=== PATIENT | female | born 1945 | race African-American/Black ===

== ENCOUNTER 2021-03-22 11:20 | Day surgery (SDC) | payer OTHER, MEDICARE ==
[2021-03-19 16:26] LABS: Absolute Lymphocytes (CBC) 2.3 K/uL (0.7-4.9); Basophils % 0.5 % (0-1.3); Hematocrit 36.9 % (36.0-45.0); Lymphocytes % 29.6 % (15.3-44.8); MPV 8.3 fL (7.6-11.3); RBC Red Blood Cell Count 4.56 M/uL (3.86-4.86)
[2021-03-19 16:35] LABS: Potassium 4.7 mmol/L (3.5-5.1)
[2021-03-19 16:38] LABS: Protime INR 1.01
--- NOTE | 2021-03-19 17:01 | RAD REPORT ---
EXAM DESCRIPTION: Colette De Leon And Tammy (2 Views)03/19/2021 4:27 pm CLINICAL HISTORY: Preop for heart catheterization. Hypertension COMPARISON: None FINDINGS: The lungs appear clear of acute infiltrate. The heart is mildly enlarged. Calcified granu elver right lung IMPRESSION: No acute abnormalities displayed
[2021-03-22] MEDS ORDERED: NA CHLORIDE 0.9% 500 ML ONE (11:26)
[2021-03-22] MEDS ORDERED: HEPA 1000U/500MLS 2,000 UNIT/1,000 ML BAG IV ONE (14:48)
[2021-03-22] MEDS ORDERED: LIDOCAINE 1% 20 ML MDV ONE (14:48)
[2021-03-22] MEDS ORDERED: HEPARIN 5000 UNIT/ML 1 ML VIAL ONE (15:00)
[2021-03-22] MEDS ORDERED: MIDAZOLAM HCL 2 MG/2 ML INJ ONE (15:00)
[2021-03-22] MEDS ORDERED: HEPARIN 10,000 UNIT/10 ML VIAL IV ONE (15:01)
[2021-03-22] MEDS ORDERED: VERAPAMIL HCL 10 MG/4 ML VIAL IV ONE (15:01)
[2021-03-22] MEDS ORDERED: FENTANYL CITR 100 MCG/2 ML ONE (15:01)
[2021-03-22] MEDS ORDERED: ATROPINE SULF 1 MG/10 ML SYR IV ONE (15:01)
[2021-03-22] MEDS ORDERED: HYDRALAZINE HCL 20 MG/ML VIAL ONE (15:55)
[2021-03-22 16:34] LABS: Arterial Blood Carboxyhemoglob 1.3 % (0-1.5); Blood Gas Oxyhemoglobin 77.5 % (94-97); Blood O2 Saturation 79.2 % (92-98.5)
--- NOTE | 2021-03-22 16:40 | OP ---
Date of Procedure: 03/22/2021 Surgeon: JIMENEZ MCCLENDON Procedures Performed: 1.Selective coronary angiogram. 2.Right heart catheterization. Indications: 1.Pulmonary hypertension. 2.Dyspnea on exertion and angina. Access: 1.Right radial artery 6-Jordanian closed with TR band. 2.Right IJ 7-Jordanian closed with manual pressure. Complications: None. Bleeding: Less than 10 mL. Description Of Procedure: After risks, benefits, and alternatives were explained, the patient to the procedure and signed informed consent. The patient was brought into the cardiac catheterization lab oratory, prepped and draped in usual sterile fashion. Then, we accessed the right radial artery usin g pediatric micropuncture kit and placed a 6-Jordanian Slender sheath and then accessed the right IJ usi ng ultrasound guidance and micropuncture kit and placed a 7-Jordanian sheath. Then, we took a balloon t ipped 7-Jordanian [place] catheter through the right IJ into the RA and waveform pressure was recorded and then to the RV, waveform pressure was recorded and then to the PA, waveform pressure and sat were rec orded and obtained, and then to the wedge waveform pressure recorded and then we removed the Carl[place] and then took a 5-Jordanian [place] 4.0 catheter through the radial artery sheath and accessed into the aorti c root over a J-wire, engaged left main and right coronary artery, took standard views and then remov ed the catheter and removed the sheath, placed TR band with good hemostasis and then removed the IJ, and manual pressure was applied for hemostasis. Findings: 1.Left main; large with luminal irregularities. 2.LAD; large vessel with proximal 30% to 40% stenosis, nonobstructive and the rest of the vessel has luminal irregularities. 3.Left circumflex is nondominant, tortuous with luminal irregularities. 4.RCA is large dominant with mid diffuse 30% stenosis with calcifications. Right Heart Catheterization Findings: RA pressure was 8/6 with mean of 6. RV pressure was 41/10 wit h mean of 10. PA pressure was 32/17 with mean of 25, and pulmonary wedge pressure was 12. PA sat is pending. Conclusions: 1.Woqe-ih-fezuwtuy nonobstructive coronary artery disease. 2.Mild pulmonary hypertension. Recommendations: Aggressive medical management. SR/MODL Voice ID: [id number] Report ID: [id number]
[2021-03-22 17:50] VITALS: TEMP 97.4
[2021-03-22 17:52] VITALS: BP 145/64; O2SAT 99
== END 2021-03-22 17:50 | disposition home or self-care (01) ==
LOC: CCL 11:20
PROVIDERS: ATTEND Internal Medicine
DX: I27.20 Pulmonary hypertension, unspecified (principal); I25.10 Atherosclerotic heart disease of native coronary artery without angina pectoris; I10 Essential (primary) hypertension; E78.5 Hyperlipidemia, unspecified; E11.9 Type 2 diabetes mellitus without complications; Z87.891 Personal history of nicotine dependence; Z79.82 Long term (current) use of aspirin; Z79.02 Long term (current) use of antithrombotics/antiplatelets; Z88.0 Allergy status to penicillin; Z88.3 Allergy status to other anti-infective agents; Z91.013 Allergy to seafood; Z20.822 Contact with and (suspected) exposure to COVID-19
CPT/HCPCS: 93005; 85025; 80048; 36415; 85610; 82947 ×2; 85730; 71046; 93456; 82805; U0002; C1893; J0360; J1644 ×2; J7040; J2250; J3010

== ENCOUNTER 2022-11-15 16:10 | Inpatient (IN) | payer OTHER, MEDICARE ==
--- OUTSIDE RECORDS SUMMARY | 2022-11-15 16:17 | XMS REPORT | Continuity of Care Document ---
:1945 Author Organization [facility] t Address [address] [place] [address] Dr. Chiang. [address] [place] [address] Care Team Providers Name Role Phone PCP, UNKNOWN Primary Care Physician Unavailable AARON MIRANDA Attending Clinician Unavailable AARON MIRANDA Attending Clinician Unavailable AARON MIRANDA Attending Clinician Unavailable Aaron Miranda MD Attending Clinician Susy Hernandez Attending Clinician Emeterio Bazan CRNA Attending Clinician [phone] ANUJ PENALOZA Attending Clinician Unavailable MARTHA JONES Attending Clinician Unavailable SANKET KELLY Attending Clinician Unavailable RENEA SINCLAIR Attending Clinician Unavailable TERRI MARSHALL Attending Clinician Unavailable Wing Matos Attending Clinician Unavailable LYN WONG Attending Clinician Unavailable NICOLE HERNÁNDEZ Attending Clinician Unavailable Darryl Jones MD Attending Clinician Unavailable DARRYL JONES Attending Clinician Unavailable Myla Ray MD Attending Clinician [phone] Mayra Colón Attending Clinician Unavailable GINGER SKELTON Attending Clinician Unavailable Mayra Colón Attending Clinician Unavailable Mayra Colón Attending Clinician Unavailable Nitin CLARKE, Aaron Attending Clinician Lima CLAKRE, Ingrid Michelle Attending Clinician [phone], Ods Attending Clinician Unavailable Abelardo Boone MD Attending Clinician AARON MIRANDA Admitting Clinician Unavailable AARON MIRANDA Admitting Clinician Unavailable Tera Wright Admitting Clinician Unavailable DARRYL JONES Admitting Clinician Unavailable Mayra Colón Admitting Clinician Unavailable MAYRA COLÓN Admitting Clinician Unavailable Payers Payer Name Policy Type Policy Number Effective Date Expiration Date [place] MEDICARE A B [id number] 2011 00:00:00 [employer] INDEMNITY NON [id number] 2017 CONTR 00:00:00 [facility] [id number] 2020 HEALTHCARE 00:00:00 MEDICARE PART A \T\ [id number] B - MEDICARE [facility] MEDICARE [id number] SUPPLEMENT PLAN - [facility] INDEMNITY/TRADITION [id number] AL CHOICE - [employer] Problems Condition Condition Condition Status Onset Resolution Last Treating Co mments Source Name Details Category Date Date Treatment Clinician Date 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 00:00: 00 Medicin e Allergies, Adverse Reactions, Alerts Allergy Allergy Status Severity Reaction(s) Onset Inactive Treating Comm ents Source Name Type Date Date Clinician Penicill DA Active AR [facility] Clear 00:00: Carbajal 00 [facility] erythrom DA Active [facility] ycin 4-18 Clear base 00:00: Carbajal 00 [facility] SHRIMP DA Active SV TONGUE [facility] SWELLING 4-18 Clear 00:00: Carbajal 00 [facility] Shrimp Drug Active Anaphylaxis, [facility] Medical [address] [place] [address] SHRIMP Allergy Active High Anaphylaxis [facility] Penicill Drug Active Hives [facility] Allergy 1[facility] Erythrom Drug Active Hives [facility] ycin Allergy 1-18 [facility] 00 Center Penicill Drug Active Hives [facility] ins Allergy 1-18 [facility] 00 Center ERYTHROM Allergy Active High Hives [facility] YCIN 1-18 [facility] 00[facility]: Medical 00 Center PENICILL Allergy Active High Hives [facility] INS 1-18 [facility] 00:[facility]: Medical 00 [place] Erythrom Propensi Active [facility] y[facility] ty to 118 College adverse 00:00: of reaction 00 Medicin s to e drug Penicill Propensi Active [facility] ins ty to 118 College adverse 00:00: of reaction 00 Medicin s to e drug Penicill DA Active [place] HIVES [facility] ins 8- Clear 00:00: Carbajal 00 [facility] erythrom DA Active [place] HIVES [facility] ycin 8-01 Clear base 00:00: Carbajal 00 [facility] SHRIMP DA Active U HIVES 2006- [facility] 0-19 Clear 00:00: Carbajal 00 [facility] Social History Social Habit Start Date Stop Date Quantity Comments Source Exposure to Yes [place] oswald SARS-CoV-2 of Medicine (event) Alcohol intake 2022-11-14 2022-11-14 Ex-drinker [facility] 00:[facility]:00 00:00:00 (finding) [facility] Tobacco use and 2021-01-24 2021-01-[address] [facility] [place] [facility] exposure 00:00:00 00:00:00 [facility] Tobacco Comment 2012-12-18 2012-12-18 QUIT 1974 [facility] 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 Clinician (SIG) Name Name acyclovir 2021-12 Yes 800mg Take [address] [facility] (ZOVIRAX) 2-15 mg by [facility] 400 MG 14:52: mouth 3 Medical tablet 35 (three) Center times daily as needed for Outbreaks. aspirin 81 2021-12 Yes 81mg QD Take [address] MG EC 2-15 by mouth [facility] tablet 14:52: daily. Medical 35 [place] atorvastati 2021-12 Yes 10mg QD Take [address] [facility] n (LIPITOR) 2-15 by mouth Luke s 10 MG 14:52: daily. Medical tablet 35 [place] levothyroxi 2021-12 Yes 50ug Take [address] [facility] ne 2-15 mcg by [facility] (SYNTHROID, 14:52: mouth Medic al LEVOTHROID) 35 Every Center 50 MCG morning on tablet an empty stomach. metoprolol 2021-12 Yes 50mg Q.5D Take [address] tartrate 2-15 by mouth 2 [facility] (LOPRESSOR) 14:52: (two) Medic al 50 MG 35 times Center tablet daily. clopidogreL 2021-12 Yes 75mg QD Take [address] [facility] (PLAVIX) 75 2-15 by mouth Luke s mg tablet 14:52: daily. Medica l 35 [place] insulin 2021-12 Yes type 2 40U QD Inject [address] [facility] degludec 2-15 diabetes Units [facility] (Tresiba 14:52: mellitus subcutaneo Medical FlexTouch 35 usly daily Cent er U-100) 100 . unit/mL (3 mL) InPn cetirizine 2021-12 Yes 10mg QD Take [address] (ZyrTEC) 10 2-15 by mouth Luke s MG tablet 14:52: daily. Medica l 35 [place] amLODIPine 2021-12 Yes 10mg QD Take [address] (NORVASC) 2-15 by mouth [facility] 10 MG 14:52: daily. Medical tablet 35 [place] brimonidine 2021-12 Yes 1[drp] Q.5D [address] [facility] -timoloL 2-15 (two) [facility] (COMBIGAN) 14:52: times Medica l 0.2-0.5 % 35 daily. [place] ophthalmic solution prednisoLON 2021-12 Yes 1[drp] Q.25D [address] [facility] E acetate 2-15 (four) [facility] (PRED 14:52: times Medical FORTE) 1 % 35 daily . [place] ophthalmic suspension spironolact 2021-12 Yes 25mg QD Take [address] [facility] one 2-15 by mouth [facility] (ALDACTONE) 14:52: daily. Medi jose 25 MG 35 Center tablet hydrALAZINE 2021-12 Yes 100mg Q.5D Take [address] (APRESOLINE 2-15 mg by [facility] ) 100 MG 14:52: mouth 2 Medica l tablet 35 (two) Center times daily . gabapentin 2021-12 Yes 300mg Q.[id number] Take [address] [facility] (NEURONTIN) 2-15 [id number] mg by L ukes 300 MG 14:52: 3D mouth 3 Medical capsule 35 (three) Center times daily. acyclovir 2021-12 Yes 800mg Take [address] [facility] (ZOVIRAX) 2-15 mg by [facility] 400 MG 14:52: mouth 3 Medical tablet 35 (three) Center times daily as needed for Outbreaks. aspirin 81 2021-12 Yes 81mg QD Take [address] MG EC 2-15 by mouth [facility] tablet 14:52: daily. Medical 35 [place] atorvastati 2021-12 Yes 10mg QD Take [address] [facility] n (LIPITOR) 2-15 by mouth Luke s 10 MG 14:52: daily. Medical tablet 35 Center levothyroxi 2021-12 Yes 50ug Take [address] [facility] ne 2-15 mcg by [facility] (SYNTHROID, 14:52: mouth Medic al LEVOTHROID) 35 Every Center 50 MCG morning on tablet an empty stomach. metoprolol 2021-12 Yes 50mg Q.5D Take [address] tartrate 2-15 by mouth 2 [facility] (LOPRESSOR) 14:52: (two) Medic al 50 MG 35 times Center tablet daily. clopidogreL 2021-12 Yes 75mg QD Take [address] [facility] (PLAVIX) 75 2-15 by mouth Luke s mg tablet 14:52: daily. Medica l 35 [place] insulin 2021-12 Yes type 2 40U QD Inject [address] [facility] degludec 2-15 diabetes Units [facility] (Tresiba 14:52: mellitus subcutaneo Medical FlexTouch 35 usly daily Cent er U-100) 100 . unit/mL (3 mL) InPn cetirizine 2021-12 Yes 10mg QD Take [address] (ZyrTEC) 10 2-15 by mouth Luke s MG tablet 14:52: daily. Medica l 35 Center amLODIPine 2021-12 Yes 10mg QD Take [address] (NORVASC) 2-15 by mouth [facility] 10 MG 14:52: daily. Medical tablet 35 Center brimonidine 2021-12 Yes 1[drp] Q.5D [address] [facility] -timoloL 2-15 (two) [facility] (COMBIGAN) 14:52: times Medica l 0.2-0.5 % 35 daily. [place] ophthalmic solution prednisoLON 2021-12 Yes 1[drp] Q.25D [address] [facility] E acetate 2-15 (four) [facility] (PRED 14:52: times Medical FORTE) 1 % 35 daily . [place] ophthalmic suspension spironolact 2021-12 Yes 25mg QD Take [address] [facility] one 2-15 by mouth [facility] (ALDACTONE) 14:52: daily. Medi jose 25 MG 35 Center tablet hydrALAZINE 2021-12 Yes 100mg Q.5D Take [address] (APRESOLINE 2-15 mg by [facility] ) 100 MG 14:52: mouth 2 Medica l tablet 35 (two) Center times daily . gabapentin 2021-12 Yes 300mg Q.[id number] Take [address] [facility] (NEURONTIN) 2-15 [id number] mg by L ukes 300 MG 14:52: 3D mouth 3 Medical capsule 35 (three) Center times daily. alendronate 2021-12- No 70mg Take [address] [facility] (FOSAMAX) 2-15 12-15 by mouth [facility] 70 MG 10:32: 00:00 every 7 Medical tablet 15 :00 days Take Center in the morning with a full glass of water, on an empty stomach, and do not take anything else by mouth or lie down for the next 30 min. . alendronate 2021-12 No 70mg Take [address] [facility] (FOSAMAX) 2-15 12-15 by mouth [facility] 70 MG 10:32: 00:00 every 7 Medical tablet 15 :00 days Take Center in the morning with a full glass of water, on an empty stomach, and do not take anything else by mouth or lie down for the next 30 min. . dorzolamide 2021-12 No 1[drp] Q.5D Place [address] [facility] -timoloL 12-09 drop into [facility] (COSOPT) 09:28: 00:00 both eyes Med ical 22.3-6.8 42 :00 2 (two) Center mg/mL times ophthalmic daily. solution brimonidine 2021-12 No 1[drp] Q.[id number] Place [address] [facility] (ALPHAGAN 12-09 [id number] drop into [facility] P) 0.1 % 09:28: 00:00 3D the left Medi jose Drop 42 :00 eye 3 Center (three) times daily. atropine 2021-12 No 1[drp] Q.[id number] Place [address] [facility] (ISOPTO) 1 12-09 [id number] drop into [facility] % 09:28: 00:00 3D the left Medical ophthalmic 42 :00 eye 3 Center solution (three) times daily. diflupredna 2021-12 No 1[drp] Q.[id number] Place [address] [facility] te 12-09 [id number] drop into [facility] (DurezoL) 09:28: 00:00 3D the left Med ical 0.05 % Drop 42 :00 eye 3 Center (three) times daily. moxifloxaci 2021-12 No 1[drp] Q.[id number] Place [address] [facility] n (VIGAMOX) 12-09 [id number] drop into [facility] 0.5 % 09:28: 00:00 3D the left Medical ophthalmic 42 :00 eye 3 Center solution (three) times daily. dorzolamide 2021-12 No 1[drp] Q.5D Place [address] [facility] -timoloL 12-09 drop into [facility] (COSOPT) 09:28: 00:00 both eyes Med ical 22.3-6.8 42 :00 2 (two) Center mg/mL times ophthalmic daily. solution brimonidine 2021-12 No 1[drp] Q.[id number] Place [address] [facility] (ALPHAGAN 12-09 [id number] drop into [facility] P) 0.1 % 09:28: 00:00 3D the left Medi jose Drop 42 :00 eye 3 Center (three) times daily. atropine 2021-12 No 1[drp] Q.[id number] Place [address] [facility] (ISOPTO) 1 12-09 [id number] drop into [facility] % 09:28: 00:00 3D the left Medical ophthalmic 42 :00 eye 3 Center solution (three) times daily. diflupredna 2021-12 No 1[drp] Q.[id number] Place [address] [facility] te 12-09 [id number] drop into [facility] (DurezoL) 09:28: 00:00 3D the left Med ical 0.05 % Drop 42 :00 eye 3 Center (three) times daily. moxifloxaci 2021-12 No 1[drp] Q.[id number] Place [address] [facility] n (VIGAMOX) 12-09 [id number] drop into [facility] 0.5 % 09:28: 00:00 3D the left Medical ophthalmic 42 :00 eye 3 Center solution (three) times daily. dorzolamide 2021-12 No 1[drp] Q.5D Place [address] [facility] -timoloL 12-09 drop into [facility] (COSOPT) 09:28: 00:00 both eyes Med ical 22.3-6.8 42 :00 2 (two) Center mg/mL times ophthalmic daily. solution brimonidine 2021-12 No 1[drp] Q.[id number] Place [address] [facility] (ALPHAGAN 12-09 [id number] drop into [facility] P) 0.1 % 09:28: 00:00 3D the left Medi jose Drop 42 :00 eye 3 Center (three) times daily. atropine 2021-12 No 1[drp] Q.[id number] Place [address] [facility] (ISOPTO) 1 12-09 [id number] drop into [facility] % 09:28: 00:00 3D the left Medical ophthalmic 42 :00 eye 3 Center solution (three) times daily. diflupredna 2021-12 No 1[drp] Q.[id number] Place [address] [facility] te 12-09 [id number] drop into [facility] (DurezoL) 09:28: 00:00 3D the left Med ical 0.05 % Drop 42 :00 eye 3 Center (three) times daily. moxifloxaci 2021-12 No 1[drp] Q.[id number] Place [address] [facility] n (VIGAMOX) 12-09 [id number] drop into [facility] 0.5 % 09:28: 00:00 3D the left Medical ophthalmic 42 :00 eye 3 Center solution (three) times daily. dorzolamide 2021-12 No 1[drp] Q.5D Place [address] [facility] -timoloL 12-09 drop into [facility] (COSOPT) 09:28: 00:00 both eyes Med ical 22.3-6.8 42 :00 2 (two) Center mg/mL times ophthalmic daily. solution brimonidine 2021-12 No 1[drp] Q.[id number] Place [address] [facility] (ALPHAGAN 12-09 [id number] drop into [facility] P) 0.1 % 09:28: 00:00 3D the left Medi jose Drop 42 :00 eye 3 Center (three) times daily. atropine 2021-12 No 1[drp] Q.[id number] Place [address] [facility] (ISOPTO) 1 12-09 [id number] drop into [facility] % 09:28: 00:00 3D the left Medical ophthalmic 42 :00 eye 3 Center solution (three) times daily. diflupredna 2021-12 No 1[drp] Q.[id number] Place [address] [facility] te 12-09 [id number] drop into [facility] (DurezoL) 09:28: 00:00 3D the left Med ical 0.05 % Drop 42 :00 eye 3 Center (three) times daily. moxifloxaci 2021-12 No 1[drp] Q.[id number] Place [address] [facility] n (VIGAMOX) 12-09 [id number] drop into [facility] 0.5 % 09:28: 00:00 3D the left Medical ophthalmic 42 :00 eye 3 Center solution (three) times daily. dorzolamide 2021-12 No 1[drp] Q.5D Place [address] [facility] -timoloL 12-09 drop into [facility] (COSOPT) 09:28: 00:00 both eyes Med ical 22.3-6.8 42 :00 2 (two) Center mg/mL times ophthalmic daily. solution brimonidine 2021-12 No 1[drp] Q.[id number] Place [address] [facility] (ALPHAGAN 12-09 [id number] drop into [facility] P) 0.1 % 09:28: 00:00 3D the left Medi jose Drop 42 :00 eye 3 Center (three) times daily. atropine 2021-12 No 1[drp] Q.[id number] Place [address] [facility] (ISOPTO) 12-09 [id number] drop into [facility] % 09:28: 00:00 3D the left Medical ophthalmic 42 :00 eye 3 Center solution (three) times daily. diflupredna 2021-12 No 1[drp] Q.[id number] Place [address] [facility] te 12-09 [id number] drop into [facility] (DurezoL) 09:28: 00:00 3D the left Med ical 0.05 % Drop 42 :00 eye 3 Center (three) times daily. moxifloxaci 2021-12 No 1[drp] Q.[id number] Place [address] [facility] n (VIGAMOX) 12-09 [id number] drop into [facility] 0.5 % 09:28: 00:00 3D the left Medical ophthalmic 42 :00 eye 3 Center solution (three) times daily. alendronate 2021-12 Yes 70mg Take [address] [facility] (FOSAMAX) 12-09 by mouth [facility] 70 MG 09:23: every 7 Medical tablet 37 days Take Center in the morning with a full glass of water, on an empty stomach, and do not take anything else by mouth or lie down for the next 30 min. . gabapentin 2021-12 Yes 300mg Q.[id number] Take [address] [facility] (NEURONTIN) 1-09 [id number] mg by L ukes 300 MG 09:23: 3D mouth 3 Medical capsule 37 (three) Center times daily. alendronate 2021-12 Yes 70mg Take [address] [facility] (FOSAMAX) 1-09 by mouth [facility] 70 MG 09:23: every 7 Medical tablet 37 days Take Center in the morning with a full glass of water, on an empty stomach, and do not take anything else by mouth or lie down for the next 30 min. . gabapentin 2021-12 Yes 300mg Q.[id number] Take [address] [facility] (NEURONTIN) 1-09 [id number] mg by L ukes 300 MG 09:23: 3D mouth 3 Medical capsule 37 (three) Center times daily. alendronate 2021-12 Yes 70mg Take [address] [facility] (FOSAMAX) 1-09 by mouth [facility] 70 MG 09:23: every 7 Medical tablet 37 days Take Center in the morning with a full glass of water, on an empty stomach, and do not take anything else by mouth or lie down for the next 30 min. . gabapentin 2021-12 Yes 300mg Q.[id number] Take [address] [facility] (NEURONTIN) 1-09 [id number] mg by L ukes 300 MG 09:23: 3D mouth 3 Medical capsule 37 (three) Center times daily. acyclovir 2021-12 Yes 800mg Take [address] (ZOVIRAX) 1-09 mg by [facility] 400 MG 09:22: mouth 3 Medical tablet 35 (three) Center times daily as needed for Outbreaks. aspirin 81 2021-12 Yes 81mg QD Take [address] MG EC - by mouth [facility] tablet 09:22: daily. Medical 35 Center atorvastati 2021-12 Yes 10mg QD Take [address] [facility] (LIPITOR) - by mouth Luke s 10 MG 09:22: daily. Medical tablet 35 Center levothyroxi 2021-12 Yes 50ug Take [address] [facility] ne 1-09 mcg by [facility] (SYNTHROID, 09:22: mouth Medic al LEVOTHROID) 35 Every Center 50 MCG morning on tablet an empty stomach. metoprolol 2021-12 Yes 50mg Q.5D Take [address] tartrate 12-09 by mouth 2 [facility] (LOPRESSOR) 09:22: (two) Medic al 50 MG 35 times Center tablet daily. clopidogreL 2021-12 Yes 75mg QD Take [address] [facility] (PLAVIX) 75 12-09 by mouth Luke s mg tablet 09:22: daily. Medica l 35 Center insulin 2021-12 Yes type 2 40U QD Inject [address] [facility] [address] degludec 12-09 diabetes Units [facility] (Tresiba 09:22: mellitus subcutaneo Medical FlexTouch 35 usly daily Cent er U-100) 100 . unit/mL (3 mL) InPn cetirizine 2021-12 Yes 10mg QD Take [address] (ZyrTEC) 10 12-09 by mouth Luke s MG tablet 09:22: daily. Medica l 35 Center amLODIPine 2021-12 Yes 10mg QD Take [address] (NORVASC) 12-09 by mouth [facility] 10 MG 09:22: daily. Medical tablet 35 Center brimonidine 2021-12 Yes 1[drp] Q.5D [address] [facility] [address] -timoloL 12-09 (two) [facility] (COMBIGAN) 09:22: times Medica l 0.2-0.5 % 35 daily. [place] ophthalmic solution prednisoLON 2021-12 Yes 1[drp] Q.25D [address] [facility] E acetate 12-09 (four) [facility] (PRED 09:22: times Medical FORTE) 1 % 35 daily . [place] ophthalmic suspension spironolact 2021-12 Yes 25mg QD Take [address] [facility] one 12-09 by mouth [facility] (ALDACTONE) 09:22: daily. Medi jose 25 MG 35 Center tablet hydrALAZINE 2021-12 Yes 100mg Q.5D Take [address] (APRESOLINE 1-09 mg by [facility] ) 100 MG 09:22: mouth 2 Medica l tablet 35 (two) Center times daily . acyclovir 2021-12 Yes 800mg Take [address] [address] (ZOVIRAX) 1-09 mg by [facility] 400 MG 09:22: mouth 3 Medical tablet 35 (three) Center times daily as needed for Outbreaks. aspirin 81 2021-12 Yes 81mg QD Take [address] MG EC 12-09 by mouth [facility] tablet 09:22: daily. Medical 35 [place] atorvastati 2021-12 Yes 10mg QD Take [address] [facility] n (LIPITOR) 12-09 by mouth Luke s 10 MG 09:22: daily. Medical tablet 35 [place] levothyroxi 2021-12 Yes 50ug Take [address] ne - mcg by [facility] (SYNTHROID, 09:22: mouth Medic al LEVOTHROID) 35 Every Center 50 MCG morning on tablet an empty stomach. metoprolol 2021-12 Yes 50mg Q.5D Take [address] tartrate - by mouth 2 [facility] (LOPRESSOR) 09:22: (two) Medic al 50 MG 35 times Center tablet daily. clopidogreL 2021-12 Yes 75mg QD Take [address] [facility] (PLAVIX) 75 12-09 by mouth Luke s mg tablet 09:22: daily. Medica l 35 [place] insulin 2021-12 Yes type 2 40U QD Inject [address] degludec 12-09 diabetes Units [facility] (Tresiba 09:22: mellitus subcutaneo Medical FlexTouch 35 usly daily Cent er U-100) 100 . unit/mL (3 mL) In cetirizine 2021-12 Yes 10mg QD Take [address] (ZyrTEC) 10 12-09 by mouth Luke s MG tablet 09:22: daily. Medica l 35 [place] amLODIPine 2021-12 Yes 10mg QD Take [address] (NORVASC) 12-09 by mouth [facility] 10 MG 09:22: daily. Medical tablet 35 [place] brimonidine 2021-12 Yes 1[drp] Q.5D [address] [facility] [address] -timoloL - (two) [facility] (COMBIGAN) 09:22: times Medica l 0.2-0.5 % 35 daily. [place] ophthalmic solution prednisoLON 2021-12 Yes 1[drp] Q.25D [address] [facility] E acetate - (four) [facility] (PRED 09:22: times Medical FORTE) 1 % 35 daily . [place] ophthalmic suspension spironolact 2021-12 Yes 25mg QD Take [address] [facility] one - by mouth [facility] (ALDACTONE) 09:22: daily. Medi jose 25 MG 35 Center tablet hydrALAZINE 2021-12 Yes 100mg Q.5D Take [address] (APRESOLINE 1-09 mg by [facility] ) 100 MG 09:22: mouth 2 Medica l tablet 35 (two) Center times daily . acyclovir 2021-12 Yes 800mg Take [address] (ZOVIRAX) 1-09 mg by [facility] 400 MG 09:22: mouth 3 Medical tablet 35 (three) Center times daily as needed for Outbreaks. aspirin 81 2021-12 Yes 81mg QD Take [address] MG EC 12-09 by mouth [facility] tablet 09:22: daily. Medical 35 Center atorvastati 2021-12 Yes 10mg QD Take [address] [facility] (LIPITOR) 12-09 by mouth Luke s 10 MG 09:22: daily. Medical tablet 35 [place] levothyroxi 2021-12 Yes 50ug Take [address] ne - mcg by [facility] (SYNTHROID, 09:22: mouth Medic al LEVOTHROID) 35 Every Center 50 MCG morning on tablet an empty stomach. metoprolol 2021-12 Yes 50mg Q.5D Take [address] tartrate -09 by mouth 2 [facility] (LOPRESSOR) 09:22: (two) Medic al 50 MG 35 times Center tablet daily. clopidogreL 2021-12 Yes 75mg QD Take [address] [facility] (PLAVIX) 75 12-09 by mouth Luke s mg tablet 09:22: daily. Medica l 35 Center insulin 2021-12 Yes type 2 40U QD Inject [address] degludec 12-09 diabetes Units [facility] (Tresiba 09:22: mellitus subcutaneo Medical FlexTouch 35 usly daily Cent er U-100) 100 . unit/mL (3 mL) InPn cetirizine 2021-12 Yes 10mg QD Take [address] (ZyrTEC) 10 - by mouth Luke s MG tablet 09:22: daily. Medica l 35 Center amLODIPine 2021-12 Yes 10mg QD Take [address] (NORVASC) -09 by mouth [facility] 10 MG 09:22: daily. Medical tablet 35 Center brimonidine 2021-12 Yes 1[drp] Q.5D [address] [facility] [address] -timoloL 12-09 (two) [facility] (COMBIGAN) 09:22: times Medica l 0.2-0.5 % 35 daily. [place] ophthalmic solution prednisoLON 2021-12 Yes 1[drp] Q.25D [address] [facility] E acetate 12-09 (four) [facility] (PRED 09:22: times Medical FORTE) 1 % 35 daily . [place] ophthalmic suspension spironolact 2021-12 Yes 25mg QD Take [address] [facility] one 12-09 by mouth [facility] (ALDACTONE) 09:22: daily. Medi jose 25 MG 35 Center tablet hydrALAZINE 2021-12 Yes 100mg Q.5D Take [address] (APRESOLINE - mg by [facility] ) 100 MG 09:22: mouth 2 Medica l tablet 35 (two) Center times daily . losartan 2021-12- No 100mg QD Take [address] [facility] (COZAAR) 12-09-09 mg by [facility] 100 MG 09:20: 00:00 mouth Medical tablet 00 :00 daily. [place] losartan 2021-12- No 100mg QD Take [address] [facility] (COZAAR) 12-09- mg by [facility] 100 MG 09:20: 00:00 mouth Medical tablet 00 :00 daily. [place] losartan 2021-12- No 100mg QD Take [address] [facility] (COZAAR) - 11-09 mg by [facility] 100 MG 09:20: 00:00 mouth Medical tablet 00 :00 daily. [place] losartan 2021-12- No 100mg QD Take [address] (COZAAR) 12-09-09 mg by [facility] 100 MG 09:20: 00:00 mouth Medical tablet 00 :00 daily. [place] losartan 2021-12- No 100mg QD Take [address] [facility] [address] (COZAAR) 12-09 11-09 mg by [facility] 100 MG 09:20: 00:00 mouth Medical tablet 00 :00 daily. [place] folic 2021-12- No 1{tbl} QD Take [address] [facility] acid/multiv 12-09 tablet by [place] [facility] it-min/lute 09:19: 00:00 mouth Medi jose in (CENTRUM 48 :00 daily. [place] SILVER ORAL) folic 2021-12- No 1{tbl} QD Take [address] [facility] [address] acid/multiv 12-09 tablet by [place] [facility] it-min/lute 09:19: 00:00 mouth Medi jose in (CENTRUM 48 :00 daily. [place] SILVER ORAL) folic 2021-12 No 1{tbl} QD Take [address] [facility] [address] acid/multiv 12-09 tablet by [place] [facility] it-min/lute 09:19: 00:00 mouth Medi jose in (CENTRUM 48 :00 daily. [facility] ORAL) folic 2021-12 No 1{tbl} QD Take [address] acid/multiv 12-09 tablet by [place] [facility] it-min/lute 09:19: 00:00 mouth Medi jose in (CENTRUM 48 :00 daily. [place] SILVER ORAL) folic 2021-12 No 1{tbl} QD Take [address] [address] acid/multiv 12-09 tablet by [place] [facility] it-min/lute 09:19: 00:00 mouth Medi jose in (CENTRUM 48 :00 daily. [facility] ORAL) calcium 2021-12 No 1{tbl} QD Take 1 [facility] carbonate-v 12-09 tablet by [place] [facility] itamin D3 09:19: 00:00 mouth Medica l (CALTRATE-D 13 :00 daily. Center ) 600 mg(1,500mg) -400 unit Tab calcium 2021-12- No 1{tbl} QD Take 1 [facility] carbonate-v 12-09 tablet by [place] [facility] itamin D3 09:19: 00:00 mouth Medica l (CALTRATE-D 13 :00 daily. Center ) 600 mg(1,500mg) -400 unit Tab calcium 2021-12- No 1{tbl} QD Take 1 [facility] carbonate-v 12-09 tablet by [place] [facility] itamin D3 09:19: 00:00 mouth Medica l (CALTRATE-D 13 :00 daily. Center ) 600 mg(1,500mg) -400 unit Tab calcium 2021-12- No 1{tbl} QD Take [facility] 12-09 tablet by [place] kes itamin D3 09:19: 00:00 mouth Medica l (CALTRATE-D 13 :00 daily. Center ) 600 mg(1,500mg) -400 unit Tab calcium 2021-12- No 1{tbl} QD Take 1 [facility] 12-09 tablet by [place] hebert itamin D3 09:19: 00:00 mouth Medica l (CALTRATE-D 13 :00 daily. Center ) 600 mg(1,500mg) -400 unit Tab acyclovir Yes 800mg Take [address] [facility] (ZOVIRAX) 2-22 mg by [facility] 400 MG 08:58: mouth 3 Medical tablet 18 (three) Center times daily as needed for Outbreaks. aspirin 81 Yes 81mg QD Take [address] MG EC 2-22 by mouth [facility] tablet 08:58: daily. Medical 18 [place] atorvastati Yes 10mg QD Take [address] [facility] n (LIPITOR) 2-22 by mouth [facility] 10 MG 08:58: daily. Medical tablet 18 [place] folic Yes 1{tbl} QD Take [address] [facility] acid/multiv 2-22 tablet by Derek es it-min/lute 08:58: mouth Medic al in (CENTRUM 18 daily. [place] SILVER ORAL) levothyroxi Yes 50ug Take [address] [facility] ne 2-22 mcg by [facility] (SYNTHROID, 08:58: mouth Medic al LEVOTHROID) 18 Every Center 50 MCG morning on tablet an empty stomach. losartan Yes 100mg QD Take [address] [facility] (COZAAR) 2-22 mg by [facility] 100 MG 08:58: mouth Medical tablet 18 daily. [place] metoprolol Yes 50mg Q.5D Take [address] tartrate 2-22 by mouth 2 [facility] (LOPRESSOR) 08:58: (two) Medic al 50 MG 18 times Center tablet daily. clopidogreL Yes 75mg QD Take [address] [facility] (PLAVIX) 75 2-22 by mouth [facility] mg tablet 08:58: daily. Medica l 18 [place] insulin Yes type 2 40U QD Inject [address] [facility] degludec 2-22 diabetes Units [facility] (Tresiba 08:58: mellitus subcutaneo Medical FlexTouch 18 usly daily Cent er U-100) 100 . unit/mL (3 mL) InPn calcium Yes 1{tbl} QD Take [address] [facility] carbonate-v 2-22 tablet by Derek es itamin D3 08:58: mouth Medical (CALTRATE-D 18 daily. Center ) 600 mg(1,500mg) -400 unit Tab cetirizine Yes 10mg QD Take [address] (ZyrTEC) 10 2-22 by mouth [facility] MG tablet 08:58: daily. Medica l 18 Center amLODIPine Yes 10mg QD Take [address] (NORVASC) 2-22 by mouth [facility] 10 MG 08:58: daily. Medical tablet 18 Center dorzolamide Yes 1[drp] Q.5D Place [address] [facility] -timoloL 2-22 drop into [facility] (COSOPT) 08:58: both eyes Medi jose 22.3-6.8 18 2 (two) Center mg/mL times ophthalmic daily. solution brimonidine Yes 1[drp] Q.[id number] Place [address] [facility] (ALPHAGAN 2-22 [id number] drop into [facility] P) 0.1 % 08:58: 3D the left Medic al Drop 18 eye 3 Center (three) times daily. atropine Yes 1[drp] Q.[id number] Place [address] [facility] (ISOPTO) 1 2- [id number] drop into [facility] % 08:58: 3D the left Medical ophthalmic 18 eye 3 Center solution (three) times daily. diflupredna Yes 1[drp] Q.[id number] Place [address] [facility] te 2-22 [id number] drop into [facility] (DurezoL) 08:58: 3D the left Medi jose 0.05 % Drop 18 eye 3 Center (three) times daily. moxifloxaci Yes 1[drp] Q.[id number] Place [address] [facility] (VIGAMOX) 2-22 [id number] drop into [facility] 0.5 % 08:58: 3D the left Medical ophthalmic 18 eye 3 Center solution (three) times daily. acyclovir Yes 800mg Take [address] [facility] (ZOVIRAX) 2-22 mg by [facility] 400 MG 08:58: mouth 3 Medical tablet 18 (three) Center times daily as needed for Outbreaks. aspirin 81 Yes 81mg QD Take [address] MG EC 2-22 by mouth [facility] tablet 08:58: daily. Medical 18 Center atorvastati Yes 10mg QD Take [address] [facility] (LIPITOR) 2-22 by mouth [facility] 10 MG 08:58: daily. Medical tablet 18 [place] folic Yes 1{tbl} QD Take [address] [facility] acid/multiv 2-22 tablet by Derek es it-min/lute 08:58: mouth Medic al in (CENTRUM 18 daily. [place] SILVER ORAL) levothyroxi Yes 50ug Take [address] [facility] ne 2-22 mcg by [facility] (SYNTHROID, 08:58: mouth Medic al LEVOTHROID) 18 Every Center 50 MCG morning on tablet an empty stomach. losartan Yes 100mg QD Take [address] [facility] (COZAAR) 2-22 mg by [facility] 100 MG 08:58: mouth Medical tablet 18 daily. [place] metoprolol Yes 50mg Q.5D Take [address] tartrate 2-22 by mouth 2 [facility] (LOPRESSOR) 08:58: (two) Medic al 50 MG 18 times Center tablet daily. clopidogreL Yes 75mg QD Take [address] [facility] (PLAVIX) 75 2-22 by mouth [facility] mg tablet 08:58: daily. Medica l 18 [place] insulin Yes type 2 40U QD Inject [address] [facility] degludec 2-22 diabetes Units [facility] (Tresiba 08:58: mellitus subcutaneo Medical FlexTouch 18 usly daily Cent er U-100) 100 . unit/mL (3 mL) InPn calcium Yes 1{tbl} QD Take [address] [facility] carbonate-v 2-22 tablet by Derek es itamin D3 08:58: mouth Medical (CALTRATE-D 18 daily. [place] ) 600 mg(1,500mg) -400 unit Tab cetirizine Yes 10mg QD Take [address] (ZyrTEC) 10 2-22 by mouth [facility] MG tablet 08:58: daily. Medica l 18 [place] amLODIPine Yes 10mg QD Take [address] (NORVASC) 2-22 by mouth [facility] 10 MG 08:58: daily. Medical tablet 18 Center dorzolamide Yes 1[drp] Q.5D Place [address] -timoloL 2-22 drop into [facility] (COSOPT) 08:58: both eyes Medi jose 22.3-6.8 18 2 (two) Center mg/mL times ophthalmic daily. solution brimonidine Yes 1[drp] Q.[id number] Place [address] [facility] (ALPHAGAN 2- [id number] drop into [facility] P) 0.1 % 08:58: 3D the left Medic al Drop 18 eye 3 Center (three) times daily. atropine Yes 1[drp] Q.[id number] Place [address] [facility] (ISOPTO) 1 2- [id number] drop into [facility] % 08:58: 3D the left Medical ophthalmic 18 eye 3 Center solution (three) times daily. diflupredna Yes 1[drp] Q.[id number] Place [address] [facility] te 2- [id number] drop into [facility] (DurezoL) 08:58: 3D the left Medi jose 0.05 % Drop 18 eye 3 Center (three) times daily. moxifloxaci Yes 1[drp] Q.[id number] Place [address] [facility] n (VIGAMOX) - [id number] drop into [facility] 0.5 % 08:58: 3D the left Medical ophthalmic 18 eye 3 Center solution (three) times daily. spironolact 2021- No 25mg QD Take [address] [facility] one 2-22 01-22 by mouth [facility] (ALDACTONE) 06:44: 00:00 daily. Med ical 25 MG 34 :00 Center tablet spironolact 0 2021- No 25mg QD Take [address] [facility] one 2-22 -22 by mouth [facility] (ALDACTONE) 06:44: 00:00 daily. Med ical 25 MG 34 :00 Center tablet spironolact 2021- No 25mg QD Take [address] [facility] one 2-22 01-22 by mouth [facility] (ALDACTONE) 06:44: 00:00 daily. Med ical 25 MG 34 :00 Center tablet spironolact 2021- No 25mg QD Take [address] [facility] one -22 01- by mouth [facility] (ALDACTONE) 06:44: 00:00 daily. Med ical 25 MG 34 :00 Center tablet spironolact 2021- No 25mg QD Take [address] [facility] one -22 01-22 by mouth [facility] (ALDACTONE) 06:44: 00:00 daily. Med ical 25 MG 34 :00 Center tablet spironolact 2021- No 25mg QD Take [address] [facility] one -22 01- by mouth [facility] (ALDACTONE) 06:44: 00:00 daily. Med ical 25 MG 34 :00 Center tablet spironolact 2021- No 25mg QD Take [address] [facility] one -22 01- by mouth [facility] (ALDACTONE) 06:44: 00:00 daily. Med ical 25 MG 34 :00 Center tablet acyclovir 2020-0 Yes TAKE 1 TAB [facility] (ZOVIRAX) 08-08 BY MOUTH 5 [facility] 400 MG 00:00: TIMES of tablet 00 DAILY FOR Medicin 20 DAYS. e Nebivolol 2020-0 Yes Take by [facility] HCl 08-02 mouth. [place] (BYSTOLIC) 16:01: of 10 MG TABS 03 Medicin e Azilsartan 2020-0 Yes Take by [facility] Medoxomil - mouth. [place] (EDARBI) 80 16:01: of MG TABS 03 Medicin e metformin 2020-0 Yes 1000mg Take 1,000 [facility] (GLUCOPHAGE 9-02 mg by [place] ) 1000 MG 16:01: mouth 2 of tablet 03 times Medicin daily e (with meals). Gabapentin, 2020-0 Yes Take by [place] [facility], 300 MG - mouth. [facility] TABS 16:01: of 03 Medicin e Pitavastati 2020-0 Yes Take by [place] [facility] Calcium - mouth. [place] (LIVALO) 4 16:01: of MG TABS 03 Medicin e cetirizine 2020-0 Yes 10mg Take 10 mg [facility] (ZYRTEC) 10 -02 by mouth [facility] MG chewable 16:01: daily. of tablet 03 Medicin e Calcium 2020-0 Yes Take by [facility] Carbonate-V 08-02 mouth. [place] [facility] it D-Min 16:01: of [id number] 03 Medicin MG-UNIT e CHEW Multiple 2020-0 Yes Take by [facility] Vitamins-Mi 08-02 mouth. [facility] o[facility] nerals 16:01: of (CENTRUM 03 Medicin ULTRA e WOMENS OR) hydrochloro 2020-0 Yes 12.5mg Take 12.5 [facility] thiazide 9-02 mg by [place] (MICROZIDE) 16:01: mouth of 12.5 MG 03 daily. Medicin capsule e celecoxib 2020-0 Yes 200mg Take 200 [place] (CELEBREX) 9-02 mg by [place] 200 MG 16:01: mouth two of capsule 03 times Medicin daily. e levothyroxi 2020-0 Yes 25ug Take 25 [place] ne - mcg by [place] (SYNTHROID) 16:01: mouth of 25 MCG 03 daily. Medicin tablet e SPIRONOLACT 2020-0 Yes Take by [place] ONE OR 08-02 mouth. [place] 16:01: of 03 Medicin e METOPROLOL 2020-0 Yes Take by [facility] TARTRATE OR 08-02 mouth. Colle e 16:01: of 03 Medicin e Clopidogrel 2020-0 Yes Take by [place] Bisulfate 08-02 mouth. [place] (PLAVIX OR) 16:01: of 03 Medicin e LOVASTATIN 2020-0 Yes Take by [facility] OR 08-02 mouth. [place] 16:01: of 03 Medicin e Insulin 2020-0 Yes Inject [facility] Degludec 08-02 into [facility] (TRESIBA 16:01: skin. of [place]) 03 Medicin e Aflibercept 2020-0 Yes [id number] 2mg 2 mg, [facility] (EYLEA) 2 8-31 Intravitre [facility] MG/0.05ML 17:18: al, of injection 2 29 Starting Medi ida mg Mon e 07/31/20 at 1218, Until Discontinu ed Aflibercept 2020-0 Yes [id number] 2mg 2 mg, [facility] (EYLEA) 2 8-31 Intravitre [facility] MG/0.05ML 17:18: al, of injection 2 22 Starting Medi ida mg Mon e 07/31/20 at 1218, Until Discontinu ed Aflibercept 2020-0 Yes [id number] 2mg 2 mg, [facility] (EYLEA) 2 7-06 Intravitre [facility] MG/0.05ML 16:00: al, of injection 2 24 Starting Medi ida mg Fri06/05/20 e at 1100, Until Discontinu ed Aflibercept 2020-0 Yes [id number] 2mg 2 mg, [facility] (EYLEA) 2 7-06 Intravitre [facility] MG/0.05ML 16:00: al, of injection 2 15 Starting Medi ida mg Fri06/05/20 e at 1100, Until Discontinu ed acyclovir 2020-0 Yes TAKE 1 TAB [facility] (ZOVIRAX) 6-22 BY MOUTH 5 [facility] 400 MG 00:00: TIMES of tablet 00 DAILY FOR Medicin 20 DAYS. e acyclovir 2020-0 Yes TAKE 1 TAB [facility] (ZOVIRAX) 6-22 BY MOUTH 5 [facility] 400 MG 00:00: TIMES of tablet 00 DAILY FOR Medicin 20 DAYS. e acyclovir 2020-0 Yes TAKE 1 TAB [facility] (ZOVIRAX) 6-22 BY MOUTH 5 [facility] 400 MG 00:00: TIMES of tablet 00 DAILY FOR Medicin 20 DAYS. e Aflibercept 2020-0 Yes [id number] 2mg 2 mg, [facility] (EYLEA) 2 5-15 Intravitre [facility] MG/0.05ML 17:43: al, of injection 2 45 Starting Medi ida mg Fri e 04/14/20 at 1243, Until Discontinu ed Aflibercept 2020-0 Yes [id number] 2mg 2 mg, [facility] (EYLEA) 2 5-15 Intravitre [facility] e[facility] MG/0.05ML 17:43: al, of injection 2 25 Starting Medi ida mg Fri e 04/14/20 at 1243, Until Discontinu ed ofloxacin 2020-0 Yes 1[drp] Apply 1 [facility] (OCUFLOX) 5-06 Drop to [facility] 0.3 % 00:00: eye 3 of Solution 00 times Medicin daily. e Start the day before surgery ofloxacin 2020-0 Yes 1[drp] Apply 1 [facility] (OCUFLOX) 5-06 Drop to [facility] 0.3 % 00:00: eye 3 of Solution 00 times Medicin daily. e Start the day before surgery ofloxacin 2020-0 Yes 1[drp] Apply 1 [facility] (OCUFLOX) 5-06 Drop to [facility] 0.3 % 00:00: eye 3 of Solution 00 times Medicin daily. e Start the day before surgery ofloxacin 2020-0 Yes 1[drp] Apply 1 [facility] (OCUFLOX) 5-06 Drop to [place] 0.3 % 00:00: eye 3 of Solution 00 times Medicin daily. e Start the day before surgery ofloxacin 2020-0 Yes 1[drp] Apply 1 [facility] (OCUFLOX) 5-06 Drop to [facility] 0.3 % 00:00: eye 3 of Solution 00 times Medicin daily. e Start the day before surgery ofloxacin 2020-0 Yes 1[drp] Apply 1 [facility] (OCUFLOX) 5-06 Drop to [facility] 0.3 % 00:00: eye 3 of Solution 00 times Medicin daily. e Start the day before surgery ofloxacin 2020-0 Yes 1[drp] Apply 1 [facility] (OCUFLOX) 5-06 Drop to [place] 0.3 % 00:00: eye 3 of Solution 00 times Medicin daily. e Start the day before surgery acyclovir 2020-0 2020- No 400mg Take 1 Tab [facility] (ZOVIRAX) 5- 05-27 by mouth 5 [facility] 400 MG 00:00: 04:59 times of tablet 00 :00 daily for Medicin 20 days. e acyclovir 2020-0 2020- No 400mg Take 1 Tab [facility] (ZOVIRAX) 5-06 05-27 by mouth 5 [facility] 400 MG 00:00: 04:59 times of tablet 00 :00 daily for Medicin 20 days. e Insulin 2020-0 Yes Inject [facility] Degludec 4-30 [facility] (TRESIBA 18:31: skin. of [place]) 35 Medicin e Insulin 2020-0 Yes Inject [facility] Degludec 4-30 into [facility] (TRESIBA 18:31: skin. of [place]) 35 Medicin e Insulin 2020-0 Yes Inject [facility] Degludec 4-30 into [facility] (TRESIBA 18:31: skin. of [place]) 35 Medicin e Insulin 2020-0 Yes Inject [facility] Degludec 4-30 into the [facility] (TRESIBA 18:31: skin. of [place]) 35 Medicin e Insulin 2020-0 Yes Inject [facility] Degludec 4-30 into the [facility] (TRESIBA 18:31: skin. of [place]) 35 Medicin e Insulin 2020-0 Yes Inject [facility] Degludec 4-30 into [facility] (TRESIBA 18:31: skin. of [place]) 35 Medicin e Insulin 2020-0 Yes Inject [facility] Degludec 4-30 into [facility] (TRESIBA 18:31: skin. of [place]) 35 Medicin e Insulin 2020-0 Yes Inject [facility] Degludec 4-30 into [facility] (TRESIBA 18:31: skin. of [place]) 35 Medicin e glyBURIDE 2020-0 2020- No 6mg Take 6 mg [facility] micronized 4-30 04-30 by mouth [facility] (GLYNASE) 6 18:31: 00:00 two times of MG tablet 35 :00 daily. Medicin e glyBURIDE 2020-0 2020- No 6mg Take 6 mg [facility] micronized 4-30 04-30 by mouth [facility] (GLYNASE) 6 18:31: 00:00 two times of MG tablet 35 :00 daily. Medicin e PRED FORTE 2019-0 Yes Use 1 drop [facility] % 4-30 4 times a [facility] ophthalmic 00:00: day in the o f suspension 00 left eye Medic in e PRED FORTE 2019-0 Yes Use 1 drop [facility] 1 % 4-30 4 times a [facility] ophthalmic 00:00: day in the o f suspension 00 left eye Medic in e PRED FORTE 2019-0 Yes Use 1 drop [facility] 1 % 4-30 4 times a [facility] ophthalmic 00:00: day in the o f suspension 00 left eye Medic in e PRED FORTE 2019-0 Yes Use 1 drop [facility] 1 % 4-30 4 times a [facility] ophthalmic 00:00: day in the o f suspension 00 left eye Medic in e PRED FORTE 2019-0 Yes Use 1 drop [facility] 1 % 4-30 4 times a [facility] ophthalmic 00:00: day in the o f suspension 00 left eye Medic in e PRED FORTE 2019-0 Yes Use 1 drop [facility] 1 % 4-30 4 times a [facility] ophthalmic 00:00: day in the o f suspension 00 left eye Medic in e PRED FORTE 2020-0 Yes Use 1 drop [facility] 1 % 4-30 4 times a [facility] ophthalmic 00:00: day in the o f suspension 00 left eye Medic in e PRED FORTE 2020-0 Yes Use 1 drop [facility] 1 % 4-30 4 times a [place] ophthalmic 00:00: day in the o f suspension 00 left eye Medic in e PRED FORTE 2020-0 Yes Use 1 drop [facility] 1 % 4-30 4 times a [place] ophthalmic 00:00: day in the o f suspension 00 left eye Medic in e acyclovir 2020-0 2020- No 400mg Take 1 Tab [facility] (ZOVIRAX) 03-30-11 by mouth 5 [facility] 400 MG 00:00: 04:59 times of tablet 00 :00 daily for Medicin 10 days. e acyclovir 2020-0 2020- No 400mg Take 1 Tab [facility] (ZOVIRAX) -30 05-11 by mouth 5 [facility] 400 MG 00:00: 04:59 times of tablet 00 :00 daily for Medicin 10 days. e acyclovir 2019-0 2020- No 400mg Take 1 Tab [facility] (ZOVIRAX) 03-30 05-06 by mouth 5 [facility] 400 MG 00:00: 00:00 times of tablet 00 :00 daily for Medicin 10 days. e Nebivolol 2020-0 Yes Take by [facility] HCl 4-21 mouth. [place] (BYSTOLIC) 21:13: of 10 MG TABS 05 Medicin e Azilsartan 2020-0 Yes Take by [facility] Medoxomil 4-21 mouth. [place] (EDARBI) 80 21:13: of MG TABS 05 Medicin e metformin 2020-0 Yes 1000mg Take 1,000 [facility] (GLUCOPHAGE 4-21 mg by [place] ) 1000 MG 21:13: mouth 2 of tablet 05 times Medicin daily e (with meals). Gabapentin, 2020-0 Yes Take by [facility] [facility], 300 MG 4-21 mouth. [facility] e TABS 21:13: of 05 Medicin e Pitavastati 2020-0 Yes Take by [place] n Calcium 4-21 mouth. [place] (LIVALO) 4 21:13: of MG TABS 05 Medicin e glyBURIDE 2020-0 Yes 6mg Take 6 mg [facility] [facility] micronized 4-21 by mouth [facility] (GLYNASE) 6 21:13: two times o f MG tablet 05 daily. Medicin e cetirizine 2020-0 Yes 10mg Take 10 mg [facility] (ZYRTEC) 10 4-21 by mouth [facility] MG chewable 21:13: daily. of tablet 05 Medicin e Calcium 2020-0 Yes Take by [facility] Carbonate-V 4-21 mouth. [facility] it D-Min 21:13: of [id number] 05 Medicin MG-UNIT e CHEW Multiple 2020-0 Yes Take by [facility] Vitamins-Mi 4-21 mouth. [facility] osw[facility] nerals 21:13: of (CENTRUM 05 Medicin ULTRA e WOMENS OR) hydrochloro 2020-0 Yes 12.5mg Take 12.5 [facility] thiazide 4-21 mg by [place] (MICROZIDE) 21:13: mouth of 12.5 MG 05 daily. Medicin capsule e celecoxib 2020-0 Yes 200mg Take 200 [place] (CELEBREX) 4-21 mg by [place] 200 MG 21:13: mouth two of capsule 05 times Medicin daily. e levothyroxi 2020-0 Yes 25ug Take 25 [place] ne 4-21 mcg by [place] (SYNTHROID) 21:13: mouth of 25 MCG 05 daily. Medicin tablet e SPIRONOLACT 2020-0 Yes Take by [place] ONE OR 4-21 mouth. [place] 21:13: of 05 Medicin e METOPROLOL 2020-0 Yes Take by [facility] TARTRATE OR 4-21 mouth. [facility] 21:13: of 05 Medicin e Clopidogrel 2020-0 Yes Take by [place] Bisulfate 4-21 mouth. [place] (PLAVIX OR) 21:13: of 05 Medicin e LOVASTATIN 2020-0 Yes Take by [facility] OR 4-21 mouth. [facility] 21:13: of 05 Medicin e Nebivolol 2020-0 Yes Take by [facility] HCl 4-21 mouth. [place] (BYSTOLIC) 21:13: of 10 MG TABS 05 Medicin e Azilsartan 2020-0 Yes Take by [facility] Medoxomil 4-21 mouth. [place] (EDARBI) 80 21:13: of MG TABS 05 Medicin e metformin 2020-0 Yes 1000mg Take 1,000 [facility] (GLUCOPHAGE 4-21 mg by [facility] ) 1000 MG 21:13: mouth 2 of tablet 05 times Medicin daily e (with meals). Gabapentin, 2020-0 Yes Take by [facility] [facility], 300 MG 4-21 mouth. [facility] e TABS 21:13: of 05 Medicin e Pitavastati 2020-0 Yes Take by [place] [facility] n Calcium 4-21 mouth. [place] (LIVALO) 4 21:13: of MG TABS 05 Medicin e cetirizine 2020-0 Yes 10mg Take 10 mg [facility] (ZYRTEC) 10 4-21 by mouth [facility] MG chewable 21:13: daily. of tablet 05 Medicin e Calcium 2020-0 Yes Take by [facility] Carbonate-V 4-21 mouth. Colleg e it D-Min 21:13: of [id number] 05 Medicin MG-UNIT e CHEW Multiple 2020-0 Yes Take by [facility] Vitamins-Mi 4-21 mouth. [facility] e nerals 21:13: of (CENTRUM 05 Medicin ULTRA e WOMENS OR) hydrochloro 2020-0 Yes 12.5mg Take 12.5 [facility] thiazide 4-21 mg by [place] (MICROZIDE) 21:13: mouth of 12.5 MG 05 daily. Medicin capsule e celecoxib 2020-0 Yes 200mg Take 200 [facility] [facility] (CELEBREX) 4-21 mg by [place] 200 MG 21:13: mouth two of capsule 05 times Medicin daily. e levothyroxi 2020-0 Yes 25ug Take 25 [place] ne 4-21 mcg by [place] (SYNTHROID) 21:13: mouth of 25 MCG 05 daily. Medicin tablet e SPIRONOLACT 2020-0 Yes Take by [place] [facility] ONE OR 4-21 mouth. [place] 21:13: of 05 Medicin e METOPROLOL 2020-0 Yes Take by [facility] TARTRATE OR 4-21 mouth. Colleg e 21:13: of 05 Medicin e Clopidogrel 2020-0 Yes Take by [place] Bisulfate 4-21 mouth. [place] (PLAVIX OR) 21:13: of 05 Medicin e LOVASTATIN 2020-0 Yes Take by [facility] OR 4-21 mouth. [facility] 21:13: of 05 Medicin e Nebivolol 2020-0 Yes Take by [facility] HCl 4-21 mouth. [place] (BYSTOLIC) 21:13: of 10 MG TABS 05 Medicin e Azilsartan 2020-0 Yes Take by [facility] Medoxomil 4-21 mouth. [place] (EDARBI) 80 21:13: of MG TABS 05 Medicin e metformin 2020-0 Yes 1000mg Take 1,000 [facility] (GLUCOPHAGE 4-21 mg by [facility] ) 1000 MG 21:13: mouth 2 of tablet 05 times Medicin daily e (with meals). Gabapentin, 2020-0 Yes Take by [facility] [facility], 300 MG 4-21 mouth. [facility] e TABS 21:13: of 05 Medicin e Pitavastati 2020-0 Yes Take by [place] n Calcium 4-21 mouth. [place] (LIVALO) 4 21:13: of MG TABS 05 Medicin e cetirizine 2020-0 Yes 10mg Take 10 mg [facility] (ZYRTEC) 10 4-21 by mouth [facility] MG chewable 21:13: daily. of tablet 05 Medicin e Calcium 2020-0 Yes Take by [facility] Carbonate-V 4-21 mouth. Colleg e it D-Min 21:13: of [id number] 05 Medicin MG-UNIT e CHEW Multiple 2020-0 Yes Take by [facility] Vitamins-Mi 4-21 mouth. [facility] e nerals 21:13: of (CENTRUM 05 Medicin ULTRA e WOMENS OR) hydrochloro 2020-0 Yes 12.5mg Take 12.5 [facility] thiazide 4-21 mg by [place] (MICROZIDE) 21:13: mouth of 12.5 MG 05 daily. Medicin capsule e celecoxib 2020-0 Yes 200mg Take 200 [place] (CELEBREX) 4-21 mg by [place] 200 MG 21:13: mouth two of capsule 05 times Medicin daily. e levothyroxi 2020-0 Yes 25ug Take 25 [place] ne 4-21 mcg by [place] (SYNTHROID) 21:13: mouth of 25 MCG 05 daily. Medicin tablet e SPIRONOLACT 2020-0 Yes Take by [facility] [facility] ONE OR 4-21 mouth. College 21:13: of 05 Medicin e METOPROLOL 2020-0 Yes Take by [facility] TARTRATE OR 4-21 mouth. Colleg e 21:13: of 05 Medicin e Clopidogrel 2020-0 Yes Take by [place] Bisulfate 4-21 mouth. [place] (PLAVIX OR) 21:13: of 05 Medicin e LOVASTATIN 2020-0 Yes Take by [facility] OR 4-21 mouth. [facility] 21:13: of 05 Medicin e Nebivolol 2020-0 Yes Take by [facility] HCl 4-21 mouth. [place] (BYSTOLIC) 21:13: of 10 MG TABS 05 Medicin e Azilsartan 2020-0 Yes Take by [facility] Medoxomil 4-21 mouth. [place] (EDARBI) 80 21:13: of MG TABS 05 Medicin e metformin 2020-0 Yes 1000mg Take 1,000 [facility] (GLUCOPHAGE 4-21 mg by [facility] ) 1000 MG 21:13: mouth 2 of tablet 05 times Medicin daily e (with meals). Gabapentin, 2020-0 Yes Take by [facility] PHN, 300 MG 4-21 mouth. Colleg e TABS 21:13: of 05 Medicin e Pitavastati 2020-0 Yes Take by [place] n Calcium 4-21 mouth. [place] (LIVALO) 4 21:13: of MG TABS 05 Medicin e cetirizine 2020-0 Yes 10mg Take 10 mg [facility] (ZYRTEC) 10 4-21 by mouth [facility] MG chewable 21:13: daily. of tablet 05 Medicin e Calcium 2020-0 Yes Take by [facility] Carbonate-V 4-21 mouth. [facility] it D-Min 21:13: of [id number] 05 Medicin MG-UNIT e CHEW Multiple 2020-0 Yes Take by [facility] Vitamins-Mi 4-21 mouth. [facility] e nerals 21:13: of (CENTRUM 05 Medicin ULTRA e WOMENS OR) hydrochloro 2020-0 Yes 12.5mg Take 12.5 [facility] thiazide 4-21 mg by [place] (MICROZIDE) 21:13: mouth of 12.5 MG 05 daily. Medicin capsule e celecoxib 2020-0 Yes 200mg Take 200 [facility] [facility] (CELEBREX) 4-21 mg by [place] 200 MG 21:13: mouth two of capsule 05 times Medicin daily. e levothyroxi 2020-0 Yes 25ug Take 25 [facility] [facility] ne 4-21 mcg by [facility] (SYNTHROID) 21:13: mouth of 25 MCG 05 daily. Medicin tablet e SPIRONOLACT 2020-0 Yes Take by [facility] [facility] ONE OR 4-21 mouth. College 21:13: of 05 Medicin e METOPROLOL 2020-0 Yes Take by [facility] TARTRATE OR 4-21 mouth. [facility] e 21:13: of 05 Medicin e Clopidogrel 2020-0 Yes Take by [place] Bisulfate 4-21 mouth. [place] (PLAVIX OR) 21:13: of 05 Medicin e LOVASTATIN 2020-0 Yes Take by [facility] OR 4-21 mouth. [place] 21:13: of 05 Medicin e Nebivolol 2020-0 Yes Take by [facility] HCl 4-21 mouth. [place] (BYSTOLIC) 21:13: of 10 MG TABS 05 Medicin e Azilsartan 2020-0 Yes Take by [facility] Medoxomil 4-21 mouth. [place] (EDARBI) 80 21:13: of MG TABS 05 Medicin e metformin 2020-0 Yes 1000mg Take 1,000 [facility] (GLUCOPHAGE 4-21 mg by [place] ) 1000 MG 21:13: mouth 2 of tablet 05 times Medicin daily e (with meals). Gabapentin, 2020-0 Yes Take by [facility] [facility], 300 MG 4-21 mouth. [facility] e TABS 21:13: of 05 Medicin e Pitavastati 2020-0 Yes Take by [facility] n Calcium 4-21 mouth. [place] (LIVALO) 4 21:13: of MG TABS 05 Medicin e cetirizine 2020-0 Yes 10mg Take 10 mg [facility] (ZYRTEC) 10 4-21 by mouth [facility] MG chewable 21:13: daily. of tablet 05 Medicin e Calcium 2020-0 Yes Take by [facility] Carbonate-V 4-21 mouth. [place] e it D-Min 21:13: of [id number] 05 Medicin MG-UNIT e CHEW Multiple 2020-0 Yes Take by [facility] Vitamins-Mi 4-21 mouth. [facility] e nerals 21:13: of (CENTRUM 05 Medicin ULTRA e WOMENS OR) hydrochloro 2020-0 Yes 12.5mg Take 12.5 [facility] thiazide 4-21 mg by [place] (MICROZIDE) 21:13: mouth of 12.5 MG 05 daily. Medicin capsule e celecoxib 2020-0 Yes 200mg Take 200 [place] (CELEBREX) 4-21 mg by [place] 200 MG 21:13: mouth two of capsule 05 times Medicin daily. e levothyroxi 2020-0 Yes 25ug Take 25 [place] ne 4-21 mcg by [place] (SYNTHROID) 21:13: mouth of 25 MCG 05 daily. Medicin tablet e SPIRONOLACT 2020-0 Yes Take by [place] ONE OR 4-21 mouth. College 21:13: of 05 Medicin e METOPROLOL 2020-0 Yes Take by [place] or TARTRATE OR 4-21 mouth. Colleg e 21:13: of 05 Medicin e Clopidogrel 2020-0 Yes Take by [place] Bisulfate 4-21 mouth. [place] (PLAVIX OR) 21:13: of 05 Medicin e LOVASTATIN 2020-0 Yes Take by [facility] OR 4-21 mouth. [facility] 21:13: of 05 Medicin e Nebivolol 2020-0 Yes Take by [facility] HCl 4-21 mouth. [place] (BYSTOLIC) 21:13: of 10 MG TABS 05 Medicin e Azilsartan 2020-0 Yes Take by [facility] Medoxomil 4-21 mouth. [place] (EDARBI) 80 21:13: of MG TABS 05 Medicin e metformin 2020-0 Yes 1000mg Take 1,000 [facility] (GLUCOPHAGE 4-21 mg by [place] ) 1000 MG 21:13: mouth 2 of tablet 05 times Medicin daily e (with meals). Gabapentin, 2020-0 Yes Take by [place], 300 MG 4-21 mouth. [facility] TABS 21:13: of 05 Medicin e Pitavastati 2020-0 Yes Take by [place] n Calcium 4-21 mouth. [place] (LIVALO) 4 21:13: of MG TABS 05 Medicin e cetirizine 2020-0 Yes 10mg Take 10 mg [facility] (ZYRTEC) 10 4-21 by mouth [facility] MG chewable 21:13: daily. of tablet 05 Medicin e Calcium 2020-0 Yes Take by [facility] Carbonate-V 4-21 mouth. [facility] it D-Min 21:13: of [id number] 05 Medicin MG-UNIT e CHEW Multiple 2020-0 Yes Take by [facility] Vitamins-Mi 4-21 mouth. [facility] e nerals 21:13: of (CENTRUM 05 Medicin ULTRA e WOMENS OR) hydrochloro 2020-0 Yes 12.5mg Take 12.5 [facility] thiazide 4-21 mg by [place] (MICROZIDE) 21:13: mouth of 12.5 MG 05 daily. Medicin capsule e celecoxib 2020-0 Yes 200mg Take 200 [place] (CELEBREX) 4-21 mg by [place] 200 MG 21:13: mouth two of capsule 05 times Medicin daily. e levothyroxi 2020-0 Yes 25ug Take 25 [place] ne 4-21 mcg by [place] (SYNTHROID) 21:13: mouth of 25 MCG 05 daily. Medicin tablet e SPIRONOLACT 2020-0 Yes Take by [place] ONE OR 4-21 mouth. [place] 21:13: of 05 Medicin e METOPROLOL 2020-0 Yes Take by [facility] TARTRATE OR 4-21 mouth. [facility] e 21:13: of 05 Medicin e Clopidogrel 2020-0 Yes Take by [place] Bisulfate 4-21 mouth. [place] (PLAVIX OR) 21:13: of 05 Medicin e LOVASTATIN 2020-0 Yes Take by [facility] OR 4-21 mouth. [place] 21:13: of 05 Medicin e Nebivolol 2020-0 Yes Take by [facility] HCl 4-21 mouth. [place] (BYSTOLIC) 21:13: of 10 MG TABS 05 Medicin e Azilsartan 2020-0 Yes Take by [facility] Medoxomil 4-21 mouth. [place] (EDARBI) 80 21:13: of MG TABS 05 Medicin e metformin 2020-0 Yes 1000mg Take 1,000 [facility] (GLUCOPHAGE 4-21 mg by [place] ) 1000 MG 21:13: mouth 2 of tablet 05 times Medicin daily e (with meals). Gabapentin, 2020-0 Yes Take by [place] [facility], 300 MG 4-21 mouth. [facility] TABS 21:13: of 05 Medicin e Pitavastati 2020-0 Yes Take by [facility] n Calcium 4-21 mouth. [place] (LIVALO) 4 21:13: of MG TABS 05 Medicin e cetirizine 2020-0 Yes 10mg Take 10 mg [facility] (ZYRTEC) 10 4-21 by mouth [facility] MG chewable 21:13: daily. of tablet 05 Medicin e Calcium 2020-0 Yes Take by [facility] Carbonate-V 4-21 mouth. [facility] it D-Min 21:13: of [id number] 05 Medicin MG-UNIT e CHEW Multiple 2020-0 Yes Take by [facility] Vitamins-Mi 4-21 mouth. [facility] e nerals 21:13: of (CENTRUM 05 Medicin ULTRA e WOMENS OR) hydrochloro 2020-0 Yes 12.5mg Take 12.5 [facility] thiazide 4-21 mg by [facility] (MICROZIDE) 21:13: mouth of 12.5 MG 05 daily. Medicin capsule e celecoxib 2020-0 Yes 200mg Take 200 [place] (CELEBREX) 4-21 mg by [facility] 200 MG 21:13: mouth two of capsule 05 times Medicin daily. e levothyroxi 2020-0 Yes 25ug Take 25 [place] ne 4-21 mcg by [facility] (SYNTHROID) 21:13: mouth of 25 MCG 05 daily. Medicin tablet e SPIRONOLACT 2020-0 Yes Take by [place] ONE OR 4-21 mouth. [facility] 21:13: of 05 Medicin e METOPROLOL 2020-0 Yes Take by [facility] TARTRATE OR 4-21 mouth. [facility] e 21:13: of 05 Medicin e Clopidogrel 2020-0 Yes Take by [place] Bisulfate 4-21 mouth. [place] (PLAVIX OR) 21:13: of 05 Medicin e LOVASTATIN 2020-0 Yes Take by [facility] OR 4-21 mouth. [place] 21:13: of 05 Medicin e Nebivolol 2020-0 Yes Take by [facility] HCl 4-21 mouth. [place] (BYSTOLIC) 21:13: of 10 MG TABS 05 Medicin e Azilsartan 2020-0 Yes Take by [facility] Medoxomil 4-21 mouth. [place] (EDARBI) 80 21:13: of MG TABS 05 Medicin e metformin 2020-0 Yes 1000mg Take 1,000 [facility] (GLUCOPHAGE 4-21 mg by [facility] ) 1000 MG 21:13: mouth 2 of tablet 05 times Medicin daily e (with meals). Gabapentin, 2020-0 Yes Take by [place] [facility], 300 MG 4-21 mouth. [facility] e TABS 21:13: of 05 Medicin e Pitavastati 2020-0 Yes Take by [place] n Calcium 4-21 mouth. [place] (LIVALO) 4 21:13: of MG TABS 05 Medicin e cetirizine 2020-0 Yes 10mg Take 10 mg [facility] (ZYRTEC) 10 4-21 by mouth [facility] MG chewable 21:13: daily. of tablet 05 Medicin e Calcium 2020-0 Yes Take by [facility] Carbonate-V 4-21 mouth. [facility] it D-Min 21:13: of [id number] 05 Medicin MG-UNIT e CHEW Multiple 2020-0 Yes Take by [facility] Vitamins-Mi 4-21 mouth. [facility] nerals 21:13: of (CENTRUM 05 Medicin ULTRA e WOMENS OR) hydrochloro 2020-0 Yes 12.5mg Take 12.5 [facility] thiazide 4-21 mg by [place] (MICROZIDE) 21:13: mouth of 12.5 MG 05 daily. Medicin capsule e celecoxib 2020-0 Yes 200mg Take 200 [place] (CELEBREX) 4-21 mg by [place] 200 MG 21:13: mouth two of capsule 05 times Medicin daily. e levothyroxi 2020-0 Yes 25ug Take 25 [place] ne 4-21 mcg by [place] (SYNTHROID) 21:13: mouth of 25 MCG 05 daily. Medicin tablet e SPIRONOLACT 2020-0 Yes Take by [place] ONE OR 4-21 mouth. [place] 21:13: of 05 Medicin e METOPROLOL 2020-0 Yes Take by [facility] TARTRATE OR 4-21 mouth. [facility] e 21:13: of 05 Medicin e Clopidogrel 2020-0 Yes Take by [place] Bisulfate 4-21 mouth. [place] (PLAVIX OR) 21:13: of 05 Medicin e LOVASTATIN 2020-0 Yes Take by [facility] OR 4-21 mouth. [place] 21:13: of 05 Medicin e Nebivolol 2020-0 Yes Take by [facility] HCl 4-21 mouth. [place] (BYSTOLIC) 21:13: of 10 MG TABS 05 Medicin e Azilsartan 2020-0 Yes Take by [facility] Medoxomil 4-21 mouth. [place] (EDARBI) 80 21:13: of MG TABS 05 Medicin e metformin 2020-0 Yes 1000mg Take 1,000 [facility] (GLUCOPHAGE 4-21 mg by [facility] ) 1000 MG 21:13: mouth 2 of tablet 05 times Medicin daily e (with meals). Gabapentin, 2020-0 Yes Take by [place] [facility], 300 MG 4-21 mouth. [facility] e TABS 21:13: of 05 Medicin e Pitavastati 2020-0 Yes Take by [place] n Calcium 4-21 mouth. [place] (LIVALO) 4 21:13: of MG TABS 05 Medicin e cetirizine 2020-0 Yes 10mg Take 10 mg [facility] (ZYRTEC) 10 4-21 by mouth [facility] MG chewable 21:13: daily. of tablet 05 Medicin e Calcium 2020-0 Yes Take by [facility] Carbonate-V 4-21 mouth. [place] [facility] it D-Min 21:13: of [id number] 05 Medicin MG-UNIT e CHEW Multiple 2020-0 Yes Take by [facility] Vitamins-Mi 4-21 mouth. [facility] oswald nerals 21:13: of (CENTRUM 05 Medicin ULTRA e WOMENS OR) hydrochloro 2020-0 Yes 12.5mg Take 12.5 [facility] thiazide 4-21 mg by [place] (MICROZIDE) 21:13: mouth of 12.5 MG 05 daily. Medicin capsule e celecoxib 2020-0 Yes 200mg Take 200 [place] (CELEBREX) 4-21 mg by [place] 200 MG 21:13: mouth two of capsule 05 times Medicin daily. e levothyroxi 2020-0 Yes 25ug Take 25 [place] ne 4-21 mcg by [place] (SYNTHROID) 21:13: mouth of 25 MCG 05 daily. Medicin tablet e SPIRONOLACT 2020-0 Yes Take by [place] ONE OR 4-21 mouth. [place] 21:13: of 05 Medicin e METOPROLOL 2020-0 Yes Take by [facility] TARTRATE OR 4-21 mouth. [facility] 21:13: of 05 Medicin e Clopidogrel 2020-0 Yes Take by [place] Bisulfate 4-21 mouth. [place] (PLAVIX OR) 21:13: of 05 Medicin e LOVASTATIN 2020-0 Yes Take by [facility] OR 4-21 mouth. [place] 21:13: of 05 Medicin e Aflibercept 2020-0 Yes [id number] 2mg 2 mg, [facility] (EYLEA) 2 4-16 Intravitre [facility] MG/0.05ML 14:04: al, of injection 2 39 Starting Medi ida mg No e 03/16/20 at 0904, Until Discontinu ed Aflibercept 2020-0 Yes [id number] 2mg 2 mg, [facility] (EYLEA) 2 4-16 Intravitre [facility] MG/0.05ML 14:04: al, of injection 2 31 Starting Medi ida mg No e 03/16/20 at 0904, Until Discontinu ed bevacizumab 2020-0 Yes [id number] 1.25mg 1.25 mg, [facility] (AVASTIN) 3-19 Intravitre [facility]ari[place] ege 1.25mg/0.05 13:36: al, of mL 34 Starting Medicin intravitrea No e l injection 02/17/20 at 1.25 mg 0836, Until Discontinu ed bevacizumab 2020-0 Yes [id number] 1.25mg 1.25 mg, [facility] (AVASTIN) 3- Intravitre [facility] 1.25mg/0.05 13:36: al, of mL 27 Starting Medicin intravitrea No e l injection 02/17/20 at 1.25 mg 0836, Until Discontinu ed Calcium 2020-0 Yes Take by [facility] Carbonate-V 3-18 mouth. [place] [facility] it D-Min 14:41: of [id number] 44 Medicin MG-UNIT e CHEW Multiple 2020-0 Yes Take by [facility] Vitamins-Mi 3-18 mouth. [facility] oswald nerals 14:41: of (CENTRUM 44 Medicin ULTRA e WOMENS OR) hydrochloro 2020-0 Yes 12.5mg Take 12.5 [facility] thiazide 3-18 mg by [place] (MICROZIDE) 14:41: mouth of 12.5 MG 44 daily. Medicin capsule e celecoxib 2020-0 Yes 200mg Take 200 [place] (CELEBREX) 3-18 mg by [place] 200 MG 14:41: mouth two of capsule 44 times Medicin daily. e levothyroxi 2020-0 Yes 25ug Take 25 [place] ne 3-18 mcg by [place] (SYNTHROID) 14:41: mouth of 25 MCG 44 daily. Medicin tablet e SPIRONOLACT 2020-0 Yes Take by [place] ONE OR 3-18 mouth. [place] 14:41: of 44 Medicin e METOPROLOL 2020-0 Yes Take by [facility] TARTRATE OR 3-18 [facility]. [facility]: of 44 Medicin e Clopidogrel 2020-0 Yes Take by [place] Bisulfate 3-18 mouth. [facility] (PLAVIX OR) 14:41: of 44 Medicin e LOVASTATIN 2020-0 Yes Take by [facility] OR 3-18 mouth. [facility] 14:41: of 44 Medicin e Nebivolol 2020-0 Yes Take by [facility] HCl 3-18 mouth. [place] (BYSTOLIC) 14:41: of 10 MG TABS 44 Medicin e Azilsartan 2020-0 Yes Take by [facility] Medoxomil 3-18 mouth. [place] (EDARBI) 80 14:41: of MG TABS 44 Medicin e metformin 2020-0 Yes 1000mg Take 1,000 [facility] (GLUCOPHAGE 3-18 mg by [place] ) 1000 MG 14:41: mouth 2 of tablet 44 times Medicin daily e (with meals). Gabapentin, 2020-0 Yes Take by [place] [facility], 300 MG 3-18 mouth. [facility] e TABS 14:41: of 44 Medicin e Pitavastati 2020-0 Yes Take by [facility] n Calcium 3-18 mouth. [place] (LIVALO) 4 14:41: of MG TABS 44 Medicin e glyBURIDE 2020-0 Yes 6mg Take 6 mg [place] micronized 3-18 by mouth [facility] (GLYNASE) 6 14:41: two times o f MG tablet 44 daily. Medicin e cetirizine 2020-0 Yes 10mg Take 10 mg [facility] (ZYRTEC) 10 3-18 by mouth [facility] MG chewable 14:41: daily. of tablet 44 Medicin e Calcium 2020-0 Yes Take by [facility] Carbonate-V 3-18 mouth. [facility] it D-Min 14:41: of [id number] 44 Medicin MG-UNIT e CHEW Multiple 2020-0 Yes Take by [facility] Vitamins-Mi 3-18 mouth. [facility] e nerals 14:41: of (CENTRUM 44 Medicin ULTRA e WOMENS OR) hydrochloro 2020-0 Yes 12.5mg Take 12.5 [facility] thiazide 3-18 mg by [place] (MICROZIDE) 14:41: mouth of 12.5 MG 44 daily. Medicin capsule e celecoxib 2020-0 Yes 200mg Take 200 [place] (CELEBREX) 3-18 mg by [place] 200 MG 14:41: mouth two of capsule 44 times Medicin daily. e levothyroxi 2020-0 Yes 25ug Take 25 [place] ne 3-18 mcg by [place] (SYNTHROID) 14:41: mouth of 25 MCG 44 daily. Medicin tablet e SPIRONOLACT 2020-0 Yes Take by [place] ONE OR 3-18 mouth. [place] 14:41: of 44 Medicin e METOPROLOL 2020-0 Yes Take by [facility] TARTRATE OR 3-18 mouth. [facility] e 14:41: of 44 Medicin e Clopidogrel 2020-0 Yes Take by [place] Bisulfate 3-18 mouth. [place] (PLAVIX OR) 14:41: of 44 Medicin e LOVASTATIN 2020-0 Yes Take by [facility] OR 3-18 mouth. [place] 14:41: of 44 Medicin e Nebivolol 2020-0 Yes Take by [facility] HCl 3-18 mouth. [place] (BYSTOLIC) 14:41: of 10 MG TABS 44 Medicin e Azilsartan 2020-0 Yes Take by [facility] Medoxomil 3-18 mouth. [place] (EDARBI) 80 14:41: of MG TABS 44 Medicin e metformin 2020-0 Yes 1000mg Take 1,000 [facility] (GLUCOPHAGE 3-18 mg by [place] ) 1000 MG 14:41: mouth 2 of tablet 44 times Medicin daily e (with meals). Gabapentin, 2020-0 Yes Take by [place] [facility], 300 MG 3-18 mouth. [facility] e TABS 14:41: of 44 Medicin e Pitavastati 2020-0 Yes Take by [place] n Calcium 3-18 mouth. [place] (LIVALO) 4 14:41: of MG TABS 44 Medicin e glyBURIDE 2020-0 Yes 6mg Take 6 mg [place] micronized 3-18 by mouth [facility] (GLYNASE) 6 14:41: two times o f MG tablet 44 daily. Medicin e cetirizine 2020-0 Yes 10mg Take 10 mg [facility] (ZYRTEC) 10 3-18 by mouth [facility] MG chewable 14:41: daily. of tablet 44 Medicin e bevacizumab 2020-0 Yes [id number] 1.25mg 1.25 mg, [facility] (AVASTIN) 2-17 Intravitre [facility] 1.25mg/0.05 12:45: al, of mL 05 Starting Medicin intravitrea Mon e l injection 01/17/20 at 1.25 mg 0645, Until Discontinu ed bevacizumab 2020-0 Yes [id number] 1.25mg 1.25 mg, [facility] (AVASTIN) 2-17 Intravitre [facility] 1.25mg/0.05 12:44: al, of mL 32 Starting Medicin intravitrea Mon e l injection 01/17/20 at 1.25 mg 0644, Until Discontinu ed acyclovir 2019-0 Yes 400mg Take 1 Tab [facility] (ZOVIRAX) 8-26 by mouth [facility] 400 MG 00:00: daily. of tablet 00 Medicin e acyclovir 2019-0 Yes 400mg Take 1 Tab [facility] (ZOVIRAX) 8-26 by mouth [facility] 400 MG 00:00: daily. of tablet 00 Medicin e acyclovir 2019-0 Yes 400mg Take 1 Tab [facility] (ZOVIRAX) 8-26 by mouth [facility] 400 MG 00:00: daily. of tablet 00 Medicin e acyclovir 2019-0 Yes 400mg Take 1 Tab [facility] (ZOVIRAX) 8-26 by mouth [facility] 400 MG 00:00: daily. of tablet 00 Medicin e acyclovir 2019-0 Yes 400mg Take 1 Tab [facility] (ZOVIRAX) 8-26 by mouth [facility] 400 MG 00:00: daily. of tablet 00 Medicin e acyclovir 2019-0 Yes 400mg Take 1 Tab [facility] (ZOVIRAX) 8-26 by mouth [facility] 400 MG 00:00: daily. of tablet 00 Medicin e acyclovir 2019-0 Yes 400mg Take 1 Tab [facility] (ZOVIRAX) 8-26 by mouth [facility] 400 MG 00:00: daily. of tablet 00 Medicin e acyclovir 2019-0 Yes 400mg Take 1 Tab [facility] (ZOVIRAX) 8-26 by mouth [facility] 400 MG 00:00: daily. of tablet 00 Medicin e acyclovir 2019-0 Yes 400mg Take 1 Tab [facility] (ZOVIRAX) 8-26 by mouth [facility] 400 MG 00:00: daily. of tablet 00 Medicin e acyclovir 2019-0 Yes 400mg Take 1 Tab [facility] (ZOVIRAX) 8-26 by mouth [facility] 400 MG 00:00: daily. of tablet 00 Medicin e Clopidogrel 2019-0 Yes Take by [place] Bisulfate 7-10 mouth. [facility] (PLAVIX OR) 15:56: of 22 Medicin e LOVASTATIN 2019-0 Yes Take by [facility] OR 7-10 mouth. [place] 15:56: of 22 Medicin e Clopidogrel 2019-0 Yes Take by [place] Bisulfate 7-10 mouth. [facility] (PLAVIX OR) 15:56: of 22 Medicin e LOVASTATIN 0 Yes Take by [facility] OR 7-10 mouth. [place] 15:56: of 22 Medicin e Azilsartan 0 Yes Take by [facility] Medoxomil 3-30 mouth. [place] ([facility]) 80 13:57: of MG TABS 32 Medicin e metformin 2017-0 Yes 1000mg Take 1,000 [facility] (GLUCOPHAGE 3-30 mg by [place] ) 1000 MG 13:57: mouth 2 of tablet 32 times Medicin daily e (with meals). Gabapentin, 2018-0 Yes Take by [place] [facility], 300 MG 3-30 mouth. [facility] e TABS 13:57: of 32 Medicin e glyBURIDE 0 Yes 6mg Take 6 mg [place] micronized 3-30 by mouth [facility] (GLYNASE) 6 13:57: two times o f MG tablet 32 daily. Medicin e cetirizine 0 Yes 10mg Take 10 mg [facility] (ZYRTEC) 10 3-30 by mouth [facility] e[facility] MG chewable 13:57: daily. of tablet 32 Medicin e Calcium 0 Yes Take by [facility] Carbonate-V 3-30 mouth. [place] [facility] it D-Min 13:57: of [id number] 32 Medicin MG-UNIT e CHEW Multiple 0 Yes Take by [facility] Vitamins-Mi 3-30 mouth. [facility] nerals 13:57: of (CENTRUM 32 Medicin ULTRA e WOMENS OR) levothyroxi 2017-0 Yes 25ug Take 25 [place] ne 3-30 mcg by [place] (SYNTHROID) 13:57: mouth of 25 MCG 32 daily. Medicin tablet e SPIRONOLACT 2018-0 Yes Take by [place] ONE OR 3-30 mouth. [place] 13:57: of 32 Medicin e METOPROLOL 2018-0 Yes Take by [facility] TARTRATE OR 3-30 mouth. [facility] e 13:57: of 32 Medicin e Azilsartan 2017-0 Yes Take by [facility] Medoxomil 3-30 mouth. [place] ([facility] 80 13:57: of MG TABS 32 Medicin e metformin 0 Yes 1000mg Take 1,000 [facility] (GLUCOPHAGE 3-30 mg by [place] ) 1000 MG 13:57: mouth 2 of tablet 32 times Medicin daily e (with meals). Gabapentin, 0 Yes Take by [place] [facility], 300 MG 3-30 mouth. [facility] e TABS 13:57: of 32 Medicin e glyBURIDE 0 Yes 6mg Take 6 mg [place] micronized 3-30 by mouth [facility] (GLYNASE) 6 13:57: two times o f MG tablet 32 daily. Medicin e cetirizine 0 Yes 10mg Take 10 mg [facility] (ZYRTEC) 10 3-30 by mouth [facility] e[facility] MG chewable 13:57: daily. of tablet 32 Medicin e Calcium 0 Yes Take by [facility] Carbonate-V 3-30 mouth. [place] [facility] it D-Min 13:57: of [id number] 32 Medicin MG-UNIT e CHEW Multiple 0 Yes Take by [facility] Vitamins-Mi 3-30 mouth. [facility] nerals 13:57: of (CENTRUM 32 Medicin ULTRA e WOMENS OR) levothyroxi Yes 25ug Take 25 [place] ne 3-30 mcg by [place] (SYNTHROID) 13:57: mouth of 25 MCG 32 daily. Medicin tablet e SPIRONOLACT Yes Take by [place] ONE OR 3-30 mouth. [place] 13:57: of 32 Medicin e METOPROLOL 0 Yes Take by [facility] TARTRATE OR 3-30 mouth. [facility] e 13:57: of 32 Medicin e Nebivolol 2014-12 Yes Take by [facility] HCl 2-07 mouth. [place] [facility] 21:50: of 10 MG TABS 19 Medicin e Pitavastati 2014-12 Yes Take by [place] n Calcium 2-07 mouth. [place] (LIVALO) 4 21:50: of MG TABS 19 Medicin e hydrochloro 2014-12 Yes 12.5mg Take 12.5 [facility] thiazide 2-07 mg by [place] (MICROZIDE) 21:50: mouth of 12.5 MG 19 daily. Medicin capsule e celecoxib 2014-12 Yes 200mg Take 200 [place] (CELEBREX) 2-07 mg by [place] 200 MG 21:50: mouth two of capsule 19 times Medicin daily. e Nebivolol 2014-12 Yes Take by [facility] HCl 2-07 mouth. [place] (BYSTOLIC) 21:50: of 10 MG TABS 19 Medicin e Pitavastati 2014-12 Yes Take by [place] n Calcium 2-07 mouth. [place] (LIVALO) 4 21:50: of MG TABS 19 Medicin e hydrochloro 2014-12 Yes 12.5mg Take 12.5 [facility] thiazide 2-07 mg by [place] (MICROZIDE) 21:50: mouth of 12.5 MG 19 daily. Medicin capsule e celecoxib 2014-12 Yes 200mg Take 200 [place] (CELEBREX) 2-07 mg by [facility] 200 MG 21:50: mouth two of capsule 19 times Medicin daily. e fluorometho 2013-12 Yes 1[drp] Place 1 [facility] (FML) 0-13 Drop into [facility] 0.1 % 00:00: the left of ophthalmic 00 eye two Medici n suspension times e daily. fluorometho 2013-12 Yes 1[drp] Place 1 [facility] (FML) 0-13 Drop into [facility] 0.1 % 00:00: the left of ophthalmic 00 eye two Medici n suspension times e daily. fluorometho 2013-12 Yes 1[drp] Place 1 [facility] (FML) 0-13 Drop into [facility] 0.1 % 00:00: the left of ophthalmic 00 eye two Medici n suspension times e daily. fluorometho 2013-12 Yes 1[drp] Place 1 [facility] (FML) 0-13 Drop into [facility] 0.1 % 00:00: the left of ophthalmic 00 eye two Medici n suspension times e daily. fluorometho 2013-12 Yes 1[drp] Place 1 [facility] (FML) 0-13 Drop into [facility] 0.1 % 00:00: the left of ophthalmic 00 eye two Medici n suspension times e daily. fluorometho 2013-12 Yes 1[drp] Place 1 [facility] (FML) 0-13 Drop into [facility] 0.1 % 00:00: the left of ophthalmic 00 eye two Medici n suspension times e daily. fluorometho 2013-12 Yes 1[drp] Place 1 [facility] (FML) 0-13 Drop into [facility] 0.1 % 00:00: the left of ophthalmic 00 eye two Medici n suspension times e daily. fluorometho 2013-12 Yes 1[drp] Place 1 [facility] (FML) 0-13 Drop into [facility] 0.1 % 00:00: the left of ophthalmic 00 eye two Medici n suspension times e daily. fluorometho 2013-12 Yes 1[drp] Place 1 [facility] (FML) 0-13 Drop into [facility] 0.1 % 00:00: the left of ophthalmic 00 eye two Medici n suspension times e daily. fluorometho 2013-12 Yes 1[drp] Place 1 [facility] (FML) 0-13 Drop into [facility] 0.1 % 00:00: the left of ophthalmic 00 eye two Medici n suspension times e daily. fluorometho 2013-12 Yes 1[drp] Place 1 [facility] (FML) 0-13 Drop into [facility] 0.1 % 00:00: the left of ophthalmic 00 eye two Medici n suspension times e daily. fluorometho 2013-12 Yes 1[drp] Place 1 [facility] (FML) 0-13 Drop into [facility] e[facility] 0.1 % 00:00: the left of ophthalmic 00 eye two Medici n suspension times e daily. fluorometho 2013-12 Yes 1[drp] Place 1 [facility] (FML) 0-13 Drop into [facility] 0.1 % 00:00: the left of ophthalmic 00 eye two Medici n suspension times e daily. fluorometho 2013-12 Yes 1[drp] Place 1 [facility] (FML) 0-13 Drop into [facility] 0.1 % 00:00: the left of ophthalmic 00 eye two Medici n suspension times e daily. Ganciclovir 2013-12 Yes 1{strip Apply 1 [facility] (ZIRGAN) 0-01 } Strip to [facility] 0.15 % GEL 00:00: eye 5 of 00 times Medicin daily. e Ganciclovir 2013-12 Yes 1{strip Apply 1 [facility] (ZIRGAN) 0-01 } Strip to [facility] 0.15 % GEL 00:00: eye 5 of 00 times Medicin daily. e Ganciclovir 2013-12 Yes 1{strip Apply 1 [facility] (ZIRGAN) 0-01 } Strip to [facility] 0.15 % GEL 00:00: eye 5 of 00 times Medicin daily. e Ganciclovir 2013-12 Yes 1{strip Apply 1 [facility] (ZIRGAN) 0-01 } Strip to [facility] 0.15 % GEL 00:00: eye 5 of 00 times Medicin daily. e Ganciclovir 2013-12 Yes 1{strip Apply 1 [facility] (ZIRGAN) 0-01 } Strip to [facility] 0.15 % GEL 00:00: eye 5 of 00 times Medicin daily. e Ganciclovir 2013-12 Yes 1{strip Apply 1 [facility] (ZIRGAN) 0-01 } Strip to [facility] 0.15 % GEL 00:00: eye 5 of 00 times Medicin daily. e Ganciclovir 2013-12 Yes 1{strip Apply 1 [facility] (ZIRGAN) 0-01 } Strip to [place] 0.15 % GEL 00:00: eye 5 of 00 times Medicin daily. e Ganciclovir 2013-12 Yes 1{strip Apply 1 [facility] (ZIRGAN) 0-01 } Strip to [place] 0.15 % GEL 00:00: eye 5 of 00 times Medicin daily. e Ganciclovir 2013-12 Yes 1{strip Apply 1 [facility] (ZIRGAN) 0-01 } Strip to [place] 0.15 % GEL 00:00: eye 5 of 00 times Medicin daily. e Ganciclovir 2013-12 Yes 1{strip Apply 1 [facility] (ZIRGAN) 0-01 } Strip to [place] 0.15 % GEL 00:00: eye 5 of 00 times Medicin daily. e Ganciclovir 2013-12 Yes 1{strip Apply 1 [facility] (ZIRGAN) 0-01 } Strip to [place] 0.15 % GEL 00:00: eye 5 of 00 times Medicin daily. e Ganciclovir 2013-12 Yes 1{strip Apply 1 [facility] (ZIRGAN) 0-01 } Strip to [facility] 0.15 % GEL 00:00: eye 5 of 00 times Medicin daily. e Ganciclovir 2013-12 Yes 1{strip Apply 1 [facility] (ZIRGAN) 0-01 } Strip to [place] 0.15 % GEL 00:00: eye 5 of 00 times Medicin daily. e Ganciclovir 2013-12 Yes 1{strip Apply 1 [facility] (ZIRGAN) 0-01 } Strip to [facility] 0.15 % GEL 00:00: eye 5 of 00 times Medicin daily. e Vital Signs Vital Name Observation Time Observation Value Comments Source HEIGHT 2021-04-23 11:57:00 177.8 cm WEIGHT 2021-04-23 11:57:00 103.874 kg HEIGHT 2022-11-13 09:58:00 177.8 cm WEIGHT 2022-11-13 09:58:00 108.863 kg HEIGHT 2022-11-13 09:58:00 177.8 cm WEIGHT 2022-11-13 09:58:00 108.863 kg HEIGHT 2022-11-13 09:58:00 177.8 cm WEIGHT 2022-11-13 09:58:00 108.863 kg HEIGHT 2021-04-23 11:57:00 177.8 cm WEIGHT 2021-04-23 11:57:00 103.874 kg Systolic blood 2022-11-14 14:30:00 149 mm[Hg] [facility] Diastolic blood 2022-11-14 14:30:00 68 mm[Hg] [facility] Heart rate 2022-11-14 14:30:00 68 /min [facility] Respiratory rate 2022-11-14 14:30:00 20 /min [facility] Oxygen saturation in 2022-11-14 14:30:00 95 /min [facility] Arterial blood by [facility] Pulse oximetry Body temperature 2022-11-14 12:50:00 36.22 Camryn [facility] Body height 2022-11-13 09:58:00 177.8 cm [facility] Body weight 2022-11-13 09:58:00 108.863 kg [facility] BMI 2022-11-13 09:58:00 34.44 kg/m2 [facility] Body height 2022-10-09 09:28:00 177.8 cm [facility] Body weight 2022-10-09 09:28:00 108.863 kg [facility] BMI 2022-10-09 09:28:00 34.44 kg/m2 [facility] Systolic blood 2022-01-22 08:50:00 166 mm[Hg] [facility] Diastolic blood 2022-01-22 08:50:00 78 mm[Hg] [facility] Heart rate 2022-01-22 08:50:00 67 /min [facility] [facility] Respiratory rate 2022-01-22 08:50:00 19 /min [facility] Oxygen saturation in 2022-01-22 08:50:00 95 /min [facility] Arterial blood by Medical Ce nter Pulse oximetry Body temperature 2022-01-22 08:25:00 36.44 Camryn [facility] Procedures Procedure Date / Time Performing Clinician Source Performed KERATOPLASTY,DSAEK 2022-11-14 11:22:00 Ahmed, [facility] KERATOPLASTY,DSAEK 2022-11-14 11:20:00 Ahmed, [facility] POCT-GLUCOSE METER 2022-11-14 10:56:00 Ahmed, [facility] KERATOPLASTY,DSAEK 2022-10-17 11:46:00 Ahmed, [facility] INTRAVITREAL INJECTION, 2022-09-03 12:11:50 [employer] - OD Medicin e - RIGHT EYE OCT, RETINA - OU - BOTH 2022-08-26 10:35:47 [employer] [facility] INTRAVITREAL INJECTION, 2022-06-24 14:16:03 [employer] - OD Medicin e - RIGHT EYE INTRAVITREAL INJECTION, 2022-06-24 14:15:36 [employer] - OS Medicin e - LEFT EYE OCT, RETINA - OU - BOTH 2022-06-24 14:07:48 [employer] INTRAVITREAL INJECTION, 2022-05-14 12:41:12 [employer] - OU Medicin e - BOTH EYES OCT, RETINA - OU - BOTH 2022-05-14 10:19:33 [employer] INSERTION, TUBE SHUNT, 2022-01-22 07:20:00 Darryl Jones [facility] EYE, WITH CORNEAL PATCH [facility] GRAFT APPLICATION POCT-GLUCOSE METER 2022-01-22 07:03:00 [place] [facility] ENDOTHELIAL PHOTO AND 2020-09-08 16:13:16 Aaron Miranda [facility] [employer] of CELL COUNT - OU - BOTH Medicine EYES INTRAVITREAL INJECTION, 2020-07-31 17:18:33 Ingrid Amato or [employer] - OS Mathen Medicin e - LEFT EYE INTRAVITREAL INJECTION, 2020-07-31 17:18:26 Ingrid Amato or [employer] - OD Mathen Medicin e - RIGHT EYE OCT, RETINA - OU - BOTH 2020-07-31 15:55:00 Ingrid Amato or [employer] [facility] INTRAVITREAL INJECTION, 2020-06-05 16:00:31 Ingrid Amato or [employer] - OD Mathen Medicin e - RIGHT EYE INTRAVITREAL INJECTION, 2020-06-05 16:00:21 Ingrid Amato or [employer] - OS Mathen Medicin e - LEFT EYE OCT, RETINA - OU - BOTH 2020-06-05 14:59:00 Ingrid Amato or [employer] [facility] INTRAVITREAL INJECTION, 2020-04-14 17:43:52 Ingrid Amato or [employer] - OD Mathen Medicin e - RIGHT EYE INTRAVITREAL INJECTION, 2020-04-14 17:43:42 Ingrid Amato or [employer] - OS Mathen Medicin e - LEFT EYE OCT, RETINA - OU - BOTH 2020-04-14 15:23:33 Ingrid Amato or [employer] [facility] CORNEAL TOPOGRAPHY - OU - 2020-03-30 19:06:51 Aaron Miranda [facility] [employer] BOTH EYES Medicine OCT, RETINA - OU - BOTH 2020-03-21 21:10:45 Abelardo [employer] or [employer] [facility] INTRAVITREAL INJECTION, 2020-03-16 14:04:40 Ingrid Amato or [employer] - OD Mathen Medicin e - RIGHT EYE INTRAVITREAL INJECTION, 2020-03-16 14:04:36 Ingrid Amato or [employer] - OS Mathen Medicin e - LEFT EYE OCT, RETINA - OU - BOTH 2020-03-15 16:01:25 Ingrid Amato or [facility] EYES [facility] Medicine INTRAVITREAL INJECTION, 2020-02-17 13:36:36 Ingrid Amato or [place] [facility] [employer]IC AGENT - OD Mathen Medicin e - RIGHT EYE INTRAVITREAL INJECTION, 2020-02-17 13:36:31 Ingrid Amato or [place] [facility] [employer]ENT - OS Mathen Medicin e - LEFT EYE OCT, RETINA - OU - BOTH 2020-02-16 15:03:08 Ingrid Amato or [facility] EYES [facility] INTRAVITREAL INJECTION, 2020-01-17 12:45:08 Ingrid Amato or [place] [facility] PH[employer]ACOLOGIC AGENT - OD Mathen Medicin e - RIGHT EYE INTRAVITREAL INJECTION, 2020-01-17 12:44:35 Ingrid Amato or [facility] PHARMACOLOGIC AGENT - OS Mathen Medicin e - LEFT EYE OCT, RETINA - OU - BOTH 2019-12-30 15:33:46 Ingrid Amato or [facility] EYES [facility] Plan of Care Planned Activity Planned Date Details Comments Source Future Scheduled 2023-11-[address] [facility] 00:00[facility]00 [facility] (12+) [code = Tobacco Cessation Counseling and Screening (12+)] Future Scheduled 2023-11-[address] [facility] Test 00:00:00 [facility] (12+) [code = Tobacco Cessation Counseling and Screening (12+)] Future Scheduled 2023-11-[address] [facility] Test 00:00:00 [facility] (12+) [code = Tobacco Cessation Counseling and Screening (12+)] Future Scheduled 2022-08-[address] [facility] Test 00:00:00 (#1) [code = [facility] INFLUENZA VACCINE (#1)] Future Scheduled 2022-08-[address] [facility] Test 00:00:00 (#1) [code = [facility] INFLUENZA VACCINE (#1)] Future Scheduled 2022-08-[address] [facility] Test 00:00:00 (#1) [code = Medical Center INFLUENZA VACCINE (#1)] Future Scheduled 2022-08-[address] [facility] 00:00:00 (#1) [code = Medical Center INFLUENZA VACCINE (#1)] Future Scheduled 2022-08-[address] [facility] 00:00:00 (#1) [code = Medical Center INFLUENZA VACCINE (#1)] Future Scheduled 2022-08-[address] [facility] 00:00:00 (#1) [code = Medical Center INFLUENZA VACCINE (#1)] Future Scheduled 2022-08-[address] [facility] 00:00:00 (#1) [code = Medical Center INFLUENZA VACCINE (#1)] Future Scheduled 2021-12-[address] [facility] 00:00:00 (12+) [code = Medical Center DEPRESSION SCREENING (12+)] Future Scheduled 2021-12-01 FALLS RISK SCREENING [facility] 00:00:00 [code = FALLS RISK Medical C enter SCREENING] Future Scheduled 2021-12-[address] [facility] 00:00:00 (12+) [code = Medical Center DEPRESSION SCREENING (12+)] Future Scheduled 2021-12-01 FALLS RISK SCREENING [facility] 00:00:00 [code = FALLS RISK Medical C enter SCREENING] Future Scheduled 2021-12-[address] [facility] Test 00:00:00 (12+) [code = Medical Center DEPRESSION SCREENING (12+)] Future Scheduled 2021-12-01 FALLS RISK SCREENING [facility] 00:00:00 [code = FALLS RISK Medical C enter SCREENING] Future Scheduled 2021-12-[address] [facility] 00:00:00 (12+) [code = Medical Center DEPRESSION SCREENING (12+)] Future Scheduled 2021-12-01 FALLS RISK SCREENING [facility] 00:00:00 [code = FALLS RISK Medical C enter SCREENING] Future Scheduled 2021-12-[address] [facility] 00:00:00 (12+) [code = Medical Center DEPRESSION SCREENING (12+)] Future Scheduled 2021-12-01 FALLS RISK SCREENING [facility] 00:00:00 [code = FALLS RISK Medical C enter SCREENING] Future Scheduled 2021-12-[address] [facility] 00:00:00 (12+) [code = Medical Center DEPRESSION SCREENING (12+)] Future Scheduled 2021-12-01 FALLS RISK SCREENING [facility] 00:00:00 [code = FALLS RISK Medical C enter SCREENING] Future Scheduled 2021-12-[address] [facility] 00:00:00 (12+) [code = Medical Center DEPRESSION SCREENING (12+)] Future Scheduled 2021-12-01 FALLS RISK SCREENING [facility] 00:00:00 [code = FALLS RISK Medical C enter SCREENING] Future Scheduled 2021-06-22 COVID-19 VACCINE ([address] [facility] 00:00:00 - Booster for Pfizer Medical Center series) [code = COVID-19 VACCINE (3 - Booster for Pfizer series)] Future Scheduled 2021-06-22 COVID-19 VACCINE ([address] [facility] 00:00:00 - Booster for Pfizer Medical Center series) [code = COVID-19 VACCINE (3 - Booster for Pfizer series)] Future Scheduled 2021-06-22 COVID-19 VACCINE ([address] [facility] 00:00:00 - Booster for Pfizer Medical Center series) [code = COVID-19 VACCINE (3 - Booster for Pfizer series)] Future Scheduled 2021-06-22 COVID-19 VACCINE ([address] [facility] 00:00:00 - Booster for Pfizer Medical Center series) [code = COVID-19 VACCINE (3 - Booster for Pfizer series)] Future Scheduled 2021-06-22 COVID-19 VACCINE ([address] [facility] 00:00:00 - Booster for Pfizer Medical Center series) [code = COVID-19 VACCINE (3 - Booster for Pfizer series)] Future Scheduled 2021-06-22 COVID-19 VACCINE ([address] [facility] 00:00:00 - Booster for Pfizer Medical Center series) [code = COVID-19 VACCINE (3 - Booster for Pfizer series)] Future Scheduled 2021-06-22 COVID-19 VACCINE ([address] [facility] 00:00:00 - Booster for Pfizer Medical Center series) [code = COVID-19 VACCINE (3 - Booster for Pfizer series)] Future Scheduled 2012-08-[address] [facility] 00:00:00 WELLNESS (YEAR 2 or Medical Center FIRST YEAR if no IPPE) [code = MEDICARE ANNUAL WELLNESS (YEAR 2 or FIRST YEAR if no IPPE)] Future Scheduled 2012-08-[address] [facility] 00:00:00 WELLNESS (YEAR 2 or Medical Center FIRST YEAR if no IPPE) [code = MEDICARE ANNUAL WELLNESS (YEAR 2 or FIRST YEAR if no IPPE)] Future Scheduled 2012-08-[address] [facility] 00:00:00 WELLNESS (YEAR 2 or Medical Center FIRST YEAR if no IPPE) [code = MEDICARE ANNUAL WELLNESS (YEAR 2 or FIRST YEAR if no IPPE)] Future Scheduled 2012-08-[address] [facility] 00:00:00 WELLNESS (YEAR 2 or Medical Center FIRST YEAR if no IPPE) [code = MEDICARE ANNUAL WELLNESS (YEAR 2 or FIRST YEAR if no IPPE)] Future Scheduled 2012-08-[address] [facility] 00:00:00 WELLNESS (YEAR 2 or Medical Center FIRST YEAR if no IPPE) [code = MEDICARE ANNUAL WELLNESS (YEAR 2 or FIRST YEAR if no IPPE)] Future Scheduled 2012-08-[address] [facility] 00:00:00 WELLNESS (YEAR 2 or Medical Center FIRST YEAR if no IPPE) [code = MEDICARE ANNUAL WELLNESS (YEAR 2 or FIRST YEAR if no IPPE)] Future Scheduled 2012-08-[address] [facility] 00:00:00 WELLNESS (YEAR 2 or Medical Center FIRST YEAR if no IPPE) [code = MEDICARE ANNUAL WELLNESS (YEAR 2 or FIRST YEAR if no IPPE)] Future Scheduled 2011 PNEUMOCOCCAL 65+ YRS [facility] 00:00:00 (1 - PCV) [code = Medical Ce nter PNEUMOCOCCAL 65+ YRS (1 - PCV)] Future Scheduled 2011 PNEUMOCOCCAL 65+ YRS [facility] 00:00:00 (1 - PCV) [code = Medical Ce nter PNEUMOCOCCAL 65+ YRS (1 - PCV)] Future Scheduled 2011 PNEUMOCOCCAL 65+ YRS [facility] 00:00:00 (1 - PCV) [code = Medical Ce nter PNEUMOCOCCAL 65+ YRS (1 - PCV)] Future Scheduled 2011 PNEUMOCOCCAL 65+ YRS [facility] 00:00:00 (1 - PCV) [code = Medical Ce nter PNEUMOCOCCAL 65+ YRS (1 - PCV)] Future Scheduled 2011 PNEUMOCOCCAL 65+ YRS [facility] 00:00:00 (1 - PCV) [code = Medical Ce nter PNEUMOCOCCAL 65+ YRS (1 - PCV)] Future Scheduled 2011 PNEUMOCOCCAL 65+ YRS [facility] 00:00:00 (1 - PCV) [code = Medical Ce nter PNEUMOCOCCAL 65+ YRS (1 - PCV)] Future Scheduled 2011 PNEUMOCOCCAL 65+ YRS [facility] 00:00:00 (1 - PCV) [code = Medical Ce nter PNEUMOCOCCAL 65+ YRS (1 - PCV)] Future Scheduled 1996 SHINGLES VACCINES ([address] [facility] 00:00:00 of 2) [code = Medical Center SHINGLES VACCINES (1 of 2)] Future Scheduled 1996 SHINGLES VACCINES ([address] [facility] 00:00:00 of 2) [code = Medical Center SHINGLES VACCINES (1 of 2)] Future Scheduled 1996 SHINGLES VACCINES ([address] [facility] 00:00:00 of 2) [code = Medical Center SHINGLES VACCINES (1 of 2)] Future Scheduled 1996 SHINGLES VACCINES ([address] [facility] 00:00:00 of 2) [code = Medical Center SHINGLES VACCINES (1 of 2)] Future Scheduled 1996 SHINGLES VACCINES ([address] [facility] 00:00:00 of 2) [code = Medical Center SHINGLES VACCINES (1 of 2)] Future Scheduled 1996 SHINGLES VACCINES ([address] [facility] 00:00:00 of 2) [code = Medical Center SHINGLES VACCINES (1 of 2)] Future Scheduled 1996 SHINGLES VACCINES ([address] [facility] 00:00:00 of 2) [code = Medical Center SHINGLES VACCINES (1 of 2)] Future Scheduled 1965 DTAP/TDAP/TD [facility]:00 VACCINES (1 - Tdap) Medical Center [code = DTAP/TDAP/TD VACCINES (1 - Tdap)] Future Scheduled 1965 DTAP/TDAP/TD [facility] 00:[facility]:00 VACCINES (1 - Tdap) Medical Center [code = DTAP/TDAP/TD VACCINES (1 - Tdap)] Future Scheduled 1965 DTAP/TDAP/TD [facility] 00:00:00 VACCINES (1 - Tdap) Medical Center [code = DTAP/TDAP/TD VACCINES (1 - Tdap)] Future Scheduled 1965 DTAP/TDAP/TD [facility] 00:00:00 VACCINES (1 - Tdap) Medical Center [code = DTAP/TDAP/TD VACCINES (1 - Tdap)] Future Scheduled 1965 DTAP/TDAP/TD [facility] 00:00:00 VACCINES (1 - Tdap) Medical Center [code = DTAP/TDAP/TD VACCINES (1 - Tdap)] Future Scheduled 1965 DTAP/TDAP/TD [facility] 00:00:00 VACCINES (1 - Tdap) Medical Center [code = DTAP/TDAP/TD VACCINES (1 - Tdap)] Future Scheduled 1965 DTAP/TDAP/TD [facility] 00:00:00 VACCINES (1 - Tdap) Medical Center [code = DTAP/TDAP/TD VACCINES (1 - Tdap)] Future Scheduled [address] [facility] 00:00:00 SCREENING [code = Medical Ce nter HEPATITIS C SCREENING] Future Scheduled [address] [facility] 00:00:00 SCREENING [code = Medical Ce nter HEPATITIS C SCREENING] Future Scheduled [address] [facility] 00:00:00 SCREENING [code = Medical Ce nter HEPATITIS C SCREENING] Future Scheduled [address] [facility] 00:00:00 SCREENING [code = Medical Ce nter HEPATITIS C SCREENING] Future Scheduled [address] [facility] 00:00:00 SCREENING [code = Medical Ce nter HEPATITIS C SCREENING] Future Scheduled [address] [facility] 00:00:00 SCREENING [code = Medical Ce nter HEPATITIS C SCREENING] Future Scheduled [address] [facility] 00:00:00 SCREENING [code = Medical Ce nter HEPATITIS C SCREENING] Future Scheduled [address] [facility] 00:00:00 [facility] Cent[facility] r Screening (12+) [code = Tobacco Cessation Counseling and Screening (12+)] Future Scheduled 1946 DXA SCAN [code = DXA [facility] 00:00:00 SCAN] Medical Center Future Scheduled 1946 DXA SCAN [code = DXA [facility] 00:00:00 SCAN] Medical Center Future Scheduled 1946 DXA SCAN [code = DXA [facility] 00:00:00 SCAN] Medical Center Future Scheduled 1946 DXA SCAN [code = DXA [facility] 00:00:00 SCAN] [facility] Future Scheduled 1946 DXA SCAN [code = DXA [facility] 00:00:00 SCAN] [facility] Center Future Scheduled 1946 DXA SCAN [code = DXA [facility] 00:00:00 SCAN] Medical Center Future Scheduled 1946 DXA SCAN [code = DXA [facility] 00:00:00 SCAN] Medical Center Future Scheduled COLON CANCER [facility] [employer] Test SCREENING: of Medicine COLONOSCOPY [code = COLON CANCER SCREENING: COLONOSCOPY] Future Scheduled MAMMOGRAM ANNUAL [facility] Test [code = MAMMOGRAM of Medicin e ANNUAL] Future Scheduled TETANUS SHOT (ADULT) [facility] Test [code = TETANUS SHOT of Medi cine (ADULT)] Future Scheduled Diabetic foot [facility] Test examination of Medicine (regime/therapy) [code = [id number]] Future Scheduled HEPATITIS C [facility] [employer] Test SCREENING [code = of Medicin e HEPATITIS C SCREENING] Future Scheduled OSTEOPOROSIS [facility] Test SCREENING [code = of Medicin e OSTEOPOROSIS SCREENING] Future Scheduled PNEUMOVAX >=65 [facility] [employer] Test (PPSV23) [code = of Medicine PNEUMOVAX >=65 (PPSV23)] Future Scheduled PREVNAR >= 65 [facility] Test (PCV13) [code = of Medicine PREVNAR >= 65 (PCV13)] Future Scheduled FLU VACCINE > 6 [facility] C [facility]lege Test MONTHS [code = FLU of Medici ne VACCINE > 6 MONTHS] Future Scheduled ANNUAL DIABETIC [facility] C [facility] Test RETINOPATHY of Medicine SCREENING [code = ANNUAL DIABETIC RETINOPATHY SCREENING] Future Scheduled FALL SCREEN [code = [employer] [facility] FALL SCREEN] of Medicine Future Scheduled COLON CANCER [facility] Test SCREENING: of Medicine COLONOSCOPY [code = COLON CANCER SCREENING: COLONOSCOPY] Future Scheduled MAMMOGRAM ANNUAL [facility] Test [code = MAMMOGRAM of Medicin e ANNUAL] Future Scheduled TETANUS SHOT (ADULT) [employer] Test [code = TETANUS SHOT of Medi cine (ADULT)] Future Scheduled Diabetic foot [facility] Test examination of Medicine (regime/therapy) [code = [id number]] Future Scheduled HEPATITIS C [facility] Test SCREENING [code = of Medicin e HEPATITIS C SCREENING] Future Scheduled OSTEOPOROSIS [facility] Test SCREENING [code = of Medicin e OSTEOPOROSIS SCREENING] Future Scheduled PNEUMOVAX >=65 [employer] Test (PPSV23) [code = of Medicine PNEUMOVAX >=65 (PPSV23)] Future Scheduled PREVNAR >= 65 [employer] Test (PCV13) [code = of Medicine PREVNAR >= 65 (PCV13)] Future Scheduled FLU VACCINE > 6 [employer] Test MONTHS [code = FLU of Medici ne VACCINE > 6 MONTHS] Future Scheduled FALL SCREEN [code = [employer] [facility] FALL SCREEN] of Medicine Future Scheduled ANNUAL DIABETIC [facility] RETINOPATHY of Medicine SCREENING [code = ANNUAL DIABETIC RETINOPATHY SCREENING] Future Scheduled COLON CANCER [facility] [employer] Test SCREENING: of Medicine COLONOSCOPY [code = COLON CANCER SCREENING: COLONOSCOPY] Future Scheduled MAMMOGRAM ANNUAL [facility] Test [code = MAMMOGRAM of Medicin e ANNUAL] Future Scheduled TETANUS SHOT (ADULT) [employer] Test [code = TETANUS SHOT of Medi cine (ADULT)] Future Scheduled Diabetic foot [facility] Test examination of Medicine (regime/therapy) [code = [id number]] Future Scheduled HEPATITIS C [facility] Test SCREENING [code = of Medicin e HEPATITIS C SCREENING] Future Scheduled OSTEOPOROSIS [facility] Test SCREENING [code = of Medicin e OSTEOPOROSIS SCREENING] Future Scheduled PNEUMOVAX >=65 [facility] Test (PPSV23) [code = of Medicine PNEUMOVAX >=65 (PPSV23)] Future Scheduled PREVNAR >= 65 [facility] Test (PCV13) [code = of Medicine PREVNAR >= 65 (PCV13)] Future Scheduled FLU VACCINE > 6 [facility] C [facility]lege Test MONTHS [code = FLU of Medici ne VACCINE > 6 MONTHS] Future Scheduled FALL SCREEN [code = [employer] [facility] FALL SCREEN] of Medicine Future Scheduled ANNUAL DIABETIC [facility] C [facility] Test RETINOPATHY of Medicine SCREENING [code = ANNUAL DIABETIC RETINOPATHY SCREENING] Future Scheduled COLON CANCER [facility] [employer] Test SCREENING: of Medicine COLONOSCOPY [code = COLON CANCER SCREENING: COLONOSCOPY] Future Scheduled MAMMOGRAM ANNUAL [facility] Test [code = MAMMOGRAM of Medicin e ANNUAL] Future Scheduled TETANUS SHOT (ADULT) [employer] Test [code = TETANUS SHOT of Medi cine (ADULT)] Future Scheduled Diabetic foot [facility] Test examination of Medicine (regime/therapy) [code = [id number]] Future Scheduled HEPATITIS C [facility] [employer] Test SCREENING [code = of Medicin e HEPATITIS C SCREENING] Future Scheduled OSTEOPOROSIS [facility] [employer] Test SCREENING [code = of Medicin e OSTEOPOROSIS SCREENING] Future Scheduled PNEUMOVAX >=65 [facility] Test (PPSV23) [code = of Medicine PNEUMOVAX >=65 (PPSV23)] Future Scheduled PREVNAR >= 65 [facility] Test (PCV13) [code = of Medicine PREVNAR >= 65 (PCV13)] Future Scheduled FLU VACCINE > 6 [facility] C [facility]lege Test MONTHS [code = FLU of Medici ne VACCINE > 6 MONTHS] Future Scheduled FALL SCREEN [code = [employer] [facility] FALL SCREEN] of Medicine Future Scheduled ANNUAL DIABETIC [facility] RETINOPATHY of Medicine SCREENING [code = ANNUAL DIABETIC RETINOPATHY SCREENING] Future Scheduled COLON CANCER [facility] Test SCREENING: of Medicine COLONOSCOPY [code = COLON CANCER SCREENING: COLONOSCOPY] Future Scheduled MAMMOGRAM ANNUAL [facility] Test [code = MAMMOGRAM of Medicin e ANNUAL] Future Scheduled TETANUS SHOT (ADULT) [employer] Test [code = TETANUS SHOT of Medi cine (ADULT)] Future Scheduled Diabetic foot [facility] Test examination of Medicine (regime/therapy) [code = [id number]] Future Scheduled HEPATITIS C [facility] Test SCREENING [code = of Medicin e HEPATITIS C SCREENING] Future Scheduled OSTEOPOROSIS [facility] Test SCREENING [code = of Medicin e OSTEOPOROSIS SCREENING] Future Scheduled PNEUMOVAX >=65 [employer] [facility] [employer] Test (PPSV23) [code = of Medicine PNEUMOVAX >=65 (PPSV23)] Future Scheduled PREVNAR >= 65 [facility] Test (PCV13) [code = of Medicine PREVNAR >= 65 (PCV13)] Future Scheduled FLU VACCINE > 6 [facility] C [facility]lege Test MONTHS [code = FLU of Medici ne VACCINE > 6 MONTHS] Future Scheduled FALL SCREEN [code = [employer] [facility] FALL SCREEN] of Medicine Future Scheduled ANNUAL DIABETIC [facility] RETINOPATHY of Medicine SCREENING [code = ANNUAL DIABETIC RETINOPATHY SCREENING] Future Scheduled COLON CANCER [facility] Test SCREENING: of Medicine COLONOSCOPY [code = COLON CANCER SCREENING: COLONOSCOPY] Future Scheduled MAMMOGRAM ANNUAL [facility] Test [code = MAMMOGRAM of Medicin e ANNUAL] Future Scheduled TETANUS SHOT (ADULT) [employer] Test [code = TETANUS SHOT of Medi cine (ADULT)] Future Scheduled Diabetic foot [facility] Test examination of Medicine (regime/therapy) [code = [id number]] Future Scheduled HEPATITIS C [facility] Test SCREENING [code = of Medicin e HEPATITIS C SCREENING] Future Scheduled OSTEOPOROSIS [facility] Test SCREENING [code = of Medicin e OSTEOPOROSIS SCREENING] Future Scheduled PNEUMOVAX >=65 [facility] Test (PPSV23) [code = of Medicine PNEUMOVAX >=65 (PPSV23)] Future Scheduled PREVNAR >= 65 [facility] Test (PCV13) [code = of Medicine PREVNAR >= 65 (PCV13)] Future Scheduled FLU VACCINE > 6 [facility] Test MONTHS [code = FLU of Medici ne VACCINE > 6 MONTHS] Future Scheduled FALL SCREEN [code = [employer] [facility] FALL SCREEN] of Medicine Future Scheduled ANNUAL DIABETIC [facility] C [facility] Test RETINOPATHY of Medicine SCREENING [code = ANNUAL DIABETIC RETINOPATHY SCREENING] Future Scheduled COLON CANCER [facility] Test SCREENING: of Medicine COLONOSCOPY [code = COLON CANCER SCREENING: COLONOSCOPY] Future Scheduled MAMMOGRAM ANNUAL [facility] Test [code = MAMMOGRAM of Medicin e ANNUAL] Future Scheduled TETANUS SHOT (ADULT) [employer] Test [code = TETANUS SHOT of Medi cine (ADULT)] Future Scheduled Diabetic foot [facility] Test examination of Medicine (regime/therapy) [code = [id number]] Future Scheduled HEPATITIS C [facility] [employer] Test SCREENING [code = of Medicin e HEPATITIS C SCREENING] Future Scheduled OSTEOPOROSIS [facility] Test SCREENING [code = of Medicin e OSTEOPOROSIS SCREENING] Future Scheduled PNEUMOVAX >=65 [facility] Test (PPSV23) [code = of Medicine PNEUMOVAX >=65 (PPSV23)] Future Scheduled PREVNAR >= 65 [facility] Test (PCV13) [code = of Medicine PREVNAR >= 65 (PCV13)] Future Scheduled FLU VACCINE > 6 [facility] C [facility]lege Test MONTHS [code = FLU of Medici ne VACCINE > 6 MONTHS] Future Scheduled FALL SCREEN [code = [employer] [facility] FALL SCREEN] of Medicine Future Scheduled ANNUAL DIABETIC [facility] C [facility] Test RETINOPATHY of Medicine SCREENING [code = ANNUAL DIABETIC RETINOPATHY SCREENING] Future Scheduled COLON CANCER [facility] Dariusz ege Test SCREENING: of Medicine COLONOSCOPY [code = COLON CANCER SCREENING: COLONOSCOPY] Future Scheduled MAMMOGRAM ANNUAL [facility] Test [code = MAMMOGRAM of Medicin e ANNUAL] Future Scheduled TETANUS SHOT (ADULT) [place] [facility] College Test [code = TETANUS SHOT of Medi cine (ADULT)] Future Scheduled Diabetic foot [facility] Col lege Test examination of Medicine (regime/therapy) [code = [id number]] Future Scheduled HEPATITIS C [facility] Test SCREENING [code = of Medicin e HEPATITIS C SCREENING] Future Scheduled MEDICARE AWV [facility] D[facility]z e[facility] Test (Initial) [code = of Medicin e MEDICARE AWV (Initial)] Future Scheduled OSTEOPOROSIS [facility] D[facility]z ege Test SCREENING [code = of Medicin e OSTEOPOROSIS SCREENING] Future Scheduled PNEUMOVAX >=65 [facility] Co llege Test (PPSV23) [code = of Medicine PNEUMOVAX >=65 (PPSV23)] Future Scheduled PREVNAR >= 65 [facility] Col [facility]ge Test (PCV13) [code = of Medicine PREVNAR >= 65 (PCV13)] Future Scheduled FLU VACCINE > 6 [facility] C ollege Test MONTHS [code = FLU of Medici ne VACCINE > 6 MONTHS] Future Scheduled FALL SCREEN [code = [employer] Test FALL SCREEN] of Medicine Future Scheduled ANNUAL DIABETIC [facility] C [facility]lege Test RETINOPATHY of Medicine SCREENING [code = ANNUAL DIABETIC RETINOPATHY SCREENING] Future Scheduled COLON CANCER [facility] D[facility]z ege Test SCREENING: of Medicine COLONOSCOPY [code = COLON CANCER SCREENING: COLONOSCOPY] Future Scheduled MAMMOGRAM ANNUAL [facility] Test [code = MAMMOGRAM of Medicin e ANNUAL] Future Scheduled COLON CANCER [facility] Test SCREENING: of Medicine COLONOSCOPY [code = COLON CANCER SCREENING: COLONOSCOPY] Future Scheduled MAMMOGRAM ANNUAL [facility] Test [code = MAMMOGRAM of Medicin e ANNUAL] Future Scheduled TETANUS SHOT (ADULT) [place] [employer] Test [code = TETANUS SHOT of Medi cine (ADULT)] Future Scheduled TETANUS SHOT (ADULT) [place] [employer] Test [code = TETANUS SHOT of Medi cine (ADULT)] Future Scheduled Diabetic foot [facility] Test examination of Medicine (regime/therapy) [code = [id number]] Future Scheduled HEPATITIS C [facility] Test SCREENING [code = of Medicin e HEPATITIS C SCREENING] Future Scheduled MEDICARE AWV [facility] Test (Initial) [code = of Medicin e MEDICARE AWV (Initial)] Future Scheduled OSTEOPOROSIS [facility] Test SCREENING [code = of Medicin e OSTEOPOROSIS SCREENING] Future Scheduled PNEUMOVAX >=65 [facility] Test (PPSV23) [code = of Medicine PNEUMOVAX >=65 (PPSV23)] Future Scheduled FLU VACCINE > 6 [facility] C ollege Test MONTHS [code = FLU of Medici ne VACCINE > 6 MONTHS] Future Scheduled FALL SCREEN [code = [employer] [facility] FALL SCREEN] of Medicine Future Scheduled ANNUAL DIABETIC [facility] C [facility] Test RETINOPATHY of Medicine SCREENING [code = ANNUAL DIABETIC RETINOPATHY SCREENING] Future Scheduled Diabetic foot [facility] Test examination of Medicine (regime/therapy) [code = [id number]] Future Scheduled HEPATITIS C [facility] Test SCREENING [code = of Medicin e HEPATITIS C SCREENING] Future Scheduled FALL SCREEN [code = [employer] [facility] FALL SCREEN] of Medicine Future Scheduled COLON CANCER [facility] Test SCREENING: of Medicine COLONOSCOPY [code = COLON CANCER SCREENING: COLONOSCOPY] Future Scheduled MAMMOGRAM ANNUAL [facility] Test [code = MAMMOGRAM of Medicin e ANNUAL] Future Scheduled OSTEOPOROSIS [facility] Test SCREENING [code = of Medicin e OSTEOPOROSIS SCREENING] Future Scheduled TETANUS SHOT (ADULT) [place] [employer] Test [code = TETANUS SHOT of Medi cine (ADULT)] Future Scheduled Diabetic foot [facility] Col [facility] Test examination of Medicine (regime/therapy) [code = [id number]] Future Scheduled HEPATITIS C [facility] Test SCREENING [code = of Medicin e HEPATITIS C SCREENING] Future Scheduled MEDICARE AWV [facility] Test (Initial) [code = of Medicin e MEDICARE AWV (Initial)] Future Scheduled OSTEOPOROSIS [facility] Test SCREENING [code = of Medicin e OSTEOPOROSIS SCREENING] Future Scheduled PNEUMOVAX >=65 [facility] [employer] Test (PPSV23) [code = of Medicine PNEUMOVAX >=65 (PPSV23)] Future Scheduled FLU VACCINE > 6 [facility] C ollege Test MONTHS [code = FLU of Medici ne VACCINE > 6 MONTHS] Future Scheduled FALL SCREEN [code = [facility] Test FALL SCREEN] of Medicine Future Scheduled ANNUAL DIABETIC [facility] C ollege Test RETINOPATHY of Medicine SCREENING [code = ANNUAL DIABETIC RETINOPATHY SCREENING] Future Scheduled PNEUMOVAX >=65 [facility] Co [facility] Test (PPSV23) [code = of Medicine PNEUMOVAX >=65 (PPSV23)] Future Scheduled PREVNAR >= 65 [facility] Col [facility]ge Test (PCV13) [code = of Medicine PREVNAR >= 65 (PCV13)] Future Scheduled FLU VACCINE > 6 [facility] C ollege Test MONTHS [code = FLU of Medici ne VACCINE > 6 MONTHS] Future Scheduled ANNUAL DIABETIC [facility] C ollege Test RETINOPATHY of Medicine SCREENING [code = ANNUAL DIABETIC RETINOPATHY SCREENING] Future Scheduled COLON CANCER [facility] ege Test SCREENING: of Medicine COLONOSCOPY [code = COLON CANCER SCREENING: COLONOSCOPY] Future Scheduled MAMMOGRAM ANNUAL [facility] Test [code = MAMMOGRAM of Medicin e ANNUAL] Future Scheduled TETANUS SHOT (ADULT) [facility] College Test [code = TETANUS SHOT of Medi cine (ADULT)] Future Scheduled Diabetic foot [facility] Col lege Test examination of Medicine (regime/therapy) [code = [id number]] Future Scheduled HEPATITIS C [facility] Test SCREENING [code = of Medicin e HEPATITIS C SCREENING] Future Scheduled ZOSTER VACCINE (1 of [facility] Test 2) [code = ZOSTER of Medicin e VACCINE (1 of 2)] Future Scheduled MEDICARE AWV [facility] D[facility] Test (Initial) [code = of Medicin e MEDICARE AWV (Initial)] Future Scheduled OSTEOPOROSIS [facility] Test SCREENING [code = of Medicin e OSTEOPOROSIS SCREENING] Future Scheduled PNEUMOVAX >=65 [facility] Test (PPSV23) [code = of Medicine PNEUMOVAX >=65 (PPSV23)] Future Scheduled FLU VACCINE > 6 [facility] C ollege Test MONTHS [code = FLU of Medici ne VACCINE > 6 MONTHS] Future Scheduled FALL SCREEN [code = [employer] Test FALL SCREEN] of Medicine Future Scheduled ANNUAL DIABETIC [facility] C [facility]lege Test RETINOPATHY of Medicine SCREENING [code = ANNUAL DIABETIC RETINOPATHY SCREENING] Future Scheduled COLON CANCER [facility] Test SCREENING: of Medicine COLONOSCOPY [code = COLON CANCER SCREENING: COLONOSCOPY] Future Scheduled MAMMOGRAM ANNUAL [facility] Test [code = MAMMOGRAM of Medicin e ANNUAL] Future Scheduled TETANUS SHOT (ADULT) [place] [employer] Test [code = TETANUS SHOT of Medi cine (ADULT)] Future Scheduled Diabetic foot [facility] Col [facility]ge Test examination of Medicine (regime/therapy) [code = [id number]] Future Scheduled HEPATITIS C [facility] Test SCREENING [code = of Medicin e HEPATITIS C SCREENING] Future Scheduled ZOSTER VACCINE (1 of [place] [employer] Test 2) [code = ZOSTER of Medicin e VACCINE (1 of 2)] Future Scheduled MEDICARE AWV [facility] Test (Initial) [code = of Medicin e MEDICARE AWV (Initial)] Future Scheduled OSTEOPOROSIS [facility] Test SCREENING [code = of Medicin e OSTEOPOROSIS SCREENING] Future Scheduled PNEUMOVAX >=65 [facility] [employer] Test (PPSV23) [code = of Medicine PNEUMOVAX >=65 (PPSV23)] Future Scheduled FLU VACCINE > 6 [facility] C ollege Test MONTHS [code = FLU of Medici ne VACCINE > 6 MONTHS] Future Scheduled FALL SCREEN [code = [employer] Test FALL SCREEN] of Medicine Future Scheduled ANNUAL DIABETIC [facility] C ollege Test RETINOPATHY of Medicine SCREENING [code = ANNUAL DIABETIC RETINOPATHY SCREENING] Future Scheduled COLON CANCER [facility] Test SCREENING: of Medicine COLONOSCOPY [code = COLON CANCER SCREENING: COLONOSCOPY] Future Scheduled MAMMOGRAM ANNUAL [facility] Test [code = MAMMOGRAM of Medicin e ANNUAL] Future Scheduled TETANUS SHOT (ADULT) [place] [employer] Test [code = TETANUS SHOT of Medi cine (ADULT)] Future Scheduled Diabetic foot [facility] Col [facility]ge Test examination of Medicine (regime/therapy) [code = [id number]] Future Scheduled HEPATITIS C [facility] Test SCREENING [code = of Medicin e HEPATITIS C SCREENING] Future Scheduled FALL SCREEN [code = [employer] [facility] FALL SCREEN] of Medicine Future Scheduled OSTEOPOROSIS [facility] Test SCREENING [code = of Medicin e OSTEOPOROSIS SCREENING] Future Scheduled PNEUMOVAX >=65 [facility] Co [facility]lege Test (PPSV23) [code = of Medicine PNEUMOVAX >=65 (PPSV23)] Future Scheduled PREVNAR >= 65 [facility] Col [facility]ge Test (PCV13) [code = of Medicine PREVNAR >= 65 (PCV13)] Future Scheduled FLU VACCINE > 6 [facility] C ollege Test MONTHS [code = FLU of Medici ne VACCINE > 6 MONTHS] Future Scheduled ANNUAL DIABETIC [facility] C ollege Test RETINOPATHY of Medicine SCREENING [code = ANNUAL DIABETIC RETINOPATHY SCREENING] Future Scheduled PROC INJ AVASTIN 1 Occurrences [facility] Test INTRAVITREAL starting of Medicine BILATERAL [code = 07/31/2020 until 58690] 07/31/2021 Future Scheduled PROC INJ EYLEA 1 Occurrences [facility] ollege Test INTRAVITREAL starting of Medicine BILATERAL [code = 07/31/2020 until 76141] 07/31/2021 Future Scheduled PROC INJ EYLEA 1 Occurrences [facility] ollege Test INTRAVITREAL starting of Medicine BILATERAL [code = 06/05/2020 until 90383] 06/05/2021 Future Scheduled PROC INJ EYLEA 1 Occurrences [facility] ollege Test INTRAVITREAL starting of Medicine BILATERAL [code = 04/14/2020 until 13724] 04/14/2021 Future Scheduled PROC INJ EYLEA 1 Occurrences [facility] ollege Test INTRAVITREAL starting of Medicine BILATERAL [code = 03/15/2020 until 77140] 03/15/2021 Future Scheduled PROC INJ EYLEA 1 Occurrences [facility] ollege Test INTRAVITREAL starting of Medicine BILATERAL [code = 02/16/2020 until 70189] 02/15/2021 Future Scheduled PROC INJ AVASTIN 1 Occurrences [facility] Test INTRAVITREAL starting of Medicine BILATERAL [code = 01/13/2020 until 79603] 01/13/2021 Future Scheduled PROC INJ AVASTIN 1 Occurrences [facility] Test INTRAVITREAL starting of Medicine BILATERAL [code = 12/30/2019 until 24293] 12/30/2020 Encounters Start End Encounter Admission Attending Care Care Encounter Source Date/Time Date/Time Type Type Clinicians Facility Department ID 2022-07-18 Outpatient EL NITIN [facility] Surgery [id number] [facility] 15:12:25 [facility] 2021-09-09 Outpatient NITIN [facility] Surgery [id number] [facility] 06:34:14 [facility] 2021-09-08 Outpatient AHMED, [facility] Surgery [id number] [facility] 08:34:40 [facility] 2021-09-07 Outpatient MED, [facility] Surgery [id number] [facility] 22:12:53 [facility] 2022-11-15 2022-11-15 Outpatient MONICAHARIKA LANDEROS [facility] [id number] [facility] 08:10:48 08:42:22 [facility] Saul e of Medicin e 2022-11-14 2022-11-14 [facility], [facility] [id number] 09:54:00 14:48:00 Encounter [facility] 2022-11-14 2022-11-14 Outpatient EL TIGRE, [facility] Surgery [id number] [facility] 09:54:00 14:48:00 [facility] 2022-11-14 2022-11-14 [facility], [facility] [id number] 09:54:00 14:48:00 Encounter [facility] 2022-11-14 2022-11-14 [facility] [id number] [facility] 11:21:00 12:47:00 [facility]22-[facility]-14 2022-11-14 [facility] [id number] [facility] 11:21:00 12:47:00 [facility] 2022-11-14 2022-11-14 Surgery [facility], [facility] [id number] 11:20:00 12:40:00 [facility] 2022-11-14 2022-11-14 Surgery [facility], [facility] [id number] 11:20:00 12:40:00 [facility] 2022-11-01 2022-11-01 Outpatient HARIKA PENALOZA [facility] [id number] [facility] 08:20:36 10:04:00 ANUJ Hughes e of Medicin e 2022-10-15 2022-10-15 Outpatient NITIN, [facility] [id number] [facility] 12:57:25 14:40:59 [facility] 2022-10-02 2022-10-02 Outpatient TREMAINE, [facility] [id number] [facility] 09:13:23 10:35:46 [facility] 2022-10-01 2022-10-01 Outpatient NITIN, [facility] [id number] [facility] 09:05:15 11:56:18 [facility]ON [facility] 2022-08-28 2022-08-28 Outpatient ROBERT, [facility] [id number] [facility] 10:47:51 13:34:59 MARTHA [facility] 2022-08-26 2022-08-26 Outpatient TREMAINE, [facility] [id number] [facility] 10:15:40 11:49:04 ANUJ [facility] 2022-07-24 2022-07-24 Outpatient TREMAINE, [facility] [id number] [facility] 09:17:57 12:36:22 ANUJ [facility] [employer] [facility] [employer] 2022-07-17 2022-07-17 Outpatient ROBIN, [facility] [id number] [facility] 13:09:11 14:10:23 SANKET Dariusz ege of Medicin e 2022-07-17 2022-07-17 Outpatient ROBERT, [facility] [id number] [facility] 09:23:09 10:09:28 MARTHA [facility] [employer] [facility] [employer] 2022-07-09 2022-07-09 Outpatient NITIN, [facility] [id number] [facility] 09:15:06 10:34:07 [facility]ON [facility] [employer] [facility] [employer] 2022-06-24 2022-06-24 Outpatient , [facility] [id number] [facility] 13:36:40 14:29:56 RENEA [facility] 2022-05-14 2022-05-14 Outpatient JOANNA [facility] [id number] [facility] 09:19:29 11:21:05 TERRI [facility] [employer] [employer] 2022-05-01 2022-05-01 Outpatient FRANKGWYN, [facility] [id number] [facility] 08:42:06 10:55:04 MARTHA [facility] [employer] [facility] [employer] [employer] 2022-04-05 2022-04-05 Outpatient TREMAINE, [facility] [id number] [facility] 09:21:18 10:39:27 ANUJ [facility] [employer] [facility] [employer] 2022-04-02 2022-04-02 Outpatient NITIN, [facility] [id number] [facility] 09:05:49 10:22:47 [facility]ON [facility] [employer] [facility] [employer] 2022-03-20 2022-03-20 Inpatient ROSE MARY PhelanCL OUTD [id number] [facility] 04:54:00 04:54:00 Wing 99 [facility] 2022-03-13 2022-03-13 Outpatient FRANKGWYN, [facility] [id number] [facility] 08:14:23 09:27:58 MARTHA [facility] [employer] [facility] [employer] [employer] 2022-02-22 2022-02-22 Outpatient TREMAINE, [facility] [id number] [facility] 09:17:47 10:34:42 ANUJ [facility] [employer] [facility] [employer] 2022-02-20 2022-02-20 Outpatient BERNARDGWYN, [facility] [id number] [facility] 09:28:59 11:16:16 MARTHA [facility] [employer] [facility] [employer] [employer] 2022-02-06 2022-02-06 Outpatient ROBERT, [facility] [id number] [facility] 10:03:04 11:51:11 MARTHA [facility] [employer] [facility] [employer] [employer] 2022-01-30 2022-01-30 Outpatient ROBERT, [facility] [id number] [facility] 09:32:52 11:26:52 MARTHA [facility] [employer] [facility] [employer] 2022-01-29 2022-01-29 Outpatient NITIN, [facility] [id number] [facility] 09:22:57 10:50:05 AARON [facility] [employer] [facility] [employer] 2022-01-28 2022-01-28 Outpatient JUDITH [facility] [id number] [facility] 10:51:04 12:50:45 LYN [facility] 2022-01-25 2022-01-25 Outpatient EDGAR [facility] [id number] [facility] 08:23:53 09:02:29 NICOLE [facility] 2022-01-24 2022-01-24 Outpatient JUDITH, M [facility] [id number] [facility] 14:07:19 15:06:08 LYN [facility] 2022-01-23 2022-01-23 Outpatient MUNDAY, [facility] [id number] [facility] 09:36:14 11:16:18 MARTHA [facility] [employer] 2022-01-22 2022-01-[address] [facility] [id number] [facility] 06:25:00 23:59:00 [facility]in [facility] 2022-01-22 2022-01-22 [facility] [id number] 06:25:00 08:55:00 Encounter [facility] 2022-01-22 2022-01-22 Outpatient [facility] Surgery [id number] [facility] 06:25:00 08:55:00 DIGHTON 2022-01-22 2022-01-22 [facility] [id number] 06:25:00 08:55:00 Encounter [facility] 2022-01-22 2022-01-22 Anesthesia [facility] [id number] [facility] 07:30:00 08:23:00 Event , [facility] 2022-01-22 2022-01-22 Anesthesia [facility] [id number] [facility] 07:30:00 08:23:00 Event , [facility] 2022-01-22 2022-01-22 [facility] [id number] [facility] 07:30:00 08:15:00 [facility] 2022-01-22 2022-01-22 [facility] [id number] [facility] 07:30:00 08:15:00 [facility] 2022-01-21 2022-01-21 [facility], [facility] [id number] 00:00:00 00:00:[address] [facility] 2022-01-21 2022-01-21 Orders Robert [facility] [id number] 00:00:00 00:00:[address] [facility] 2022-01-16 2022-01-16 Outpatient TREMAINE, [facility] [id number] [facility] 10:35:42 12:30:50 [facility]UJ [facility] 2021-12-12 2021-12-12 Outpatient ROBERT, [facility] [id number] [facility] 15:43:28 16:53:28 MARTHA [facility] 2021-12-11 2021-12-11 Outpatient ROBIN [facility] [id number] [facility] 09:27:27 10:08:40 SANKET Coll ege of Medicin e 2021-12-11 2021-12-11 Outpatient NITIN [facility] [id number] [facility] 08:33:01 09:27:10 AARON [facility] 2021-12-10 2021-12-10 Outpatient TREMAINE [facility] [id number] [facility] 12:36:04 14:42:35 ANUJ [facility] 2021-11-14 2021-11-14 Outpatient ROBERT [facility] [id number] [facility] 15:03:56 15:55:33 MARTHA [facility] 2021-11-05 2021-11-05 Outpatient TREMAINE [facility] [id number] [facility] 12:53:58 13:46:10 ANUJ [facility] 2021-10-30 2021-10-30 Outpatient NITIN [facility] [id number] [facility] 10:59:06 12:09:11 AARON [facility] 2021-10-29 2021-10-29 Outpatient TREMAINE [facility] [id number] [facility] 13:53:45 15:32:08 ANUJ [facility] 2021-10-17 2021-10-17 [facility] [id number] [facility] 09:59:00 10:00:00 Mayra 66 2021-10-10 2021-10-10 Outpatient FRANKFORT, [facility] [id number] [facility] 12:27:54 15:25:07 MARTHA [facility] 2021-10-02 2021-10-02 Outpatient AHMED, [facility] [id number] [facility] 09:01:21 10:37:18 AARON [facility] 2021-09-24 2021-09-24 Outpatient TREMAINE, [facility] [id number] [facility] 14:22:24 16:38:14 ANUJ [facility] 2021-09-24 2021-09-24 Outpatient COSTA, [facility] [id number] [facility] 08:54:37 09:52:39 GINGER [facility] 2021-09-11 2021-09-11 Outpatient AHMED, [facility] [id number] [facility] 10:55:22 12:05:04 A[facility]ON [facility] 2021-09-10 2021-09-10 Outpatient TREMAINE, [facility] [id number] [facility] 15:33:58 17:01:07 ANUJ [facility] 2021-08-21 2021-08-21 Outpatient AHMED, [facility] [id number] [facility] 09:25:20 10:36:23 A[facility]ON [facility] 2021-08-10 2021-08-10 Outpatient AHMED, [facility] [id number] [facility] 09:52:56 11:32:39 [facility]ON [facility] [employer] [facility] [employer] [employer] 2021-08-03 2021-08-03 Outpatient AHMED, [facility] [id number] [facility] 08:22:31 09:08:34 AARON [facility] [employer] [facility] [employer] [employer] 2021-08-02 2021-08-02 Outpatient [facility] [id number] [facility] 11:25:00 23:59:00 [facility] 2021-07-272021-07-27 Outpatient TREMAINE HARIKA [facility] [id number] [facility] 10:35:38 12:19:51 ANUJ [facility] [employer] [facility] [employer] [employer] 2021-07-24 2021-07-24 Outpatient HARIKA MIRANDA [id number] [facility] 14:07:36 15:51:32 [facility]ON [employer] [employer] 2021-06-20 2021-06-20 Outpatient HARIKA MIRANDA [id number] [facility] 13:20:08 14:43:13 [facility]ON [facility] [employer] 2021-06-15 2021-06-15 Outpatient TREMAINE [facility] [id number] [facility] 13:17:58 14:45:34 ANUJ [facility] 2021-04-13 2021-04-13 Outpatient HARIKA PENALOZA [facility] [id number] [facility] 09:09:56 10:22:08 ANUJ [facility] 2021-04-10 2021-04-10 Outpatient Yon[facility] [id number] [facility] 10:00:00 [facility]:00[facility] 2021-01-24 Outpatient [facility] SLE [id number] SLE 00:00:00 00:00:00 2021-01-08 2021-01-08 Outpatient TREMAINE Krys [facility] [id number] [facility] 14:42:25 16:17:28 ANUJ [facility] 2020-10-04 2020-10-04 Outpatient 3 Dick Colóned [facility] MAMMO [id number] St. 09:24:00 23:59:00 Rafael Colóncammie [facility] 2020-09-08 2020-09-08 Office HARIKA Miranda [id number] 09:59:54 10:14:54 Visit [facility] AMBULATOR [id number] Y [id number] 2020-09-08 2020-09-08 Office HARIKA Miranda [id number] [facility] 09:59:54 10:14:54 Visit Aaron AMBULATOR [id number] College Y 0.2.7.2.686 of [id number] Medi ida 300 e 2020-07-31 2020-07-31 Office Lima Ingrid Viviana [facility] [id number] 10:34:02 11:47:57 Visit 3, Ods AMBULATOR 350.1.13.21 Y 0.2.7.2.686 [id number] 2020-07-31 2020-07-31 Office Ingrid Amato [facility] [id number] [facility] 10:34:02 11:47:57 Visit 3, Ods AMBULATOR 350.1.13.21 College Y 0.2.7.2.686 of [id number] Medi ida 300 e 2020-07-07 2020-07-07 Office HARIKA Miranda 1.2.840.114 [id number] 10:56:44 11:11:44 Visit Aaron AMBULATOR 350.1.13.21 Y 0.2.7.2.686 [id number] 300 2020-07-07 2020-07-07 Office HARIKA Miranda 1.2.840.114 [id number] [facility] 10:56:44 11:11:44 Visit Aaron AMBULATOR 350.1.13.21 College Y 0.2.7.2.686 of [id number] Medi ida 300 e 2020-06-05 2020-06-05 Office Ingrid Amato [facility] 1.2 .840.114 [id number] 09:39:59 11:18:28 Visit 3, Ods AMBULATOR 350.1.13.21 Y 0.2.7.2.686 [id number] 300 2020-06-05 2020-06-05 Office Ingrid Amato 1.2 .840.114 [id number] [facility] 09:39:59 11:18:28 Visit 3, Ods AMBULATOR 350.1.13.21 College Y 0.2.7.2.686 of [id number] Medi ida 300 e 2020-05-02 2020-05-02 Office HARIKA Miranda 1.2.840.114 [id number] 75 15:43:06 16:23:20 Visit Aaron AMBULATOR 350.1.13.21 Y 0.2.7.2.686 [id number] 300 2020-05-02 2020-05-02 Office HARIKA Miranda 1.2.840.114 [id number] [facility] 15:43:06 16:23:20 Visit Aaron AMBULATOR 350.1.13.21 College Y 0.2.7.2.686 of [id number] Medi ida 300 e 2020-04-14 2020-04-14 [address]o [facility] 1.2 .840.114 [id number] [facility] 10:14:08 12:04:39 Visit 3, Ods AMBULATOR 350.1.13.21 College Y 0.2.7.2.686 of [id number] Medi ida 300 e 2020-04-05 2020-04-05 Office HARIKA Miranda 1.2.840.114 [id number] [facility] 10:17:41 10:32:41 Visit Aaron AMBULATOR 350.1.13.21 College Y 0.2.7.2.686 of [id number] Medi ida 300 e 2020-03-30 2020-03-30 Office HARIKA Miranda 1.2.840.114 [id number] [facility] 13:15:51 14:06:55 Visit Aaron AMBULATOR 350.1.13.21 College Y 0.2.7.2.686 of [id number] Medi ida 300 e 2020-03-21 2020-03-21 Office HARIKA Boone 1.2.840.114 [id number] [facility] 15:55:46 16:05:46 Visit Abelardo AMBULATOR 350.1.13.21 College Y 0.2.7.2.686 of [id number] Medi ida 300 e 2020-03-15 2020-03-[address] [facility] 1.2 .840.114 [id number] [facility] 10:51:54 11:57:38 Visit 3, Ods AMBULATOR 350.1.13.21 College Y 0.2.7.2.686 of [id number] Medi ida 300 e 2020-02-16 2020-02-[address] [facility] 1.2 .840.114 [id number] [facility] 09:33:51 10:57:42 Visit 3, Ods AMBULATOR 350.1.13.21 College Y 0.2.7.2.686 of [id number] Medi ida 300 e 2020-01-13 2020-01-[address]o [facility] 1.2 .840.114 [id number] [facility] 10:04:33 11:31:34 Visit 3, Ods AMBULATOR 350.1.13.21 College Y 0.2.7.2.686 of [id number] Medi ida 300 e 2019-12-30 2019-12-30 [address] Amato [facility] 1.2 .840.114 [id number] [facility] 09:12:15 09:32:15 Visit 3, Ods AMBULATOR 350.1.13.21 College Y 0.2.7.2.686 of [id number] Medi ida 300 e 2018-02-23 2018-02-23 Outpatient C [facility] MED [id number] [address] 09:18:00 09:18:00 [facility] Results Test Description Test Time Test Comments Results Result Comments Source POC-Glucose meter 2022-11-14 11:08:34 Test Item Value Reference Range Interpretation Comme nts POC-Glucose Meter (test code = 70 mg/dL 70-110 : TESTED AT [facility] 720 1538) [facility] [address]: Oven Unloader/Techni cristin ID = [id number] for MORENA ECKERT Lab Interpretation (test code = Normal 92681-5) [facility] [id number] 11:08:34 Test Item Value Reference Range Interpretation Comments POC-Glucose Meter (test 70 mg/dL 70-110 : TE STED AT code = 1538) [facility] [address] [facility] 7703 0: Oven Unloader/Techni cristin ID = [id number] for MORENA ECKERT Lab Interpretation (test Normal code = 87419-2) [facility] [id number] 11:08:34 Test Item Value Reference Range Interpretation Comments POC-GLUCOSE METER 70 mg/dL 70-110 : TESTED [facility] (BEAKER) (test code = 7200 Nadege SALAS, BLDG B 1538) [facility] 7703 0: Oven Unloader/Techni cristin ID = [id number] for MORENA MESSINA [id number] 09:30:00 Test Item Value Reference Range Interpretation Comments ACT-ISTAT (test code 303 SEC 74-137 H Perform ed by certified = ACTI) 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 Prophylax is of venous thrombos is 2.0 - 3.0 (orthoped ic surgery), Proph ylaxis of venous throm bosis (other than hig h-risk surgery), Treat ment of Deep Vein Thrombosis/Pulm onary Embolism, Preve ntion of systemic emb olism - Tissue heart va lves, Acute Myocardia l Infarction (to prevent systemic emboli sm), Valvular heart disease, Atrial Fibrillation, Bileaflet mecha nical valve in aortic position.2. Mec hanical prosthetic valv es (high risk), 2. 5 - 3.5 Presence of Lup us Anticoagulant o r Antiphospholipi d Antibodies, Pre vention of systemic emb olism - Acute Myocardia l Infarction (to prevent recurrent infar ct). BASIC METABOLIC [id number] 11:36:00 Test Item Value Reference Range Interpretation Comments SODIUM (test code = NA) 141 mEq/L 134-147 N POTASSIUM (test code = 4.2 mEq/L 3.4-5.0 N K) CHLORIDE (test code = 109 mEq/L 100-108 H CL) CARBON DIOXIDE (test 29 mEq/l 21-33 N code = CO2) ANION GAP (test code = 7 0-20 N GAP) GLUCOSE (test code = 189 mg/dL 70-110 H GLU) BLOOD UREA NITROGEN 24 mg/dL 7-18 H (test code = BUN) GLOMERULAR FILTRATION 38.0 70-80 L Units of measure = RATE (test code = GFR) ml/mi n/1.73 m2 CREATININE (test code = 1.6 mg/dL 0.6-1.3 H CREAT) CALCIUM (test code = 9.5 mg/dL 8.0-10.5 N CA) CBC W/AUTO [id number] 11:26:00 Test Item Value Reference Range Interpretation Comments WHITE BLOOD CELL (test code = 6.7 x10 3/uL 4.5-11.0 N WBC) RED BLOOD CELL (test code = 4.44 x10 6/uL 3.54-5.02 N RBC) HEMOGLOBIN (test code = HGB) 11.8 g/dL 11.0-15.0 N HEMATOCRIT (test code = HCT) 37.2 % 33.0-45.0 N MEAN CELL VOLUME (test code = 83.8 fL 81.0-99.0 N MCV) MEAN CELL HGB (test code = MCH) 26.6 pg 27.0-33.0 L MEAN CELL HGB CONCETRATION 31.7 g/dL 33.0-37.0 L (test code = MCHC) RED CELL DISTRIBUTION WIDTH CV 14.6 % 11.5-14.5 H (test code = RDW) RED CELL DISTRIBUTION WIDTH SD 44.5 fL 37.0-54.0 N (test code = RDW-SD) PLATELET COUNT (test code = 227 x10 3/uL 150-400 N PLT) MEAN PLATELET VOLUME (test code 10.1 fL 7.0-9.0 H = MPV) NEUTROPHIL % (test code = NT%) 65.6 % 56.0-77.0 N IMMATURE GRANULOCYTE % (test 0.4 % 0.0-2.0 N code = IG%) LYMPHOCYTE % (test code = LY%) 22.9 % 14.0-32.0 N MONOCYTE % (test code = MO%) 11.0 % 4.8-9.0 H EOSINOPHIL % (test code = EO%) 0.0 % 0.3-3.7 L BASOPHIL % (test code = BA%) 0.1 % 0.0-2.0 N NUCLEATED RBC % (test code = 0.0 % 0-0 N NRBC%) NEUTROPHIL # (test code = NT#) 4.40 x10 3/uL 2.0-7.6 N IMMATURE GRANULOCYTE # (test 0.03 x10 3/uL 0.00-0.03 N code = IG#) LYMPHOCYTE # (test code = LY#) 1.54 x10 3/uL 1.0-3.8 N MONOCYTE # (test code = MO#) 0.74 x10 3/uL 0.1-0.8 N EOSINOPHIL # (test code = EO#) 0.00 x10 3/uL 0.0-0.2 N BASOPHIL # (test code = BA#) 0.01 x10 3/uL 0.0-0.2 N NUCLEATED RBC # (test code = 0.00 x10 3/uL 0.0-0.1 N NRBC#) MANUAL DIFF REQUIRED (test code NO = MDIFF) - XR CHEST 2 [id number] 00:00:00 [facility] JOSE ELIAS MOCK : 1945 Sex: F FAX: Wing Kurtz MD [phone] [place]: St: PRE FAX: Tera Lynch MD [phone] --- Name: JOSE ELIAS MOCK [facility] Jyoti Carbajal : 1945 Age/S: 76/F [address] [place], [place] [address] Unit #: [id number] Loc: [place] [address] Phys: Wing Matos MD Acct: [id number] Dis Date: Status: PRE SDC PHONE #: Exam Date: 03/18/2022 1207 FAX #: [phone] Reason: PREOP EXAMS: CPT CODE: [id number] XRCHEST 2 V 02808 PROCEDURE INFORMATION: Exam: XR Chest Exam date and time: 03/18/2022 11:08 AM Age: 76years old Clinical indication: Pre- operative exam; Respiratory screening exam; Additional info: Preop TECHNIQUE: Imaging protocol: XR of the chest. Views: 2 views. PA and Lateral COMPARISON: No relevant prior studies available. FINDINGS: Lungs: No focal infiltrate identified within the lungs and no edema. Pleural spaces: Unremarkable. No pleural effusion. No pneumothorax. Heart/Mediastinum: Enlarged cardiac silhouette. Aortic calcification. Mediastinal structures otherwise unremarkable. Bones/joints: No acute abnormality seen. IMPRESSION: 1. Enlarged cardiac silhouette. 2. No focal infiltrate within the lungs. at 1435 Reported and signed by: Srikanth Rg M.D. CC: Wing Matos MD; eTra Wright MD Technologist: RT [place](R) Trnscrd Date/Time/By: 03/18/2022 (6340) : By: [email or web address] Orig Print D/T: S: 03/18/2022 (0019) PAGE 1 Signed ReportPOC- Glucose [id number] 07:17:28 Test Item Value Reference Range Interpretation Comments POC-Glucose Meter (test 128 mg/dL 70-110 H : TE STED AT code = 1538) [facility] [address] [facility] 0663 0: Oven Unloader/Techni cristin ID = [id number] for WILRICH, MORENA Lab Interpretation (test Abnormal code = 81484-1) [facility]-Glucose [id number] 07:17:28 Test Item Value Reference Range Interpretation Comments POC-Glucose Meter (test 128 mg/dL 70-110 H : TE STED AT code = 1538) [facility] [address] [place] [address] 0: Oven Unloader/Techni cristin ID = [id number] for WILRICH, MORENA Lab Interpretation (test Abnormal code = 25588-1) [facility]-Glucose [id number] 07:17:28 Test Item Value Reference Range Interpretation Comments POC-Glucose Meter (test 128 mg/dL 70-110 H : TE STED AT code = 1538) [facility] [address] [place] [address] 0: Oven Unloader/Techni cristin ID = [id number] for WILRICH, MORENA Lab Interpretation (test Abnormal code = 33202-3) [facility]-Glucose [id number] 07:17:28 Test Item Value Reference Range Interpretation Comments POC-Glucose Meter (test 128 mg/dL 70-110 H : TE STED AT code = 1538) [facility] [address] [place] [address] 0: Oven Unloader/Techni cristin ID = [id number] for WILRICH, MORENA Lab Interpretation (test Abnormal code = 54769-8) [facility]-Glucose [id number] 07:17:28 Test Item Value Reference Range Interpretation Comments POC-Glucose Meter (test 128 mg/dL 70-110 H : TE STED AT code = 1538) [facility] [address] [place] [address] 0: Oven Unloader/Techni cristin ID = [id number] for WILRICH, MORENA Lab Interpretation (test Abnormal code = 00612-3) [facility]-GLUCOSE [id number] 07:17:28 Test Item Value Reference Range Interpretation Comments POC-GLUCOSE METER 128 mg/dL 70-110 H : TESTED A T [facility] (BEAKER) (test code = [address] [facility] 1538) [place] [address] 0: Oven Unloader/Techni cristin ID = [id number] for MORENA NAQVI POCT-GLUCOSE [id number] 14:40:00 Test Item Value Reference Range Interpretation Comments POC-GLUCOSE METER 110 mg/dL 70-110 : TESTED A T [facility] (BEAKER) (test code = 7200 [address]BR[place]GE, BLDG B 1538) [place] [address] 0: Oven Unloader/Techni cristin ID = [id number] for CARLEY CIFUENTES POCT-GLUCOSE [id number] 12:35:00 Test Item Value Reference Range Interpretation Comments POC-GLUCOSE METER 116 mg/dL 70-110 H : TESTED A T [facility] (BEAKER) (test code = 7200 C [address], BLDG B 1538) [place] [address] 0: Oven Unloader/Techni cristin ID = [id number] for Jesse Bender POCT-GLUCOSE [id number] 12:28:00 Test Item Value Reference Range Interpretation Comments POC-GLUCOSE METER 145 mg/dL 70-110 H : TESTED A T [facility] (BEAKER) (test code = 7[address], BLDG B 1538) [place] [address] 0: Oven Unloader/Techni cristin ID = [id number] for MIK SHAHEEN CHIRINOS MG Bone Density Dexa [id number] 12:11:22 [facility] 1945 Sex: FPatient: JOSE ELIAS MOCK Date/Time10/04/2020 11:32 CSTReason for ExamD05.90 M85.88ReportDictation location R 16CLINICAL HISTORY:OsteoporosisBONE DENSITOMETRY:An evaluation of bone density was performed.*The young adult T score and the age matched Z score refers to standard deviations (SD) above or below normal.The World Health Organization recently established that osteoporosis occurs at -2.5SD below peak bone mass. (Peak bone mass occurs at 30 years of age in the spine and about 22 years of age in the femoral neck.) In addition, osteopenia occurs at -1.0 SD to -2.5 SD below peak bone mass. Low bone mass is the single most accurate predictor for fracture risk.The results of the study expressed as bone mineral density (BMD) were as follows:Scan performed: Lumbar spineBMD patient (gm/cm2):1.678T-score: -2.55According to WHO classification, findings are normal.Scan performed: Left forearmdistal radius and ulnaBMD patient (gm/cm2): 0.318T-score: -0.71According to WHO classification, findings are normal.Scan performed: Left forearm, proximal radiusBMD patient (gm/cm2): 0.646T-score: -2.69According to WHO classification, findings are osteoporoticIMPRESSION:1. Osteoporotic bone density with high increased risk for fracture.2. Compared to 02/01/2019 there is no appreciable change. Final Dictated by: MD Whitfield Phebe CDictated DT/TM: 10/04/2020 12:10 pmSigned by: MD Whitfield Phebe CSigned (Electronic Signature): 10/04/2020 12:11 pm Mammo Digital Diagnostic [id number] 12:08:07 [facility] : 1945 Sex: FPatient: JOSE ELIAS MOCK Date/Time10/04/2020 11:34 CSTReason for ExamD05.90 M85.88ReportDictation Location [id number]: Diagnostic and yearly mammogram with Tomosynthesis . History of left breast cancer status post lumpectomy and radiation. Known keloid at the lumpectomy site.COMPARISON: Mammograms dating back to 01/27/2015Routine views of both breasts were obtained and interpreted with the aidof CAD. 2-D and 3-D digital mammography was performed with the [place] digital breast tomosynthesis unit.COMMENT: Scattered fibroglandular tissue is present in each breast with more contracted and calcified appearance of the keloid in the upper outer left breast. Additional benign calcifications are present bilaterally. No new spiculated mass, grouped calcifications or distortion seen.IMPRESSION:1. No mammographic evidence for malignancy with more contracted and calcified appearance of the left breast keloid.2. BI-RADS ACR CATEGORY: 3-PROBABLY BENIGNRECOMMENDATION: FOLLOW UP LEFT BREAST MAMMOGRAM AND LEFT BREAST ULTRASOUND IN 6 MONTHS [facility] AccreditationFDA CertifiedBoard Certified Radiologists(ARRT) Registered Mammography TechnologistsNOTE:1. A negative x-ray report should not delay biopsy if a dominant or clinically suspicious mass is present. 4 to 8% of cancers are not identified by x-ray.2. A negative report may reinforce clinical impression.3. Adenosis and dense breast may obscure an underlying neoplasm.4. False positive results average 6 to 10%. Final Dictated by: MD Roseann, Mary Lou CDictated DT/TM: 10/04/202012:03 pmSigned by: MD Whitfield Phebe CSigned (Electronic Signature): 10/04/2020 12:08 pmENDOTHELIAL PHOTO AND CELL COUNT - OU - BOTH [id number] 16:36:22Decreased cell count OU with increased polymegathism and poor hexagonalityK[facility] INTRAVITREAL INJECTION, PHARMACOLOGIC AGENT - OS - LEFT [id number] 17:18:33 [id number]. Injection: 2 mg Eylea [facility]: 47020-256-60, Lot: [id number], Expiration date: 02/28/2021 Route: Intravitreal, Site: Left Eye NotesProcedure: Intravitreal injection, Avastin 1.25mg/0.05mlEye:LeftPre-op Diagnosis: Macular edemaPost-op diagnosis: Marshaon: Ingrid Amato MD Procedure description: Risks, benefits, and alternatives to procedure discussed and understood. Informed consent obtained. Patient elected to proceed. Prior to procedure a time out was done, verifying correct patient, site, and procedure. Proparacaine was instilled. Topical betadine 5% was instilled. An eyelid speculum was placed. Topical lidocaine was applied inferiorly at 6 oclock. Betadine was again instilled. 0.05 mL of Avastin was injected intravitreally with a 30G needle. A cotton swab was rolled over thesite. The eyelid speculum was removed. The eye was rinsed with BSS. CF vision was confirmed. Complications: NoneBlood Loss: NoneSpecimens: [facility]INTRAVITREAL [facility], PHARMACOLOGIC AGENT - OD - RIGHT [id number] 17:18:[id number]. Injection: 2 mg Eylea [facility]: 64651-087-63, Lot: [id number], Expiration date: 02/28/2021 Route: Intravitreal, Site: Right Eye NotesProcedure: Intravitreal injection, Avastin 1.25mg/0.05mlEye: RightPre-op Diagnosis: Macular edemaPost-op diagnosis: Alexrradhaon: Ingrid Amato MD Procedure description: Risks, benefits, and alternatives to procedure discussed and understood. Informed consent obtained. Patient elected to proceed. Prior to procedure a time out was done, verifying correct patient, site, and procedure. Proparacaine was instilled. Topical betadine 5% was instilled. An eyelid speculum was placed. Topical lidocaine was applied inferiorly at 6 oclock. Betadine was again instilled. 0.05 mL of Avastin was injected intravitreally with a 30G needle. A cotton swab was rolled over the site. The eyelid speculum was removed. The eye was rinsed with BSS. CF vision was confirmed. Complications: NoneBlood Loss: NoneSpecimens: NoneK[facility] CenterOCT, RETINA - OU - BOTH [id number] 16:30:21[facility] - [facility] - BOTH [id number] 16:00:38See [facility] HospitalINTR[facility]REAL [facility], PHARMACOLOGIC AGENT - OD - RIGHT EYE 2020-06-05 16:00:[id number]. Injection: 2 mg Eylea [facility]: 28014-751-74, Lot: [id number], Expiration date: 09/30/2020Route: Intravitreal, Site: Right Eye, Waste: 0 mg NotesProcedure: Intravitreal injection, Eylea 2.0 mg/0.05mlEye: RightPre-op Diagnosis: Macular edemaPost-op diagnosis: SameSurgeon: Ingrid Amato MD Procedure description: Risks, benefits, and alternatives to procedure discussed and understood. Informed consent obtained. Patient elected to proceed. Prior to procedure a time out was done, verifying correct patient, site, and procedure. Proparacaine was instilled. Topical betadine 5% was instilled. An eyelid speculum was placed. Topical lidocaine was applied inferiorly at 6 oclock. Betadine was again instilled. 0.05 mL of Eyelea was injected intravitreally with a 30G needle. A cotton swab was rolled over the site. The eyelid speculum was removed. The eye was rinsed with BSS. CF vision was confirmed. Complications: NoneBlood Loss: NoneSpecimens: NoneK[facility] CenterINTRAVITREAL INJECTION, PHARMACOLOGIC AGENT - OS - LEFT [id number] 16:00:[id number]. Injection: 2 mg Eylea [facility]: 84947-282-82, Lot: [id number], Expiration date: 09/30/2020 Route: Intravitreal, Site: Left Eye, Waste: 0 mg NotesProcedure: Intravitreal injection, Eylea 2.0 mg/0.05mlEye: LeftPre-op Diagnosis: Macular edemaPost-op diagnosis: SameSurradhaon: Ingrid Amato MD Proc edure description: Risks, benefits, and alternatives to procedure discussed and understood. Informedconsent obtained. Patient elected to proceed. Prior to procedure a time out was done, verifying correct patient, site, and procedure. Proparacaine was instilled. Topical betadine 5% was instilled. An eyelid speculum was placed. Topical lidocaine was applied inferiorly at 6 oclock. Betadine was again instilled. 0.05 mL of Eyelea was injected intravitreally with a 30G needle. A cotton swab was rolled over the site. The eyelid speculum was removed. The eye was rinsed with BSS. CF vision was confirmed. Complications: NoneBlood Loss: NoneSpecimens: NoneK[facility] CenterOCT, RETINA - OU - BOTH [id number] 17:43:57See [facility] HospitalINTR[facility]REAL IN[facility], PHARMACOLOGIC AGENT - OD - RIGHT [id number] 17:43:[id number]. Injection: 2 mg Eylea [facility]: 90451-508-78, Lot: [id number], Expiration date: 07/31/2020 Route: Intravitreal, Site: Right Eye, Waste: 0 mg NotesProcedure: Intravitreal injection, Eylea 2.0 mg/0.05mlEye: RightPre-op Diagnosis: Macular edemaPost-op diagnosis: GuerdaSurgeon: Ingrid Amato MD Procedure description: Risks, benefits, and alternatives to procedure discussed and understood. Informe d consent obtained. Patient elected to proceed. Prior to procedure a time out was done, verifying correct patient, site, and procedure. Proparacaine was instilled. Topical betadine 5% was instilled. Aneyelid speculum was placed. Topical lidocaine was applied inferiorly at 6 oclock. Betadine was again instilled. 0.05 mL of Eyelea was injected intravitreally with a 30G needle. A cotton swab was rolled over the site. The eyelid speculum was removed. The eye was rinsed with BSS. CF vision was confirmed. Complications: NoneBlood Loss: NoneSpecimens: [facility] ValleyINTRAVITREAL INJECTION, PHARMACOLOGIC AGENT - OS - LEFT [id number] 17:43:[id number]. Injection: 2 mg Eylea [facility]: 63878-099-57, Lot: [id number], Expiration date: 07/31/2020 Route: Intravitreal, Site: Left Eye, Waste: 0 mg NotesProcedure: Intravitreal injection, Eylea 2.0 mg/0.05mlEye: LeftPre-op Diagnosis: Macular edemaPost-op diagnosis: SameSurgeon: Ingrid Amato MD Procedure description: Risks, benefits, and alternatives to procedure discussed and understood. Informed consent obtained. Patient elected to proceed. Prior to procedure a time out was done, verifying correct patient, site, and procedure. Proparacaine was instilled. Topical betadine 5% was instilled. An eyelid speculum was placed. Topical lidocaine was applied inferiorly at 6 oclock. Betadine was again instilled. 0.05 mL of Eyelea was injected intravitreally with a 30G needle. A cotton swab was rolled over the site. The eyelid speculum was removed. The eye was rinsed with BSS. CF vision was confirmed. Complications: NoneBlood Loss: NoneSpecimens: [facility] ValleyCORNEAL TOPOGRAPHY - OU - BOTH EYES 2020-03-30 19:06:51CORNEAL TOPOGRAPHY - performed to assess corneal curvature/astigmatism & rule out corneal pathology that might cause loss of vision or affect future treatment options Right Left Curvature Normal Normal Surface Quality Normal Markedly Irregular Astig Magnitude 1-3D (moderate) 1-3D (moderate) Astig Pattern Regular Regular Posterior Surface Normal Marked [facility]vation [facility]OCT[facility] - OU - BOTH [id number] 21:59:15See [facility] HospitalINTR[facility]REAL INJECTION, PHARMACOLOGIC AGENT - OD - RIGHT [id number] 14:04:[id number]. Injection: 2 mg Eylea [facility]: 32977-189-10, Lot: [id number], Expiration date: 07/31/2020 Route: Intravitreal, Site: Right Eye, Waste: 0 mg NotesProcedure: Intravitreal injection, Eylea 2.0 mg/0.05mlEye: RightPre-op Diagnosis: Macular edemaPost-op diagnosis: Jose Guadalupe: Ingrid Amato MD Procedure description: Risks, benefits, and alternatives to procedure discussed and understood. Informed consent obtained. Patient elected to proceed. Prior to procedure a time out was done, verifying correct patient, site, and procedure. Proparacaine was instilled. Topical betadine 5% was instilled. Aneyelid speculum was placed. Topical lidocaine was applied inferiorly at 6 oclock. Betadine was again instilled. 0.05 mL of Eyelea was injected intravitreally with a 30G needle. A cotton swab was rolled over the site. The eyelid speculum was removed. The eye was rinsed with BSS. CF vision was confirmed. Complications: NoneBlood Loss: NoneSpecimens: [facility] ValleyINTRAVITREAL INJECTION, PHARMACOLOGIC AGENT - OS - LEFT [id number] 14:04:[id number]. Injection: 2 mg Eylea [facility]: [id number], Lot: [id number], Expiration date: 07/31/2020 Route: Intravitreal, Site: Left Eye, Waste: 0 mg NotesProcedure: Intravitreal injection, Eylea 2.0 mg/0.05mlEye: LeftPre-op Diagnosis: Macular edemaPost-op diagnosis: SameSurgeon: Ingrid Amato MD Procedure description: Risks, benefits, and alternatives to procedure discussed and understood. Informed consent obtained. Patient elected to proceed. Prior to procedure a time out was done, verifying correct patient, site, and procedure. Proparacaine was instilled. Topical betadine 5% was instilled. An eyelid speculum was placed. Topical lidocaine was applied inferiorly at 6 oclock. Betadine was again instilled. 0.05 mL of Eyelea was injected intravitreally with a 30G needle. A cotton swab was rolled over the site. The eyelid speculum was removed. The eye was rinsed with BSS. CF vision was confirmed. Complications: NoneBlood Loss: NoneSpecimens: [facility] 2020-03-15 16:33:32[facility] - OD - RIGHT [id number] 13:36:[id number]. Injection: 1.25 mg Avastin ND: [id number], Lot: [id number], Expiration date: 03/05/2020 Route: Intravitreal, Site: Right Eye, Waste: 0 mg NotesProcedure: Intravitreal injection, Avastin 1.25mg/0.05mlEye: RightPre-op Diagnosis: Macular edemaPost-op diagnosis: Jose Guadalupe: JAQUELINE Justinrocedure description: Risks, benefits, and alternatives to procedure discussed and understood. Infor med consent obtained. Patient elected to proceed. Prior to procedure a time out was done, verifying correct patient, site, and procedure. Proparacaine was instilled. Topical betadine 5% was instilled. An eyelid speculum was placed. Topical lidocaine was applied inferiorly at 6 oclock. Betadine was again instilled. 0.05 mL of Avastin was injected intravitreally with a 30G needle. A cotton swab was rolled over the site. The eyelid speculum was removed. The eye was rinsed with BSS. CF vision was confirmed. Complications: NoneBlood Loss: NoneSpecimens: [facility] PHARMACOLOGIC AGENT - OS - LEFT [id number] 13:36:[id number]. Injection: 1.25 mg Avastin ND: [id number], Lot: [id number], Expiration date: 03/05/2020 Route: Intravitreal, Site: Left Eye, Waste: 0 mg NotesProcedure: Intravitreal injection, Avastin 1.25mg/0.05mlEye: LeftPre-op Diagnosis: Macular edemaPost-op diagnosis: Jose Guadalupe: Ingrid Amato MD Procedure description: Risks, benefits, and alternatives to procedure discussed and understood. Informed consent obtained. Patient elected to proceed. Prior to procedure a time out was done, verifying correct patient, site, and procedure. Proparacaine was instilled. Topical betadine 5% was instilled. Aneyelid speculum was placed. Topical lidocaine was applied inferiorly at 6 oclock. Betadine was again instilled. 0.05 mL of Avastin was injected intravitreally with a 30G needle. A cotton swab was rolled over the site. The eyelid speculum was removed. The eye was rinsed with BSS. CF vision was confirmed. Complications: NoneBlood Loss: NoneSpecimens: [facility] - BOTH EYES 2020-02-16 15:30:28See [facility]INTR[facility], PHARMACOLOGIC AGENT - OD - RIGHT [id number] 12:45:[id number]. Injection: 1.25 mg Avastin [facility]: [id number], Lot: [id number], Expiration date: 03/05/2020 Route: Intravitreal, Site: Right Eye, Waste: 0 mg NotesProcedure: Intravitreal injection, Avastin 1.25mg/0.05mlEye: RightPre-op Diagnosis: Macular edemaPost-op diagnosis: SameSurgeon: Ingrid Amato MDProcedure description: Risks, benefits, and alternatives to procedure discussed and understood. Infor med consent obtained. Patient elected to proceed. Prior to procedure a time out was done, verifying correct patient, site, and procedure. Proparacaine was instilled. Topical betadine 5% was instilled. An eyelid speculum was placed. Topical lidocaine was applied inferiorly at 6 oclock. Betadine was again instilled. 0.05 mL of Avastin was injected intravitreally with a 30G needle. A cotton swab was rolled over the site. The eyelid speculum was removed. The eye was rinsed with BSS. CF vision was confirmed. Complications: NoneBlood Loss: NoneSpecimens: [facility], PHARMACOLOGIC AGENT - OS - LEFT [id number] 12:44:[id number]. Injection: 1.25 mg Avastin NDC: [id number], Lot: [id number], Expiration date: 03/05/2020 Route: Intravitreal, Site: Left Eye, Waste: 0 mg NotesProcedure: Intravitreal injection, Avastin 1.25mg/0.05mlEye: LeftPre-op Diagnosis: Macular edemaPost-op diagnosis: SameSurgeon: Ingrid Amato MD Procedure description: Risks, benefits, and alternatives to procedure discussed and understood. Informed consent obtained. Patient elected to proceed. Prior to procedure a time out was done, verifying correct patient, site, and procedure. Proparacaine was instilled. Topical betadine 5% was instilled. Aneyelid speculum was placed. Topical lidocaine was applied inferiorly at 6 oclock. Betadine was again instilled. 0.05 mL of Avastin was injected intravitreally with a 30G needle. A cotton swab was rolled over the site. The eyelid speculum was removed. The eye was rinsed with BSS. CF vision was confirmed. Complications: NoneBlood Loss: NoneSpecimens: [facility]OTH EYES 2019-12-30 15:53:34See [facility] HospitalMG Bone Density Dexa Scan 2019-02-01 11:17:04Patient: JOSE ELIAS MOCK Date/Time02/01/2019 09:26 CSTReason for ExamD05.90 M85.88ReportLocation code: R 16HISTORY: D05.90 M85.88COMPARISON: 02/23/2018FINDINGS:Distal radius and ulna b one mineral density: 0.2999 g/cm2 (previously 0.306 g/cm 2), T score is -1.05, Z-score is 0.27. According to WHO classification, findings are osteopenic.Proximal radius and ulna bone mineral density: 0.6955 g/cm2 (previously 0.711 g/cm 2) T score is -2.13, Z-score is not available. According to WHO classification, findings are osteopenic.Lumbar spine total bone mineral density: 1.696 g/cm2 (previously 1.651 g/cm 2), T score is 2.68, Z-score is not available. According to WHO classification, findingsare within normal limits.Impression:Bone mineralization by WHO Classification is osteopenia, the fracture risk is increased.Compared to the 2018 exam, there is measurable decreased bone density at the forearm.Apparent slight increased bone density at the lumbar spine is likely due to bony sclerosis.The World Health Organization established that osteoporosis occurs at -2.5 SD below peak bone mass. In a ddition, osteopenia occurs at -1.0 SD to -2.5 SD below peak bone mass. Low bone mass is the single most accurate predictor for fracture risk. Final Dictated by: MD Iqbal Eniola FDictated DT/TM: 02/01/2019 11:03 amSigned by: MD Iqbal Eniola FSigned (Electronic Signature): 02/01/2019 11:17 amMG Mammo Digital Diagnostic [id number] 09:33:53Patient: JOSE ELIAS MOCK Date/Time02/01/2019 08:53 CSTReason for ExamD05.90 M85.88ReportLocation R 16BILATERAL DIAGNOSTIC MAMMOGRAM WITH CADHistory: 73 year-old female who presents for screening mammogram.Bilateral mammogram with computer assisted diagnosis was performed and compared to multiple prior studies dating as far back as 01/20/2014 with most recent prior study dated 02/23/2018.CC , ML AND MLO views of the both breasts were obtained and interpreted. Left exaggerated CC views well.There are scattered areas of fibroglandular density.No evidence of new dominant mass, asymmetry, architectural distortion or suspicious microcalcifications is seen. Stable left breast scar with multiple calcified oil cysts within the left breast, benign.Impression:No mammographic evidence of malignancy.RECOMMENDATIONS: FOLLOW-UP MAMMOGRAM IN ONE YEAR IN THE ABSENCE OF CLINICAL FINDINGS.BI-RADS CATEGORY 2: Benign Final Dictated by: MD Iqbal Eniola FDictated DT/TM: 02/01/2019 9:25 amSigned by: MD Iqbal Eniola FSigned (Electronic Signature): 02/01/2019 9:33 amXR BONE DENSITY (DXA)-AXIAL 2018-02-23 11:24:04Location code: R 16HISTORY: M81.0: AGE-RELATED OSTEOPOROSIS W/O CURRENT PATHOLOGICALFRACTURECOMPARISON: 02/03/2018FINDINGS: Distal radius and ulna bone mineral density: 0.306 g/cm2, T score is-0.9, Z-score is 0.3. According to WHO classification, findings arenormal.Proximal radius and ulna bone mineral density: 0.711 g/cm2, T score is-1.9, Z-score is 0.2. According to WHO classification, findings areosteopenic.Proximal radius bone mineral density: 0.655 g/cm2, T score is -2.6,Z-score is -0.4. According to WHO classification, findings areosteoporosis.Lumbar spine total bone mineral density: 1.651 g/cm2, T score is 2.4,Z-score is not available. According to WHO classification, findings arenormal. Impression:Bone mineralization by WHO Classification is osteoporosis. Total bonemineral density has increased in the lumbar spine since the prior examin 2017.The World Health Organization established that osteoporosis occurs at-2.5 SD below peak bone mass. In addition, osteopenia occurs at -1.0 SDto -2.5 SD below peak bone mass. Low bone mass is the single mostaccurate predictor for fracture risk.[facility] MAMMO DIAGNOSTIC FABIAN [id number] 11:13:08MAM MAMMO DIAGNOSTIC FABIAN W/CADD05.90: UNSPECIFIED TYPE OF CARCINOMA IN SITU OF UNSPECIFIED BREAST.Dictation Location: [id number] Information: 72-year-old female with history of left breastcancer status post lumpectomy and radiation therapy in 2009, presentsfor annual evaluation.Technique: Bilateral digital mammogram with computer assisted diagnosis. Bilateral CC, MLO, XCCL, ML views were obtained. A supplemental leftXCCL view was obtained.Comparison: Prior mammograms dating back to 01/29/2016Findings: There are scattered areas of fibroglandular density. Scar markers wereplaced on the periareolar left breast, overlying stable postsurgicalchanges. Stable nodule in the upper outer left breast. Stablelow- lyingright axillary lymph node. Scattered benign type calcifications arepresent bilaterally. There are no suspicious masses ormicrocalcifications.IMPRESSION: No mammographic evidence of malignancy.ACR BI-RADS CATEGORY: 2-BENIGN RECOMMENDATION: FOLLOW UP MAMMOGRAM IN ONE YEARComprehensive Metabolic Panel 2017-03-25 21:08:00 Test Item Value Reference Range Interpretation Comments Sodium (test code = 138 mmol/L 135-145 N NA) Potassium (test 4.7 mmol/L 3.5-5.1 N code = K) Chloride (test code 100 mmol/L 98-105 N = CL) Carbon Dioxide 26 mmol/L 22-29 N (test code = CO2) Glucose (test code 188 mg/dL 70-115 H = GLU) Blood Urea Nitrogen 28 mg/dL 8-23 H (test code = BUN) Creatinine (test 1.2 mg/dL 0.5-0.9 H code = CREAT) Calcium (test code 10.1 mg/dL 8.3-10.5 N = CA) Prot Total (test 7.2 g/dL 6.4-8.3 N code = TP) Albumin (test code 4.3 g/dL 3.5-5.2 N = ALB) A/G Ratio (test 1.5 Ratio code = AGRATIO) Globulin (test code 2.9 2.9-3.1 N = GLOB) Bili Total (test 0.2 mg/dL 0.1-0.9 N code = TBIL) Alk Phos (test code 58 U/L 35-104 N = APHOS) AST (test code = 17 U/L 1-32 N AST) ALT (test code = 25 U/L 1-33 N ALT) BUN/Creatinine 23.3 Ratio (test code = BCRATIO) Anion Gap (test 12 mmol/L 7-16 N code = AGAP) Estimated GFR (test 57 eGFR (es timated code = GFR) mL/min/1.73m2 Glomerular Price tration Rate) is an est imated value,calculate d from the patient's s maricarmen creatinine usin g the MDRD equation.I t is NOT the patient 's actual GFR. The eGFR provides a more clinicallyusefu l measure of kidn ey disease than se rum creatinine alone.This calculation keerthi es sex and race into account, if the informationis provided. If th e race is not provided , and the patient isAfrican-Ameri can, multiply by 1.2 12. If sex is not prov ided, and thepatient is female, multipl y by 0.742. Results for patients <18 ye ars ofage have not been validated by th e MDRD study and chelo d be interpretedwith caution.eGFR Re sult Interpretation: eGFR > or = 60 is in t he Normal RangeeGF R < 60 may mean kidney diseaseeGFR < 1 5 may mean kidney failureRange s recommended by the National Kidney Foundation,http ://nkd ep.nih.gov US breast complete diag RT [facility] [address] [place] [address] Patient Name: Jose Elias Mock Medical Record#: [id number] Address: [address] City/State/Zip: [place] [address]: Mayra galan MD Insurance: Medicare A B /Age/Sex: 1945/76/F [employer] Ppo Admit/Reg Date: 10/17/[address]: Mayra Colón MD Location: [facility]/ PCP: PCP,UNKNOWN Date of Service: 10/17/21 Order (s): US breast complete diag RT CPT Code: 76006 Report Number: [id number] Reason for Exam: D05.90 EXAMINATION: US breast complete diag RT CLINICAL INDICATION: Female, 76 years old with D05.90 TECHNIQUE: Grayscale and color Doppler evaluation of all four quadrants of the breast, retroareolar region, and axilla is performed. COMPARISON: Multiple mammograms and breast ultrasound and most recentdated 04/10/2021. SONOGRAPHIC FINDINGS: Right breast: Subcentimeter benign intramammary lymph nodes at 9:00 axis, stable mammographically. 4 mm cyst noted in right breast at 6:00 axis (probable oil cyst). No axillary lymphadenopathy. Left breast: Subcentimeter benign intramammary lymph nodes. Benign large calcification, left breast 7:00 axis. No axillary lymphadenopathy. IMPRESSION: BI-RADS CATEGORY 2: BENIGN RECOMMENDATIONS: CONTINUE ANNUAL SCREENING Electronically signed by: Lizbeth Strong MD 10/17/2021 1:28 PM DOCUMENTATION COORDINATOR Benign Dictated By: Lizbeth Iqbal MD Signed By: Lizbeth Iqbal MD 10/17/211308 TD/TT: 10/17/211308 Tech: [id number] cc: NADINE; ARCHIE* PCP,UNKNOWN ; SIN [facility] [address] [place] [address] Patient Name: Jose Elias Mock Medical Record#: [id number] Address: [address] [place] [address] City/State/Zip: [place] [address]: Mayra galan MD Insurance: Medicare A B /Age/Sex: 1945/76/F [facility] Ppo Admit/Reg Date: 10/17/[address]: Mayra Colón MD Location: [facility]/ PCP: PCP,UNKNOWN Date of Service: 10/17/21 Order (s): BD bone densitometry [facility] CPT Code: 82738 Report Number: [id number] Reason for Exam: M85.88 EXAMINATION: BD bone densitometry [facility] CLINICAL INDICATION: Female, 76 years old with M85.88 TECHNIQUE: Bone densitometry was performed using The [employer] W DXA scanner. COMPARISON: 10/04/2020 FINDINGS: AP spine (L1-L4) BMD: 1.606 g /cc (previously 1.678 g/cc) T score: 2.53 Z score: Unavailable WHO classification: Within normal limits Left proximal radius: BMD: 0.6508 g /cc (previously 0.6469 g/cc) T score: -2.64 Z score: -0.07 WHO classification: Osteoporosis Left proximal radius plusulna: BMD: 0.7250 g /cc T score: -1.74 Z score: 0.77 WHO classification: Osteopenia Left distal radius post ulna: BMD: 0.3548 g /cc T score: -0.04 Z score: 1.45 WHO classification: Within normal limitsImpression: 1. Osteoporosis with increased fracture risk. Follow-up examination in one year after therapy is recommended. 2. Compared to the 2019 exam, there is notable interval decrease bone density at the C-spine. No significant change at the forearm. Electronically signed by: Lizbeth Strong MD 10/17/2021 1:33 PM DOCUMENTATION COORDINATOR Dictated By: Lizbeth Strong MD 10/17/211317 Signed By: Lizbeth Iqbal MD 10/17/211317 TD/TT: 10/17/211317 Tech: [id number] cc: PCPUNK; REDSA09* PCP,UNKNOWN ; SHIRLEY Toro Diag Nhi, CAD, Robbie BI (p) [facility] [address] [place] [address] Patient Name: Jose Elias Mock Medical Record#: [id number] Address: [facility] City/State/Zip: [place] [address]: Mayra galan MD Insurance: Medicare A B /Age/Sex: 1945/76/F [facility] Ppo Admit/Reg Date: 10/17/[address]: Mayra Colón MD Location: [facility]/ PCP: PCP,UNKNOWN Date of Service: 10/17/21 Order (s): MM Diag Nhi, CAD, Robbie BI (p) CPT Code: Report Number: [id number] Reason for Exam: D05.90 EXAMINATION: MM Diag Nhi, CAD, Robbie BI (p) CLINICAL INDICATION: Female, 76 years old with D05.90 TECHNIQUE: Bilateral digital 2-D and 3-D tomosynthesis CC and MLO views. ML views of each breast. Spotcompression 3-D CC views, right breast. COMPARISON: Multiple mammograms and breast ultrasound and most recent dated 04/10/2021. DENSITY: There are scattered areas of fibroglandular density FINDINGS: Apparent asymmetry in the retroareolar CC resolves with compression and does not reappear on the repeat CC view. Ultrasound from same day demonstrates no aggressive features. IMPRESSION: BI- RADS CATEGORY 2: BENIGN RECOMMENDATIONS: CONTINUE ANNUAL SCREENING. A second reading of the examination was performed using computer-aided detection. Information is entered into a reminder system for a target due datefor the next mammogram. Thank you for allowing us to participate in your patient's care. The resultsand recommendations were sent to the patient by mail. Electronically signed by: Lizbeth Strong MD 10/17/2021 1:24 PM DOCUMENTATION COORDINATOR Benign Dictated By: Lizbeth Iqbal MD 10/17/211101 Signed By: Lizbeth Iqbal MD 10/17/211101 TD/TT: 10/17/211101 Tech: [id number] cc: PCPUNK; ARCHIE* PCP,UNKNOWN ; Mayra Coóln MD
--- NOTE | 2022-11-15 17:26 | RAD REPORT ---
EXAM DESCRIPTION: RAD - Chest Single View - 11/15/2022 5:18 pm CLINICAL HISTORY: cough, sob Chest pain. COMPARISON: Chest Pa And Lat (2 Views) dated 03/19/2021 FINDINGS: Portable technique limits examination quality. Moderate bilateral pulmonary opacities are present most likely representing pulmonary edema or pneumo garima. The heart is mildly prominent size. No displaced fractures.
[2022-11-15 17:50] LABS: Absolute Lymphocytes (CBC) 1.3 K/uL (0.7-4.9); Hematocrit 36.3 % (36.0-45.0); Lymphocytes % 13.1 % (15.3-44.8); MCV 81.3 fL (80-100); MPV 7.7 fL (7.6-11.3); RBC Red Blood Cell Count 4.46 M/uL (3.86-4.86)
[2022-11-15 18:03] LABS: Albumin 3.5 g/dL (3.4-5.0)
[2022-11-15 18:14] LABS: SARS-COV-2 RT PCR NEGATIVE (NEGATIVE)
[2022-11-15 18:17] LABS: Bilirubin Total 0.3 mg/dL (0.2-1.0); Potassium 4.8 mmol/L (3.5-5.1); Protein, Total 7.3 g/dL (6.4-8.2)
--- NOTE | 2022-11-15 18:47 | RAD REPORT ---
EXAM DESCRIPTION: CT - Thorax Wo Con CLINICAL HISTORY: Chest pain sob COMPARISON: No comparisons FINDINGS: The right lobe of the thyroid is mildly enlarged. Ground-glass lung opacities are present bilaterally suspicious for infection or pulmonary edema. Trace bilateral pleural fluid. No pneumothor ax. No axillary, mediastinal or hilar adenopathy. No concerning bony finding. Small stone is present superior pole right kidney. All CT scans are performed using dose optimization technique as appropriate and may include automated exposure control or mA/KV adjustment according to patient size. IMPRESSION: Ground-glass lung opacities are present with small bilateral pleural effusions. CHF/ vol ume overload is a possibility.Another possibility would be bilateral developing pneumonia.
--- NOTE | 2022-11-15 19:35 | ER ---
Nurse's Notes [facility] Name: Pretty Mock Age: 77 yrs Sex: Female : 1945 Arrival Date: 11/15/2022 Time: 16:12 Bed 14 Private MD: Diagnosis: Pneumonia Presentation: 11/15 16:29 Chief complaint: Patient states: cough and slight wheezing since noon today. Pt was kb3 discharged from [facility] this morning s/p corneal transplant. Pt denies coughing prior to noon, denies fever. Coronavirus screen: Vaccine status: Patient reports receiving the 2nd dose of the covid vaccine. Client denies travel out of the [place] in the last 14 days. Ebola Screen: Patient negative for fever greater than or equal to 101.5 degrees Fahrenheit, and additional compatible Ebola Virus Disease symptoms Patient denies exposure to infectious person. Patient denies travel to an Ebola-affected area in the 21 days before illness onset. No symptoms or risks identified at this time. Initial Sepsis Screen: Does the patient meet any 2 criteria? No. Patient's initial sepsis screen is negative. Does the patient have a suspected source of infection? No. Patient's initial sepsis screen is negative. Risk Assessment: Do you want to hurt yourself or someone else? Patient reports no desire to harm self or others. Onset of symptoms was November 15, 2022 at 12:00. 16:29 Method Of Arrival: Ambulatory kb3 16:29 Acuity: SAMEER 3 kb3 Triage Assessment: 16:33 General: Appears in no apparent distress. Behavior is calm, cooperative. Pain: Denies kb3 pain. Historical: - Allergies: 16:33 PENICILLINS; kb3 16:33 Shrimp; kb3 16:33 Erythromycin; kb3 - PMHx: 16:33 Hypertensive disorder; Hypercholesterolemia; IDDM; Diabetic Retinopathy; Hypothyroidism;kb3 - PSHx: 16:33 Bilateral corneal transplant surgery; Hip replacement; Thyroidectomy; Total abdominal kb3 hysterectomy; Back sx x2; - Immunization history:: Adult Immunizations up to date, Client reports receiving the 2nd dose of the Covid vaccine. - Social history:: Smoking status: Patient denies any tobacco usage or history of. Screenin:48 Abuse screen: Denies threats or abuse. Denies injuries from another. Nutritional db screening: No deficits noted. Tuberculosis screening: No symptoms or risk factors identified. Fall Risk No fall in past 12 months (0 pts). No secondary diagnosis (0 pts). IV access (20 points). Ambulatory Aid- None/Bed Rest/Nurse Assist (0 pts). Gait- Normal/Bed Rest/Wheelchair (0 pts) Mental Status- Oriented to own ability (0 pts). Total Lombardi Fall Scale indicates No Risk (0-24 pts). 22:17 [facility] ED Fall Risk Assessment (Adult) History of falling in the last 3 months, ke1 including since admission No falls in past 3 months (0 pts) Confusion or Disorientation No (0 pts) Intoxicated or Sedated No (0 pts) Impaired Gait No (0 pts) Mobility Assist Device Used Yes (1 pt) Altered Elimination No (0 pt) Score/Fall Risk Level 3 or more points = High Risk Oriented to surroundings, Maintained a safe environment, Educated pt \T\ family on fall prevention, incl call for assistance when getting out of bed, Assessed \T\ reinforced patient's understanding of fall precautions. Humpty Dumpty Scale Fall Assessment Tool (age< 18yrs) Age 13 years and above (1 pt) Gender Female (1 pt) Diagnosis Other diagnosis (1 pt) Cognitive Impairments Oriented to own ability (1 pt) Environmental Factors Outpatient area (1 pt) Response to Surgery/Sedation/Anesthesia More than 48 hours/ None (1 pt) Medication Usage Other medications/ None (1 pt) Fall Risk Score/ Level High Fall Risk: >/= 12 points Oriented to surroundings, Maintained a safe environment: age specific bed with railing, Bed in low position \T\ wheels locked, Assessed need for side rail use, Locks on all chairs, commodes, stretchers \T\ wheelchairs, Rm and paths clutter \T\ obstacle free, Proper lighting, Educated pt \T\ family on fall prevention, incl. call for assistance when getting out of bed. Assessment: 17:49 Reassessment: Patient appears in no apparent distress at this time. Patient and/or db family updated on plan of care and expected duration. Pain level reassessed. Patient is alert, oriented x 3, equal unlabored respirations, skin warm/dry/pink. patient complains of cough. Neuro: No deficits noted. Level of Consciousness is awake, alert, obeys commands, Moves all extremities. Speech is normal, Facial symmetry appears normal. Vital Signs: 16:29 BP 189 / 68; Pulse 75; Resp 20; Temp 98.2; Pulse Ox 90% ; Weight 108.86 kg; Height 5 kb3 ft. 11 in. (180.34 cm); Pain 0/10; 18:48 BP 196 / 73; Pulse 86; Resp 18; Pulse Ox 93% on R/A; db 21:45 BP 173 / 79; Pulse 84; Resp 17; Temp 98.2; Pulse Ox 93% on R/A; Pain 0/10; ke1 16:29 Body Mass Index 33.47 (108.86 kg, 180.34 cm) kb3 ED Course: 16:12 Patient arrived in ED. rg4 16:14 Ralph Jenkins PA is PHCP. jmm 16:14 Bert Marshall MD is Attending Physician. jmm 16:33 Triage completed. kb3 16:33 Arm band placed on right wrist. kb3 17:19 Chest Single View XRAY In Process Unspecified. EDMS 17:24 Patient has correct armband on for positive identification. Placed in gown. Bed in low mm9 position. Call light in reach. Side rails up X 1. Adult w/ patient. Warm blanket given. Pulse ox on. NIBP on. 17:24 COVID-19/FLU A+B Sent. mm9 17:24 COVID swab sent to lab. mm9 17:40 Inserted saline lock: 20 gauge in left antecubital area, using aseptic technique. Blood db collected. 17:48 Gali Bella, RN is Primary Nurse. db 18:36 CT Chest Wo Con In Process Unspecified. EDMS 19:34 Tera Wright MD is Hospitalizing Provider. jmm 21:05 Primary Nurse role handed off by Gali Bella, NADEEM wm 21:28 Gareth Lawson, NADEEM is Primary Nurse. ke1 22:17 No provider procedures requiring assistance completed. Patient admitted, IV remains in ke1 place. Administered Medications: 20:30 Drug: Rocephin (cefTRIAXone) 1 grams Route: IV; Rate: calculated rate; Site: left ke1 antecubital; 21:00 Drug: Lasix (furosemide) 20 mg Route: IVP; Site: left antecubital; ke1 22:19 Follow up: Response: No adverse reaction ke1 21:15 Drug: Xopenex (levalbuterol) (3) 1.25 mg Route: Inhalation; ke1 Medication: 22:17 VIS not applicable for this client. ke1 Outcome: 19:35 Decision to Hospitalize by Provider. isidra 22:17 Admitted to Med/surg accompanied by tech. ke1 22:17 Condition: good 22:17 Instructed on the need for admit. 22:19 Patient left the ED. ke1 Signatures: Dispatcher [employer] EDMS Ralph Jenkins PA PA jmm Garcia, Rubi rg4 Iona Fleming Kouassi, RN RN ke1 Kayli Robin RN RN kb3 Gali Bella, RN RN Celina Ba mm9
--- NOTE | 2022-11-15 19:35 | EDPHYS ---
Physician Documentation [facility] Name: Pretty Mock Age: 77 yrs Sex: Female : 1945 Arrival Date: 11/15/2022 Time: 16:12 Bed 14 Private MD: ED Physician Bert Marshall HPI: 11/15 16:37 This 77 yrs old Black Female presents to ER via Ambulatory with complaints of Cough. m 16:37 The patient or guardian reports cough. Onset: The symptoms/episode began/occurred jmm today. Modifying factors: The symptoms are alleviated by nothing, the symptoms are aggravated by. This is a 77-year-old female with history of hypertension, hyperlipidemia, diabetes mellitus the presents emerged department with complaints of cough and shortness of breath beginning earlier today. Patient is 1 day status post a right corneal transplant. Denies fever. Denies vomiting. Denies chest pain.. Historical: - Allergies: 16:33 PENICILLINS; kb3 16:33 Shrimp; kb3 16:33 Erythromycin; kb3 - PMHx: 16:33 Hypertensive disorder; Hypercholesterolemia; IDDM; Diabetic Retinopathy; Hypothyroidism;kb3 - PSHx: 16:33 Bilateral corneal transplant surgery; Hip replacement; Thyroidectomy; Total abdominal kb3 hysterectomy; Back sx x2; - Immunization history:: Adult Immunizations up to date, Client reports receiving the 2nd dose of the Covid vaccine. - Social history:: Smoking status: Patient denies any tobacco usage or history of. ROS: 16:37 Constitutional: Negative for fever, chills, and weight loss, Cardiovascular: Negative jmm for chest pain, palpitations, and edema. 16:37 Respiratory: Positive for cough, shortness of breath. 16:37 All other systems are negative. Exam: 16:37 Constitutional: This is a well developed, well nourished patient who is awake, alert, jmm and in no acute distress. Head/Face: atraumatic. Eyes: EOMI, no conjunctival erythema appreciated ENT: Moist Mucus Membranes Neck: Trachea midline, Supple Chest/axilla: Normal chest wall appearance and motion. 16:37 Abdomen/GI: Non distended Back: Normal ROM Skin: General appearance color normal MS/ Extremity: Moves all extremities, no obvious deformities appreciated, no edema noted to the lower extremities Neuro: Awake and alert Psych: Behavior is normal, Mood is normal, Patient is cooperative and pleasant 16:37 Cardiovascular: Rate: normal, Rhythm: regular. 16:37 Respiratory: the patient does not display signs of respiratory distress, Respirations: normal, Breath sounds: wheezing: Vital Signs: 16:29 BP 189 / 68; Pulse 75; Resp 20; Temp 98.2; Pulse Ox 90% ; Weight 108.86 kg; Height 5 kb3 ft. 11 in. (180.34 cm); Pain 0/10; 18:48 BP 196 / 73; Pulse 86; Resp 18; Pulse Ox 93% on R/A; db 21:45 BP 173 / 79; Pulse 84; Resp 17; Temp 98.2; Pulse Ox 93% on R/A; Pain 0/10; ke1 16:29 Body Mass Index 33.47 (108.86 kg, 180.34 cm) kb3 MDM: 16:42 Patient medically screened. [facility] 19:33 Data reviewed: vital signs, nurses notes. Counseling: I had a detailed discussion with [facility] the patient and/or guardian regarding: the historical points, exam findings, and any diagnostic results supporting the discharge/admit diagnosis, lab results, radiology results, the need for further work-up and treatment in the hospital. ED course: I discussed the patient with Dr. Wright whom accepted the patient to his service. . 11/15 16:36 Order name: COVID-19/FLU A+B; Complete Time: 18:15 [facility] 11/15 16:42 Order name: CBC with Diff; Complete Time: 18:04 [facility] 11/15 16:42 Order name: CMP; Complete Time: 18:18 [facility] 11/15 16:42 Order name: Lactate w/ 2H reflex if indic.; Complete Time: 18:18 [facility] 11/15 19:18 Order name: Troponin HS; Complete Time: 08:02 [facility] 11/15 19:29 Order name: BNP; Complete Time: 19:58 [facility] 11/15 16:42 Order name: Chest Single View XRAY; Complete Time: 17:29 [facility] 11/15 16:42 Order name: Saline Lock; Complete Time: 17:48 [facility] 11/15 18:19 Order name: CT Chest Wo Con; Complete Time: 18:48 [facility] 11/15 19:47 Order name: EKG - Nurse/Tech; Complete Time: 21:28 jm Administered Medications: 20:30 Drug: Rocephin (cefTRIAXone) 1 grams Route: IV; Rate: calculated rate; Site: left ke1 antecubital; 21:00 Drug: Lasix (furosemide) 20 mg Route: IVP; Site: left antecubital; ke1 22:19 Follow up: Response: No adverse reaction ke1 21:15 Drug: Xopenex (levalbuterol) (3) 1.25 mg Route: Inhalation; ke1 Disposition Summary: 11/15/22 19:35 Hospitalization Ordered Hospitalization Status: Observation [facility] Provider: Tera Wright Location: Telemetry/MedSurg (observation) jmm Condition: Stable jmm Problem: new jmm Symptoms: are unchanged jmm Bed/Room Type: Standard [facility] Room Assignment: 219(11/15/22 19:58) mw Diagnosis - Pneumonia [facility] Forms: - Medication Reconciliation Form jm - SBAR form [facility] Addendum: 11/20/2022 07:10 Co-signature as Attending Physician, Bert Marshall MD I agree with the assessment and r t plan of care. Signatures: Dispatcher [employer] EDKatiuska Lao RN RN mw Ralph Jenkins PA PA jmm Ebrottie, Kouassi, RN RN ke1 Kayli Robin RN RN kb3 Bert Masrhall MD MD rt Corrections: (The following items were deleted from the chart) 11/15 19:58 19:35 jmm mw
[2022-11-15] MEDS ORDERED: FUROSEMIDE 20 MG/ 2ML VIAL ONE (19:47)
[2022-11-15] MEDS ORDERED: CEFTRIAXONE 1000 MG/VIAL ONE (19:47)
[2022-11-15] MEDS ORDERED: NA CHLORIDE 0.9% 50 ML IV ONE (19:48)
[2022-11-15] MEDS ORDERED: LEVALBUTEROL 1.25 MG/3 ML NEB ONE (21:06)
[2022-11-15] MEDS ORDERED: ACETAMINOPHEN 325 MG TABLET PO PRN (23:12)
[2022-11-15] MEDS ORDERED: IPRATROPIUM BROM 0.5MG/2.5ML NEB PRN (23:13)
[2022-11-15] MEDS ORDERED: ALBUTEROL 2.5 MG/3 ML NEB SOL NEB PRN (23:13)
[2022-11-15] MEDS ORDERED: ONDANSETRON 4 MG/2 ML VIAL IV PRN (23:14)
[2022-11-15] MEDS ORDERED: D50W 25 GM/50 ML SYRINGE IV PRN (23:27)
[2022-11-15] MEDS ORDERED: GLUCAGON 1 MG/VIAL IM PRN (23:27)
[2022-11-15] MEDS ORDERED: D10W 125 ML IV PRN (23:38)
[2022-11-15 23:39] VITALS: BMI 34.4
[2022-11-16] MEDS: Levofloxacin 750mg IV 750 MG/150 ML BAG IV SCH (00:42)
[2022-11-16 03:44] LABS: Absolute Lymphocytes (CBC) 1.5 K/uL (0.7-4.9); Hematocrit 30.7 % (36.0-45.0); Lymphocytes % 15.8 % (15.3-44.8); MCV 81.1 fL (80-100); MPV 7.8 fL (7.6-11.3); RBC Red Blood Cell Count 3.78 M/uL (3.86-4.86)
[2022-11-16 04:05] LABS: Albumin 2.9 g/dL (3.4-5.0); Bilirubin Total 0.3 mg/dL (0.2-1.0); Potassium 4.2 mmol/L (3.5-5.1); Protein, Total 6.4 g/dL (6.4-8.2)
[2022-11-16] MEDS: INSULIN -REGULAR HUMAN 50 UNIT/0.5 ML ML SQ SCH ×4 (07:30→21:07)
[2022-11-16] MEDS: FUROSEMIDE 40 MG/4 ML VIAL IV SCH ×2 (09:05→17:58)
[2022-11-16] MEDS: ENOXAPARIN 30 MG/0.3 ML SQ SCH (09:06)
[2022-11-16] MEDS: [UNRECOGNIZED DRUG - OTHER] OPTH SCH ×3 (13:00→21:00)
[2022-11-16] MEDS ORDERED: DIFLUPREDNATE OPTH SCH (13:00)
[2022-11-16] MEDS ORDERED: [UNRECOGNIZED DRUG - OTHER] OPTH SCH (13:00)
--- NOTE | 2022-11-16 13:36 | RAD REPORT ---
EXAM DESCRIPTION: Colette Pa And Lat (2 Views)11/16/2022 1:29 pm CLINICAL HISTORY: Shortness of breath COMPARISON: November 15, 2022 FINDINGS: No significant change in mild to moderate bilateral pulmonary opacities. Heart is mildly enlarged IMPRESSION: No significant change in mild to moderate bilateral pulmonary opacities which may repres ent pneumonia, probably less likely pulmonary edema
[2022-11-16] MEDS ORDERED: HOME MED 1 EA UNK (Acyclovir [Acyclovir] 800 MG Tablet) PO SCH (14:00)
--- NOTE | 2022-11-16 14:12 | PN ---
Date of Progress Note: 11/16/2022 When seen this afternoon, the patient states she feels back to baseline. She is no longer coughing, has diuresed considerable amount. We will recheck a chest x-ray, and if improved significantly, coul d be discharged to go back on Lasix orally and hold on hydralazine until seen by Nephrology. HR/MODL Voice ID: [id number] Report ID: [id number]
--- NOTE | 2022-11-16 14:28 | HP ---
Date of Admission: 11/15/2022 Chief Complaint: Cough, shortness of breath. History Of Present Illness: The patient states she had a corneal transplant surgery couple of days a go. Went for checkup followup the next day. She was just she noticed she was coughing. This became progressive. She felt some wheezing in her chest and some mild shortness of breath. She came to the ER with the possibility of a pneumonia versus CHF. Diagnosis was made. Significant. Past Medical History: Significant past history includes the eye problems, insulin-dependent diabetes . No major pulmonary problems, hypertension, CAD, renal insufficiency. On the patient wa s seen by Nephrology couple of months ago, at which time her creatinine was over 2. Therefore, her L asix was held, and she was started on hydralazine. Continue the spironolactone. I think this is per tinent as the lack of Lasix with some element of CHF. She has been seen by Cardiology a couple of mo nths ago also and complete workup at that time including echo and according to the patient was fine. Social History: Nonsmoker, nondrinker. Physical Examination: General: The patient is a slightly dyspneic elderly female. Vital Signs: Stable vital signs. Head And Neck: Normocephalic. Right eye covered post transplant. Left eye normal. ENT negative. Chest: Occasional high-pitched rhonchi bilaterally. Adequate air entry and movement bilaterally. Cardiovascular: PMI at midclavicular line. Heart sounds normal. Peripheral pulses present and equa l bilaterally. Abdomen: No organomegaly. Bowel sounds present. Extremities: Good tone and movement bilaterally. Reflexes physiologic. +1 edema. Rectal/Pelvic: Deferred. Impression: Congestive heart failure and/or viral pneumonia. Plan: The patient will be admitted, placed on IV antibiotics, pulmonary therapy, and Lasix IV. HR/MODL Voice ID: [id number]
[2022-11-16] MEDS: ACYCLOVIR 400 MG TABLET PO SCH ×2 (14:37→21:08)
[2022-11-16] MEDS: DIFLUPREDNATE OPTH SCH ×2 (17:59→21:16)
[2022-11-16] MEDS: ASPIRIN EC 81 MG TAB PO SCH (21:00)
[2022-11-16] MEDS: CLOPIDOGREL 75 MG TABLET PO SCH (21:00)
[2022-11-16] MEDS: METOPROLOL TAR 50 MG TAB PO SCH (21:08)
[2022-11-16] MEDS: ATORVASTATIN 40 MG TAB PO SCH (21:08)
[2022-11-16] MEDS: [UNRECOGNIZED DRUG - OTHER] OPTH SCH (21:17)
[2022-11-17 04:10] LABS: Hematocrit 36.1 % (36.0-45.0); Lymphocytes % 28.5 % (15.3-44.8); MCV 81.3 fL (80-100); RBC Red Blood Cell Count 4.44 M/uL (3.86-4.86)
[2022-11-17 04:22] LABS: Potassium 3.9 mmol/L (3.5-5.1)
[2022-11-17] MEDS: LEVOTHYROXINE SOD 0.025 MG TAB PO SCH (06:35)
[2022-11-17] MEDS: INSULIN -REGULAR HUMAN 50 UNIT/0.5 ML ML SQ SCH ×4 (07:30→20:40)
[2022-11-17] MEDS ORDERED: CLOPIDOGREL 75 MG TABLET PO SCH ×2 (09:00→21:00)
[2022-11-17] MEDS: [UNRECOGNIZED DRUG - OTHER] OPTH SCH ×3 (09:00→20:46)
[2022-11-17] MEDS: DIFLUPREDNATE OPTH SCH ×4 (09:00→20:45)
[2022-11-17] MEDS: PREDNISOLONE ACET 1% OPTH SCH (09:00)
[2022-11-17] MEDS ORDERED: SPIRONOLACTONE 25 MG TABLET PO SCH (09:00)
[2022-11-17] MEDS: ACYCLOVIR 400 MG TABLET PO SCH ×3 (09:00→20:46)
[2022-11-17] MEDS: AMLODIPINE 10 MG TAB PO SCH (09:00)
[2022-11-17] MEDS: EYE OPTH SCH (09:00)
[2022-11-17] MEDS ORDERED: HOME MED 1 EA UNK (Insulin Degludec [Tresiba] 100 UNIT/ML Vial) SQ SCH (09:00)
[2022-11-17] MEDS: [UNRECOGNIZED DRUG - OTHER] OPTH SCH ×4 (09:00→20:45)
[2022-11-17] MEDS ORDERED: HOME MED 1 EA UNK (Cetirizine Hcl [Zyrtec] 10 MG Capsule) PO SCH (09:00)
[2022-11-17] MEDS ORDERED: ASPIRIN 81 MG CHEWABLE TABLET PO SCH (09:00)
[2022-11-17] MEDS: METOPROLOL TAR 50 MG TAB PO SCH ×2 (09:00→20:43)
[2022-11-17] MEDS ORDERED: HOME MED 1 EA UNK (Prednisolone Acetate/Pf [Prednisolone Acet 1% Eye Drop] 5 ML Drops.Susp OPTH SCH (09:00)
[2022-11-17] MEDS: CETIRIZINE HCL 5 MG TABLET PO SCH (09:17)
[2022-11-17] MEDS: INSULIN GLARGINE 100 UNIT/ML SQ SCH (09:18)
[2022-11-17] MEDS: FUROSEMIDE 40 MG/4 ML VIAL IV SCH (09:19)
[2022-11-17] MEDS: ENOXAPARIN 30 MG/0.3 ML SQ SCH (09:20)
[2022-11-17] MEDS ORDERED: Levofloxacin 250mg IV 250 MG/50 ML BAG IV ONE (15:00)
--- NOTE | 2022-11-17 16:04 | CON ---
Date of Consultation: 11/16/2022 Reason For Consultation: Questionable congestive heart failure. History Of Present Illness: This is a 77-year-old female, past medical history of diabetes, hyperten zain, coronary artery disease, chronic kidney failure, presented for 2 days history of cough and shor tness of breath and low-grade fever and generalized weakness and generalized wheezing. Does not have any orthopnea or lower extremity edema. No nausea or vomiting or diaphoresis. Past Medical History: As outlined above in the HPI. Medications: Refer to reconciliation sheet for detailed list. Allergies: PENICILLIN, SHRIMP, ERYTHROMYCIN. Family History: No premature coronary artery disease or cancer. Social History: She does not smoke or drink. Does not use any drugs. Review of Systems: All systems reviewed and they were negative except what mentioned in HPI. Physical Examination: Vital signs: Reviewed. Head and Neck: Pupils are equal, reactive to light. Intact eye movements. No JVD. No cervical lym phadenopathy. Neck is supple. Thyroid is not enlarged. Lungs: Decreased breathing sounds bilaterally. No accessory muscle use or muscle retraction. Heart: Irregular. No extra sounds. Abdomen: Soft, nontender. Bowel sounds positive. No organomegaly. No masses or hernia. No rigidi ty or rebound. Extremities: No edema, clubbing, or cyanosis. Intact pulses. Skin: No rash. Neurologic: Alert, awake, oriented x3. No acute focal deficits appreciated. Lymph Nodes: No cervical or axillary lymphadenopathy. Investigations: BUN is 30, creatinine is 1.79. NT-proBNP is 4161. Troponins are negative. CT scan of the chest showed ground-glass opacities of the lungs with bilateral effusion, CHF versus pneumoni a. Assessment And Recommendations: 1.Shortness of breath, might be a component of mild congestive heart failure; however, pneumonia is a possibility. Recommend a challenge of Lasix. If the patient is doing better and BUN and creatinin e tolerate, then continue diuretics and recommend workup for pneumonia as well and continue antibioti cs. 2.Chronic kidney disease. The creatinine improved with diuresis, which could reflect the possibilit y that she is slightly fluid overloaded; however, monitor BUN and creatinine very closely. SR/MODL Voice ID: [id number] Report ID: [id number]
--- NOTE | 2022-11-17 18:10 | PN ---
Date of Progress Note: 11/17/2022 The patient states that she has slight headache. Other than that, she feels back to baseline; howeve r, her creatinine has increased significantly which she has had before and that is why the change from Lasix to hydralazine was made. She has diuresed considerably, breathing much better. N o cough. Seen by Dr. Matos and suspected the possibility of pneumonitis. We will repeat her chest x-ray and lab work in the a.m. Depending on the results, she will be discharged to see Nephrology. In the meantime, we will hold the Lasix, restart her hydralazine in the morning and spironolactone. Also, give her 250 of Levaquin. HR/MODL Voice ID: [id number] Report ID: [id number]
--- NOTE | 2022-11-17 18:10 | PN ---
Date of Progress Note: 11/17/2022 Subjective: Seen by bedside, doing well. No cough or shortness of breath. No nausea, vomiting, miri rrhea. All other systems reviewed are negative. Physical Examination: Vital Signs: Reviewed. Head and Neck: Pupils are equal, reactive to light. Intact eye movements. No JVD. No cervical lym phadenopathy. Neck is supple. Thyroid is not enlarged. Lungs: Clear to auscultation bilaterally. No rhonchi, wheezing, or crackles. No accessory muscle u se. Heart: Irregular. No extra sounds. Abdomen: Soft, nontender. Bowel sounds positive. No organomegaly. No masses or hernia. No rigidi ty or rebound. Extremities: No edema, clubbing, or cyanosis. Intact pulses. Skin: No rash. Neurologic: Alert, awake, oriented x3. No acute focal deficits appreciated. Investigations: BUN 29, creatinine 2.16. Assessment And Recommendations: 1. congestive heart failure. She appears to be euvolemic. I will hold the Lasix and Josi ctone for now due to the rise in BUN and creatinine, and re-evaluate labs tomorrow morning. 2.Acute on chronic renal failure. Hold diuretics and re-evaluate labs in the morning. Case discuss ed with Dr. Wright. /BLANKA Voice ID: [id number] Report ID: [id number]
[2022-11-17] MEDS: ATORVASTATIN 40 MG TAB PO SCH (20:44)
[2022-11-17] MEDS: HYDRALAZINE HCL 25 MG TABLET PO SCH (20:46)
[2022-11-17] MEDS: CLOPIDOGREL 75 MG TABLET PO SCH (20:46)
[2022-11-17] MEDS: ASPIRIN EC 81 MG TAB PO SCH (20:49)
[2022-11-17] MEDS ORDERED: ASPIRIN EC 81 MG TAB PO SCH (21:00)
[2022-11-18] MEDS: Levofloxacin 750mg IV 750 MG/150 ML BAG IV SCH (00:10)
[2022-11-18 03:46] LABS: Absolute Lymphocytes (CBC) 1.5 K/uL (0.7-4.9); Hematocrit 31.9 % (36.0-45.0); Lymphocytes % 18.2 % (15.3-44.8); MCV 80.8 fL (80-100); MPV 7.9 fL (7.6-11.3); RBC Red Blood Cell Count 3.94 M/uL (3.86-4.86)
[2022-11-18 05:29] VITALS: O2SAT 97
[2022-11-18] MEDS: LEVOTHYROXINE SOD 0.025 MG TAB PO SCH (06:29)
[2022-11-18 07:03] LABS: Potassium 3.7 mmol/L (3.5-5.1)
--- NOTE | 2022-11-18 07:28 | RAD REPORT ---
EXAM DESCRIPTION: RAD - Chest Pa And Lat (2 Views) - 11/18/2022 6:26 am CLINICAL HISTORY: pneumonia COMPARISON: Two view chest 11/16/2022, portable chest 11/15/2022, two view chest 03/19/2021 ; CT madi st 11/15/2022 TECHNIQUE: Frontal and lateral views of the chest were obtained. FINDINGS: The lungs are normal volume with no focal consolidation seen. No focal mass lesion. Heart size remains prominent. Central vascularity has decreased and interstitial markings are sligh tly less prominent. On serial imaging of the chest has shown continued improvement dating back to . Serial chest imaging favors of resolving failure/ volume overload pattern. CT chest study had a mixed pattern of both volume overload/ failure and patchy pneumonia, particularly in each apex. No pleural effusion or pneumothorax seen. No acute bony finding noted. No aortic abnormality. IMPRESSION: Decreased prominence of the central vasculature and lung markings with no new or progres sive lung parenchymal process. The CT and chest findings are mixed with both failure and pneumonia findings evident. On today's jose dy, the patient appears to be resolving a CHF/ volume overload component. A concurrent pneumonia is s till possible though apparently the patient does not have clinical or laboratory findings supporting pneumonia.
[2022-11-18] MEDS: INSULIN -REGULAR HUMAN 50 UNIT/0.5 ML ML SQ SCH ×2 (07:30→11:30)
[2022-11-18] MEDS: AMLODIPINE 10 MG TAB PO SCH (09:00)
[2022-11-18] MEDS: METOPROLOL TAR 50 MG TAB PO SCH (09:00)
[2022-11-18] MEDS: [UNRECOGNIZED DRUG - OTHER] OPTH SCH ×2 (09:00→13:00)
[2022-11-18] MEDS: ACYCLOVIR 400 MG TABLET PO SCH ×2 (09:00→14:00)
[2022-11-18] MEDS: HYDRALAZINE HCL 25 MG TABLET PO SCH (09:00)
[2022-11-18] MEDS: [UNRECOGNIZED DRUG - OTHER] OPTH SCH ×2 (09:00→14:00)
[2022-11-18] MEDS: EYE OPTH SCH (09:00)
[2022-11-18] MEDS: DIFLUPREDNATE OPTH SCH ×2 (09:00→13:00)
[2022-11-18] MEDS: CETIRIZINE HCL 5 MG TABLET PO SCH (09:00)
[2022-11-18] MEDS: PREDNISOLONE ACET 1% OPTH SCH (09:00)
[2022-11-18] MEDS: ENOXAPARIN 30 MG/0.3 ML SQ SCH (09:20)
[2022-11-18] MEDS: INSULIN GLARGINE 100 UNIT/ML SQ SCH (09:20)
[2022-11-18 12:16] VITALS: BP 151/64; TEMP 98.4
--- NOTE | 2022-11-18 18:21 | PN ---
Date of Progress Note: 11/18/2022 The patient states she feels fine this morning. Her level has improved since her Lasix has been decr eased to a creatinine of 1.8 and potassium normal. Her chest x-ray seems to strongly suggest CHF, po ssible pneumonitis. She could be discharged after being seen by Nephrology for evaluation of medicat ion changes between Lasix and Apresoline and follow up with her eye doctor tomorrow post corneal zamora splant and myself in a week in regard to her medication. HR/MODL Voice ID: [id number] Report ID: [id number]
--- NOTE | 2022-11-18 21:57 | CON ---
Date of Consultation: 11/18/2022 Chief Complaint: Vohtl-ed-rhhweqg kidney injury and cardiorenal syndrome. History Of Present Illness: Patient was admitted to the hospital on November 16 because she was complaining of cough and shortness of breath, and she was started on IV Lasix for congestive heart failure. Chest x-ray showed interstitial infiltrates consistent with CHF exacerbation and pneumonia could not be ruled out. Patient recently underwent a corneal transplant surgery prior to this admission. She was complaining of wheezing in her chest and mild shortness of breath. She denied fever. The patient has history of chronic kidney disease, hypertension and diabetes mellitus, insulin dependent. The patient was taking spironolactone for congestive heart failure and despite diuretic treatment , the patient developed some legs edema and shortness of breath. PMH: HTN, CKD3 , hypertensive kidney disease, hypertensive heart and kidney disease, hyperlipidemia, CAD, DM type 2 , diabetes mellitus with renal manifestations. Social History: Denies tobacco, alcohol, or illicit drugs. Family History: No kidney disease in the family. Physical Examination: General: Patient is awake, alert, follows commands. Eyes: Anicteric sclerae. EOMI. Ears, Nose, Mouth, And Throat: Oral mucosa moist. No pallor. Neck: Supple. No bruits. Lungs: Diminished breath sounds at bases. Heart: S1, S2. Abdomen: Soft. Extremities: Edema has improved. Laboratory Data: Sodium 140, potassium 3.7, chloride 105, CO2 29, BUN 32, creatinine 1.86, glucose 98, and calcium 8.5. Impression And Plan: 1. Acute kidney injury. During this admission, the creatinine level was 2.34 and prior to that patient's creatinine baseline level was 1.6. The patient will continue diuretic for volume control and to treat congestive heart failure and cardiorenal syndrome with acute kidney injury. 2. Hypertension. Blood pressure is in acceptable control. Patient will continue hydralazine 25 two tablets twice a day. 3. CHF , exacerbation, acute on chronic congestive heart failure with diastolic dysfunction. Volume control with diuretic. Patient will continue Lasix 40 mg a day. 4. Patient developed congestive heart failure exacerbation and Cardiology consultation was requested. Patient will see bull riveter for followup outpatient. 5. Diabetes mellitus. Continue insulin. 6. Acute kidney injury, likely prerenal azotemia. Continue volume control with Lasix. Avoid nonsteroidal antiinflammatory medication. EB/MODL Voice ID: [id number] Report ID: [id number] RADHA
--- NOTE | 2022-11-20 14:03 | EKG ---
Test Date: 2022-11-15 Test Time: 21:12:57 [place] Department Operator: JACOBO MEASUREMENT RESULTS: Intervals: Rate: 92 IN: 148 QRSD: 132 QT: 416 QTc: 514 [place]: P: 58 IN: 148 QRS: -38 T: 79 INTERPRETIVE STATEMENTS: Normal sinus rhythm Possible Left atrial enlargement Left axis deviation Right bundle branch block Abnormal ECG Compared to ECG 03/19/2021 15:00:29 Left ventricular hypertrophy no longer present Electronically Signed On 11-20-22 14:00:45 MARKETING PROJECT COORDINATOR by Wing Matos
== END 2022-11-18 14:57 | disposition home or self-care (01) | DRG 291 ==
LOC: ER 16:10 → ERHOLD 19:36 → 2ND 21:42 → OBSVTOIN 11-16 16:15
PROVIDERS: ADMIT Family Medicine; ATTEND Family Medicine
DX: I13.0 Hypertensive heart and chronic kidney disease with heart failure and stage 1 through stage 4 chronic kidney disease, or unspecified chronic kidney disease (principal); I50.33 Acute on chronic diastolic (congestive) heart failure; J18.9 Pneumonia, unspecified organism; N17.9 Acute kidney failure, unspecified; N18.30 Chronic kidney disease, stage 3 unspecified; E11.22 Type 2 diabetes mellitus with diabetic chronic kidney disease; E03.9 Hypothyroidism, unspecified; E78.5 Hyperlipidemia, unspecified; I25.10 Atherosclerotic heart disease of native coronary artery without angina pectoris; Z94.7 Corneal transplant status; Z79.4 Long term (current) use of insulin; Z88.0 Allergy status to penicillin; Z88.1 Allergy status to other antibiotic agents; Z91.013 Allergy to seafood; Z96.649 Presence of unspecified artificial hip joint; Z90.710 Acquired absence of both cervix and uterus; Z20.822 Contact with and (suspected) exposure to COVID-19
CPT/HCPCS: 0240U; 36415; 71045; 71046; 71250; 80048; 80053; 82947; 83605; 83880; 84484; 85025; 93005; 96374; 96375; 99285; G0378; J1650; J1815; J1940; J7614

== ENCOUNTER 2023-01-15 16:35 | Inpatient (IN) | payer OTHER ==
[2023-01-15 17:46] LABS: SARS-CoV-2 Antigen Rapid Res Negative (Negative)
--- OUTSIDE RECORDS SUMMARY | 2023-01-15 19:32 | XMS REPORT | Continuity of Care Document ---
:1945 Author Organization [facility] t Address [address] [place] [address] Dr. [address]ang. [address] [place] [address] Care Team Providers Name Role Phone PCP, UNKNOWN Primary Care Physician Unavailable AARON MIRANDA Attending Clinician Unavailable AARON MIRANDA Attending Clinician Unavailable AARON MIRANDA Attending Clinician Unavailable ANUJ PENALOZA Attending Clinician Unavailable Aaron Miranda MD Attending Clinician Susy Hernandez Attending Clinician Emeterio Bazan CRNA Attending Clinician [phone] MARTHA JONES Attending Clinician Unavailable SANKET KELLY Attending Clinician Unavailable RENEA SINCLAIR Attending Clinician Unavailable TERRI MARSHALL Attending Clinician Unavailable Wing Matos Attending Clinician Unavailable LYN WONG Attending Clinician Unavailable NICOLE HERNÁNDEZ Attending Clinician Unavailable DARRYL JONES Attending Clinician Unavailable Darryl Jones MD Attending Clinician Unavailable Myla Ray MD Attending Clinician [phone] Mayra Colón Attending Clinician Unavailable GINGER SKELTON Attending Clinician Unavailable Mayra Colón Attending Clinician Unavailable Mayra Colón Attending Clinician Unavailable Nitin CLARKE, Aaron Attending Clinician Lima CLARKE, Ingrid Michelle Attending Clinician [phone], Ods Attending Clinician Unavailable Abelardo Boone MD Attending Clinician AARON MIRANDA Admitting Clinician Unavailable AARON MIRANDA Admitting Clinician Unavailable Tera Wright Admitting Clinician Unavailable DARRYL JONES Admitting Clinician Unavailable Mayra Colón Admitting Clinician Unavailable MAYRA COLÓN Admitting Clinician Unavailable Payers Payer Name Policy Type Policy Number Effective Date Expiration Date S [place] MEDICARE A B [id number] 2011 00:00:00 [employer] INDEMNITY NON [id number] 2017 CONTR 00:00:00 [facility] [id number] 2020 HEALTHCARE 00:00:00 MEDICARE PART A \T\ [id number] B - MEDICARE [facility] MEDICARE [id number] SUPPLEMENT PLAN - [facility] INDEMNITY/TRADITION [id number] [place] CHOICE - [employer]ET[employer] Problems Condition Condition [...] Type Date Date Clinician Penicill DA Active [place] [facility] ins 4-18 Clear 00:00: Carbajal 00 [facility] erythrom DA Active [place] [facility] ycin 4-18 Clear base 00:00: Carabjal 00 [facility] SHRIMP DA Active SV TONGUE [facility] SWELLING 4-18 Clear 00:00: Carbajal 00 [facility] Shrimp Drug Active Anaphylaxis[facility]: Medical [address] [place] [address] SHRIMP Allergy Active High Anaphylaxis [facility] [...] St INS 1-18 [facility] 00:[facility]: [facility] [address] [place] Erythrom Propensi Active Rufino ycin ty to 118 College adverse 00:00: of reaction 00 Medicin s to e drug Penicill Propensi Active Rufino ins ty to 118 College adverse 00:00: of reaction 00 Medicin s to e drug Penicill DA Active [place] HIVES [facility] ins 8- Clear 00:00: Carbajal 00 [facility] erythrom DA Active [place] HIVES [facility] ycin 8-01 Clear base 00:00: Carbajal 00 [facility] SHRIMP DA Active U HIVES 2006- [facility] 0-19 Clear 00:00: Carbajal 00 [facility] Social History Social Habit Start Date Stop Date Quantity Comments Source Exposure to Yes Rufinoblanca oswald SARS-CoV-2 of Medicine (event) Alcohol intake 2022-11-14 2022-11-14 Ex-drinker [facility] 00:[facility]00 00:00:00 (finding) [facility] Tobacco use and 2021-01-24 2021-01-[address] [facility] exposure 00:00:00 00:00:00 [facility] Tobacco Comment 2012-12-18 2012-12-18 QUIT 1974 [facility] 00:00:00 00:00:00 of Medicine History of 1977-01-[address] [facility] [address] [facility] 00:00:00 00:00:00 [facility] Smoking Status Start Date Stop Date Source Former smoker 2021-01-24 00:00:00 2021-01-24 00:00:[address] [facility] Medications Ordered Filled Start Stop Current [...] mouth [facility] tablet 14:52: daily. Medical [address] [place] atorvastati 2021-12 Yes 10mg QD Take [address] [facility] (LIPITOR) 2-15 by mouth Luke s 10 MG 14:52: daily. Medical tablet 35 [place] levothyroxi 2021-12 Yes 50ug Take 50 [facility] [...] mg tablet 14:52: daily. Medica l 35 [place] insulin 2021-12 Yes type 2 40U QD Inject [address] [facility] degludec 2-15 diabetes Units [facility] (Tresiba 14:52: mellitus subcutaneo Medical FlexTouch 35 usly daily Cent er U-100) 100 . unit/mL (3 mL) InPn cetirizine 2021-12 Yes 10mg QD Take [address] (ZyrTEC) 10 2-15 by mouth Luke s MG tablet 14:52: daily. Medica l 35 [place] amLODIPine 2021-12 Yes 10mg QD Take [address] (NORVASC) 2-15 by mouth [facility] 10 MG 14:52: daily. Medical tablet 35 [place] brimonidine 2021-12 Yes 1[drp] Q.5D [address] [facility] -timoloL 2-15 (two) [facility] (COMBIGAN) 14:52: times Medica l 0.2-0.5 % 35 daily. [place] ophthalmic solution prednisoLON 2021-12 Yes 1[drp] Q.25D [address] [facility] acetate 2-15 (four) [facility] (PRED 14:52: times Medical FORTE) 1 % 35 daily . [place] ophthalmic suspension spironolact 2021-12 Yes 25mg QD Take [address] [facility] one 2-15 by mouth [facility] (ALDACTONE) 14:52: daily. Medi jose 25 MG 35 Center tablet hydrALAZINE 2021-12 Yes 100mg Q.5D Take [address] (APRESOLINE 2-15 mg by [facility] ) 100 MG 14:52: mouth 2 Medica l tablet 35 (two) Center times daily . gabapentin 2021-12 Yes 300mg Q.[id number] Take [address] [facility] [address] (NEURONTIN) 2-15 [id number] mg by L ukes 300 MG 14:52: [...] mouth [facility] tablet 14:52: daily. Medical [place] atorvastati 2021-12 Yes 10mg QD Take 10 [...] mg tablet 14:52: daily. Medica l 35 [place] insulin 2021-12 Yes type 2 40U QD Inject [address] [facility] degludec 2-15 diabetes Units [facility] (Tresiba 14:52: mellitus subcutaneo Medical FlexTouch 35 usly daily Cent er U-100) 100 . unit/mL (3 mL) InPn cetirizine 2021-12 Yes 10mg QD Take [address] (ZyrTEC) 10 2-15 by mouth Luke s MG tablet 14:52: daily. Medica l 35 [place] amLODIPine 2021-12 Yes 10mg QD Take [address] (NORVASC) 2-15 by mouth [facility] 10 MG 14:52: daily. Medical tablet 35 [place] brimonidine 2021-12 Yes 1[drp] Q.5D [address] [facility] -timoloL 2-15 (two) [facility] (COMBIGAN) 14:52: times Medica l 0.2-0.5 % 35 daily. [place] ophthalmic solution prednisoLON 2021-12 Yes 1[drp] Q.25D [address] [facility] acetate 2-15 (four) [facility] (PRED 14:52: times Medical FORTE) 1 % 35 daily . [place] ophthalmic suspension spironolact 2021-12 Yes 25mg QD Take [address] [facility] one 2-15 by mouth [facility] (ALDACTONE) 14:52: daily. Medi jose 25 MG 35 Center tablet hydrALAZINE 2021-12 Yes 100mg Q.5D Take [address] (APRESOLINE 2-15 mg by [facility] ) 100 MG 14:52: mouth 2 Medica l tablet 35 (two) Center times daily . gabapentin 2021-12 Yes 300mg Q.[id number] Take [address] [facility] [address] (NEURONTIN) 2-15 [id number] mg by L ukes 300 MG 14:52: [...] mouth [facility] tablet 14:52: daily. Medical [place] atorvastati 2021-12 Yes 10mg QD Take [address] [facility] (LIPITOR) 2-15 by mouth Luke s 10 MG 14:52: daily. Medical tablet 35 [place] levothyroxi 2021-12 Yes 50ug Take 50 [facility] [...] mg tablet 14:52: daily. Medica l 35 [place] insulin 2021-12 Yes type 2 40U QD Inject [address] [facility] degludec 2-15 diabetes Units [facility] (Tresiba 14:52: mellitus subcutaneo Medical FlexTouch 35 usly daily Cent er U-100) 100 . unit/mL (3 mL) In cetirizine 2021-12 Yes 10mg QD Take [address] (ZyrTEC) 10 2-15 by mouth Luke s MG tablet 14:52: daily. Medica l 35 [place] amLODIPine 2021-12 Yes 10mg QD Take [address] (NORVASC) 2-15 by mouth [facility] 10 MG 14:52: daily. Medical tablet 35 [place] brimonidine 2021-12 Yes 1[drp] Q.5D [address] [facility] [address] -timoloL 2-15 (two) [facility] (COMBIGAN) 14:52: times Medica l 0.2-0.5 % 35 daily. [place] ophthalmic solution prednisoLON 2021-12 Yes 1[drp] Q.25D [address] [facility] acetate 2-15 (four) [facility] (PRED 14:52: times Medical FORTE) 1 % 35 daily . [place] ophthalmic suspension spironolact 2021-12 Yes 25mg QD Take [address] [facility] one 2-15 by mouth [facility] (ALDACTONE) 14:52: daily. Medi jose 25 MG 35 Center tablet hydrALAZINE 2021-12 Yes 100mg Q.5D Take [address] (APRESOLINE 2-15 mg by [facility] ) 100 MG 14:52: mouth 2 Medica l tablet 35 (two) Center times daily . gabapentin 2021-12 Yes 300mg Q.[id number] Take [address] [facility] (NEURONTIN) 2-15 [id number] mg by L ukes 300 MG 14:52: [...] mouth [facility] tablet 14:52: daily. Medical [place] atorvastati 2021-12 Yes 10mg QD Take [address] [facility] (LIPITOR) 2-15 by mouth Luke s 10 MG 14:52: daily. Medical tablet 35 [place] levothyroxi 2021-12 Yes 50ug Take 50 [facility] [...] mg tablet 14:52: daily. Medica l 35 [place] insulin 2021-12 Yes type 2 40U QD Inject [address] degludec 2-15 diabetes Units [facility] (Tresiba 14:52: mellitus subcutaneo Medical FlexTouch 35 usly daily Cent er U-100) 100 . unit/mL (3 mL) InPn cetirizine 2021-12 Yes 10mg QD Take [address] (ZyrTEC) 10 2-15 by mouth Luke s MG tablet 14:52: daily. Medica l 35 [place] amLODIPine 2021-12 Yes 10mg QD Take [address] (NORVASC) 2-15 by mouth [facility] 10 MG 14:52: daily. Medical tablet 35 [place] brimonidine 2021-12 Yes 1[drp] Q.5D [address] [facility] [address] -timoloL 2-15 (two) [facility] (COMBIGAN) 14:52: times Medica l 0.2-0.5 % 35 daily. [place] ophthalmic solution prednisoLON 2021-12 Yes 1[drp] Q.25D [address] [facility] acetate 2-15 (four) [facility] (PRED 14:52: times Medical FORTE) 1 % 35 daily . [place] ophthalmic suspension spironolact 2021-12 Yes 25mg QD Take [address] [facility] one 2-15 by mouth [facility] (ALDACTONE) 14:52: daily. Medi jose 25 MG 35 Center tablet hydrALAZINE 2021-12 Yes 100mg Q.5D Take [address] (APRESOLINE 2-15 mg by [facility] ) 100 MG 14:52: mouth 2 Medica l tablet 35 (two) Center times daily . gabapentin 2021-12 Yes 300mg Q.[id number] Take [address] [facility] (NEURONTIN) 2-15 [id number] mg by L ukes 300 MG 14:52: [...] mouth [facility] tablet 14:52: daily. Medical 35 Center atorvastati 2021-12 Yes [...] mg tablet 14:52: daily. Medica l 35 Center insulin 2021-12 [...] MG tablet 14:52: daily. Medica l [place] amLODIPine 2021-12 Yes 10mg QD Take [address] (NORVASC) 2-15 by mouth [facility] 10 MG 14:52: daily. Medical tablet 35 [place] brimonidine 2021-12 Yes 1[drp] Q.5D [address] [facility] -timoloL 2-15 (two) [facility] (COMBIGAN) 14:52: times Medica l 0.2-0.5 % 35 daily. [place] ophthalmic solution prednisoLON 2021-12 Yes 1[drp] Q.25D [address] [facility] acetate 2-15 (four) [facility] (PRED 14:52: times Medical FORTE) 1 % 35 daily . [place] ophthalmic suspension spironolact 2021-12 Yes 25mg QD Take [address] [facility] one 2-15 by mouth [facility] (ALDACTONE) 14:52: daily. Medi jose 25 MG 35 Center tablet hydrALAZINE 2021-12 Yes 100mg Q.5D Take [address] (APRESOLINE 2-15 mg by [facility] ) 100 MG 14:52: mouth 2 Medica l tablet 35 (two) Center times daily . gabapentin 2021-12 Yes 300mg Q.[id number] Take [address] [facility] [address] (NEURONTIN) 2-15 [id number] mg by L ukes 300 MG 14:52: [...] mouth [facility] tablet 14:52: daily. Medical [place] atorvastati 2021-12 Yes 10mg QD Take [address] [facility] (LIPITOR) 2-15 by mouth Luke s 10 MG 14:52: daily. Medical tablet 35 [place] levothyroxi 2021-12 Yes 50ug Take 50 [facility] [...] mg tablet 14:52: daily. Medica l 35 [place] insulin 2021-12 Yes type 2 40U QD Inject [address] [facility] degludec 2-15 diabetes Units [facility] (Tresiba 14:52: mellitus subcutaneo Medical FlexTouch 35 usly daily Cent er U-100) 100 . unit/mL (3 mL) In cetirizine 2021-12 Yes 10mg QD Take [address] (ZyrTEC) 10 2-15 by mouth Luke s MG tablet 14:52: daily. Medica l [place] amLODIPine 2021-12 Yes 10mg QD Take [address] (NORVASC) 2-15 by mouth [facility] 10 MG 14:52: daily. Medical tablet 35 [place] brimonidine 2021-12 Yes 1[drp] Q.5D [address] [facility] [address] -timoloL 2-15 (two) [facility] (COMBIGAN) 14:52: times Medica l 0.2-0.5 % 35 daily. [place] ophthalmic solution prednisoLON 2021-12 Yes 1[drp] Q.25D [address] [facility] acetate 2-15 (four) [facility] (PRED 14:52: times Medical FORTE) 1 % 35 daily . [place] ophthalmic suspension spironolact 2021-12 Yes 25mg QD Take [address] [facility] one 2-15 by mouth [facility] (ALDACTONE) 14:52: daily. Medi jose 25 MG 35 Center tablet hydrALAZINE 2021-12 Yes 100mg Q.5D Take [address] (APRESOLINE 2-15 mg by [facility] ) 100 MG 14:52: mouth 2 Medica l tablet 35 (two) Center times daily . gabapentin 2021-12 Yes 300mg Q.[id number] Take [address] [facility] [address] (NEURONTIN) 2-15 [id number] mg by L ukes 300 MG 14:52: [...] mouth [facility] tablet 14:52: daily. Medical [place] atorvastati 2021-12 Yes 10mg QD Take [address] [facility] (LIPITOR) 2-15 by mouth Luke s 10 MG 14:52: daily. Medical tablet 35 [place] levothyroxi 2021-12 Yes 50ug Take 50 [facility] [...] mg tablet 14:52: daily. Medica l 35 [place] insulin 2021-12 Yes type 2 40U QD Inject [address] [facility] [address] degludec 2-15 diabetes Units [facility] (Tresiba 14:52: mellitus subcutaneo Medical FlexTouch 35 usly daily Cent er U-100) 100 . unit/mL (3 mL) InPn cetirizine 2021-12 Yes 10mg QD Take [address] (ZyrTEC) 10 2-15 by mouth Luke s MG tablet 14:52: daily. Medica l 35 [place] amLODIPine 2021-12 Yes 10mg QD Take [address] (NORVASC) 2-15 by mouth [facility] 10 MG 14:52: daily. Medical tablet 35 [place] brimonidine 2021-12 Yes 1[drp] Q.5D [address] [facility] -timoloL 2-15 (two) [facility] (COMBIGAN) 14:52: times Medica l 0.2-0.5 % 35 daily. [place] ophthalmic solution prednisoLON 2021-12 Yes 1[drp] Q.25D [address] [facility] acetate 2-15 (four) [facility] (PRED 14:52: times Medical FORTE) 1 % 35 daily . [place] ophthalmic suspension spironolact 2021-12 Yes 25mg QD Take [address] [facility] one 2-15 by mouth [facility] (ALDACTONE) 14:52: daily. Medi jose 25 MG 35 Center tablet hydrALAZINE 2021-12 Yes 100mg Q.5D Take [address] (APRESOLINE 2-15 mg by [facility] ) 100 MG 14:52: mouth 2 Medica l tablet 35 (two) Center times daily . gabapentin 2021-12 Yes 300mg Q.[id number] Take [address] [facility] (NEURONTIN) 2-15 [id number] mg by L ukes 300 MG 14:52: [...] mouth [facility] tablet 14:52: daily. Medical 35 Center atorvastati 2021-12 Yes [...] mg tablet 14:52: daily. Medica l 35 Center insulin 2021-12 [...] times Medica l 0.2-0.5 % 35 daily. [place] ophthalmic solution prednisoLON 2021-12 Yes 1[drp] Q.25D [address] [facility] acetate 2-15 (four) [facility] (PRED 14:52: times Medical FORTE) 1 % 35 daily . [place] ophthalmic suspension spironolact 2021-12 Yes 25mg QD Take [address] [facility] one 2-15 by mouth [facility] (ALDACTONE) 14:52: daily. Medi jose 25 MG 35 Center tablet hydrALAZINE 2021-12 Yes 100mg Q.5D Take [address] (APRESOLINE 2-15 mg by [facility] ) 100 MG 14:52: mouth 2 Medica l tablet 35 (two) Center times daily . gabapentin 2021-12 Yes 300mg Q.20650620 Take [address] [facility] (NEURONTIN) 2-15 [id number] mg by L ukes 300 MG 14:52: [...] for the next 30 min. . alendronate 2021-12- No 70mg Take [address] [facility] (FOSAMAX) 2-15 12-15 by mouth [facility] 70 MG 10:32: 00:00 every 7 Medical tablet 15 :00 days Take Center in the morning with a full glass of water, on an empty stomach, and do not take anything else by mouth or lie down for the next 30 min. . alendronate 2021-12- No 70mg Take [address] [facility] (FOSAMAX) 2-15 12-15 by mouth [facility] 70 MG 10:32: 00:00 every 7 Medical tablet 15 :00 days Take Center in the morning with a full glass of water, on an empty stomach, and do not take anything else by mouth or lie down for the next 30 min. . alendronate 2021-12- No 70mg Take [address] [facility] (FOSAMAX) 2-15 12-15 by mouth [facility] 70 MG 10:32: 00:00 every 7 Medical tablet 15 :00 days Take Center in the morning with a full glass of water, on an empty stomach, and do not take anything else by mouth or lie down for the next 30 min. . alendronate 2021-12- No 70mg Take [address] [facility] (FOSAMAX) 2-15 12-15 by mouth [facility] 70 MG 10:32: 00:00 every 7 Medical tablet 15 :00 days Take Center in the morning with a full glass of water, on an empty stomach, and do not take anything else by mouth or lie down for the next 30 min. . alendronate 2021-12- No 70mg Take [address] [facility] (FOSAMAX) 2-15 12-15 by mouth [facility] 70 MG 10:32: 00:00 every 7 Medical tablet 15 :00 days Take Center in the morning with a full glass of water, on an empty stomach, and do not take anything else by mouth or lie down for the next 30 min. . alendronate 2021-12- No 70mg Take [address] [facility] (FOSAMAX) 2-15 12-15 by mouth [facility] 70 MG 10:32: 00:00 every 7 Medical tablet 15 :00 days Take Center in the morning with a full glass of water, on an empty stomach, and do not take anything else by mouth or lie down for the next 30 min. . alendronate 2021-12- No 70mg Take 70 mg [...] ophthalmic daily. solution brimonidine 2021-12 No 1[drp] Q.76218207 Place [address] [facility] (ALPHAGAN 12-09 [id number] drop into [facility] P) 0.1 % 09:28: 00:00 3D the left Medi ojse Drop 42 :00 eye 3 Center (three) times daily. atropine 2021-12 No 1[drp] Q.57479070 Place [address] [facility] (ISOPTO) 12-09 [id number] drop into [facility] % 09:28: 00:00 3D the left Medical ophthalmic 42 :00 eye 3 Center solution (three) times daily. diflupredna 2021-12 No 1[drp] Q.84134617 Place [address] [facility] 12-09 [id number] drop into [facility] (DurezoL) 09:28: 00:00 3D the left Med ical 0.05 % Drop 42 :00 eye 3 Center (three) times daily. moxifloxaci 2021-12 No 1[drp] Q.75862785 Place [address] [facility] (VIGAMOX) 12-09 [id number] drop into [facility] 0.5 % 09:28: 00:00 3D the left Medical ophthalmic 42 :00 eye 3 Center solution (three) times daily. dorzolamide 2021-12 No 1[drp] Q.5D Place [address] [facility] -timoloL 1-09 11-09 drop into [facility] (COSOPT) 09:28: 00:00 both eyes Med ical 22.3-6.8 42 :00 2 (two) Center mg/mL times ophthalmic daily. solution brimonidine 2021-12 No 1[drp] Q.41962218 Place [address] [facility] (ALPHAGAN 12-09 [id number] drop into [facility] P) 0.1 % 09:28: 00:00 3D the left Medi jose Drop 42 :00 eye 3 Center (three) times daily. atropine 2021-12 No 1[drp] Q.69894086 Place [address] [facility] (ISOPTO) 12-09 [id number] drop into [facility] % 09:28: 00:00 3D the left Medical ophthalmic 42 :00 eye 3 Center solution (three) times daily. diflupredna 2021-12 No 1[drp] Q.10692269 Place [address] [facility] 12-09 [id number] drop into [facility] (DurezoL) 09:28: 00:00 3D the left Med ical 0.05 % Drop 42 :00 eye 3 Center (three) times daily. moxifloxaci 2021-12 No 1[drp] Q.34300662 Place [address] [facility] (VIGAMOX) 12-09 [id number] drop into [facility] 0.5 % 09:28: 00:00 3D the left Medical ophthalmic 42 :00 eye 3 Center solution (three) times daily. dorzolamide 2021-12 No 1[drp] Q.5D Place [address] [facility] -timoloL 12-09 drop into [facility] (COSOPT) 09:28: 00:00 both eyes Med ical 22.3-6.8 42 :00 2 (two) Center mg/mL times ophthalmic daily. solution brimonidine 2021-12 No 1[drp] Q.[id number] Place [address] [facility] (ALPHAGAN 12-09 [id number] drop into [facility] P) 0.1 % 09:28: 00:00 3D the left Medi jose Drop 42 :00 eye 3 Center (three) times daily. atropine 2022-1 2022- No 1[drp] Q.90741521 Place [address] [facility] (ISOPTO) 1 12-09 [id number] drop into [facility] % 09:28: 00:00 3D the left Medical ophthalmic 42 :00 eye 3 Center solution (three) times daily. diflupredna 2021-12 No 1[drp] Q.[id number] Place [address] [facility] 12-09 [id number] drop into [facility] (DurezoL) 09:28: 00:00 3D the left Med ical 0.05 % Drop 42 :00 eye 3 Center (three) times daily. moxifloxaci 2021-12 No 1[drp] Q.34451017 Place [address] [facility] (VIGAMOX) 12-09 [id number] drop into [facility] 0.5 % 09:28: 00:00 3D the left Medical ophthalmic 42 :00 eye 3 Center solution (three) times daily. dorzolamide 2021-12 No 1[drp] Q.5D Place [address] [facility] -timoloL 12-09 drop into [facility] (COSOPT) 09:28: 00:00 both eyes Med ical 22.3-6.8 42 :00 2 (two) Center mg/mL times ophthalmic daily. solution brimonidine 2021-12 No 1[drp] Q.00971099 Place [address] [facility] (ALPHAGAN 12-09 [id number] drop into [facility] P) 0.1 % 09:28: 00:00 3D the left Medi jose Drop 42 :00 eye 3 Center (three) times daily. atropine 2021-12 No 1[drp] Q.77255498 Place [address] [facility] (ISOPTO) 1 12-09 [id number] drop into [facility] % 09:28: 00:00 3D the left Medical ophthalmic 42 :00 eye 3 Center solution (three) times daily. diflupredna 2021-12 No 1[drp] Q.[id number] Place [address] [facility] 12-09 [id number] drop into [facility] (DurezoL) 09:28: 00:00 3D the left Med ical 0.05 % Drop 42 :00 eye 3 Center (three) times daily. moxifloxaci 2021-12 No 1[drp] Q.[id number] Place [address] [facility] (VIGAMOX) 12-09 [id number] drop into [facility] 0.5 % 09:28: 00:00 3D the left Medical ophthalmic 42 :00 eye 3 Center solution (three) times daily. dorzolamide 2021-12 No 1[drp] Q.5D Place [address] [facility] -timoloL 12-09 drop into [facility] (COSOPT) 09:28: 00:00 both eyes Med ical 22.3-6.8 42 :00 2 (two) Center mg/mL times ophthalmic daily. solution brimonidine 2021-12 No 1[drp] Q.02697871 Place [address] [facility] (ALPHAGAN 12-09 [id number] drop into [facility] P) 0.1 % 09:28: 00:00 3D the left Medi jose Drop 42 :00 eye 3 Center (three) times daily. atropine 2021-12 No 1[drp] Q.[id number] Place [address] [facility] (ISOPTO) 1 12-09 [id number] drop into [facility] % 09:28: 00:00 3D the left Medical ophthalmic 42 :00 eye 3 Center solution (three) times daily. diflupredna 2021-12 No 1[drp] Q.[id number] Place [address] [facility] 12-09 [id number] drop into [facility] (DurezoL) 09:28: 00:00 3D the left Med ical 0.05 % Drop 42 :00 eye 3 Center (three) times daily. moxifloxaci 2021-12 No 1[drp] Q.[id number] Place [address] [facility] (VIGAMOX) 12-09 [id number] drop into [facility] 0.5 % 09:28: 00:00 3D the left Medical ophthalmic 42 :00 eye 3 Center solution (three) times daily. dorzolamide 2021-12 No 1[drp] Q.5D Place [address] [facility] -timoloL 12-09 drop into [facility] (COSOPT) 09:28: 00:00 both eyes Med ical 22.3-6.8 42 :00 2 (two) Center mg/mL times ophthalmic daily. solution brimonidine 2021-12 No 1[drp] Q.[id number] Place [address] [facility] ([place]AG[place] 12-09 [id number] drop into [facility] P) 0.1 % 09:28: 00:00 3D the left Medi jose Drop 42 :00 eye 3 Center (three) times daily. atropine 2021-12 No 1[drp] Q.[id number] Place [address] [facility] (ISOPTO) 12-09 [id number] drop into [facility] % 09:28: 00:00 3D the left Medical ophthalmic 42 :00 eye 3 Center solution (three) times daily. diflupredna 2021-12 No 1[drp] Q.[id number] Place [address] [facility] 12-09 [id number] drop into [facility] (DurezoL) 09:28: 00:00 3D the left Med ical 0.05 % Drop 42 :00 eye 3 Center (three) times daily. moxifloxaci 2021-12 No 1[drp] Q.[id number] Place [address] [facility] (VIGAMOX) 12-09 [id number] drop into [facility] 0.5 % 09:28: 00:00 3D the left Medical ophthalmic 42 :00 eye 3 Center solution (three) times daily. dorzolamide 2021-12 No 1[drp] Q.5D Place [address] [facility] -timoloL 12-09 drop into [facility] (COSOPT) 09:28: 00:00 both eyes Med ical 22.3-6.8 42 :00 2 (two) Center mg/mL times ophthalmic daily. solution brimonidine 2021-12 No 1[drp] Q.[id number] Place [address] [facility] ([place] 12-09 [id number] drop into [facility] P) 0.1 % 09:28: 00:00 3D the left Medi jose Drop 42 :00 eye 3 Center (three) times daily. atropine 2021-12 No 1[drp] Q.[id number] Place [address] [facility] (ISOPTO) 1 12-09 [id number] drop into [facility] % 09:28: 00:00 3D the left Medical ophthalmic 42 :00 eye 3 Center solution (three) times daily. diflupredna 2021-12 No 1[drp] Q.[id number] Place [address] [facility] 12-09 [id number] drop into [facility] (DurezoL) 09:28: 00:00 3D the left Med ical 0.05 % Drop 42 :00 eye 3 Center (three) times daily. moxifloxaci 2021-12 No 1[drp] Q.[id number] Place [address] [facility] (VIGAMOX) 12-09 [id number] drop into [facility] 0.5 % 09:28: 00:00 3D the left Medical ophthalmic 42 :00 eye 3 Center solution (three) times daily. dorzolamide 2021-12 No 1[drp] Q.5D Place [address] [facility] -timoloL 12-09 drop into [facility] (COSOPT) 09:28: 00:00 both eyes Med ical 22.3-6.8 42 :00 2 (two) Center mg/mL times ophthalmic daily. solution brimonidine 2021-12 No 1[drp] Q.[id number] Place [address] [facility] ([place] 12-09 [id number] drop into [facility] P) 0.1 % 09:28: 00:00 3D the left Medi jose Drop 42 :00 eye 3 Center (three) times daily. atropine 2021-12 No 1[drp] Q.[id number] Place [address] [facility] (ISOPTO) 1 12-09 [id number] drop into [facility] % 09:28: 00:00 3D the left Medical ophthalmic 42 :00 eye 3 Center solution (three) times daily. diflupredna 2021-12 No 1[drp] [id number] Place [address] [facility] te 12-09 [id number] drop into [facility] (DurezoL) 09:28: 00:00 3D the left Med ical 0.05 % Drop 42 :00 eye 3 Center (three) times daily. moxifloxaci 2021-12 No 1[drp] [id number] Place [address] [facility] n (VIGAMOX) 12-09 [id number] [facility] into [facility] 0.5 % 09:28: 00:00 3D the left Medical ophthalmic 42 :00 eye 3 Center solution (three) times daily. dorzolamide 2021-12 No 1[drp] Q.5D Place [address] [facility] -timoloL 12-09 drop into [facility] (COSOPT) 09:28: 00:00 both eyes Med ical 22.3-6.8 42 :00 2 (two) Center mg/mL times ophthalmic daily. solution brimonidine 2021-12 No 1[drp] Q.[id number] Place [address] [facility] (ALPHAGAN 12-09 [id number] [facility] into [facility]) 0.1 % 09:28: 00:00 3D the left Medi jose Drop 42 :00 eye 3 Center (three) times daily. atropine 2021-12 No 1[drp] Q.[id number] Place [address] [facility] (ISOPTO) 1 12-09 [id number] [facility] into [facility] % 09:28: 00:00 3D the left Medical ophthalmic 42 :00 eye 3 Center solution (three) times daily. diflupredna 2021-12 No 1[drp] Q.[id number] Place [address] [facility] te 12-09 [id number] drop into [facility] (DurezoL) 09:28: 00:00 3D the left Med ical 0.05 % Drop 42 :00 eye 3 Center (three) times daily. moxifloxaci 2021-12 No 1[drp] Q.[id number] Place [address] [facility] n (VIGAMOX) 12-09 [id number] drop into [facility] 0.5 % 09:28: 00:00 3D the left Medical ophthalmic 42 :00 eye 3 Center solution (three) times daily. dorzolamide 2022-1 2022- No 1[drp] Q.5D Place [address] [facility] -timoloL 12-09 drop into [facility] (COSOPT) 09:28: 00:00 both eyes Med ical 22.3-6.8 42 :00 2 (two) Center mg/mL times ophthalmic daily. solution brimonidine 2021-12 No 1[drp] Q.[id number] Place [address] [facility] (ALPHAGAN 12-09 [id number] drop into [facility]) 0.1 % 09:28: 00:00 3D the left Medi jose Drop 42 :00 eye 3 Center (three) times daily. atropine 2021-12 No 1[drp] Q.[id number] Place [address] [facility] (ISOPTO) 12-09 [id number] drop into [facility] % 09:28: 00:00 3D the left Medical ophthalmic 42 :00 eye 3 Center solution (three) times daily. diflupredna 2021-12 No 1[drp] Q.[id number] Place [address] [facility] te 12-09 [id number] drop into [facility] (DurezoL) 09:28: 00:00 3D the left Med ical 0.05 % Drop 42 :00 eye 3 Center (three) times daily. moxifloxaci 2021-12 No 1[drp] Q.[id number] Place [address] [facility] n (VIGAMOX) 12-09 [id number] [facility] into [facility] 0.5 % 09:28: 00:00 3D the left Medical ophthalmic 42 :00 eye 3 Center solution (three) times daily. dorzolamide 2021-12 No 1[drp] Q.5D Place [address] [facility] -timoloL 12-09 drop into [facility] (COSOPT) 09:28: 00:00 both eyes Med ical 22.3-6.8 42 :00 2 (two) Center mg/mL times ophthalmic daily. solution brimonidine 2021-12 No 1[drp] Q.[id number] Place [address] [facility] (ALPHAGAN 12-09 [id number] [facility] into [facility]) 0.1 % 09:28: 00:00 3D the left Medi jose Drop 42 :00 eye 3 Center (three) times daily. atropine 2021-12- No 1[drp] Q.[id number] Place [address] [facility] (ISOPTO) 1 12-09 [id number] drop into [facility] % 09:28: 00:00 3D the left Medical ophthalmic 42 :00 eye 3 Center solution (three) times daily. diflupredna 2021-12 No 1[drp] Q.[id number] Place [address] [facility] te 12-09 [id number] drop into [facility] (DurezoL) 09:28: 00:00 3D the left Med ical 0.05 % Drop 42 :00 eye 3 Center (three) times daily. moxifloxaci 2021-12 No 1[drp] Q.[id number] Place [address] [facility] n (VIGAMOX) 12-09 [id number] [facility] into [facility] 0.5 % 09:28: 00:00 [...] 30 min. . gabapentin 2021-12 Yes 300mg Q.[id number] Take [address] [facility] (NEURONTIN) - [id number] mg by L ukes 300 MG 09:23: [...] 30 min. . gabapentin 2021-12 Yes 300mg Q.[id number] Take [address] [facility] (NEURONTIN) -09 [id number] mg by L [facility]kes 300 MG 09:23: [...] 30 min. . gabapentin 2021-12 Yes 300mg Q.[id number] Take [address] [facility] (NEURONTIN) 12-09 [id number] mg by L ukes 300 MG 09:23: 3D mouth 3 Medical capsule 37 (three) Center times daily. acyclovir 2021-12 Yes 800mg Take [address] [facility] (ZOVIRAX) -09 mg by [facility] 400 MG 09:22: mouth 3 Medical tablet 35 (three) Center times daily as needed for Outbreaks. aspirin 81 2021-12 Yes 81mg QD Take [address] MG EC 12-09 by mouth [facility] tablet 09:22: daily. Medical [address] [place] atorvastati 2021-12 Yes 10mg QD Take 10 [...] 40U QD Inject [address] [facility] degludec - diabetes Units [facility] (Tresiba 09:22: mellitus subcutaneo [...] 10 MG 09:22: daily. Medical tablet 35 [place] brimonidine 2021-12 Yes 1[drp] Q.5D [address] [facility] -timoloL 12-09 (two) [facility] (COMBIGAN) 09:22: times Medica l 0.2-0.5 % 35 daily. [place] ophthalmic solution prednisoLON 2021-12 Yes 1[drp] Q.25D [address] [facility] E acetate 12-09 (four) [facility] (PRED 09:22: times Medical FORTE) 1 % 35 daily . [place] ophthalmic suspension spironolact 2021-12 Yes 25mg QD [...] 12-09 by mouth [facility] tablet 09:22: daily. [address] atorvastati 2021-12 Yes 10mg QD Take [address] [facility] n (LIPITOR) 12-09 by mouth [facility] 10 MG 09:22: daily. Medical tablet 35 [place] levothyroxi 2021-12 Yes 50ug Take [address] [facility] ne 1- mcg by [facility] (SYNTHROID, 09:22: mouth Medic [...] mg tablet 09:22: daily. Medica l 35 [place] insulin 2021-12 Yes type 2 40U QD Inject [address] [facility] degludec 12-09 diabetes Units [facility] (Tresiba 09:22: mellitus subcutaneo Medical FlexTouch 35 usly daily Cent er U-100) 100 . unit/mL (3 mL) InPn cetirizine 2021-12 Yes 10mg QD Take [address] (ZyrTEC) 10 12-09 by mouth [facility] MG tablet 09:22: daily. Medica l 35 [place] amLODIPine 2021-12 Yes 10mg QD Take [address] (NORVASC) 12-09 by mouth [facility] 10 MG 09:22: daily. Medical tablet 35 [place] brimonidine 2021-12 Yes 1[drp] Q.5D [address] [facility] -timoloL 12-09 (two) [facility] (COMBIGAN) 09:22: times Medica l 0.2-0.5 % 35 daily. [place] ophthalmic solution prednisoLON 2021-12 Yes 1[drp] Q.25D [address] [facility] E acetate 12-09 (four) [facility] (PRED 09:22: times Medical FORTE) 1 % 35 daily . [place] ophthalmic suspension spironolact 2021-12 Yes 25mg QD [...] by mouth [facility] tablet 09:22: daily. Medical [address] [place] [address] atorvastati 2021-12 Yes 10mg QD Take [address] [facility] n (LIPITOR) 12-09 by mouth [facility] 10 MG 09:22: daily. Medical tablet 35 [place] levothyroxi 2021-12 Yes 50ug Take [address] [facility] ne 12-09 mcg by [facility] (SYNTHROID, 09:22: mouth Medic [...] times Medica l 0.2-0.5 % 35 daily. [place] ophthalmic solution prednisoLON 2021-12 Yes 1[drp] Q.25D [address] [facility] E acetate 12-09 (four) [facility] (PRED 09:22: times Medical FORTE) 1 % 35 daily . [place] ophthalmic suspension spironolact 2021-12 Yes 25mg QD Take [address] [facility] one - by mouth [facility] (ALDACTONE) 09:22: daily. Medi jose 25 MG 35 Center tablet hydrALAZINE 2021-12 Yes 100mg Q.5D Take [address] (APRESOLINE 1-09 mg by [facility] ) 100 MG 09:22: mouth 2 Medica l tablet 35 (two) Center times daily . losartan 2021-12 100mg QD Take [address] [facility] (COZAAR) - 11-09 mg by [facility] 100 MG 09:20: 00:00 mouth Medical tablet 00 :00 daily. [place] losartan 2021-12- No 100mg QD Take [address] [facility] (COZAAR) 1- 11-09 mg by [facility] 100 MG 09:20: 00:00 mouth Medical tablet 00 :00 daily. [place] losartan 2021-12- No 100mg QD Take [address] [facility] (COZAAR) 1- 11-09 mg by [facility] 100 MG 09:20: 00:00 mouth Medical tablet 00 :00 daily. [place] losartan 2021-12- No 100mg QD Take [address] [facility] (COZAAR) - 11-09 mg by [facility] 100 MG 09:20: 00:00 mouth Medical tablet 00 :00 daily. [place] losartan 2021-12- No 100mg QD Take [address] [facility] (COZAAR) - 11-09 mg by [facility] 100 MG 09:20: 00:00 mouth Medical tablet 00 :00 daily. [place] losartan 2021-12- No 100mg QD Take [address] [facility] (COZAAR) 12-09 11-09 mg by [facility] 100 MG 09:20: 00:00 mouth Medical tablet 00 :00 daily. [place] losartan 2021-12- No 100mg QD Take [address] [facility] (COZAAR) 12-09 11-09 mg by [facility] 100 MG 09:20: 00:00 mouth Medical tablet 00 :00 daily. [place] losartan 2021-12- No 100mg QD Take [address] [facility] (COZAAR) 12-09 11-09 mg by [facility] 100 MG 09:20: 00:00 mouth Medical tablet 00 :00 daily. [place] losartan 2021-12- No 100mg QD Take [address] [facility] (COZAAR) - 11-09 mg by [facility] 100 MG 09:20: 00:00 mouth Medical tablet 00 :00 daily. [place] losartan 2021-12- No 100mg QD Take [address] [facility] (COZAAR) - 11-09 mg by [facility] 100 MG 09:20: 00:00 mouth Medical tablet 00 :00 daily. [place] losartan 2021-12- No 100mg QD Take [address] [facility] (COZAAR) 1- 11-09 mg by [facility] 100 MG 09:20: 00:00 mouth Medical tablet 00 :00 daily. [facility] 2021-12- No 1{tbl} QD Take [address] [facility] acid/multiv 12-09 tablet by [place] kes it-min/lute 09:19: 00:00 mouth Medi jose in (CENTRUM 48 :00 daily. [facility] ORAL) folic 2021-12- No 1{tbl} QD Take [address] [facility] acid/multiv 12-09 tablet by [place] kes it-min/lute 09:19: 00:00 mouth Medi jose in (CENTRUM 48 :00 daily. [facility] ORAL) folic 2021-12- No 1{tbl} QD Take [address] [facility] acid/multiv 12-09 tablet by [place] kes it-min/lute 09:19: 00:00 mouth Medi jose in (CENTRUM 48 :00 daily. [facility] ORAL) folic 2021-12- No 1{tbl} QD Take [address] [facility] acid/multiv 12-09 tablet by [place] kes it-min/lute 09:19: 00:00 mouth Medi jose in (CENTRUM 48 :00 daily. [facility] ORAL) folic 2021-12- No 1{tbl} QD Take [address] [facility] acid/multiv 12-09 tablet by [place] kes it-min/lute 09:19: 00:00 mouth Medi jose in (CENTRUM 48 :00 daily. [facility] ORAL) folic 2021-12- No 1{tbl} QD Take [address] [facility] acid/multiv 12-09 tablet by [place] kes it-min/lute 09:19: 00:00 mouth Medi jose in (CENTRUM 48 :00 daily. [facility] ORAL) folic 2021-12- No 1{tbl} QD Take [address] [facility] acid/multiv 12-09 tablet by [place] kes it-min/lute 09:19: 00:00 mouth Medi jose in (CENTRUM 48 :00 daily. [place] SILVER ORAL) folic 2021-12- No 1{tbl} QD Take [address] [facility] acid/multiv 12-09 tablet by [place] kes it-min/lute 09:19: 00:00 mouth Medi jose in (CENTRUM 48 :00 daily. [facility]) folic 2021-12- No 1{tbl} QD Take [address] [facility] acid/multiv 12-09 tablet by [place] kes it-min/lute 09:19: 00:00 mouth Medi jose in (CENTRUM 48 :00 daily. [facility]) folic 2021-12- No 1{tbl} QD Take [address] [facility] acid/multiv 12-09 tablet by [place] kes it-min/lute 09:19: 00:00 mouth Medi jose in (CENTRUM 48 :00 daily. [facility]) folic 2021-12 No 1{tbl} QD Take [address] [facility] acid/multiv 12-09 tablet by [place] kes it-min/lute 09:19: 00:00 mouth Medi jose in (CENTRUM 48 :00 daily. [facility]) calcium 2021-12 No 1{tbl} QD Take 1 [facility] carbonate-v 12-09 tablet by [place] kes itamin D3 09:19: 00:00 mouth Medica l (CALTRATE-D 13 :00 daily. Center ) 600 mg(1,500mg) -400 unit Tab calcium 2021-12 No 1{tbl} QD Take 1 [facility] carbonate-v 12-09 tablet by [place] kes itamin D3 09:19: 00:00 mouth Medica l (CALTRATE-D 13 :00 daily. Center ) 600 mg(1,500mg) -400 unit Tab calcium 2021-12 No 1{tbl} QD Take 1 [facility] carbonate-v 12-09 tablet by [place] kes itamin D3 09:19: 00:00 mouth Medica l (CALTRATE-D 13 :00 daily. Center ) 600 mg(1,500mg) -400 unit Tab calcium 2021-12 No 1{tbl} QD Take 1 [facility] carbonate-v 12-09 tablet by [place] kes itamin D3 09:19: 00:00 mouth Medica l (CALTRATE-D 13 :00 daily. [place] ) 600 mg(1,500mg) -400 unit Tab calcium [...] ) 600 mg(1,500mg) -400 unit Tab calcium 2021-12 No 1{tbl} QD Take 1 [facility] carbonate-v 12-09 tablet by [place] kes itamin D3 09:19: 00:00 mouth Medica l (CALTRATE-D 13 :00 daily. Center ) 600 mg(1,500mg) -400 unit Tab calcium 2021-12 No 1{tbl} QD Take 1 [facility] carbonate-v 12-09 tablet by [place] kes itamin D3 09:19: 00:00 mouth Medica l (CALTRATE-D 13 :00 daily. Center ) 600 mg(1,500mg) -400 unit Tab calcium 2021-12 No 1{tbl} QD Take 1 [facility] carbonate-v 12-09 tablet by [place] kes itamin D3 09:19: 00:00 mouth Medica l (CALTRATE-D 13 :00 daily. Center ) 600 mg(1,500mg) -400 unit Tab calcium 2021-12 No 1{tbl} QD Take 1 [facility] carbonate-v 12-09 tablet by [place] kes itamin D3 09:19: 00:00 mouth Medica l (CALTRATE-D 13 :00 daily. Center ) 600 mg(1,500mg) -400 unit Tab acyclovir 0 Yes 800mg Take [address] [facility] (ZOVIRAX) [...] 10 MG 08:58: daily. Medical tablet 18 [place] folic Yes 1{tbl} QD Take [address] [facility] acid/multiv 2-22 tablet by Derek es it-min/lute 08:58: mouth Medic al in (CENTRUM 18 daily. [place] SILVER ORAL) levothyroxi Yes 50ug Take [address] [facility] ne 2-22 mcg by [facility] (SYNTHROID, 08:58: mouth Medic al LEVOTHROID) 18 Every Center 50 MCG morning on tablet an empty stomach. losartan Yes 100mg QD Take [address] [facility] (COZAAR) 2-22 mg by [facility] 100 MG 08:58: mouth Medical tablet 18 daily. [place] metoprolol Yes 50mg Q.5D Take [address] tartrate 2-22 by mouth 2 [facility] (LOPRESSOR) 08:58: (two) Medic al 50 MG 18 times Center tablet daily. clopidogreL Yes 75mg QD Take [address] [facility] (PLAVIX) 75 2-22 by mouth Luke [facility] mg tablet 08:58: daily. Medica l 18 [place] insulin Yes type 2 40U QD Inject [address] [facility] degludec 2-22 diabetes Units [facility] (Tresiba 08:58: mellitus subcutaneo Medical FlexTouch 18 usly daily Cent er U-100) 100 . unit/mL (3 mL) InPn calcium Yes 1{tbl} QD Take [address] [facility] carbonate-v 2-22 tablet by Derek es itamin D3 08:58: mouth Medical (CALTRATE-D 18 daily. [place] ) 600 mg(1,500mg) -400 unit Tab cetirizine Yes 10mg QD Take [address] (ZyrTEC) 10 2-22 by mouth Luke [facility] MG tablet 08:58: daily. Medica l 18 [place] amLODIPine Yes 10mg QD Take [address] (NORVASC) 2-22 by mouth [facility] 10 MG 08:58: daily. Medical tablet 18 Center dorzolamide Yes 1[drp] Q.5D Place [address] -timoloL 2-22 drop into [facility] (COSOPT) 08:58: both eyes Medi jose 22.3-6.8 18 2 (two) Center mg/mL times ophthalmic daily. solution brimonidine Yes 1[drp] Q.[id number] Place [address] [facility] (ALPHAGAN 2-22 [id number] drop into [facility]) 0.1 % 08:58: 3D the left Medic al Drop 18 eye 3 Center (three) times daily. atropine Yes 1[drp] Q.[id number] Place [address] [facility] (ISOPTO) 1 2- [id number] drop into [facility] % 08:58: 3D the left Medical ophthalmic 18 eye 3 Center solution (three) times daily. diflupredna Yes 1[drp] Q.[id number] Place [address] [facility] te 2-22 [id number] drop into [facility] (DurezoL) 08:58: 3D the left Medi jose 0.05 % Drop 18 eye 3 Center (three) times daily. moxifloxaci Yes 1[drp] Q.[id number] Place [address] [facility] n (VIGAMOX) 2-22 [id number] drop into [facility] 0.5 % 08:58: 3D [...] MG 08:58: daily. Medical tablet 18 Center folic Yes 1{tbl} QD Take [address] [facility] acid/multiv 2-22 tablet by Derek es it-min/lute 08:58: mouth Medic al in (CENTRUM 18 daily. Center SILVER ORAL) levothyroxi Yes 50ug Take [address] [facility] ne 2-22 mcg by [facility] (SYNTHROID, 08:58: mouth Medic al LEVOTHROID) 18 Every Center 50 MCG morning on tablet an empty stomach. losartan Yes 100mg QD Take [address] [facility] (COZAAR) 2-22 mg by [facility] 100 MG 08:58: mouth Medical tablet 18 daily. [place] metoprolol Yes 50mg Q.5D Take [address] tartrate 2-22 by mouth 2 [facility] (LOPRESSOR) 08:58: (two) Medic al 50 MG 18 times Center tablet daily. clopidogreL Yes 75mg QD Take [address] [facility] (PLAVIX) 75 2-22 by mouth Luke [facility] mg tablet 08:58: daily. Medica l 18 [place] insulin Yes type 2 40U QD Inject [...] MG tablet 08:58: daily. Medica l 18 [place] amLODIPine Yes 10mg QD Take [address] (NORVASC) 2-22 by mouth [facility] 10 MG 08:58: daily. Medical tablet 18 Center dorzolamide Yes 1[drp] Q.5D Place [address] -timoloL 2-22 drop into [facility] (COSOPT) 08:58: both eyes Medi jose 22.3-6.8 18 2 (two) Center mg/mL times ophthalmic daily. solution brimonidine Yes 1[drp] Q.[id number] Place [address] [facility] (ALPHAGAN 2-22 [id number] drop into [facility]) 0.1 % 08:58: 3D the left Medic al Drop 18 eye 3 Center (three) times daily. atropine Yes 1[drp] Q.[id number] Place [address] [facility] (ISOPTO) 1 2-22 [id number] drop into [facility] % 08:58: 3D the left Medical ophthalmic 18 eye 3 Center solution (three) times daily. diflupredna Yes 1[drp] Q.[id number] Place [address] [facility] te 2-22 [id number] drop into [facility] (DurezoL) 08:58: 3D the left Medi jose 0.05 % Drop 18 eye 3 Center (three) times daily. moxifloxaci Yes 1[drp] Q.[id number] Place [address] [facility] n (VIGAMOX) 2- [id number] drop into [facility] 0.5 % 08:58: 3D [...] 25 MG 34 :00 Center tablet spironolact 2- No 25mg QD Take [address] [facility] one 2-22 02-22 by mouth [facility] (ALDACTONE) 06:44: 00:00 daily. Med ical 25 MG 34 :00 Center tablet spironolact 2021- No 25mg QD Take [address] [facility] one 2-22 02-22 by mouth [facility] (ALDACTONE) 06:44: 00:00 daily. Med ical 25 MG 34 :00 Center tablet spironolact 202- No 25mg QD Take [address] [facility] one 2-22 02-22 by mouth [facility] (ALDACTONE) 06:44: 00:00 daily. Med ical 25 MG 34 :00 Center tablet spironolact 2021- No 25mg QD Take [address] [facility] one 2-22 02-22 by mouth [facility] (ALDACTONE) 06:44: 00:00 daily. Med ical 25 MG 34 :00 Center tablet spironolact 0 2022- No 25mg QD Take [address] [facility] one 2-22 02-22 by mouth [facility] (ALDACTONE) 06:44: 00:00 daily. Med ical 25 MG 34 :00 Center tablet spironolact 0 2021- No 25mg QD Take [address] [facility] one 2-22 02-22 by mouth [facility] (ALDACTONE) 06:44: 00:00 daily. Med ical 25 MG 34 :00 Center tablet spironolact 0 2- No 25mg QD Take [address] [facility] one 2-22 02-22 by mouth [facility] (ALDACTONE) 06:44: 00:00 daily. Med ical 25 MG 34 :00 Center tablet spironolact 0 2022- No 25mg QD Take [address] [facility] one 2-22 02-22 by mouth [facility] (ALDACTONE) 06:44: 00:00 daily. Med ical 25 MG 34 :00 Center tablet acyclovir 2019-0 Yes TAKE 1 TAB [facility] (ZOVIRAX) 9-08 BY MOUTH 5 D[facility]z [facility] 400 MG 00:00: TIMES of tablet 00 DAILY FOR Medicin 20 DAYS. e Nebivolol 2019-0 Yes Take by [facility] HCl - mouth. [place] (BYSTOLIC) 16:01: of 10 MG TABS 03 Medicin e Azilsartan 2020-0 Yes Take by [facility] Medoxomil 08-02 mouth. [employer] (EDARBI) 80 16:01: of MG TABS 03 Medicin e metformin 2020-0 Yes 1000mg Take 1,000 [facility] (GLUCOPHAGE 9-02 mg by [facility] ) 1000 MG 16:01: mouth 2 of tablet 03 times Medicin daily e (with meals). Gabapentin, 2020-0 Yes Take by [facility] PHN, 300 MG - mouth. Colleg e TABS 16:01: of 03 Medicin e Pitavastati 2020-0 Yes Take by [facility] n Calcium - mouth. [place] ([facility] 4 16:01: of MG TABS 03 Medicin e cetirizine 2020-0 Yes 10mg Take 10 mg [facility] (ZYRTEC) 10 08-02 by mouth Dariusz ege MG chewable 16:01: daily. of tablet 03 Medicin e Calcium 2020-0 Yes Take by [facility] Carbonate-V 08-02 mouth. [facility] it D-Min 16:01: of [id number] 03 Medicin MG-UNIT e CHEW Multiple 2020-0 Yes Take by [facility] Vitamins-Mi - mouth. [facility] e nerals 16:01: of (CENTRUM 03 Medicin ULTRA e WOMENS OR) hydrochloro 2020-0 Yes 12.5mg Take 12.5 [facility] thiazide 9-02 mg by [place] (MICROZIDE) 16:01: mouth of 12.5 MG 03 daily. Medicin capsule e celecoxib 2020-0 Yes 200mg Take 200 [facility] [facility] (CELEBREX) 9-02 mg by [employer] [place] 200 MG 16:01: mouth two of capsule 03 times Medicin daily. e levothyroxi 2020-0 Yes 25ug Take 25 [place] [facility] ne 9-02 mcg by [facility] (SYNTHROID) 16:01: mouth of 25 MCG 03 daily. Medicin tablet e SPIRONOLACT 2020-0 Yes Take by [facility] ONE OR 08-02 mouth. [employer] 16:01: of 03 Medicin e METOPROLOL 2020-0 Yes Take by [facility] TARTRATE OR - mouth. Colleg e 16:01: of 03 Medicin e Clopidogrel 2020-0 Yes Take by [facility] Bisulfate 08-02 mouth. [employer] [place] (PLAVIX OR) 16:01: of 03 Medicin e LOVASTATIN 2020-0 Yes Take by [facility] OR 08-02 mouth. [employer] 16:01: of Medicin e Insulin 2020-0 Yes Inject [facility] Degludec 08-02 into [facility] (TRESIBA 16:01: skin. of [place]) 03 Medicin e Aflibercept 2020-0 Yes [id number] 2mg 2 mg, [facility] (EYLEA) 2 8-31 Intravitre Dariusz ege MG/0.05ML 17:18: al, of injection 2 29 Starting Medi ida mg Mon e 07/31/20 at 1218, Until Discontinu ed Aflibercept 2020-0 Yes [id number] 2mg 2 mg, [facility] (EYLEA) 2 8-31 Intravitre Dariusz ege MG/0.05ML 17:18: al, of injection 2 22 Starting Medi ida mg Mon e 07/31/20 at 1218, Until Discontinu ed Aflibercept 2020-0 Yes [id number] 2mg 2 mg, [facility] (EYLEA) 2 7-06 Intravitre Dariusz ege MG/0.05ML 16:00: al, of injection 2 24 Starting Medi ida mg 06/05/20 e at 1100, Until Discontinu ed Aflibercept 2020-0 Yes [id number] 2mg 2 mg, [facility] (EYLEA) 2 7-06 Intravitre Dariusz ege MG/0.05ML 16:00: al, of injection 2 15 Starting Medi ida mg 06/05/20 e at 1100, Until Discontinu ed acyclovir [...] Medicin 20 DAYS. e Aflibercept 2020-0 Yes [id number] 2mg 2 mg, [facility] (EYLEA) 2 5-15 Intravitre Dariusz ege MG/0.05ML 17:43: al, of injection 2 45 Starting Medi ida mg Fri e 04/14/20 at 1243, Until Discontinu ed Aflibercept 2020-0 Yes [id number] 2mg 2 mg, [facility] (EYLEA) 2 5-15 Intravitre Dariusz ege MG/0.05ML 17:43: al, of injection 2 25 Starting Medi ida mg Fri e 04/14/20 at 1243, Until Discontinu ed ofloxacin 2020-0 Yes 1[drp] Apply 1 [facility] (OCUFLOX) 5-06 Drop to [facility] 0.3 % 00:00: eye 3 of Solution 00 times Medicin daily. e Start the day before surgery ofloxacin 2019-0 Yes 1[drp] Apply 1 [facility] [facility] (OCUFLOX) 5-06 Drop to [facility] 0.3 % 00:00: eye 3 of Solution 00 times Medicin daily. e Start the day before surgery ofloxacin 2020-0 Yes 1[drp] Apply 1 [facility] (OCUFLOX) 5-06 Drop to [facility] 0.3 % 00:00: eye 3 of Solution 00 times Medicin daily. e Start the day before surgery ofloxacin 2020-0 Yes 1[drp] Apply 1 [facility] (OCUFLOX) 5-06 Drop to [facility] 0.3 % 00:00: eye 3 of Solution 00 times Medicin daily. e Start the day before surgery ofloxacin 2020-0 Yes 1[drp] Apply 1 [facility] (OCUFLOX) 5-06 Drop to [facility] 0.3 % 00:00: eye 3 of Solution 00 times Medicin daily. e Start the day before surgery ofloxacin 2020-0 Yes 1[drp] Apply 1 [facility] (OCUFLOX) 5-06 Drop to [facility] 0.3 % 00:00: eye 3 of Solution 00 times Medicin daily. e Start the day before surgery ofloxacin 2020-0 Yes 1[drp] Apply 1 [facility] (OCUFLOX) 5-06 Drop to [facility] 0.3 % 00:00: eye 3 of Solution 00 times Medicin daily. e Start the day before surgery acyclovir 0 2020- No 400mg Take 1 Tab [facility] (ZOVIRAX) 5-06 05-27 by mouth 5 [facility] 400 MG 00:00: 04:59 times of tablet 00 :00 daily for Medicin 20 days. e acyclovir 2020-0 2020- No 400mg Take 1 Tab [facility] (ZOVIRAX) 04-05 by mouth 5 [facility] 400 MG 00:00: 04:59 times of tablet 00 :00 daily for Medicin 20 days. e Insulin 2020-0 Yes Inject [facility] Degludec 4-30 into [facility] (TRESIBA 18:31: skin. of [place]) 35 Medicin e Insulin 2020-0 Yes Inject [facility] Degludec 4-30 into [facility] (TRESIBA 18:31: skin. of [place]) 35 Medicin e Insulin 2020-0 Yes Inject [facility] Degludec 4-30 into [facility] (TRESIBA 18:31: skin. of [place]) 35 Medicin e Insulin 2020-0 Yes Inject [facility] Degludec 4-30 into the [facility] (TRESIBA 18:31: skin. of [place]) 35 Medicin e Insulin 2020-0 Yes Inject [facility] Degludec 4-30 into [facility] (TRESIBA 18:31: skin. of [place]) 35 Medicin e Insulin 2020-0 Yes Inject [facility] Degludec 4-30 into the [facility] (TRESIBA 18:31: skin. of [place]) 35 Medicin e Insulin 2020-0 Yes Inject [facility] Degludec 4-30 into [facility] (TRESIBA 18:31: skin. of [place]) 35 Medicin e Insulin 2020-0 Yes Inject [facility] Degludec 4-30 into [facility] (TRESIBA 18:31: skin. of [place]) 35 Medicin e glyBURIDE 2020-0 2020- No 6mg Take 6 mg [facility] micronized -30 04-30 by mouth [facility] (GLYNASE) 6 18:31: 00:00 two times of MG tablet 35 :00 daily. Medicin e glyBURIDE 2020-0 2020- No 6mg Take 6 mg [facility] micronized 4-30 04-30 by mouth [facility] (GLYNASE) 6 18:31: 00:00 two times of MG tablet 35 :00 daily. Medicin e PRED FORTE 2020-0 Yes Use 1 [...] 00 left eye Medic in e acyclovir 2019-0 2020- No 400mg Take 1 Tab [facility] (ZOVIRAX) 03-30-11 by mouth 5 [facility] 400 MG 00:00: 04:59 times of tablet 00 :00 daily for Medicin 10 days. e acyclovir 2019-0 2020- No 400mg Take 1 Tab [facility] (ZOVIRAX) 4- 05-11 by mouth 5 [facility] 400 MG 00:00: 04:59 times of tablet 00 :00 daily for Medicin 10 days. e acyclovir 2019-0 2020- No 400mg Take 1 Tab [facility] (ZOVIRAX) 4- 05-06 by mouth 5 [facility] 400 MG 00:00: 00:00 times of tablet 00 :00 daily for Medicin 10 days. e Nebivolol 2019-0 Yes Take by [facility] HCl 4-21 mouth. [place] (BYSTOLIC) 21:13: of 10 MG TABS 05 Medicin e Azilsartan 2020-0 Yes Take by [facility] or Medoxomil 4-21 mouth. [place] (EDARBI) 80 21:13: of MG TABS 05 Medicin e metformin 2020-0 Yes 1000mg Take 1,000 [facility] (GLUCOPHAGE 4-21 mg by [place] ) 1000 MG 21:13: mouth 2 of tablet 05 times Medicin daily e (with meals). Gabapentin, 2020-0 Yes Take by [facility] PHN, 300 MG -21 mouth. [facility] TABS 21:13: of 05 Medicin e Pitavastati 2020-0 Yes Take by [facility] n Calcium 4-21 mouth. [place] (LIVALO) 4 21:13: of MG TABS 05 Medicin e glyBURIDE 2020-0 Yes 6mg Take 6 mg [facility] micronized -21 by mouth [facility] (GLYNASE) 6 21:13: two times o f MG tablet 05 daily. Medicin e cetirizine 2020-0 Yes 10mg Take 10 mg [facility] (ZYRTEC) 10 4-21 by mouth [facility] e[facility] MG chewable 21:13: daily. of tablet 05 Medicin e Calcium 2020-0 Yes Take by [facility] Carbonate-V -21 mouth. [facility] it D-Min 21:13: of [id number] 05 Medicin MG-UNIT e CHEW Multiple 2020-0 Yes Take by [facility] Vitamins-Mi 4-21 mouth. [facility] 21:13: of (CENTRUM 05 Medicin ULTRA e WOMENS OR) hydrochloro 2020-0 Yes 12.5mg Take 12.5 [facility] thiazide 4-21 [address] [employer] (MICROZIDE) 21:13: mouth of 12.5 MG 05 daily. Medicin capsule e celecoxib 2020-0 Yes 200mg Take 200 [facility] (CELEBREX) 4-21 mg by [employer] 200 MG 21:13: mouth two of capsule 05 times Medicin daily. e levothyroxi 2020-0 Yes 25ug Take 25 [facility] ne 4-21 mcg by [employer] (SYNTHROID) 21:13: mouth of 25 MCG 05 daily. Medicin tablet e SPIRONOLACT 2020-0 Yes Take by [facility] ONE OR 4-21 mouth. [facility] 21:13: of 05 Medicin e METOPROLOL 2020-0 Yes Take by [facility] TARTRATE OR 4-21 mouth. [facility] 21:13: of 05 Medicin e Clopidogrel 2020-0 Yes Take by [facility] Bisulfate 4-21 mouth. [employer] (PLAVIX OR) 21:13: of 05 Medicin e LOVASTATIN 2020-0 Yes Take by [facility] OR 4-21 mouth. [employer] 21:13: of 05 Medicin e Nebivolol 2020-0 Yes Take by [facility] HCl 4-21 mouth. [employer] (BYSTOLIC) 21:13: of 10 MG TABS 05 Medicin e Azilsartan 2020-0 Yes Take by [facility] Medoxomil 4-21 mouth. [employer] (EDARBI) 80 21:13: of MG TABS 05 Medicin e metformin 2020-0 Yes 1000mg Take 1,000 [facility] (GLUCOPHAGE 4-21 mg by [employer] ) 1000 MG 21:13: mouth 2 of tablet 05 times Medicin daily e (with meals). Gabapentin, 2020-0 Yes Take by [facility], 300 MG 4-21 mouth. [facility] TABS 21:13: of 05 Medicin e Pitavastati 2020-0 Yes Take by [facility] n Calcium 4-21 mouth. [employer] (LIVALO) 4 21:13: of MG TABS 05 Medicin e cetirizine 2020-0 Yes 10mg Take 10 mg [facility] (ZYRTEC) 10 4-21 by mouth [facility] MG chewable 21:13: daily. of tablet 05 Medicin e Calcium 2020-0 Yes Take by [facility] Carbonate-V 4-21 mouth. [facility] D-Min 21:13: of [id number] 05 Medicin MG-UNIT e CHEW Multiple 2020-0 Yes Take by [facility] Vitamins-Mi 4-21 mouth. [facility] 21:13: of (CENTRUM 05 Medicin ULTRA e WOMENS OR) hydrochloro 2020-0 Yes 12.5mg Take 12.5 [facility] thiazide 4-21 mg by [employer] (MICROZIDE) 21:13: mouth of 12.5 MG 05 daily. Medicin capsule e celecoxib 2020-0 Yes 200mg Take 200 [facility] (CELEBREX) 4-21 mg [address] [employer] 200 MG 21:13: mouth two of capsule 05 times Medicin daily. e levothyroxi 2020-0 Yes 25ug Take 25 [facility] ne 4-21 mcg by [employer] (SYNTHROID) 21:13: mouth of 25 MCG 05 daily. Medicin tablet e SPIRONOLACT 2020-0 Yes Take by [facility] ONE OR 4-21 mouth. [facility] 21:13: of 05 Medicin e METOPROLOL 2020-0 Yes Take by [facility] TARTRATE OR 4-21 mouth. [facility] 21:13: of 05 Medicin e Clopidogrel 2020-0 Yes Take by [facility] Bisulfate 4-21 mouth. [employer] (PLAVIX OR) 21:13: of 05 Medicin e LOVASTATIN 2020-0 Yes Take by [facility] OR 4-21 mouth. [employer] 21:13: of 05 Medicin e Nebivolol 2020-0 Yes Take by [facility] HCl 4-21 mouth. [employer] (BYSTOLIC) 21:13: of 10 MG TABS 05 Medicin e Azilsartan 2020-0 Yes Take by [facility] Medoxomil 4-21 mouth. [employer] (EDARBI) 80 21:13: of MG TABS 05 Medicin e metformin 2020-0 Yes 1000mg Take 1,000 [facility] (GLUCOPHAGE 4-21 mg by [employer] ) 1000 MG 21:13: mouth 2 of tablet 05 times Medicin daily e (with meals). Gabapentin, 2020-0 Yes Take by [facility], 300 MG 4-21 mouth. [facility] TABS 21:13: of 05 Medicin e Pitavastati 2020-0 Yes Take by [facility] n Calcium 4-21 mouth. [employer] (LIVALO) 4 21:13: of MG TABS 05 Medicin e cetirizine 2020-0 Yes 10mg Take 10 mg [facility] (ZYRTEC) 10 4-21 by mouth [facility] MG chewable 21:13: daily. of tablet 05 Medicin e Calcium 2020-0 Yes Take by [facility] Carbonate-V 4-21 mouth. [facility] it D-Min 21:13: of [id number] 05 Medicin MG-UNIT e CHEW Multiple 2020-0 Yes Take by [facility] Vitamins-Mi 4-21 mouth. [facility] [employer] [facility] 21:13: of (CENTRUM 05 Medicin ULTRA e WOMENS OR) hydrochloro 2020-0 Yes 12.5mg Take 12.5 [facility] thiazide 4-21 mg by [employer] (MICROZIDE) 21:13: mouth of 12.5 MG 05 daily. Medicin capsule e celecoxib 2020-0 Yes 200mg Take 200 [facility] (CELEBREX) 4-21 mg by [facility] 200 MG 21:13: mouth two of capsule 05 times Medicin daily. e levothyroxi 2020-0 Yes 25ug Take 25 [facility] ne 4-21 mcg by [employer] (SYNTHROID) 21:13: mouth of 25 MCG 05 daily. Medicin tablet e SPIRONOLACT 2020-0 Yes Take by [facility] ONE OR 4-21 mouth. [facility] 21:13: of 05 Medicin e METOPROLOL 2020-0 Yes Take by [facility] TARTRATE OR 4-21 mouth. [facility] e 21:13: of 05 Medicin e Clopidogrel 2020-0 Yes Take by [facility] Bisulfate 4-21 mouth. [employer] (PLAVIX OR) 21:13: of 05 Medicin e LOVASTATIN 2020-0 Yes Take by [facility] OR 4-21 mouth. [employer] 21:13: of 05 Medicin e Nebivolol 2020-0 Yes Take by [facility] HCl 4-21 mouth. [employer] (BYSTOLIC) 21:13: of 10 MG TABS 05 Medicin e Azilsartan 2020-0 Yes Take by [facility] Medoxomil 4-21 mouth. [employer] (EDARBI) 80 21:13: of MG TABS 05 Medicin e metformin 2020-0 Yes 1000mg Take 1,000 [facility] (GLUCOPHAGE 4-21 mg by [employer] ) 1000 MG 21:13: mouth 2 of tablet 05 times Medicin daily e (with meals). Gabapentin, 2020-0 Yes Take by [facility], 300 MG 4-21 mouth. [facility] TABS 21:13: of 05 Medicin e Pitavastati 2020-0 Yes Take by [facility] n Calcium 4-21 mouth. [employer] (LIVALO) 4 21:13: of MG TABS 05 Medicin e cetirizine 2020-0 Yes 10mg Take 10 mg [facility] (ZYRTEC) 10 4-21 by mouth [facility] MG chewable 21:13: daily. of tablet 05 Medicin e Calcium 2020-0 Yes Take by [facility] Carbonate-V 4-21 mouth. [facility] it D-Min 21:13: of [id number] 05 Medicin MG-UNIT e CHEW Multiple 2020-0 Yes Take by [facility] Vitamins-Mi 4-21 mouth. [facility] [employer] [facility] 21:13: of (CENTRUM 05 Medicin ULTRA e WOMENS OR) hydrochloro 2020-0 Yes 12.5mg Take 12.5 [facility] thiazide 4-21 mg by [employer] (MICROZIDE) 21:13: mouth of 12.5 MG 05 daily. Medicin capsule e celecoxib 2020-0 Yes 200mg Take 200 [facility] (CELEBREX) 4-21 mg by [facility] 200 MG 21:13: mouth two of capsule 05 times Medicin daily. e levothyroxi 2020-0 Yes 25ug Take 25 [facility] ne 4-21 mcg by [employer] (SYNTHROID) 21:13: mouth of 25 MCG 05 daily. Medicin tablet e SPIRONOLACT 2020-0 Yes Take by [facility] ONE OR 4-21 mouth. [facility] 21:13: of 05 Medicin e METOPROLOL 2020-0 Yes Take by [facility] TARTRATE OR 4-21 mouth. [facility] e 21:13: of 05 Medicin e Clopidogrel 2020-0 Yes Take by [facility] Bisulfate 4-21 mouth. [employer] (PLAVIX OR) 21:13: of 05 Medicin e LOVASTATIN 2020-0 Yes Take by [facility] OR 4-21 mouth. [facility] 21:13: of 05 Medicin e Nebivolol 2020-0 Yes Take by [facility] HCl 4-21 mouth. [employer] (BYSTOLIC) 21:13: of 10 MG TABS 05 Medicin e Azilsartan 2020-0 Yes Take by [facility] Medoxomil 4-21 mouth. [employer] (EDARBI) 80 21:13: of MG TABS 05 Medicin e metformin 2020-0 Yes 1000mg Take 1,000 [facility] (GLUCOPHAGE 4-21 mg by [employer] ) 1000 MG 21:13: mouth 2 of tablet 05 times Medicin daily e (with meals). Gabapentin, 2020-0 Yes Take by [facility], 300 MG 4-21 mouth. [facility] TABS 21:13: of 05 Medicin e Pitavastati 2020-0 Yes Take by [facility] n Calcium 4-21 mouth. [employer] (LIVALO) 4 21:13: of MG TABS 05 Medicin e cetirizine 2020-0 Yes 10mg Take 10 mg [facility] (ZYRTEC) 10 4-21 by mouth [facility] MG chewable 21:13: daily. of tablet 05 Medicin e Calcium 2020-0 Yes Take by [facility] Carbonate-V 4-21 mouth. [facility] it D-Min 21:13: of [id number] 05 Medicin MG-UNIT e CHEW Multiple 2020-0 Yes Take by [facility] Vitamins-Mi 4-21 mouth. [facility] 21:13: of (CENTRUM 05 Medicin ULTRA e WOMENS OR) hydrochloro 2020-0 Yes 12.5mg Take 12.5 [facility] thiazide 4-21 mg by [employer] (MICROZIDE) 21:13: mouth of 12.5 MG 05 daily. Medicin capsule e celecoxib 2020-0 Yes 200mg Take 200 [facility] (CELEBREX) 4-21 mg by [employer] 200 MG 21:13: mouth two of capsule 05 times Medicin daily. e levothyroxi 2020-0 Yes 25ug Take 25 [facility] ne 4-21 mcg by [employer] (SYNTHROID) 21:13: mouth of 25 MCG 05 daily. Medicin tablet e SPIRONOLACT 2020-0 Yes Take by [facility] ONE OR 4-21 mouth. [employer] 21:13: of 05 Medicin e METOPROLOL 2020-0 Yes Take by [facility] TARTRATE OR 4-21 mouth. [facility] e 21:13: of 05 Medicin e Clopidogrel 2020-0 Yes Take by [facility] Bisulfate 4-21 mouth. [employer] (PLAVIX OR) 21:13: of 05 Medicin e LOVASTATIN 2020-0 Yes Take by [facility] OR 4-21 mouth. [employer] 21:13: of 05 Medicin e Nebivolol 2020-0 Yes Take by [facility] HCl 4-21 mouth. [employer] (BYSTOLIC) 21:13: of 10 MG TABS 05 Medicin e Azilsartan 2020-0 Yes Take by [facility] Medoxomil 4-21 mouth. [employer] (EDARBI) 80 21:13: of MG TABS 05 Medicin e metformin 2020-0 Yes 1000mg Take 1,000 [facility] (GLUCOPHAGE 4-21 mg by [employer] ) 1000 MG 21:13: mouth 2 of tablet 05 times Medicin daily e (with meals). Gabapentin, 2020-0 Yes Take by [facility], 300 MG 4-21 mouth. [facility] TABS 21:13: of 05 Medicin e Pitavastati 2020-0 Yes Take by [facility] n Calcium 4-21 mouth. [employer] (LIVALO) 4 21:13: of MG TABS 05 Medicin e cetirizine 2020-0 Yes 10mg Take 10 mg [facility] (ZYRTEC) 10 4-21 by mouth [facility] MG chewable 21:13: daily. of tablet 05 Medicin e Calcium 2020-0 Yes Take by [facility] Carbonate-V 4-21 mouth. [facility] it D-Min 21:13: of [id number] 05 Medicin MG-UNIT e CHEW Multiple 2020-0 Yes Take by [facility] Vitamins-Mi 4-21 mouth. [facility] 21:13: of (CENTRUM 05 Medicin ULTRA e WOMENS OR) hydrochloro 2020-0 Yes 12.5mg Take 12.5 [facility] thiazide 4-21 mg by [employer] (MICROZIDE) 21:13: mouth of 12.5 MG 05 daily. Medicin capsule e celecoxib 2020-0 Yes 200mg Take 200 [facility] (CELEBREX) 4-21 mg by [employer] 200 MG 21:13: mouth two of capsule 05 times Medicin daily. e levothyroxi 2020-0 Yes 25ug Take 25 [facility] ne 4-21 mcg by [employer] (SYNTHROID) 21:13: mouth of 25 MCG 05 daily. Medicin tablet e SPIRONOLACT 2020-0 Yes Take by [facility] ONE OR 4-21 mouth. [employer] 21:13: of 05 Medicin e METOPROLOL 2020-0 Yes Take by [facility]TRATE [facility] 05 Medicin e Clopidogrel 2020-0 Yes Take by [facility] Bisulfate 4-21 mouth. [employer] (PLAVIX OR) 21:13: of 05 Medicin e LOVASTATIN 2020-0 Yes Take by [facility] OR 4-21 mouth. [employer] 21:13: of 05 Medicin e Nebivolol 2020-0 Yes Take by [facility] HCl 4-21 mouth. [employer] (BYSTOLIC) 21:13: of 10 MG TABS 05 Medicin e Azilsartan 2020-0 Yes Take by [facility] Medoxomil 4-21 mouth. [employer] (EDARBI) 80 21:13: of MG TABS 05 Medicin e metformin 2020-0 Yes 1000mg Take 1,000 [facility] (GLUCOPHAGE 4-21 mg by [employer] ) 1000 MG 21:13: mouth 2 of tablet 05 times Medicin daily e (with meals). Gabapentin, 2020-0 Yes Take by [facility], 300 MG 4-21 mouth. [facility] TABS 21:13: of 05 Medicin e Pitavastati 2020-0 Yes Take by [facility] n Calcium 4-21 mouth. [employer] (LIVALO) 4 21:13: of MG TABS 05 Medicin e cetirizine 2020-0 Yes 10mg Take 10 mg [facility] (ZYRTEC) 10 4-21 by mouth [facility] MG chewable 21:13: daily. of tablet 05 Medicin e Calcium 2020-0 Yes Take by [facility] Carbonate-V 4-21 mouth. [facility] it D-Min 21:13: of [id number] 05 Medicin MG-UNIT e CHEW Multiple 2020-0 Yes Take by [facility] Vitamins-Mi 4-21 mouth. [facility] 21:13: of (CENTRUM 05 Medicin ULTRA e WOMENS OR) hydrochloro 2020-0 Yes 12.5mg Take 12.5 [facility] thiazide 4-21 mg by [employer] (MICROZIDE) 21:13: mouth of 12.5 MG 05 daily. Medicin capsule e celecoxib 2020-0 Yes 200mg Take 200 [facility] (CELEBREX) 4-21 mg by [employer] 200 MG 21:13: mouth two of capsule 05 times Medicin daily. e levothyroxi 2020-0 Yes 25ug Take 25 [facility] ne 4-21 mcg by [employer] (SYNTHROID) 21:13: mouth of 25 MCG 05 daily. Medicin tablet e SPIRONOLACT 2020-0 Yes Take by [facility] ONE OR 4-21 mouth. [facility] 21:13: of 05 Medicin e METOPROLOL 2020-0 Yes Take by [facility] TARTRATE OR 4-21 mouth. [facility] e 21:13: of 05 Medicin e Clopidogrel 2020-0 Yes Take by [facility] Bisulfate 4-21 mouth. [employer] (PLAVIX OR) 21:13: of 05 Medicin e LOVASTATIN 2020-0 Yes Take by [facility] OR 4-21 mouth. [facility] 21:13: of 05 Medicin e Nebivolol 2020-0 Yes Take by [facility] HCl 4-21 mouth. [employer] (BYSTOLIC) 21:13: of 10 MG TABS 05 Medicin e Azilsartan 2020-0 Yes Take by [facility] Medoxomil 4-21 mouth. [employer] (EDARBI) 80 21:13: of MG TABS 05 Medicin e metformin 2020-0 Yes 1000mg Take 1,000 [facility] (GLUCOPHAGE 4-21 mg by [employer] ) 1000 MG 21:13: mouth 2 of tablet 05 times Medicin daily e (with meals). Gabapentin, 2020-0 Yes Take by [facility] PHN, 300 MG 4-21 mouth. [facility] TABS 21:13: of 05 Medicin e Pitavastati 2020-0 Yes Take by [facility] n Calcium 4-21 mouth. [employer] (LIVALO) 4 21:13: of MG TABS 05 Medicin e cetirizine 2020-0 Yes 10mg Take 10 mg [facility] (ZYRTEC) 10 -21 by mouth [facility] MG chewable 21:13: daily. of tablet 05 Medicin e Calcium 2020-0 Yes Take by [facility] Carbonate-V 4-21 mouth. [facility] it D-Min 21:13: of [id number] 05 Medicin MG-UNIT e CHEW Multiple 2020-0 Yes Take by [facility] Vitamins-Mi 4-21 mouth. [facility] 21:13: of (CENTRUM 05 Medicin ULTRA e WOMENS OR) hydrochloro 2020-0 Yes 12.5mg Take 12.5 [facility] thiazide 4-21 mg [address] [employer] (MICROZIDE) 21:13: mouth of 12.5 MG 05 daily. Medicin capsule e celecoxib 2020-0 Yes 200mg Take 200 [facility] (CELEBREX) 4-21 mg [address] [employer] 200 MG 21:13: mouth two of capsule 05 times Medicin daily. e levothyroxi 2020-0 Yes 25ug Take 25 [facility] ne 4-21 mcg by [employer] (SYNTHROID) 21:13: mouth of 25 MCG 05 daily. Medicin tablet e SPIRONOLACT 2020-0 Yes Take by [facility] ONE OR 4-21 mouth. [facility] 21:13: of 05 Medicin e METOPROLOL 2020-0 Yes Take by [facility] TARTRATE OR 4-21 mouth. [facility] e 21:13: of 05 Medicin e Clopidogrel 2020-0 Yes Take by [facility] Bisulfate 4-21 mouth. [employer] (PLAVIX OR) 21:13: of 05 Medicin e LOVASTATIN 2020-0 Yes Take by [facility] OR 4-21 mouth. [employer] 21:13: of 05 Medicin e Nebivolol 2020-0 Yes Take by [facility] HCl 4-21 mouth. [employer] (BYSTOLIC) 21:13: of 10 MG TABS 05 Medicin e Azilsartan 2020-0 Yes Take by [facility] Medoxomil 4-21 mouth. [employer] (EDARBI) 80 21:13: of MG TABS 05 Medicin e metformin 2020-0 Yes 1000mg Take 1,000 [facility] (GLUCOPHAGE 4-21 mg by [employer] ) 1000 MG 21:13: mouth 2 of tablet 05 times Medicin daily e (with meals). Gabapentin, 2020-0 Yes Take by [facility] PHN, 300 MG 4-21 mouth. [facility] TABS 21:13: of 05 Medicin e Pitavastati 2020-0 Yes Take by [facility] n Calcium 4-21 mouth. [employer] (LIVALO) 4 21:13: of MG TABS 05 Medicin e cetirizine 2020-0 Yes 10mg Take 10 mg [facility] (ZYRTEC) 10 4-21 by mouth [facility] MG chewable 21:13: daily. of tablet 05 Medicin e Calcium 2020-0 Yes Take by [facility] Carbonate-V 4-21 mouth. [facility] it D-Min 21:13: of [id number] 05 Medicin MG-UNIT e CHEW Multiple 2020-0 Yes Take by [facility] Vitamins-Mi 4-21 mouth. [facility] 21:13: of (CENTRUM 05 Medicin ULTRA e WOMENS OR) hydrochloro 2020-0 Yes 12.5mg Take 12.5 [facility] thiazide 4-21 mg [address] [employer] (MICROZIDE) 21:13: mouth of 12.5 MG 05 daily. Medicin capsule e celecoxib 2020-0 Yes 200mg Take 200 [facility] (CELEBREX) 4-21 mg [address] [employer] 200 MG 21:13: mouth two of capsule 05 times Medicin daily. e levothyroxi 2020-0 Yes 25ug Take 25 [facility] ne 4-21 mcg by [employer] (SYNTHROID) 21:13: mouth of 25 MCG 05 daily. Medicin tablet e SPIRONOLACT 2020-0 Yes Take by [facility] ONE OR 4-21 mouth. [employer] 21:13: of 05 Medicin e METOPROLOL 2020-0 Yes Take by [facility] TARTRATE OR 4-21 mouth. [facility] 21:13: of 05 Medicin e Clopidogrel 2020-0 Yes Take by [facility] Bisulfate 4-21 mouth. [employer] (PLAVIX OR) 21:13: of 05 Medicin e LOVASTATIN 2020-0 Yes Take by [facility] OR 4-21 mouth. [employer] 21:13: of 05 Medicin e Aflibercept 2020-0 Yes [id number] 2mg 2 mg, [facility] (EYLEA) 2 4-16 Intravitre [facility] MG/0.05ML 14:04: al, of injection 2 39 Starting Medi ida mg No e 03/16/20 at 0904, Until Discontinu ed Aflibercept 2020-0 Yes [id number] 2mg 2 mg, [facility] (EYLEA) 2 4-16 Intravitre [facility] MG/0.05ML 14:04: al, of injection 2 31 Starting Medi ida mg No e 03/16/20 at 0904, Until Discontinu ed bevacizumab 2020-0 Yes [id number] 1.25mg 1.25 mg, [facility] (AVASTIN) 3-19 Intravitre [facility] 1.25mg/0.05 13:36: al, of mL 34 Starting Medicin intravitrea No e l injection 02/17/20 at 1.25 mg 0836, Until Discontinu ed bevacizumab 2020-0 Yes [id number] 1.25mg 1.25 mg, [facility] (AVASTIN) 3-19 Intravitre [facility] 1.25mg/0.05 13:36: al, of mL 27 Starting Medicin intravitrea No e l injection 02/17/20 at 1.25 mg 0836, Until Discontinu ed Gabapentin, 2020-0 Yes Take by [facility], 300 MG 3-18 mouth. [facility] TABS 14:41: of 44 Medicin e Pitavastati 2020-0 Yes Take by [facility] n Calcium 3-18 mouth. [employer] (LIVALO) 4 14:41: of MG TABS 44 Medicin e glyBURIDE 2020-0 Yes 6mg Take 6 mg [facility] micronized 3-18 by mouth [facility] (GLYNASE) 6 14:41: two times o f MG tablet 44 daily. Medicin e cetirizine 2020-0 Yes 10mg Take 10 mg [facility] (ZYRTEC) 10 3-18 by mouth [facility] MG chewable 14:41: daily. of tablet 44 Medicin e Calcium 2020-0 Yes Take by [facility] Carbonate-V 3-18 mouth. [facility] it D-Min 14:41: of [id number] 44 Medicin MG-UNIT e CHEW Multiple 2020-0 Yes Take by [facility] Vitamins-Mi 3-18 mouth. [facility] nerals 14:41: of (CENTRUM 44 Medicin ULTRA e WOMENS OR) hydrochloro 2020-0 Yes 12.5mg Take 12.5 [facility] thiazide 3-18 mg by [employer] (MICROZIDE) 14:41: mouth of 12.5 MG 44 daily. Medicin capsule e celecoxib 2020-0 Yes 200mg Take 200 [facility] (CELEBREX) 3-18 mg by [facility] 200 MG 14:41: mouth two of capsule 44 times Medicin daily. e levothyroxi 2020-0 Yes 25ug Take 25 [facility] ne 3-18 mcg by [employer] (SYNTHROID) 14:41: mouth of 25 MCG 44 daily. Medicin tablet e SPIRONOLACT 2020-0 Yes Take by [facility] ONE OR 3-18 mouth. [employer] 14:41: of 44 Medicin e METOPROLOL 2020-0 Yes Take by [facility] TARTRATE OR 3-18 mouth. [facility] e 14:41: of 44 Medicin e Clopidogrel 2020-0 Yes Take by [facility] Bisulfate 3-18 mouth. [employer] (PLAVIX OR) 14:41: of 44 Medicin e LOVASTATIN 2020-0 Yes Take by [facility] OR 3-18 mouth. [employer] 14:41: of 44 Medicin e Nebivolol 2020-0 Yes Take by [facility] HCl 3-18 mouth. [employer] (BYSTOLIC) 14:41: of 10 MG TABS 44 Medicin e Azilsartan 2020-0 Yes Take by [facility] Medoxomil 3-18 mouth. [employer] (EDARBI) 80 14:41: of MG TABS 44 Medicin e metformin 2020-0 Yes 1000mg Take 1,000 [facility] (GLUCOPHAGE 3-18 mg by [facility] ) 1000 MG 14:41: mouth 2 of tablet 44 times Medicin daily e (with meals). Gabapentin, 2020-0 Yes Take by [facility], 300 MG 3-18 mouth. [facility] TABS 14:41: of 44 Medicin e Pitavastati 2020-0 Yes Take by [facility] n Calcium 3-18 mouth. [employer] (LIVALO) 4 14:41: of MG TABS 44 Medicin e glyBURIDE 2020-0 Yes 6mg Take 6 mg [facility] micronized 3-18 by mouth [facility] (GLYNASE) 6 14:41: two times o f MG tablet 44 daily. Medicin e cetirizine 2020-0 Yes 10mg Take 10 mg [facility] (ZYRTEC) 10 3-18 by mouth [facility] MG chewable 14:41: daily. of tablet 44 Medicin e Calcium 2020-0 Yes Take by [facility] Carbonate-V 3-18 mouth. [facility] it D-Min 14:41: of [id number] 44 Medicin MG-UNIT e CHEW Multiple 2020-0 Yes Take by [facility] Vitamins-Mi 3-18 mouth. [facility] 14:41: of (CENTRUM 44 Medicin ULTRA e WOMENS OR) hydrochloro 2020-0 Yes 12.5mg Take 12.5 [facility] thiazide 3-18 mg [address] [employer] (MICROZIDE) 14:41: mouth of 12.5 MG 44 daily. Medicin capsule e celecoxib 2020-0 Yes 200mg Take 200 [facility] (CELEBREX) 3-18 mg by [employer] 200 MG 14:41: mouth two of capsule 44 times Medicin daily. e levothyroxi 2020-0 Yes 25ug Take 25 [facility] ne 3-18 mcg by [employer] (SYNTHROID) 14:41: mouth of 25 MCG 44 daily. Medicin tablet e SPIRONOLACT 2020-0 Yes Take by [facility] ONE OR 3-18 mouth. [employer] 14:41: of 44 Medicin e METOPROLOL 2020-0 Yes Take by [facility] TARTRATE OR 3-18 mouth. [facility] e 14:41: of 44 Medicin e Clopidogrel 2020-0 Yes Take by [facility] Bisulfate 3-18 mouth. [employer] (PLAVIX OR) 14:41: of 44 Medicin e LOVASTATIN 2020-0 Yes Take by [facility] OR 3-18 mouth. [facility] 14:41: of 44 Medicin e Nebivolol 2020-0 Yes Take by [facility] HCl 3-18 mouth. [employer] (BYSTOLIC) 14:41: of 10 MG TABS 44 Medicin e Azilsartan 2020-0 Yes Take by [facility] Medoxomil 3-18 mouth. [employer] (EDARBI) 80 14:41: of MG TABS 44 Medicin e metformin 2020-0 Yes 1000mg Take 1,000 [facility] (GLUCOPHAGE 3-18 mg [address] [facility] ) 1000 MG 14:41: mouth 2 of tablet 44 times Medicin daily e (with meals). bevacizumab 2020-0 Yes [id number] 1.25mg 1.25 mg, [facility] (AVASTIN) 2-17 Intravitre [facility] 1.25mg/0.05 12:45: al, of mL 05 Starting Medicin intravitrea Mon e l injection 01/17/20 at 1.25 mg 0645, Until Discontinu ed bevacizumab 2020-0 Yes [id number] 1.25mg 1.25 mg, [facility] (AVASTIN) 2-17 Intravitre [facility] ege [...] daily. of tablet 00 Medicin e acyclovir 0 Yes 400mg Take 1 Tab [facility] (ZOVIRAX) 8-26 by mouth [facility] 400 MG 00:00: daily. of tablet 00 Medicin e Clopidogrel Yes Take by [facility] Bisulfate 7-10 mouth. [employer] (PLAVIX OR) 15:56: of 22 Medicin e LOVASTATIN Yes Take by [facility] OR 7-10 mouth. [employer] 15:56: of 22 Medicin e Clopidogrel Yes Take by [facility] Bisulfate 7-10 mouth. [employer] (PLAVIX OR) 15:56: of 22 Medicin e LOVASTATIN Yes Take by [facility] OR 7-10 mouth. [employer] 15:56: of 22 Medicin e Azilsartan Yes Take by [facility] Medoxomil 3-30 mouth. [employer] (EDARBI) 80 13:57: of MG TABS 32 Medicin e metformin 0 Yes 1000mg Take 1,000 [facility] (GLUCOPHAGE 3-30 mg by [facility] [employer] ) 1000 MG 13:57: mouth 2 of tablet 32 times Medicin daily e (with meals). Gabapentin, 0 Yes Take by [facility], 300 MG 3-30 mouth. [facility] TABS 13:57: of 32 Medicin e glyBURIDE 0 Yes 6mg Take 6 mg [facility] micronized 3-30 by mouth [facility] (GLYNASE) 6 13:57: two times o f MG tablet 32 daily. Medicin e cetirizine 2017-0 Yes 10mg Take 10 mg [facility] (ZYRTEC) 10 3-30 by mouth [facility] MG chewable 13:57: daily. of tablet 32 Medicin e Calcium 0 Yes Take by [facility] Carbonate-V 3-30 mouth. [facility] it D-Min 13:57: of [id number] 32 Medicin MG-UNIT e CHEW Multiple 0 Yes Take by [facility] Vitamins-Mi 3-30 mouth. [facility] 13:57: of (CENTRUM 32 Medicin ULTRA e WOMENS OR) levothyroxi 0 Yes 25ug Take 25 [facility] ne 3-30 mcg by [facility] (SYNTHROID) 13:57: mouth of 25 MCG 32 daily. Medicin tablet e SPIRONOLACT 0 Yes Take by [facility] ONE OR 3-30 mouth. [facility] 13:57: of 32 Medicin e METOPROLOL 0 Yes Take by [facility] TARTRATE OR 3-30 mouth. [facility] e 13:57: of 32 Medicin e Azilsartan 0 Yes Take by [facility] Medoxomil 3-30 mouth. [employer] (EDARBI) 80 13:57: of MG TABS 32 Medicin e metformin 0 Yes 1000mg Take 1,000 [facility] (GLUCOPHAGE 3-30 mg by [facility] ) 1000 MG 13:57: mouth 2 of tablet 32 times Medicin daily e (with meals). Gabapentin, 0 Yes Take by [facility], 300 MG 3-30 mouth. [facility] TABS 13:57: of 32 Medicin e glyBURIDE 0 Yes 6mg Take 6 mg [facility] micronized 3-30 by mouth [facility] (GLYNASE) 6 13:57: two times o f MG tablet 32 daily. Medicin e cetirizine 0 Yes 10mg Take 10 mg [facility] (ZYRTEC) 10 3-30 by mouth [facility]z [facility]ge MG chewable 13:57: daily. of tablet 32 Medicin e Calcium 0 Yes Take by [facility] Carbonate-V 3-30 mouth. Saul e it D-Min 13:57: of [id number] 32 Medicin MG-UNIT e CHEW Multiple 0 Yes Take by [facility] Vitamins-Mi 3-30 mouth. [facility] e nerals 13:57: of (CENTRUM 32 Medicin ULTRA e WOMENS OR) levothyroxi 0 Yes 25ug Take 25 [facility] ne 3-30 mcg by College (SYNTHROID) 13:57: mouth of 25 MCG 32 daily. Medicin tablet e SPIRONOLACT 0 Yes Take by [facility] ONE OR 3-30 mouth. College 13:57: of 32 Medicin e METOPROLOL 2017- Yes Take by [facility] or TARTRATE OR 3-30 mouth. [facility] e 13:57: of 32 Medicin e Nebivolol 2014-12 Yes Take by [facility] HCl 2-07 mouth. [place] ([facility]) 21:50: of 10 MG TABS 19 Medicin e Pitavastati 2014-12 Yes Take by [facility] Calcium 2-07 mouth. [place] [id number] 21:50: of MG TABS 19 Medicin e hydrochloro 2014-12 Yes 12.5mg Take 12.5 [facility] thiazide 2-07 mg by [place] (MICROZIDE) 21:50: mouth of 12.5 MG 19 daily. Medicin capsule e celecoxib 2014-12 Yes 200mg Take 200 [facility] (CELEBREX) 2-07 mg by College 200 MG 21:50: mouth two of capsule 19 times Medicin daily. e Nebivolol 2014-12 Yes Take by [facility] HCl 2-07 mouth. [place] ([facility]) 21:50: of 10 MG TABS 19 Medicin e Pitavastati 2014-12 Yes Take by [facility] Calcium 2-07 mouth. [employer] [place] ([place] [id number] 21:50: of MG TABS 19 Medicin e hydrochloro 2014-12 Yes 12.5mg Take 12.5 [facility] thiazide 2-07 [address] [place] (MICROZIDE) 21:50: mouth of 12.5 MG 19 daily. Medicin capsule e celecoxib 2014-12 Yes 200mg Take 200 [facility] (CELEBREX) 2-[address] [place] 200 MG 21:50: mouth two of capsule [...] daily. Ganciclovir 2013-12 Yes 1{strip Apply 1 [facility] (ZIRGAN) 0-01 } Strip to College 0.15 % GEL 00:00: eye 5 of 00 times Medicin daily. e Ganciclovir 2013-12 Yes 1{strip Apply 1 [facility] (ZIRGAN) 0-01 } Strip to College 0.15 % GEL 00:00: eye 5 of 00 times Medicin daily. e Ganciclovir 2013-12 Yes 1{strip Apply 1 [facility] (ZIRGAN) 0-01 } Strip to College 0.15 % GEL 00:00: eye 5 of 00 times Medicin daily. e Ganciclovir 2013-12 Yes 1{strip Apply 1 [facility] (ZIRGAN) 0-01 } Strip to College 0.15 % GEL 00:00: eye 5 of 00 times Medicin daily. e Ganciclovir 2013-12 Yes 1{strip Apply 1 [facility] (ZIRGAN) 0-01 } Strip to [employer] [place] 0.15 % GEL 00:00: eye 5 of [...] e Ganciclovir 2013-12 Yes 1{strip Apply 1 [facility] (ZIRGAN) 0-01 } Strip to College 0.15 % GEL 00:00: eye 5 of 00 times Medicin daily. e Ganciclovir 2013-12 Yes 1{strip Apply 1 [facility] (ZIRGAN) 0-01 } Strip to College 0.15 % GEL 00:00: eye 5 of 00 times Medicin daily. e Ganciclovir 2013-12 Yes 1{strip Apply 1 [facility] (ZIRGAN) 0-01 } Strip to College 0.15 % GEL 00:00: eye 5 of 00 times Medicin daily. e Ganciclovir 2013-12 Yes 1{strip Apply 1 [facility] (ZIRGAN) 0-01 } Strip to College 0.15 % GEL 00:00: eye 5 of 00 times Medicin daily. e Ganciclovir 2013-12 Yes 1{strip Apply 1 [facility] (ZIRGAN) 0-01 } Strip to College 0.15 % GEL 00:00: eye 5 of 00 times Medicin daily. e Ganciclovir 2013-12 Yes 1{strip Apply 1 [facility] (ZIRGAN) 0-01 } Strip to College 0.15 % GEL 00:00: eye 5 of 00 times Medicin daily. e Ganciclovir 2013-12 Yes 1{strip Apply 1 [facility] (ZIRGAN) 0-01 } Strip to [...] kg Systolic blood 2022-11-14 14:30:00 149 mm[Hg] [facility] Diastolic blood 2022-11-14 14:30:00 68 mm[Hg] [facility] Heart rate 2022-11-14 14:30:00 68 /min [facility] Respiratory rate 2022-11-14 14:30:00 20 /min [facility] Oxygen saturation in 2022-11-14 14:30:00 95 /min [facility] Arterial blood by Medical Ce nter Pulse oximetry Body temperature 2022-11-14 12:50:00 36.22 Camryn [facility] Body height 2022-11-13 09:58:00 177.8 cm [facility] Body weight 2022-11-13 09:58:00 108.863 kg [facility] BMI 2022-11-13 09:58:00 34.44 kg/m2 [facility] Body height 2022-10-09 09:28:00 177.8 cm [facility] Body weight 2022-10-09 09:28:00 108.863 kg [facility] BMI 2022-10-09 09:28:00 34.44 kg/m2 [facility] Systolic blood 2022-01-22 08:50:00 166 mm[Hg] [facility] Diastolic blood 2022-01-22 08:50:00 78 mm[Hg] [facility] Heart rate 2022-01-22 08:50:00 67 /min [facility] Respiratory rate 2022-01-22 08:50:00 19 /min [facility] Oxygen saturation in 2022-01-22 08:50:00 95 /min [facility] Arterial blood by Medical Ce nter Pulse oximetry Body temperature 2022-01-22 08:25:00 36.44 Camryn [facility] Procedures Procedure Date / Time Performing Clinician Source Performed INTRAVITREAL INJECTION, 2023-01-06 09:39:04 [facility] [employer]ACOLOGIC AGENT - OD Medicin e - RIGHT EYE INTRAVITREAL INJECTION, 2023-01-06 09:39:00 [facility] [employer] PH[employer]ACOLOGIC AGENT - OS Medicin e - LEFT EYE INTRAVITREAL INJECTION, 2022-12-10 13:56:29 [facility] [employer] [facility] PHARMACOLOGIC AGENT - OD Medicin e - RIGHT EYE INTRAVITREAL INJECTION, 2022-12-10 13:56:24 [facility] [employer] PH[employer]ACOLOGIC AGENT - OS Medicin e - LEFT EYE OCT, RETINA - OU - BOTH 2022-12-06 09:12:15 [facility] [employer] [facility] KERATOPLASTY,DSAEK 2022-11-14 11:22:00 [place] [facility] [place]AT[place]SAE[place] 2022-11-14 11:20:00 [place] [facility] [place]CT[place]GLUCOSE METER 2022-11-14 10:56:00 [place] [facility] [place]TRAVITREAL [place]JECTION, 2022-11-03 13:50:43 [facility] [employer] [facility] PH[employer]ACOLOGIC AGENT - OD Medicin e - RIGHT EYE INTRAVITREAL INJECTION, 2022-11-03 13:50:38 [facility] [employer] [facility] PHARMACOLOGIC AGENT - OS Medicin e - LEFT EYE OCT, RETINA - OU - BOTH 2022-11-01 08:53:10 [facility] [employer] [facility] KERATOPLASTY,DSAEK 2022-10-17 11:46:00 [place], [facility] [place]TRAVIT[place]AL [place]JECTION, 2022-10-07 10:29:15 [facility] [employer] [facility] PH[employer]ACOLOGIC AGENT - OD Medicin e - RIGHT EYE INTRAVITREAL INJECTION, 2022-10-07 10:29:10 [facility] [employer] PH[employer]ACOLOGIC AGENT - OS Medicin e - LEFT EYE OCT, RETINA - OU - BOTH 2022-10-02 10:17:32 [facility] [employer] INTRAVITREAL INJECTION, 2022-09-03 12:11:50 [facility] [employer]ACOLOGIC AGENT - OD Medicin e - RIGHT EYE OCT, RETINA - OU - BOTH 2022-08-26 10:35:47 [facility] [employer] INTRAVITREAL INJECTION, 2022-08-01 16:23:01 [facility] [employer] [facility] PH[employer]ACOLOGIC AGENT - OU Medicin e - BOTH EYES OCT, RETINA - OU - BOTH 2022-07-24 09:53:59 [facility] [employer] INTRAVITREAL INJECTION, 2022-06-24 14:16:03 [facility] [employer]ACOLOGIC AGENT - OD Medicin e - RIGHT EYE INTRAVITREAL INJECTION, 2022-06-24 14:15:36 [facility] [employer]ACOLOGIC AGENT - OS Medicin e - LEFT EYE OCT, RETINA - OU - BOTH 2022-06-24 14:07:48 [facility] [employer] INTRAVITREAL INJECTION, 2022-05-14 12:41:12 [facility] or [employer] of PHARMACOLOGIC AGENT - OU Medicin e - BOTH EYES OCT, RETINA - OU - BOTH 2022-05-14 10:19:33 [facility] or [facility] EYES Medicine INTRAVITREAL INJECTION, 2022-04-05 13:52:36 [facility] or [place] of PHARMACOLOGIC AGENT - OS Medicin e - LEFT EYE INTRAVITREAL INJECTION, 2022-04-05 13:52:31 [facility] or [employer] of PHARMACOLOGIC AGENT - OD Medicin e - RIGHT EYE OCT, RETINA - OU - BOTH 2022-04-05 09:49:12 [facility] or [facility] EYES Medicine INTRAVITREAL INJECTION, 2022-02-22 13:03:16 [facility] or [place] of PHARMACOLOGIC AGENT - OD Medicin e - RIGHT EYE INTRAVITREAL INJECTION, 2022-02-22 13:03:10 [facility] or [place] of PHARMACOLOGIC AGENT - OS Medicin e - LEFT EYE OCT, RETINA - OU - BOTH 2022-02-22 09:59:33 [facility] or [facility] EYES [facility] INSERTION, TUBE SHUNT, 2022-01-22 07:20:00 Darryl Jones [facility] EYE, WITH CORNEAL PATCH [facility] GRAFT APPLICATION POCT-GLUCOSE METER 2022-01-22 07:03:00 [facility]ryl Jones [facility] ENDOTHELIAL PHOTO AND 2020-09-08 16:13:16 Aaron Miranda [facility] College of CELL COUNT - OU - BOTH Medicine EYES INTRAVITREAL INJECTION, 2020-07-31 17:18:33 Ingrid Amato [facility] or [place] of PHARMACOLOGIC AGENT - OS Mathen Medicin e - LEFT EYE INTRAVITREAL INJECTION, 2020-07-31 17:18:26 Ingrid Amato [facility] or [employer] [place] of PHARMACOLOGIC AGENT - OD Mathen Medicin e - RIGHT EYE OCT, RETINA - OU - BOTH 2020-07-31 15:55:00 Ingrid Amato or [facility] INTRAVITREAL INJECTION, 2020-06-05 16:00:31 Ingrid Amato [facility] or [place] of PHARMACOLOGIC AGENT - OD Mathen Medicin e - RIGHT EYE INTRAVITREAL INJECTION, 2020-06-05 16:00:21 Ingrid Amato [facility] or [employer] of PHARMACOLOGIC AGENT - OS Mathen Medicin e - LEFT EYE OCT, RETINA - OU - BOTH 2020-06-05 14:59:00 Ingrid Amato or [facility] EYES [facility] INTRAVITREAL INJECTION, 2020-04-14 17:43:52 Ingrid Amato or [employer] of PHARMACOLOGIC AGENT - OD Mathen Medicin e - RIGHT EYE INTRAVITREAL INJECTION, 2020-04-14 17:43:42 Ingrid Amato or [employer] of PHARMACOLOGIC AGENT - OS Mathen Medicin e - LEFT EYE OCT, RETINA - OU - BOTH 2020-04-14 15:23:33 Ingrid Amato or [place] of EYES [facility] CORNEAL TOPOGRAPHY - OU - 2020-03-30 19:06:51 Nitin Aaron [facility] BOTH EYES Medicine OCT, RETINA - OU - BOTH 2020-03-21 21:10:45 Abelardo Boone or [facility] EYES Medicine INTRAVITREAL INJECTION, 2020-03-16 14:04:40 Ingrid Amato or [employer] PH[employer]ACOLOGIC AGENT - OD Mathen Medicin e - RIGHT EYE INTRAVITREAL INJECTION, 2020-03-16 14:04:36 Ingrid Amato or [employer] of PHARMACOLOGIC AGENT - OS Mathen Medicin e - LEFT EYE OCT, RETINA - OU - BOTH 2020-03-15 16:01:25 Ingrid Amato or [facility] EYES [facility] INTRAVITREAL INJECTION, 2020-02-17 13:36:36 Ingrid Amato or [employer] [facility] PH[employer]ACOLOGIC AGENT - OD Mathen Medicin e - RIGHT EYE INTRAVITREAL INJECTION, 2020-02-17 13:36:31 Ingrid Amato or [employer] of PHARMACOLOGIC AGENT - OS Mathen Medicin e - LEFT EYE OCT, RETINA - OU - BOTH 2020-02-16 15:03:08 Ingrid Amato or [place] of EYES [facility] INTRAVITREAL INJECTION, 2020-01-17 12:45:08 Ingrid Amato or [employer] [place] of PHARMACOLOGIC AGENT - OD Mathen Medicin e - RIGHT EYE INTRAVITREAL INJECTION, 2020-01-17 12:44:35 Ingrid Amato or [employer] [facility] PHARMACOLOGIC AGENT - OS Mathen Medicin e - LEFT EYE OCT, RETINA - OU - BOTH 2019-12-30 15:33:46 Ingrid Amato [facility] Plan of Care Planned Activity Planned Date Details Comments Source Future Scheduled 2023-11-[address] [facility] Test 00:00[facility]00 [facility] (12+) [code = Tobacco Cessation Counseling and Screening (12+)] Future Scheduled 2023-11-[address] [facility] Test 00:00:00 [facility] (12+) [code = Tobacco Cessation Counseling and Screening (12+)] Future Scheduled 2023-11-[address] [facility] Test 00:00:00 [facility] Scre[facility] (12+) [code = Tobacco Cessation Counseling and Screening (12+)] Future Scheduled 2023-11-[address] [facility] Test 00:00:00 [facility] Scre[facility] (12+) [code = Tobacco Cessation Counseling and Screening (12+)] Future Scheduled 2023-11-[address] [facility] Test 00:00:00 [facility] Screening (12+) [code = Tobacco Cessation Counseling and Screening (12+)] Future Scheduled 2023-11-[address] [facility] Test 00:00:00 [facility] Screening (12+) [code = Tobacco Cessation Counseling and Screening (12+)] Future Scheduled 2023-11-[address] [...] Cessation Counseling and Screening (12+)] Future Scheduled 2022-12-[address] [facility] Test 00:00:00 (12+) [code = Medical Center DEPRESSION SCREENING (12+)] Future Scheduled 2022-12-01 FALLS RISK SCREENING [facility] Test 00:00:00 [code = FALLS RISK Medical C enter SCREENING] Future Scheduled 2022-12-[address] [facility] Test 00:00:00 (12+) [code = Medical Center DEPRESSION SCREENING (12+)] Future Scheduled 2022-12-01 FALLS RISK SCREENING [facility] Test 00:00:00 [code = FALLS RISK Medical C enter SCREENING] Future Scheduled 2022-12-[address] [facility] Test 00:00:00 (12+) [code = Medical Center DEPRESSION SCREENING (12+)] Future Scheduled 2022-12-01 FALLS RISK SCREENING [facility] Test 00:00:00 [code = FALLS RISK Medical C enter SCREENING] Future Scheduled 2022-12-[address] [facility] Test 00:00:00 (12+) [code = Medical Center DEPRESSION SCREENING (12+)] Future Scheduled 2022-12-01 F[address]S RISK SCREENING [facility] Test 00:00:00 [code = FALLS RISK Medical C enter SCREENING] Future Scheduled 2022-08-[address] [...] DXA [facility] Test 00:00:00 SCAN] [facility] Center Future Scheduled 1945 DXA SCAN [code = DXA [facility] Test 00:00:00 SCAN] [facility] Center Future Scheduled 1945 DXA SCAN [code [...] DXA [facility] Test 00:00:00 SCAN] [facility] Center Future Scheduled COLON CANCER [facility] Test SCREENING: of Medicine COLONOSCOPY [code = COLON CANCER SCREENING: COLONOSCOPY] Future Scheduled MAMMOGRAM ANNUAL [facility] College Test [code = MAMMOGRAM of Medicin e ANNUAL] Future Scheduled TETANUS SHOT (ADULT) [facility] Test [code = TETANUS SHOT of Medi cine (ADULT)] Future Scheduled Diabetic foot [facility] Col lege Test examination of Medicine (regime/therapy) [code = [id number]] Future Scheduled HEPATITIS C [facility] Test SCREENING [code = of Medicin e HEPATITIS C SCREENING] Future Scheduled OSTEOPOROSIS [facility] Test SCREENING [code = of Medicin e OSTEOPOROSIS SCREENING] Future Scheduled PNEUMOVAX >=65 [facility] Co llege Test (PPSV23) [code = of Medicine PNEUMOVAX >=65 (PPSV23)] Future Scheduled PREVNAR >= 65 [facility] Col lege Test (PCV13) [code = of Medicine PREVNAR >= 65 (PCV13)] Future Scheduled FLU VACCINE > 6 [facility] Test MONTHS [code = FLU of Medici ne VACCINE > 6 MONTHS] Future Scheduled ANNUAL DIABETIC [facility] Test RETINOPATHY of Medicine SCREENING [code = ANNUAL DIABETIC RETINOPATHY SCREENING] Future Scheduled FALL SCREEN [code = [facility] Test FALL SCREEN] of Medicine Future Scheduled COLON CANCER [facility] Test SCREENING: of Medicine COLONOSCOPY [code = COLON CANCER SCREENING: COLONOSCOPY] Future Scheduled MAMMOGRAM ANNUAL [facility] College Test [code = MAMMOGRAM of Medicin e ANNUAL] Future Scheduled TETANUS SHOT (ADULT) [facility] Test [code = TETANUS SHOT of Medi cine (ADULT)] Future Scheduled Diabetic foot [facility] Test examination of Medicine (regime/therapy) [code = [id number]] Future Scheduled HEPATITIS C [facility] Test SCREENING [code = of Medicin e HEPATITIS C SCREENING] Future Scheduled OSTEOPOROSIS [facility] Test SCREENING [code = of Medicin e OSTEOPOROSIS SCREENING] Future Scheduled PNEUMOVAX >=65 [facility] Co [facility]lege Test (PPSV23) [code = of Medicine PNEUMOVAX >=65 (PPSV23)] Future Scheduled PREVNAR >= 65 [facility] Col [facility]ge Test (PCV13) [code = of Medicine PREVNAR >= 65 (PCV13)] Future Scheduled FLU VACCINE > 6 [facility] Test MONTHS [code = FLU of Medici ne VACCINE > 6 MONTHS] Future Scheduled FALL SCREEN [code = [facility] Test FALL SCREEN] of Medicine Future Scheduled ANNUAL DIABETIC [facility] C [facility]lege Test RETINOPATHY of Medicine SCREENING [code = ANNUAL DIABETIC RETINOPATHY SCREENING] Future Scheduled COLON CANCER [facility] Test SCREENING: of Medicine COLONOSCOPY [code = COLON CANCER SCREENING: COLONOSCOPY] Future Scheduled MAMMOGRAM ANNUAL [facility] Test [code = MAMMOGRAM of Medicin e ANNUAL] Future Scheduled TETANUS SHOT (ADULT) [facility] [employer] Test [code = TETANUS SHOT of Medi cine (ADULT)] Future Scheduled Diabetic foot [facility] Test examination of Medicine (regime/therapy) [code = [id number]] Future Scheduled HEPATITIS C [facility] Test SCREENING [code = of Medicin e HEPATITIS C SCREENING] Future Scheduled OSTEOPOROSIS [facility] Test SCREENING [code = of Medicin e OSTEOPOROSIS SCREENING] Future Scheduled PNEUMOVAX >=65 [facility] Test (PPSV23) [code = of Medicine PNEUMOVAX >=65 (PPSV23)] Future Scheduled PREVNAR >= 65 [facility] Test (PCV13) [code = of Medicine PREVNAR >= 65 (PCV13)] Future Scheduled FLU VACCINE > 6 [facility] C ollege Test MONTHS [code = FLU of Medici ne VACCINE > 6 MONTHS] Future Scheduled FALL SCREEN [code = [facility] Test FALL SCREEN] of Medicine Future Scheduled ANNUAL DIABETIC [facility] Test RETINOPATHY of Medicine SCREENING [code = ANNUAL DIABETIC RETINOPATHY SCREENING] Future Scheduled COLON CANCER [facility] Test SCREENING: of Medicine COLONOSCOPY [code = COLON CANCER SCREENING: COLONOSCOPY] Future Scheduled MAMMOGRAM ANNUAL [facility] Test [code = MAMMOGRAM of Medicin e ANNUAL] Future Scheduled TETANUS SHOT (ADULT) [facility] [employer] Test [code = TETANUS SHOT of Medi cine (ADULT)] Future Scheduled Diabetic foot [facility] Col [facility]ge Test examination of Medicine (regime/therapy) [code = [id number]] Future Scheduled HEPATITIS C [facility] Test SCREENING [code = of Medicin e HEPATITIS C SCREENING] Future Scheduled OSTEOPOROSIS [facility] Test SCREENING [code = of Medicin e OSTEOPOROSIS SCREENING] Future Scheduled PNEUMOVAX >=65 [facility] Test (PPSV23) [code [...] SCREEN] of Medicine Future Scheduled ANNUAL DIABETIC [facility] C [facility]lege Test RETINOPATHY of Medicine SCREENING [code = ANNUAL DIABETIC RETINOPATHY SCREENING] Future Scheduled COLON CANCER [facility] ege Test SCREENING: of Medicine COLONOSCOPY [code = COLON CANCER SCREENING: COLONOSCOPY] Future Scheduled MAMMOGRAM ANNUAL [facility] Test [code = MAMMOGRAM of Medicin e ANNUAL] Future Scheduled TETANUS SHOT (ADULT) [facility] [employer] Test [code = TETANUS SHOT of Medi cine (ADULT)] Future Scheduled Diabetic foot [facility] Col [facility]ge Test examination of Medicine (regime/therapy) [code = [id number]] Future Scheduled HEPATITIS C [facility] Test SCREENING [code = of Medicin e HEPATITIS C SCREENING] Future Scheduled OSTEOPOROSIS [facility] Test SCREENING [code = of Medicin e OSTEOPOROSIS SCREENING] Future Scheduled PNEUMOVAX >=65 [facility] Test (PPSV23) [code = of Medicine PNEUMOVAX >=65 (PPSV23)] Future Scheduled PREVNAR >= 65 [facility] Test (PCV13) [code = of Medicine PREVNAR >= 65 (PCV13)] Future Scheduled FLU VACCINE > 6 [facility] C ollege Test MONTHS [code = FLU of Medici ne VACCINE > 6 MONTHS] Future Scheduled FALL SCREEN [code = [facility] Test FALL SCREEN] of Medicine Future Scheduled ANNUAL DIABETIC [facility] Test RETINOPATHY of Medicine SCREENING [code = ANNUAL DIABETIC RETINOPATHY SCREENING] Future Scheduled COLON CANCER [facility] Test SCREENING: of Medicine COLONOSCOPY [code = COLON CANCER SCREENING: COLONOSCOPY] Future Scheduled MAMMOGRAM ANNUAL [facility] Test [code = MAMMOGRAM of Medicin e ANNUAL] Future Scheduled TETANUS SHOT (ADULT) [facility] [employer] Test [code = TETANUS SHOT of Medi cine (ADULT)] Future Scheduled Diabetic foot [facility] Test examination of Medicine (regime/therapy) [code = [id number]] Future Scheduled HEPATITIS C [facility] Test SCREENING [code = of Medicin e HEPATITIS C SCREENING] Future Scheduled OSTEOPOROSIS [facility] Test SCREENING [code = of Medicin e OSTEOPOROSIS SCREENING] Future Scheduled PNEUMOVAX >=65 [employer] [facility] [employer] Test (PPSV23) [code = of Medicine PNEUMOVAX >=65 (PPSV23)] Future Scheduled PREVNAR >= 65 [facility] Col [facility]ge Test (PCV13) [code [...] DIABETIC RETINOPATHY SCREENING] Future Scheduled COLON CANCER [facility] Test SCREENING: of Medicine COLONOSCOPY [code = COLON CANCER SCREENING: COLONOSCOPY] Future Scheduled MAMMOGRAM ANNUAL [facility] Test [code = MAMMOGRAM of Medicin e ANNUAL] Future Scheduled TETANUS SHOT (ADULT) [facility] Test [code = TETANUS SHOT of Medi cine (ADULT)] Future Scheduled Diabetic foot [facility] Test examination of Medicine (regime/therapy) [code = [id number]] Future Scheduled HEPATITIS C [facility] Test SCREENING [code = of Medicin e HEPATITIS C SCREENING] Future Scheduled OSTEOPOROSIS [facility] Test SCREENING [code = of Medicin e OSTEOPOROSIS SCREENING] Future Scheduled PNEUMOVAX >=65 [facility] Test (PPSV23) [code [...] SCREEN] of Medicine Future Scheduled ANNUAL DIABETIC [facility] C [facility]lege Test RETINOPATHY of Medicine SCREENING [code = ANNUAL DIABETIC RETINOPATHY SCREENING] Future Scheduled COLON CANCER [facility] Test SCREENING: of Medicine COLONOSCOPY [code = COLON CANCER SCREENING: COLONOSCOPY] Future Scheduled MAMMOGRAM ANNUAL [facility] Test [code = MAMMOGRAM of Medicin e ANNUAL] Future Scheduled TETANUS SHOT (ADULT) [facility] [employer] Test [code = TETANUS SHOT of Medi cine (ADULT)] Future Scheduled Diabetic foot [facility] Col [facility]ge Test examination of Medicine (regime/therapy) [code = [id number]] Future Scheduled HEPATITIS C [facility] Test SCREENING [code = of Medicin e HEPATITIS C SCREENING] Future Scheduled MEDICARE AWV [facility] Test (Initial) [code = of Medicin e MEDICARE AWV (Initial)] Future Scheduled OSTEOPOROSIS [facility] Test SCREENING [code = of Medicin e OSTEOPOROSIS SCREENING] Future Scheduled PNEUMOVAX >=65 [facility] Co [facility]lege Test (PPSV23) [code = of Medicine PNEUMOVAX >=65 (PPSV23)] Future Scheduled PREVNAR >= 65 [facility] Col [facility]ge Test (PCV13) [code [...] DIABETIC RETINOPATHY SCREENING] Future Scheduled COLON CANCER [facility] Test SCREENING: of Medicine COLONOSCOPY [code = COLON CANCER SCREENING: COLONOSCOPY] Future Scheduled MAMMOGRAM ANNUAL [facility] Test [code = MAMMOGRAM of Medicin e ANNUAL] Future Scheduled COLON CANCER [facility] Test SCREENING: of Medicine COLONOSCOPY [code = COLON CANCER SCREENING: COLONOSCOPY] Future Scheduled MAMMOGRAM ANNUAL [facility] Test [code = MAMMOGRAM of Medicin e ANNUAL] Future Scheduled TETANUS SHOT (ADULT) [facility] Test [code = TETANUS SHOT of Medi cine (ADULT)] Future Scheduled TETANUS SHOT (ADULT) [employer] Test [code = TETANUS SHOT of Medi cine (ADULT)] Future Scheduled Diabetic foot [facility] Col lege Test examination of Medicine (regime/therapy) [code = [id number]] Future Scheduled HEPATITIS C [facility] Dariusz ege Test SCREENING [code = of Medicin e HEPATITIS C SCREENING] Future Scheduled MEDICARE AWV [facility] Dariusz ege Test (Initial) [code = of Medicin e MEDICARE AWV (Initial)] Future Scheduled OSTEOPOROSIS [facility] Dariusz ege Test SCREENING [code [...] DIABETIC RETINOPATHY SCREENING] Future Scheduled Diabetic foot [facility] [employer] Test examination of Medicine (regime/therapy) [code = [id number]] Future Scheduled HEPATITIS C [facility] Dariusz ege Test SCREENING [code = of Medicin e HEPATITIS C SCREENING] Future Scheduled FALL SCREEN [code = [employer] FALL SCREEN] of Medicine Future Scheduled COLON CANCER [facility] Dariusz ege Test SCREENING: of Medicine COLONOSCOPY [code = COLON CANCER SCREENING: COLONOSCOPY] Future Scheduled MAMMOGRAM ANNUAL [facility] [employer] Test [code = MAMMOGRAM of Medicin e ANNUAL] Future Scheduled OSTEOPOROSIS [facility] Dariusz ege Test SCREENING [code = of Medicin e OSTEOPOROSIS SCREENING] Future Scheduled TETANUS SHOT (ADULT) [employer] Test [code = TETANUS SHOT of Medi cine (ADULT)] Future Scheduled Diabetic foot [facility] [employer] Test examination of Medicine (regime/therapy) [code = [id number]] Future Scheduled HEPATITIS C [facility] Dariusz ege Test SCREENING [code = of Medicin e HEPATITIS C SCREENING] Future Scheduled MEDICARE AWV [facility] Dariusz ege Test (Initial) [code = of Medicin e MEDICARE AWV (Initial)] Future Scheduled OSTEOPOROSIS [facility] Dariusz [employer]ge Test SCREENING [code = of Medicin e OSTEOPOROSIS SCREENING] Future Scheduled PNEUMOVAX >=65 [facility] [employer] Test (PPSV23) [code = of Medicine PNEUMOVAX >=65 (PPSV23)] Future Scheduled FLU VACCINE > 6 [facility] C ollege Test MONTHS [code = FLU of Medici ne VACCINE > 6 MONTHS] Future Scheduled FALL SCREEN [code = [employer] FALL SCREEN] of Medicine Future Scheduled ANNUAL DIABETIC [facility] C [employer] Test RETINOPATHY of Medicine SCREENING [code = ANNUAL DIABETIC RETINOPATHY SCREENING] Future Scheduled PNEUMOVAX >=65 [facility] [employer] Test (PPSV23) [code = of Medicine PNEUMOVAX >=65 (PPSV23)] Future Scheduled PREVNAR >= 65 [facility] Col [employer] Test (PCV13) [code = of Medicine PREVNAR >= 65 (PCV13)] Future Scheduled FLU VACCINE > 6 [facility] C [employer]lege Test MONTHS [code = FLU of Medici ne VACCINE > 6 MONTHS] Future Scheduled ANNUAL DIABETIC [facility] C [employer] Test RETINOPATHY of Medicine SCREENING [code = ANNUAL DIABETIC RETINOPATHY SCREENING] Future Scheduled COLON CANCER [facility] Dariusz ege Test SCREENING: of Medicine COLONOSCOPY [code = COLON CANCER SCREENING: COLONOSCOPY] Future Scheduled MAMMOGRAM ANNUAL [facility] Test [code = MAMMOGRAM of Medicin e ANNUAL] Future Scheduled TETANUS SHOT (ADULT) [employer] Test [code = TETANUS SHOT of Medi cine (ADULT)] Future Scheduled Diabetic foot [facility] Col [employer]ge Test examination of Medicine (regime/therapy) [code = [id number]] Future Scheduled HEPATITIS C [facility] Dariusz ege Test SCREENING [code = of Medicin e HEPATITIS C SCREENING] Future Scheduled ZOSTER VACCINE (1 of [facility] College Test 2) [code = ZOSTER of Medicin e VACCINE (1 of 2)] Future Scheduled MEDICARE AWV [facility] Dariusz ege Test (Initial) [code = of Medicin e MEDICARE AWV (Initial)] Future Scheduled OSTEOPOROSIS [facility] Dariusz ege Test SCREENING [code = of Medicin e OSTEOPOROSIS SCREENING] Future Scheduled PNEUMOVAX >=65 [facility] [employer] Test (PPSV23) [code = of Medicine PNEUMOVAX >=65 (PPSV23)] Future Scheduled FLU VACCINE > 6 [facility] C [employer] Test MONTHS [code = FLU of Medici ne VACCINE > 6 MONTHS] Future Scheduled FALL SCREEN [code = [employer] FALL SCREEN] of Medicine Future Scheduled ANNUAL DIABETIC [facility] [employer] Test RETINOPATHY of Medicine SCREENING [code = ANNUAL DIABETIC RETINOPATHY SCREENING] Future Scheduled COLON CANCER [facility] Dariusz ege Test SCREENING: of Medicine COLONOSCOPY [code = COLON CANCER SCREENING: COLONOSCOPY] Future Scheduled MAMMOGRAM ANNUAL [facility] [employer] Test [code = MAMMOGRAM of Medicin e ANNUAL] Future Scheduled TETANUS SHOT (ADULT) [employer] Test [code = TETANUS SHOT of Medi cine (ADULT)] Future Scheduled Diabetic foot [facility] [employer] Test examination of Medicine (regime/therapy) [code = [id number]] Future Scheduled HEPATITIS C [facility] D[employer]z [employer]ge Test SCREENING [code = of Medicin e HEPATITIS C SCREENING] Future Scheduled ZOSTER VACCINE (1 of [employer] Test 2) [code = ZOSTER of Medicin e VACCINE (1 of 2)] Future Scheduled MEDICARE AWV [facility] Dariusz [facility] Test (Initial) [code = of Medicin e MEDICARE AWV (Initial)] Future Scheduled OSTEOPOROSIS [facility] D[employer]z [employer]ge Test SCREENING [code [...] DIABETIC RETINOPATHY SCREENING] Future Scheduled COLON CANCER [facility] Dariusz ege Test SCREENING: of Medicine COLONOSCOPY [code = COLON CANCER SCREENING: COLONOSCOPY] Future Scheduled MAMMOGRAM ANNUAL [facility] Test [code = MAMMOGRAM of Medicin e ANNUAL] Future Scheduled TETANUS SHOT (ADULT) [employer] Test [code = TETANUS SHOT of Medi cine (ADULT)] Future Scheduled Diabetic foot [facility] Col [employer]ge Test examination of Medicine (regime/therapy) [code = [id number]] Future Scheduled HEPATITIS C [facility] Dariusz ege Test SCREENING [code = of Medicin e HEPATITIS C SCREENING] Future Scheduled FALL SCREEN [code = [employer] FALL SCREEN] of Medicine Future Scheduled OSTEOPOROSIS [facility] D[facility]z [facility] Test SCREENING [code = of Medicin e OSTEOPOROSIS SCREENING] Future Scheduled PNEUMOVAX >=65 [facility] [employer] Test (PPSV23) [code = of Medicine PNEUMOVAX >=65 (PPSV23)] Future Scheduled PREVNAR >= 65 [facility] [employer] Test (PCV13) [code = of Medicine PREVNAR >= 65 (PCV13)] Future Scheduled FLU VACCINE > 6 [facility] C [employer]lege Test MONTHS [code = FLU of Medici ne VACCINE > 6 MONTHS] Future Scheduled ANNUAL DIABETIC [facility] C [employer] Test RETINOPATHY of Medicine SCREENING [code = ANNUAL DIABETIC RETINOPATHY SCREENING] Future Scheduled PROC INJ AVASTIN 1 Occurrences [facility] Test INTRAVITREAL starting of Medicine BILATERAL [code = 07/31/2020 until 15376] 07/31/2021 Future Scheduled PROC INJ EYLEA [address] [facility] ollege Test INTRAVITREAL starting of Medicine BILATERAL [code = 07/31/2020 until 83408] 07/31/2021 Future Scheduled PROC INJ EYLEA [address] [facility] ollege Test INTRAVITREAL starting of Medicine BILATERAL [code = 06/05/2020 until 94139] 06/05/2021 Future Scheduled PROC INJ EYLEA [address] [facility] ollege Test INTRAVITREAL starting of Medicine BILATERAL [code = 04/14/2020 until 47525] 04/14/2021 Future Scheduled PROC INJ EYLEA [address] [facility] ollege Test INTRAVITREAL starting of Medicine BILATERAL [code = 03/15/2020 until 91067] 03/15/2021 Future Scheduled PROC INJ EYLEA [address] [facility] ollege Test INTRAVITREAL starting of Medicine BILATERAL [code = 02/16/2020 until 43038] 02/15/2021 Future Scheduled PROC INJ AVASTIN 1 Occurrences [facility] Test INTRAVITREAL starting of Medicine BILATERAL [code = 01/13/2020 until 81539] 01/13/2021 Future Scheduled PROC INJ AVASTIN 1 Occurrences [facility] Test INTRAVITREAL starting of Medicine BILATERAL [code = 12/30/2019 until 81076] 12/30/2020 Encounters Start End Encounter Admission Attending Care Care Encounter Source Date/Time Date/Time Type Type Clinicians Facility Department ID 2022-07-18 Outpatient [facility], [facility] Surgery [id number] [facility] 15:12:25 [facility] 2021-09-09 Outpatient MED, [facility] Surgery [id number] [facility] 06:34:14 [facility] 2021-09-08 Outpatient MED, [facility] Surgery [id number] [facility] 08:34:40 [facility] 2021-09-07 Outpatient MED, [facility] Surgery [id number] [facility] 22:12:53 [facility] 2023-01-10 2023-01-10 Outpatient HARIKA MIRANDA [facility] [id number] [facility] 11:12:26 12:26:55 [facility] [employer] 2023-01-06 2023-01-06 Outpatient TREMAINE [facility] [id number] [facility] 08:49:32 09:42:57 [facility]UJ [employer] 2022-12-13 2022-12-13 Outpatient NITIN [facility] [id number] [facility] 13:17:54 14:41:11 [employer] [employer] 2022-12-06 2022-12-06 Outpatient TREMAINE Jose [facility] [id number] [facility] 08:35:54 10:12:18 [facility]J [employer] 2022-11-19 2022-11-19 Outpatient NITIN, [facility] [id number] [facility] 12:41:35 13:57:08 [facility] [employer] 2022-11-15 2022-11-15 Outpatient NITIN, [facility] [id number] [facility] 08:10:48 08:42:22 [facility]ON [employer] 2022-11-14 2022-11-14 Outpatient [facility] [id number] [facility] 09:54:00 23:59:00 [facility] [employer] 2022-11-14 2022-11-14 Outpatient [facility] Surgery [id number] [facility] 09:54:00 14:48:00 [facility] 2022-11-14 2022-11-14 [facility] [id number] [facility] 09:54:00 14:48:00 Encounter [facility] 2022-11-14 2022-11-14 [facility] [id number] 09:54:00 14:48:00 Encounter [facility] 2022-11-14 2022-11-14 Anesthesia Macario Hernandezshmi [facility] [id number] [facility] 11:21:00 12:47:00 Event Emeterio Bazan [facility] 2022-11-14 2022-11-14 Anesthesia Susy Hernandez [facility] [id number] 11:21:00 12:47:00 Event Emeterio Bazan [facility] 2022-11-14 2022-11-14 Surgery tigre, [facility] [id number] 11:20:00 12:40:00 [facility] 2022-11-14 2022-11-14 Surgery tigre, [facility] [id number] 11:20:00 12:40:00 [facility] 2022-11-01 2022-11-01 Outpatient TREMAINE [facility] [id number] [facility] 08:20:36 10:04:00 [facility] [employer] 2022-10-15 2022-10-15 Outpatient NITIN [facility] [id number] [facility] 12:57:25 14:40:59 [facility] [employer] 2022-10-02 2022-10-02 Outpatient TREMAINE [facility] [id number] [facility] 09:13:23 10:35:46 [facility]J [employer] 2022-10-01 2022-10-01 Outpatient NITIN [facility] [id number] [facility] 09:05:15 11:56:18 [facility] [employer] 2022-08-28 2022-08-28 Outpatient ROBERT [facility] [id number] [facility] 10:47:51 13:34:59 MARTHA [employer] 2022-08-26 2022-08-26 Outpatient TREMAINE [facility] [id number] [facility] 10:15:40 11:49:04 ANUJ [employer] 2022-07-24 2022-07-24 Outpatient TREMAINE [facility] [id number] [facility] 09:17:57 12:36:22 [facility]J [employer] 2022-07-17 2022-07-17 Outpatient ROBIN [facility] [id number] [facility] 13:09:11 14:10:23 SANKET Dariusz ege of Medicin e 2022-07-17 2022-07-17 Outpatient ROBERT, [facility] [id number] [facility] 09:23:09 10:09:28 MARTHA [employer] 2022-07-09 2022-07-09 Outpatient NITIN, [facility] [id number] [facility] 09:15:06 10:34:07 [facility]ARON [employer] 2022-06-24 2022-06-24 Outpatient CHRISTIAN COUNSELOR, [facility] [id number] [facility] 13:36:40 14:29:56 RENEA [employer] 2022-05-14 2022-05-14 Outpatient JOANNA, [facility] [id number] [facility] 09:19:29 11:21:05 TERRI [employer] 2022-05-01 2022-05-01 Outpatient ROBERT, [facility] [id number] [facility] 08:42:06 10:55:04 MARTHA [employer] 2022-04-05 2022-04-05 Outpatient TREMAINE [facility] [id number] [facility] 09:21:18 10:39:27 ANUJ [employer] 2022-04-02 2022-04-02 Outpatient NITIN [facility] [id number] [facility] 09:05:49 10:22:47 AARON [employer] 2022-03-20 2022-03-20 [facility] [id number] [facility] 04:54:00 04:54:00 Wing 99 [facility] 2022-03-13 2022-03-13 Outpatient ROBERT, [facility] [id number] [facility] 08:14:23 09:27:58 MARTHA [employer] 2022-02-22 2022-02-22 Outpatient TREMAINE [facility] [id number] [facility] 09:17:47 10:34:42 ANUJ [employer] 2022-02-20 2022-02-20 Outpatient ROBERT [facility] [id number] [facility] 09:28:59 11:16:16 MARTHA [employer] 2022-02-06 2022-02-06 [facility] [id number] [facility] 10:03:04 11:51:11 MARTHA [employer] 2022-01-30 2022-01-30 [facility] [id number] [facility] 09:32:52 11:26:52 MARTHA [employer] 2022-01-29 2022-01-29 Outpatient AHMED, [facility] [id number] [facility] 09:22:57 10:50:05 AARON [employer] 2022-01-28 2022-01-28 Outpatient BLBECCAEN, [facility] [id number] [facility] 10:51:04 12:50:45 LYN [employer] 2022-01-25 2022-01-25 [facility] [id number] [facility] 08:23:53 09:02:29 NICOLE [employer] 2022-01-24 2022-01-24 Outpatient BLBECCAEN, [facility] [id number] [facility] 14:07:19 15:06:08 LYN [employer] 2022-01-23 2022-01-23 [facility] [id number] [facility] 09:36:14 11:16:18 MARTHA [employer] 2022-01-22 2022-01-22 Outpatient [facility] [id number] [facility] 06:25:00 23:59:00 [facility] [employer] 2022-01-22 2022-01-22 Outpatient [facility], [facility] Surgery [id number] [facility] 06:25:00 08:55:00 DARRYL 2022-01-22 2022-01-22 [facility] [id number] 06:25:00 08:55:00 Encounter Darryl Reed [facility] 2022-01-22 2022-01-22 [facility] [id number] 06:25:00 08:55:00 [facility] 2022-01-22 Anesthesia [facility] [id number] [facility] 07:30:00 08:23:00 Event , [facility] 2022-01-22 2022-01-22 Anesthesia [facility] [id number] [facility] 07:30:00 08:23:00 Event , Myla [facility] 2022-01-22 2022-01-22 Surgery [place], [facility] [id number] [facility] 07:30:00 08:15:00 [facility] 2022-01-22 2022-01-22 Surgery [place], [facility] [id number] [facility] 07:30:00 08:15:00 [facility] 2022-01-21 2022-01-21 Orders [place], [facility] [id number] 00:00:00 00:00:00 Only [facility] 2022-01-21 2022-01-21 Orders [place], [facility] [id number] 00:00:00 00:00:00 Only [facility] 2022-01-16 2022-01-16 Outpatient TREMAINE [facility] [id number] [facility] 10:35:42 12:30:50 [facility]UJ [employer] 2021-12-12 2021-12-12 Outpatient ROBERT [facility] [id number] [facility] 15:43:28 16:53:28 MARTHA [employer] 2021-12-11 2021-12-11 Outpatient ROBIN [facility] [id number] [facility] 09:27:27 10:08:40 SANKET Arzola ege of Medicin e 2021-12-11 2021-12-11 Outpatient NITIN [facility] [id number] [facility] 08:33:01 09:27:10 AARON [employer] 2021-12-10 2021-12-10 Outpatient TREMAINE [facility] [id number] [facility] 12:36:04 14:42:35 ANUJ [employer] 2021-11-14 2021-11-14 Outpatient ROBERT, [facility] [id number] [facility] 15:03:56 15:55:33 MARTHA [employer] 2021-11-05 2021-11-05 Outpatient TREMAINE [facility] [id number] [facility] 12:53:58 13:46:10 ANUJ [employer] 2021-10-30 2021-10-30 Outpatient NITIN [facility] [id number] [facility] 10:59:06 12:09:11 AARON [employer] 2021-10-29 2021-10-29 Outpatient TREMAINE [facility] [id number] [facility] 13:53:45 15:32:08 ANUJ [employer] 2021-10-17 2021-10-17 Outpatient Elective Colón, [facility] [id number] [facility] 09:59:00 10:00:00 Mayra 66 2021-10-10 2021-10-10 Outpatient ROBERT, [facility] [id number] [facility] 12:27:54 15:25:07 MARTHA [employer] 2021-10-02 2021-10-02 Outpatient MONICATIGRE [facility] [id number] [facility] 09:01:21 10:37:18 AARON [employer] 2021-09-24 2021-09-24 Outpatient TREMAINE [facility] [id number] [facility] 14:22:24 16:38:14 ANUJ [employer] 2021-09-24 2021-09-24 Outpatient COSTA [facility] [id number] [facility] 08:54:37 09:52:39 GINGER [employer] 2021-09-11 2021-09-11 Outpatient NITIN [facility] [id number] [facility] 10:55:22 12:05:04 AARON [employer] 2021-09-10 2021-09-10 Outpatient TREMAINE [facility] [id number] [facility] 15:33:58 17:01:07 ANUJ [employer] 2021-08-21 2021-08-21 Outpatient AHMED, [facility] [id number] [facility] 09:25:20 10:36:23 AARON [employer] 2021-08-10 2021-08-10 Outpatient AHMED, [facility] [id number] [facility] 09:52:56 11:32:39 AARON [employer] 2021-08-03 2021-08-03 Outpatient TIGRE, [facility] [id number] [facility] 08:22:31 09:08:34 AARON [employer] 2021-08-02 2021-08-02 Outpatient [facility] [id number] [facility] 11:25:00 23:59:00 [facility] [employer] 2021-07-27 2021-07-27 Outpatient TREMAINE [facility] [id number] [facility] 10:35:38 12:19:51 ANUJ [employer] 2021-07-24 2021-07-24 Outpatient NITIN, [facility] [id number] [facility] 14:07:36 15:51:32 AARON [employer] 2021-06-20 2021-06-20 Outpatient NITIN, [facility] [id number] [facility] 13:20:08 14:43:13 AARON [employer] 2021-06-15 2021-06-15 Outpatient TREMAINE [facility] [id number] [facility] 13:17:58 14:45:34 ANUJ [employer] 2021-04-13 2021-04-13 Outpatient TREMAINE [facility] [id number] [facility] 09:09:56 10:22:08 ANUJ [employer] 2021-04-10 2021-04-10 Outpatient VIVIAN Colónjose [facility] [id number] [facility] 10:00:00 10:00:00 Mayra 08 2021-01-24 2021-01-24 Outpatient [facility] [id number] [facility] 00:00:00 00:00:00 2021-01-08 2021-01-08 Outpatient HARIKA PENALOZA [facility] [id number] [facility] 14:42:25 16:17:28 ANUJ [facility] 2020-10-04 2020-10-04 Outpatient 3 Mayra Colón [facility] MAMMO [id number] St. 09:24:00 23:59:00 Mayra Colón [facility] 2020-09-08 2020-09-08 Office HARIKA Miranda 1.2.840.114 [id number] 09:59:54 10:14:54 Visit Aaron AMBULATOR 350.1.13.21 Y 0.2.7.2.686 [id number] 2020-09-08 2020-09-08 Office HARIKA Miranda 1.2.840.114 [id number] [facility] 09:59:54 10:14:54 Visit Aaron AMBULATOR 350.1.13.21 College Y 0.2.7.2.686 of [id number] Medi ida 300 e 2020-07-31 2020-07-31 Office Ingrid Amato [facility] 1.2 .840.114 [id number] [facility] 10:34:02 11:47:57 Visit 3, Ods AMBULATOR 350.1.13.21 College Y 0.2.7.2.686 of [id number] Medi ida 300 e 2020-07-31 2020-07-31 Office Ingrid Amato [facility] 1.2 .840.114 [id number] 10:34:02 11:47:57 Visit 3, Ods AMBULATOR 350.1.13.21 Y 0.2.7.2.686 [id number] 300 2020-07-07 2020-07-07 Office HARIKA Miranda 1.2.840.114 [id number] 10:56:44 11:11:44 Visit Aaron AMBULATOR 350.1.13.21 Y 0.2.7.2.686 [id number] 300 2020-07-07 2020-07-07 Office HARIKA Miranda 1.2.840.114 [id number] [facility] 10:56:44 11:11:44 Visit Aaron AMBULATOR 350.1.13.21 College Y 0.2.7.2.686 of [id number] Medi ida 300 e 2020-06-05 2020-06-05 Office Ingrid Amato BC 1.2 .840.114 [id number] 09:39:59 11:18:28 Visit 3, Ods AMBULATOR 350.1.13.21 Y 0.2.7.2.686 [id number] 300 2020-06-05 2020-06-05 Office Ingrid Amato BCM 1.2 .840.114 [id number] [facility] 09:39:59 11:18:28 Visit 3, Ods AMBULATOR 350.1.13.21 College Y 0.2.7.2.686 of [id number] Medi ida 300 e 2020-05-02 2020-05-02 Office HARIKA Miranda 1.2.840.114 [id number] 15:43:06 16:23:20 Visit Aaron AMBULATOR 350.1.13.21 Y 0.2.7.2.686 [id number] 300 2020-05-02 2020-05-02 Office HARIKA Miranda 1.2.840.[id number] [place] [address] 15:43:06 16:23:20 Visit Aaron AMBULATOR 350.1.13.21 College Y 0.2.7.2.686 of [id number] Medi ida 300 e 2020-04-14 2020-04-14 Office Ingrid Amato BC 1.2 .840.114 [id number] [facility] 10:14:08 12:04:39 Visit 3, Ods AMBULATOR 350.1.13.21 College Y 0.2.7.2.686 of [id number] Medi ida 300 e 2020-04-05 2020-04-05 Office HARIKA Mrianda 1.2.840.114 [id number] [facility] 10:17:41 10:32:41 Visit Aaron AMBULATOR 350.1.13.21 College Y 0.2.7.2.686 of [id number] Medi ida 300 e 2020-03-30 2020-03-30 Office HARIKA Miranda 1.2.840.114 [id number] [facility] 13:15:51 14:06:55 Visit Aaron AMBULATOR 350.1.13.21 College Y 0.2.7.2.686 of [id number] Medi ida 300 e 2020-03-21 2020-03-21 Office HARIKA Boone 1.2.840.114 [id number] [facility] 15:55:46 16:05:46 Visit Abelardo AMBULATOR 350.1.13.21 College Y 0.2.7.2.686 of [id number] Medi ida 300 e 2020-03-15 2020-03-15 Office Ingrid Amato [facility] 1.2 .840.114 [id number] [facility] 10:51:54 11:57:38 Visit 3, Ods AMBULATOR 350.1.13.21 College Y 0.2.7.2.686 of [id number] Medi ida 300 e 2020-02-16 2020-02-16 Office Ingrid Amato [facility] 1.2 .840.114 [id number] [facility] 09:33:51 10:57:42 Visit 3, Ods AMBULATOR 350.1.13.21 College Y 0.2.7.2.686 of [id number] Medi ida 300 e 2020-01-13 2020-01-13 Office Ingrid Amato [facility] 1.2 .840.114 [id number] [facility] 10:04:33 11:31:34 Visit 3, Ods AMBULATOR 350.1.13.21 College Y 0.2.7.2.686 of [id number] Medi ida 300 e 2019-12-30 2019-12-30 Office Ingrid Amato [facility] 1.2 .840.114 [id number] [facility] 09:12:15 09:32:15 Visit 3, Ods AMBULATOR 350.1.13.21 College Y 0.2.7.2.686 of [id number] Medi ida 300 e 2018-02-23 2018-02-23 Outpatient C [facility] MED [id number] [address] 09:18:00 09:18:00 [facility] Results Test Description Test Time Test Comments Results Result Comments Source POC-Glucose meter 2022-11-14 11:08:34 Test Item Value Reference Range Interpretation Comme nts POC-Glucose Meter (test code = 70 mg/dL 70-110 : TESTED AT [place] [address] 1538) [facility] [address]: Probate Clerk/Techni cristin ID = [id number] for WILRICH, MORENA Lab Interpretation (test code = Normal 38666-6) [facility]-Glucose [id number] 11:08:34 Test Item Value Reference Range Interpretation Comments POC-Glucose Meter (test 70 mg/dL 70-110 : TE STED AT code = 1538) [place] [address] 0: Probate Clerk/Techni cristin ID = [id number] for WILRICH, MORENA Lab Interpretation (test Normal code = 34327-0) [facility]-Glucose [id number] 11:08:34 Test Item Value Reference Range Interpretation Comments POC-Glucose Meter (test 70 mg/dL 70-110 : TE STED AT code = 1538) [place] [address] 0: Probate Clerk/Techni cristin ID = [id number] for WILRICH, MORENA Lab Interpretation (test Normal code = 80881-1) [facility] [id number] 11:08:34 Test Item Value Reference Range Interpretation Comments POC-Glucose Meter (test 70 mg/dL 70-110 : TE STED AT code = 1538) [place] [address] 0: Probate Clerk/Techni cristin ID = [id number] for WILRICH, MORENA Lab Interpretation (test Normal code = 72667-9) [facility] [id number] 11:08:34 Test Item Value Reference Range Interpretation Comments POC-Glucose Meter (test 70 mg/dL 70-110 : TE STED AT code = 1538) [place] [address] 0: Probate Clerk/Techni cristin ID = [id number] for WILRICH, MORENA Lab Interpretation (test Normal code = 31643-7) [facility] [id number] 11:08:34 Test Item Value Reference Range Interpretation Comments POC-Glucose Meter (test 70 mg/dL 70-110 : TE STED AT code = 1538) [facility] [address] [place] [address] 0: Probate Clerk/Techni cristin ID = [id number] for TOMEKA, MORENA Lab Interpretation (test Normal code = 17474-1) [facility]-Glucose [id number] 11:08:34 Test Item Value Reference Range Interpretation Comments POC-Glucose Meter (test 70 mg/dL 70-110 : TE STED AT code = 1538) [facility] [address] [place] [address] 0: Probate Clerk/Techni cristin ID = [id number] for WILRICH, MORENA Lab Interpretation (test Normal code = 61288-4) [facility]-Glucose [id number] 11:08:34 Test Item Value Reference Range Interpretation Comments POC-Glucose Meter (test 70 mg/dL 70-110 : TE STED AT code = 1538) [facility] [address] [place] [address] 0: Probate Clerk/Techni cristin ID = [id number] for WILFÉLIX, MORENA Lab Interpretation (test Normal code = 58771-6) [facility]-GLUCOSE [id number] 11:08:34 Test Item Value Reference Range Interpretation Comments POC-GLUCOSE METER 70 mg/dL 70-110 : TESTED A T 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 BASIC METABOLIC [id number] 11:36:00 Test Item Value Reference Range Interpretation [...] 9.5 mg/dL 8.0-10.5 N CA) CBC W/AUTO [id number] 11:26:00 Test Item Value Reference Range Interpretation [...] NO = MDIFF) - XR CHEST 2 [id number] 00:00:00 [facility] : 1945 Sex: F FAX: Wing Kurtz MD [phone] Mobile: St: PRE FAX: Tera Lynch MD [phone] --- Name: JOSE ELIAS MOCK [facility] : 1945 Age/S: 76/F [address] [place] [address] Unit #: [id number] Loc: [place] [address] Phys: Wing Matos MD Acct: [id number] Dis Date: Status: PRE [facility] PHONE #: Exam Date: 03/18/2022 1209 FAX #: [phone] Reason: PREOP EXAMS: CPT CODE: [id number] XRCHEST 2 V 50271 PROCEDURE INFORMATION: Exam: XR Chest Exam date and time: 03/18/2022 11:08 AM Age: 76 years old Clinical indication: Pre-operative exam; Respiratory screening exam; Additional info: Preop [...] Srikanth Rg M.D. CC: Wing Matos MD; Tera Wright MD Technologist: RT [place](Lexi) Trnscrd Date/Time/By: 03/18/2022 (1434) : By: [email or web address] Orig Print D/T: S: 03/18/2022 (1434) PAGE 1 Signed ReportPOC- Glucose [id number] 07:17:28 Test Item Value Reference Range Interpretation Comments POC-Glucose Meter (test 128 mg/dL 70-110 H : TE STED AT code = 1538) [facility] [address] [place] [address] 0: Probate Clerk/Techni cristin ID = [id number] for MORENA ECKERT Lab Interpretation (test Abnormal code = 69181-6) [facility]-Glucose [id number] 07:17:28 Test Item Value Reference Range Interpretation Comments POC-Glucose Meter (test 128 mg/dL 70-110 H : TE STED AT code = 1538) [facility] [address] [place] [address] 0: Probate Clerk/Techni cristin ID = [id number] for ELIZABETH ECKERTIN Lab Interpretation (test Abnormal code = 11681-5) [facility] [id number] 07:17:28 Test Item Value Reference Range Interpretation Comments POC-Glucose Meter (test 128 mg/dL 70-110 H : TE STED AT code = 1538) [facility] [address] [place] [address] 0: Probate Clerk/Techni cristin ID = [id number] for ELIZABETH ECKERTIN Lab Interpretation (test Abnormal code = 21263-7) [facility] [id number] 07:17:28 Test Item Value Reference Range Interpretation Comments POC-Glucose Meter (test 128 mg/dL 70-110 H : TE STED AT code = 1538) [facility] [address] [place] [address] 0: Probate Clerk/Techni cristin ID = [id number] for MORENA ECKERT Lab Interpretation (test Abnormal code = 57902-9) [facility] [id number] 07:17:28 Test Item Value Reference Range Interpretation Comments POC-Glucose Meter (test 128 mg/dL 70-110 H : TE STED AT code = 1538) [facility] [address] [place] [address] 0: Probate Clerk/Techni cristin ID = [id number] for ELIZABETH ECKERTIN Lab Interpretation (test Abnormal code = 88286-2) [facility] [id number] 07:17:28 Test Item Value Reference Range Interpretation Comments POC-GLUCOSE METER 128 mg/dL 70-110 H : TESTED A T [facility] (BEAKER) (test code = [address], BLDG B 1538) [place] [address] 0: Probate Clerk/Techni cristin ID = [id number] for ELBA ROQUE MORENA POCT-GLUCOSE [id number] 14:40:00 Test Item Value Reference Range Interpretation Comments POC-GLUCOSE METER 110 mg/dL 70-110 : TESTED A T [facility] (BEAKER) (test code = [address], BLDG B 1538) [place] [address] 0: Probate Clerk/Techni cristin ID = [id number] for LOLITA CARLEY MEANS POCT-GLUCOSE [id number] 12:35:00 Test Item Value Reference Range Interpretation Comments POC-GLUCOSE METER 116 mg/dL 70-110 H : TESTED A T [facility] (BEAKER) (test code = [address], BLDG B 1538) [place] [address] 0: Probate Clerk/Techni cristin ID = [id number] for Jesse Bender POCT-GLUCOSE [id number] 12:28:00 Test Item Value Reference Range Interpretation Comments POC-GLUCOSE METER 145 mg/dL 70-110 H : TESTED A T [facility] (NASRA) (test code = [address], BLDG B 1538) [facility] [address] 0: Probate Clerk/Techni cristin ID = [id number] for SHAHEEN PAN MG Bone Density Dexa [id number] 12:11:22 [facility] : 1945 Sex: FPatient: JOSE ELIAS MOCK Date/Time10/04/2020 11:32 CSTReason for ExamD05.90 M85.88ReportDictation location R 16CLINICAL HISTORY:OsteoporosisBONE DENSITOMETRY:An evaluation of bone density was performed.*The young adult T score and the age matched Z score refers to standard deviations (SD) aboveor below normal.The World Health Organization recently established that osteoporosis occurs at -2.5 SD below peak bone mass. (Peak bone mass occurs at 30 years of age in the spine and about 22 years ofage in the femoral neck.) In addition, osteopenia occurs at -1.0 SD to -2.5 SD below peak bone mass.Low bone mass is the single most accurate predictor for fracture risk.The results of the study expressed as bone mineral density (BMD) were as follows:Scan performed: Lumbar spineBMD patient (gm/cm2): 1.678T-score: -2.55According to WHO classification, findings are normal.Scan performed: Left forearm distal radius and ulnaBMD patient (gm/cm2): 0.318T-score: -0.71According to WHO classification, findings are normal.Scan performed: Left forearm, proximal radiusBMD patient (gm/cm2): 0.646T-score: -2.69According to WHO classification, findings are osteoporoticIMPRESSION:1. Osteoporotic bone density with high increased risk for fracture.2. Compared to 02/01/2019 there is no appreciable change. FinalDictated by: MD Whitfield Phebe CDictated DT/TM: 10/04/2020 12:10 pmSigned by: MD Whitfield Phebe CSigned (Electronic Signature): 10/04/2020 12:11 pmMG Mammo Digital Diagnostic [id number] 12:08:07 [facility] : 1945 Sex: FPatient: JOSE ELIAS MOCK Date/Time10/04/2020 11:34 CSTReason for ExamD05.90 M85.88ReportDictation Location [id number]: Diagnostic and yearly mammogram with Tomosynthesis . History of left breastcancer status post lumpectomy and radiation. Known keloid at the lumpectomy site.COMPARISON: Mammograms dating back to 01/27/2015Routine views of both breasts were obtained and interpreted with the aid of CAD. 2-D and 3-D digital mammography was performed with the Hologic digital breast tomosynthesis unit.COMMENT: Scattered fibroglandular tissue is present in each breast with more contracted and calcified appearance of the keloid in the upper outer left breast. Additional benign calcifications are present bilaterally. No new spiculated mass, grouped calcifications or distortion seen.IMPRESSION:1. Nomammographic evidence for malignancy with more contracted and calcified appearance of the left breast keloid.2. BI-RADS ACR CATEGORY: 3-PROBABLY BENIGNRECOMMENDATION: FOLLOW UP LEFT BREAST MAMMOGRAM AND LEFT BREAST ULTRASOUND IN 6 MONTHS [facility] AccreditationFDA CertifiedBoard Certified Radiologists(ARRT) Registered Mammography TechnologistsNOTE:1. A negative x-ray report should not delay biopsy if a dominant or clinically suspicious mass is present. 4 to 8% of cancers are not identified by x-ray.2. A negative report may reinforceclinical impression.3. Adenosis and dense breast may obscure an underlying neoplasm.4. False positive results average 6 to 10%. Final Dictated by: MD Whitfield Phebe CDictated DT/TM: 10/04/2020 12:03 pmSigned by: MD Whitfield Phebe CSigned (Electronic Signature): 10/04/2020 12:08 pmENDOTHELIAL PHOTO AND CELL COUNT - OU - BOTH [id number] 16:36:22Decreased cell count OU with increased polymegathism and poor hexagonalityMenlo Park VA Hospital INTRAVITREAL INJECTION, PHARMACOLOGIC AGENT - OS - LEFT [id number] 17:18:33 [id number]. Injection: 2 mg Eylea [facility]: 49088-870-92, Lot: [id number], Expiration date: 02/28/2021 Route: Intravitreal, Site: Left Eye NotesProcedure: Intravitreal injection, Avastin 1.25mg/0.05mlEye:LeftPre-op Diagnosis: Macular edemaPost-op diagnosis: SameSurgeon: Ingrid Amato [...] vision was confirmed. Complications: NoneBlood Loss: NoneSpecimens: BannerINTRAVITREAL INJECTION, PHARMACOLOGIC AGENT - OD - RIGHT [id number] 17:18:50Nqsrolmwa2001. Injection: 2 mg Eylea [facility]: 54482-430-66, Lot: [id number], Expiration date: 02/28/2021 Route: Intravitreal, Site: Right [...] vision was confirmed. Complications: NoneBlood Loss: NoneSpecimens: BannerOCT, RETINA - OU - BOTH [id number] 16:30:21See [facility]OCT, RETINA - OU - BOTH [id number] 16:00:38See noteMenlo Park VA HospitalINTRAVITREAL INJECTION, PHARMACOLOGIC AGENT - OD - RIGHT EYE 2020-06-05 16:00:16Oguvhasci1322. Injection: 2 mg Eylea [facility]: 11096-072-60, Lot: [id number], Expiration date: 09/30/2020Route: Intravitreal, Site: Right Eye, [...] vision was confirmed. Complications: NoneBlood Loss: NoneSpecimens: BannerINTRAVITREAL INJECTION, PHARMACOLOGIC AGENT - OS - LEFT [id number] 16:00:14Tbavgaxpx3048. Injection: 2 mg Eylea [facility]: 88822-552-63, Lot: [id number], Expiration date: 09/30/2020 Route: Intravitreal, Site: Left Eye, Waste: 0 mg NotesProcedure: Intravitreal injection, Eylea 2.0 mg/0.05mlEye: LeftPre-op Diagnosis: Macular edemaPost-op diagnosis: SameSurgeon: Ingrid Amato MD Proc edure description: Risks, [...] vision was confirmed. Complications: NoneBlood Loss: NoneSpecimens: BannerOCT, RETINA - OU - BOTH [id number] 17:43:57See noteMenlo Park VA HospitalINTRAVITREAL INJECTION, PHARMACOLOGIC AGENT - OD - RIGHT [id number] 17:43:24Yivxbgdff0659. Injection: 2 mg Eylea [facility]: 51326-739-98, Lot: [id number], Expiration date: 07/31/2020 Route: Intravitreal, Site: Right [...] vision was confirmed. Complications: NoneBlood Loss: NoneSpecimens: BannerINTRAVITREAL INJECTION, PHARMACOLOGIC AGENT - OS - LEFT [id number] 17:43:89Pthjwzgpd8745. Injection: 2 mg Eylea NDC: 24169-656-61, Lot: [id number], Expiration date: 07/31/2020 Route: Intravitreal, Site: Left Eye, Waste: 0 mg NotesProcedure: Intravitreal injection, Eylea 2.0 mg/0.05mlEye: LeftPre-op Diagnosis: Macular edemaPost-op diagnosis: Jose Guadalupe: [...] vision was confirmed. Complications: NoneBlood Loss: NoneSpecimens: NoneMenlo Park VA HospitalCORNEAL TOPOGRAPHY - OU - BOTH EYES 2020-03-30 19:06:51CORNEAL TOPOGRAPHY - performed to assess corneal curvature/astigmatism & rule out corneal pathology that might cause loss of vision or affect future treatment options Right Left Curvature Normal Normal Surface Quality Normal Markedly Irregular Astig Magnitude 1-3D (moderate) 1-3D (moderate) Astig Pattern Regular Regular Posterior Surface Normal Marked Elevation [facility] RETINA - OU - BOTH [id number] 21:59:15See [facility] HospitalINTRAVITREAL INJECTION, PHARMACOLOGIC AGENT - OD - RIGHT [id number] 14:04:17Rfyjrwyen8727. Injection: 2 mg Eylea [facility]: 82997-747-04, Lot: [id number], Expiration date: 07/31/2020 Route: Intravitreal, Site: Right [...] vision was confirmed. Complications: NoneBlood Loss: NoneSpecimens: BannerINTRAVITREAL INJECTION, PHARMACOLOGIC AGENT - OS - LEFT [id number] 14:04:35Dvzicpcwb7152. Injection: 2 mg Eylea [facility]: 05125-273-46, Lot: [id number], Expiration date: 07/31/2020Route: Intravitreal, Site: Left Eye, Waste: 0 mg NotesProcedure: Intravitreal injection, Eylea 2.0 mg/0.05mlEye: LeftPre-op Diagnosis: Macular edemaPost-op diagnosis: Jose Guadalupe: [...] vision was confirmed. Complications: NoneBlood Loss: NoneSpecimens: BannerOCT, RETINA - OU - BOTH EYES 2020-03-15 16:33:32See [facility] HospitalINTRAVITREAL INJECTION, PHARMACOLOGIC AGENT - OD - RIGHT [id number] 13:36:88Igdnnywzr37607. Injection: 1.25 mg Avastin [facility]: 72578-922-68, Lot: [id number], Expiration date: 03/05/2020 Route: Intravitreal, Site: Right Eye, Waste: 0 mg NotesProcedure: Intravitreal injection, Avastin 1.25mg/0.05mlEye: RightPre-op Diagnosis: Macular edemaPost-op diagnosis: Jose Guadalupe: JAQUELINE Justinrocedhelen description: Risks, benefits, and alternatives to procedure [...] vision was confirmed. Complications: NoneBlood Loss: NoneSpecimens: BannerINTRAVITREAL INJECTION, PHARMACOLOGIC AGENT - OS - LEFT [id number] 13:36:26Dhilsresp87899. Injection: 1.25 mg Avastin ND: 01209-500-37, Lot: [id number], Expiration date: 03/05/2020 Route: Intravitreal, Site: Left [...] vision was confirmed. Complications: NoneBlood Loss: NoneSpecimens: BannerOCT, RETINA - OU - BOTH EYES 2020-02-16 15:30:28See [facility] HospitalINTRAVITREAL INJECTION, PHARMACOLOGIC AGENT - OD - RIGHT [id number] 12:45:95Vhkgxayhn80525. Injection: 1.25 mg Avastin NDC: 47458-504-11, Lot: [id number], Expiration date: 03/05/2020 Route: Intravitreal, Site: Right Eye, Waste: 0 mg NotesProcedure: Intravitreal injection, Avastin 1.25mg/0.05mlEye: RightPre-op Diagnosis: Macular edemaPost-op diagnosis: SameSurgeon: JAQUELINE Justinrocedure description: Risks, benefits, and alternatives [...] vision was confirmed. Complications: NoneBlood Loss: NoneSpecimens: BannerINTRAVITREAL INJECTION, PHARMACOLOGIC AGENT - OS - LEFT [id number] 12:44:55Uabpwecko45562. Injection: 1.25 mg Avastin [facility]: 03833-693-45, Lot: [id number], Expiration date: 03/05/2020 Route: Intravitreal, Site: Left [...] vision was confirmed. Complications: NoneBlood Loss: NoneSpecimens: BannerOCT, RETINA - OU - BOTH EYES 2019-12-30 15:53:34See [facility] Bone Density Dexa Scan 2019-02-01 11:17:04Patient: JOSE [...] for fracture risk. Final Dictated by: MD Rasheed, Lizbeth FDictated DT/TM: 02/01/2019 11:03 amSigned by: MD Iqbal Eniola FSigned (Electronic Signature): 02/01/2019 11:17 [facility] Mammo Digital Diagnostic [id number] 09:33:53Patient: JOSE ELIAS MOCK Date/Time02/01/2019 08:53 CSTReason [...] YEAR IN THE ABSENCE OF CLINICAL FINDINGS.BI-RADS C ATEGORY 2: Benign Final Dictated by: MD Rasheed, Lizbeth FDictated DT/TM: 02/01/2019 9:25 amSigned by: MD [...] is the single mostaccurate predictor for fracture risk.[facility] MAMMO DIAGNOSTIC FABIAN [id number] 11:13:08MAM MAMMO DIAGNOSTIC FABIAN W/CADD05.90: UNSPECIFIED TYPE OF CARCINOMA IN SITU OF UNSPECIFIED BREAST.Dictation Location: W35Izwirtre Information: 72-year-old female with history of left [...] ars ofage have not been validated by e MDRD study and shoul d be interpretedwith caution.eGFR Re sult Interpretation: eGFR > or = 60 is in t he Normal RangeeGF R < 60 may mean kidney diseaseeGFR < 1 5 may mean kidney failureRange s recommended by the National Kidney Foundation,http ://nkd ep.nih.gov US breast complete diag RT [facility] [address] [place] [address] Patient Name: Jose Elias Mock Medical Record#: [id number] Address: [address] City/State/Zip: [place] [address]: Mayra galan MD Insurance: Medicare A B /Age/Sex: 1945/76/F [employer] Ppo Admit/Reg Date: 10/17/[address]: Marya Colón MD Location: [facility]/ PCP: PCP,UNKNOWN Date of Service: 10/17/21 Order (s): US breast complete diag RT CPT Code: 93675 Report Number: [id number] Reason for Exam: D05.90 EXAMINATION: US breast complete diag RT CLINICAL INDICATION: Female, 76 years old with D05.90 TECHNIQUE: Grayscale and color Doppler evaluation of all four quadrants of the breast, retroareolar region, and axilla is performed. COMPARISON: Multiple mammograms and breast ultrasound and most recent dated 04/10/2021. SONOGRAPHIC FINDINGS: Right breast: Subcentimeter benign intramammary lymph nodes at 9:00 axis, stable mammographically. 4 mm cyst noted in right breast at 6:00 axis (probable oil cyst).No axillary lymphadenopathy. Left breast: Subcentimeter benign intramammary lymph nodes. Benign large calcification, left breast 7:00 axis. No axillary lymphadenopathy. IMPRESSION: BI-RADS CATEGORY 2:BENIGN RECOMMENDATIONS: CONTINUE ANNUAL SCREENING Electronically signed by: Lizbeth Strong MD 10/17/2021 1:28 PM MODELER Benign Dictated By: Lizbeth Iqbal MD 10/17/21 1309 Signed By: Lizbeth Iqbal MD 10/17/21 130 TD/TT: 10/17/21 1309 Tech: [id number] cc: PCPUNK; [id number]* PCP,UNKNOWN ; Mayra Colón MDBD bone densitometry [facility] [address] [place] [address] Patient Name: Jose Elias Mock Medical Record#: [id number] Address: [address] City/State/Zip: [place] [address]: Mayra galan MD Insurance: Medicare A B /Age/Sex: 1945/76/F [employer] Ppo Admit/Reg Date: 10/17/[address]: Mayra Colón MD Location: [facility]/ PCP: PCP,UNKNOWN Date of Service: 10/17/21 Order (s): BD bone densitometry periph CPT Code: 91219 Report Number: [id number] Reason for Exam: M85.88 EXAMINATION: BD bone densitometry periph CLINICAL INDICATION: Female, 76 years old with M85.88TECHNIQUE: Bone densitometry was performed using The HoloVo[employer] Discovery W DXA scanner. COMPARISON: 10/04/2020 FINDINGS: AP spine (L1-L4) BMD: 1.606 g /cc (previously 1.678 g/cc) T score: 2.53 Z score: Penny vailable WHO classification: Within normal limits Left proximal radius: BMD: 0.6508 g /cc (previously 0.6469 g/cc) T score: -2.64 Z score: -0.07 WHO classification: Osteoporosis Left proximal radius plus ulna: BMD: 0.7250 g /cc T score: -1.74 Z score: 0.77 WHO classification: Osteopenia Left distal radius post ulna: BMD: 0.3548 g /cc T score: -0.04 Z score: 1.45 WHO classification: Within normal limits Impression: 1. Osteoporosis with increased fracture risk. Follow-up examination in one year after therapy is recommended. 2. Compared to the 2019 exam, there is notable interval decrease bone densityat the C-spine. No significant change at the forearm. Electronically signed by: Lizbeth Strong MD 10/17/2021 1:33 PM [facility] Dictated By: Lizbeth Strong MD 10/17/211317 Signed By: Lizbeth Iqbal MD 10/17/211317 TD/TT: 10/17/211317 Tech: MM426 cc: PCPUNK; [id number]* PCP,UNKNOWN ; SHIRLEY Toro CAD, Tomo BI (p) [facility] [address] [place] [address] Patient Name: Jose Elias Mock Medical Record#: [id number] Address: [address] City/State/Zip: [place] [address]: Mayra galan MD Insurance: Medicare A B /Age/Sex: 1945[facility]76[facility] Admit/Reg Date: 10/17/[address]: Mayra Colón MD Location: [facility]/ PCP: PCP,UNKNOWN Date of Service: 10/17/21 Order (s): MM Diag Nhi, CAD, Robbie BI (p) CPT Code: Report Number: [id number] Reason for Exam: D05.90 EXAMINATION: MM Diag Nhi, CAD, Robbie BI (p) CLINICAL INDICATION: Female, 76 years old with D05.90 TECHNIQUE: Bilateral digital 2-D and 3-D tomosynthesis CC and MLO views. ML views of each breast. Spot compression 3-D CC views, right breast. COMPARISON: Multiple mammograms and breast ultrasound and most recent dated 04/10/2021. DENSITY: There are scattered areas of fibroglandular density FINDINGS: Apparent asymmetry in the retroareolar CC resolves with compression and does not reappear on the repeatCC view. Ultrasound from same day demonstrates no aggressive features. IMPRESSION: BI- RADS CATEGORY 2: BENIGN RECOMMENDATIONS: CONTINUE ANNUAL SCREENING. A second reading of the examination was performed using computer-aided detection. Information is entered into a reminder system for a target due date for the next mammogram. Thank you for allowing us to participate in your patient's care. The results and recommendations were sent to the patient by mail. Electronically signed by: Lizbeth Strong MD 10/17/2021 1:24 PM [facility] Benign Dictated By: Lizbeth Iqbal MD 10/17/21 110 Signed By: Lizbeth Iqbal MD 10/17/21 110 TD/TT: 10/17/21 110 Tech: [id number] cc: PCPUNK; [id number]* PCP,UNKNOWN ; Mayra Colón MD
[2023-01-15] MEDS ORDERED: GLUCAGON 1 MG/VIAL IM PRN (20:30)
[2023-01-15] MEDS ORDERED: D50W 25 GM/50 ML SYRINGE IV PRN (20:30)
[2023-01-15] MEDS: INSULIN -REGULAR HUMAN 50 UNIT/0.5 ML ML SQ SCH (21:09)
[2023-01-15] MEDS ORDERED: METOPROLOL TAR 50 MG TAB PO SCH (21:13)
[2023-01-15] MEDS ORDERED: FUROSEMIDE 100 MG in NA CHLORIDE 0.9% 90 ML IV SCH (22:00)
[2023-01-15] MEDS ORDERED: FUROSEMIDE 20 MG/ 2ML VIAL ONE (22:40)
[2023-01-15] MEDS ORDERED: NA CHLORIDE 0.9% 100 ML ONE (22:41)
[2023-01-15 23:16] LABS: Thyroid Stimulating Hormone 0.438 uIU/mL (0.358-3.740)
[2023-01-15 23:55] LABS: Specific Gravity 1.011 (1.005-1.030); Urine Bacteria <20 /HPF (<20); Urine Bilirubin NEGATIVE (Negative); Urine Blood Negative (Negative); Urine Clarity Clear (Clear); Urine Color Colorless (Yellow); Urine Glucose 2+ (Negative); Urine Mucus Slight /HPF (None Seen); Urine Protein 1+ (Negative); Urine RBC <5 /HPF (None Seen); Urine Urobilinogen Normal (Normal)
[2023-01-15 23:59] LABS: UR PROTEIN 74.3 mg/dL (<11.9); Urine Protein/Creatinine Ratio 1.28 ratio (<0.15)
[2023-01-16 03:51] LABS: Albumin 3.1 g/dL (3.4-5.0); Phosphorus 3.4 mg/dL (2.5-4.9); Potassium 3.9 mmol/L (3.5-5.1)
[2023-01-16] MEDS ORDERED: NA CHLORIDE 0.9% 100 ML ONE (05:30)
[2023-01-16] MEDS ORDERED: FUROSEMIDE 20 MG/ 2ML VIAL ONE (05:30)
[2023-01-16] MEDS: INSULIN -REGULAR HUMAN 50 UNIT/0.5 ML ML SQ SCH ×4 (07:30→21:19)
--- NOTE | 2023-01-16 09:03 | RAD REPORT ---
EXAM DESCRIPTION: US - Renal Ultrasound-Complete - 01/16/2023 5:24 am CLINICAL HISTORY: Acute Onset of CHF/ Anasarca Flank pain COMPARISON: Abdomen Exam Complete dated 09/19/2022 FINDINGS: Both kidneys are normal in size, shape and echotexture. The right kidney measures 12.6 x 5.1 x 4.0 cm. No hydronephrosis, focal mass or perinephric fluid. Sm all benign renal cysts. The left kidney measures 8.8 x 4.7 x 3.3 cm. No hydronephrosis, focal mass or perinephric fluid. Smal l benign renal cysts. The urinary bladder is incompletely distended without gross abnormality seen. IMPRESSION: Small benign renal cysts, otherwise negative study.
--- NOTE | 2023-01-16 12:49 | CON ---
Date of Consultation: 01/16/2023 Reason For Consultation: Elevated BUN and creatinine, anasarca. 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 For that reason, the patient send to the hospital and we have been consulted. The patient denied taking any nonsteroidal. The patient when swelling started was started on Lasix 20 mg, then Lasix has been increased to 40, but the patient did not notice any good response. Kidney function has declined. Baseline creatinine 1.8. Upon arrival, creatinine 2, her GFR used to be on the 40, currently down to 25. The patient denied any other insulting medication. The patient at home being on as I mentioned the Lasix and spironolactone. Otherwise, no other insulting medication except the acyclovir. Past Medical History: Includes; 1. Diabetes complicated with neuropathy and nephropathy. 2. Hypertension. 3. Hyperlipidemia. 4. Congestive heart failure. Family History: Positive for hypertension. Social History: Denied smoking, denied drinking, denied drug abuse. Past Surgical History: Noncontributory. Review of Systems: Head and Neck: No red eye. No ear pain. GI: No nausea. No vomiting. : No polyuria. No dysuria. No hematuria. Lead Pl Sql Developer: No vaginal discharge. Respiratory: Has shortness of breath. Cardiovascular: Has leg swelling. Has orthopnea. Endocrine: No polydipsia. Skin: No rash. Neuro: Has neuropathy. Musculoskeletal: No joint pain. Physical Examination: General: When I saw the patient lying in bed, comfortable on room air. Vital Signs: Blood pressure 146/66, pulse of 66, afebrile. Chest: Crackles bilateral base. Heart: S1, S2. Systolic murmur. Abdomen: Soft, nontender. Extremity: Plus edema. Neurologic: Alert. No focality. Laboratory Data: Sodium 139, potassium 4.3, bicarb 28, BUN 48, creatinine 2.1, GFR 23. Today; sodium 140, potassium 3.9, bicarb 29, BUN 46, creatinine 2, GFR of 25, albumin 3.1, calcium 8.9, corrected calcium 9.5. TSH 0.4, PTH 170. Urine specific gravity 1.011, PC ratio 1.2. Hemoglobin 10.5. Serum protein electrophoresis was done back in 2020, showed restricted M spike with IgG kappa monoclonal positive. Current Medications: The patient on Lasix drip at 20 mg, metoprolol, oxygen. Assessment And Plan: 1. Acute kidney injury, normal sized kidney with severe disproportion in the kidney size, proteinuric, 12.6/8.8, proteinuric, nonnephrotic secondary to diabetes nephropathy. The acute component secondary to cardiorenal, over volume, currently started to be normal volume. I am going to discontinue Lasix drip, place the patient on Lasix 40 b.i.d., and we will monitor the response. We will try to switch to oral tomorrow to see if she still tolerated and we will follow up. 2. Anasarca with severe disproportion in the kidney size. The patient needs to be ruled out, especially with normal ejection fraction. The patient needs to be ruled out for renal artery stenosis. The patient is going to need MRA as outpatient. Continue Lasix. Hypothyroidism has been ruled out. 3. Chronic kidney disease secondary to diabetes nephropathy, questionable of light chain disease. Serum protein electrophoresis was positive with positive immunofixation. The patient is going to need referral for Hematology as outpatient and possible kidney biopsy. We will follow up with Dr. Mayer. Continue current treatment. We will consider adding DEONTE inhibitor as outpatient. 4. Congestive heart failure. Normal ejection fraction as I mentioned with the disproportion of the kidney size. The patient will need to rule out renal artery stenosis given the recurrent over volume. time spend exam the patient face to face , reviewing data lab and radiology placing order , discussing with gigi member nursing and hospitalist >65 min MARYBEL Voice ID: [id number] Report ID: [id number] RADHA
[2023-01-16] MEDS ORDERED: D10W 250 ML BAG IV PRN (15:05)
[2023-01-16] MEDS ORDERED: D50W 25 GM/50 ML SYRINGE IV PRN (15:05)
[2023-01-16] MEDS ORDERED: DIFLUPREDNATE OPHTHALMIC 5 ML BOT EACH EYE SCH (17:00)
[2023-01-16] MEDS: DIFLUPREDNATE OPTH SCH ×2 (17:00→21:00)
[2023-01-16] MEDS: MOXIFLOXACIN OPTH SCH (21:00)
[2023-01-16] MEDS: SODIUM CHLORIDE OPTH SCH (21:00)
[2023-01-16] MEDS: [UNRECOGNIZED DRUG - OTHER] OPTH SCH (21:00)
[2023-01-16] MEDS ORDERED: METOPROLOL TAR 50 MG TAB PO SCH (21:00)
[2023-01-16] MEDS: METOPROLOL TAR 50 MG TAB PO SCH (21:08)
[2023-01-16] MEDS: FUROSEMIDE 40 MG/4 ML VIAL IV SCH (21:08)
[2023-01-16] MEDS: HYDRALAZINE HCL 25 MG TABLET PO SCH (21:10)
[2023-01-16] MEDS: ACYCLOVIR 400 MG TABLET PO SCH (21:10)
[2023-01-16] MEDS: ATORVASTATIN 40 MG TAB PO SCH (21:10)
--- NOTE | 2023-01-16 22:46 | CON ---
Date of Consultation: 01/16/2023 Reason For Consultation: Congestive heart failure exacerbation. History Of Present Illness: This is a 77-year-old female with past medical history of diabetes, hist ory of PE, hypertension, coronary artery disease, and diastolic heart failure who presented with wors ening shortness of breath and lower extremity edema and orthopnea. Denies having any chest pain. Isaak oswald was started on Lasix and her symptoms have improved significantly. Past Medical History: As outlined above in HPI. Medications: Refer to reconciliation sheet for detailed list. Allergies: ERYTHROMYCIN AND PENICILLIN. Family History: No premature coronary artery disease or cancer. Social History: She does not smoke or drink. Does not use any drugs. Review of Systems: All systems reviewed and they were negative except as mentioned in HPI. Physical Examination: Vital Signs: Reviewed. Head And Neck: Pupils are equal and reactive to light. Intact eye movements. No JVD. No cervical lymphadenopathy. Neck is supple. Thyroid is not enlarged. Lungs: Decreased breathing sounds with thin crackles on the bases. No accessory muscle use or muscl e retraction. Heart: Regular. No extra sounds. Abdomen: Soft, nontender. Bowel sounds positive. No organomegaly. No masses or hernia. No rigidi ty or rebound. Extremities: 1+ pitting edema bilaterally. No clubbing or cyanosis. Intact pulses. Skin: No rash. Neurologic: Alert, awake, and oriented x3. No acute focal deficits appreciated. Lymph Nodes: No cervical or axillary lymphadenopathy. Investigations: BUN is 46, creatinine 2.2, and her baseline is around 2.1. Assessment/recommendation: 1.[id number] diastolic heart failure exacerbation. I agree with IV diuresis. Carefully monit or BUN, creatinine, and electrolytes. 2.Chronic renal failure. Recommend Nephrology evaluation and monitor BUN and creatinine with the ag gressive diuresis. 3.Hypertension. Blood pressure is improving with the diuresis. Continue to monitor. SR/MODL Voice ID: [id number] Report ID: [id number]
[2023-01-17] MEDS: LEVOTHYROXINE SOD 0.05 MG TABLET PO SCH (06:22)
[2023-01-17 06:34] LABS: Albumin 3.3 g/dL (3.4-5.0); Potassium 3.8 mmol/L (3.5-5.1)
[2023-01-17] MEDS: INSULIN -REGULAR HUMAN 50 UNIT/0.5 ML ML SQ SCH ×4 (07:30→21:33)
[2023-01-17] MEDS: [UNRECOGNIZED DRUG - OTHER] OPTH SCH ×3 (09:00→21:00)
[2023-01-17] MEDS ORDERED: ASPIRIN 81 MG CHEWABLE TABLET PO SCH ×2 (09:00→21:00)
[2023-01-17] MEDS: HOME MED 1 EA UNK (Prednisolone Acetate/Pf [Prednisolone Acet 1% Eye Drop] 5 ML Drops.Susp OPTH SCH (09:00)
[2023-01-17] MEDS: DIFLUPREDNATE OPTH SCH ×4 (09:00→21:00)
[2023-01-17] MEDS: MOXIFLOXACIN OPTH SCH ×3 (09:00→21:00)
[2023-01-17] MEDS ORDERED: CLOPIDOGREL 75 MG TABLET PO SCH ×2 (09:00→21:00)
[2023-01-17] MEDS: SODIUM CHLORIDE OPTH SCH ×3 (09:00→21:00)
[2023-01-17] MEDS: HYDRALAZINE HCL 25 MG TABLET PO SCH ×2 (09:04→21:30)
[2023-01-17] MEDS: ACYCLOVIR 400 MG TABLET PO SCH ×2 (09:07→21:31)
[2023-01-17] MEDS: FUROSEMIDE 40 MG/4 ML VIAL IV SCH ×2 (09:07→21:32)
[2023-01-17] MEDS: METOPROLOL TAR 50 MG TAB PO SCH ×2 (09:09→21:30)
--- NOTE | 2023-01-17 13:09 | P.PN ---
Subjective Date of Service: 01/17/23 Subjective: No new changes Physical Examination - Vital Signs Temperature: 98.4 F Blood Pressure: 145/65 Pulse: 69 Respirations: 16 Pulse Ox (%): 99 - Physical Exam General: Other (appears her stated age) HEENT: Atraumatic, Normocephalic Neck: Supple Respiratory: Other (symmetric chest expansion) Cardiovascular: No rubs, No murmurs Gastrointestinal: Soft and benign, No guarding Musculoskeletal: No clubbing Integumentary: No warmth Neurological: Normal tone External genitalia: Deferred Rectal: Deferred - Studies Laboratory Data (last 24 hrs) 01/17/23 05:17: Sodium 138, Potassium 3.8, BUN 43 H, Creatinine 2.12 H, Glucose 110 H, Phosphorus 4.0 Assessment And Plan - Plan 1. Acute kidney injury 2/2 CRS1, on CKD. SCr plateued at 2.1. continue Lasix 40 mg IV twice a day. 2. Anasarca with severe disproportion in the kidney size. The patient needs to be ruled out, especially with normal ejection fraction. The patient needs to be ruled out for renal artery stenosis. The patient is going to need MRA as outpatient. Continue Lasix as above. 3. Chronic kidney disease stage 3 secondary to diabetes nephropathy, r/o paraprotein disease. Serum protein electrophoresis was positive with positive immunofixation. The patient is going to need referral for Hematology as outpatient and possible kidney biopsy. We will follow up with Dr. Mayer. Continue current treatment. We will consider adding DEONTE inhibitor as outpatient. Monitor renal panel. 4. Congestive heart failure. Normal ejection fraction. Lasix as above.
--- NOTE | 2023-01-17 13:47 | P.PN ---
Subjective Date of Service: 01/17/23 Chief Complaint: Acute on chronic diastolic heart failure Subjective: Improving (Patient is doing well admitted with the heart failure swelling has declined orthopnea improved) Review of Systems General: Weakness Respiratory: Shortness of Breath Physical Examination - Vital Signs Temperature: 98.4 F Blood Pressure: 145/65 Pulse: 69 Respirations: 16 Pulse Ox (%): 99 - Physical Exam General: Alert, Oriented x3 Neck: Supple Respiratory: Clear to auscultation bilaterally Cardiovascular: Normal S1 S2 (2+ edema), Edema - Studies Laboratory Data (last 24 hrs) 01/17/23 05:17: Sodium 138, Potassium 3.8, BUN 43 H, Creatinine 2.12 H, Glucose 110 H, Phosphorus 4.0 Assessment And Plan - Current Problems (Diagnosis) (1) Acute on chronic diastolic heart failure Current Visit: Yes Status: Acute Plan: Patient is 77 years of age admitted with acute on chronic diastolic heart failure doing much better chronic renal failure renal function is at baseline renal ultrasound no hydronephrosis vital signs stable oxygenation satisfactory seen by nephrology on IV Lasix switch to p.o. Lasix if doing well stable discharge tomorrow patient has severe secondary pulmonary hypertension from chronic diastolic heart failure
[2023-01-17] MEDS ORDERED: SPIRONOLACTONE 25 MG TABLET PO SCH (17:00)
[2023-01-17] MEDS: ATORVASTATIN 40 MG TAB PO SCH (21:31)
[2023-01-17 22:43] LABS: Hematocrit 32.6 % (36.0-45.0); MCV 79.3 fL (80-100); MPV 7.9 fL (7.6-11.3); RBC Red Blood Cell Count 4.11 M/uL (3.86-4.86)
[2023-01-18 04:23] VITALS: O2SAT 99
[2023-01-18 05:43] VITALS: BMI 32.6
[2023-01-18] MEDS: LEVOTHYROXINE SOD 0.05 MG TABLET PO SCH (05:43)
[2023-01-18 06:51] LABS: Albumin 3.2 g/dL (3.4-5.0); Phosphorus 4.3 mg/dL (2.5-4.9); Potassium 3.8 mmol/L (3.5-5.1)
[2023-01-18 08:17] VITALS: BP 177/83; TEMP 97.2
--- NOTE | 2023-01-18 08:51 | P.DS ---
Admission Date: 01/15/23 Discharge Date: 01/18/23 Disposition: ROUTINE DISCHARGE Discharge Condition: FAIR Reason for Admission: Acute on chronic diastolic heart failure - Problems (1) Acute on chronic diastolic heart failure Current Visit: Yes Status: Acute Brief History of Present Illness: Patient is 77 years of age admitted with worsening dyspnea due to on chronic diastolic heart failure secondary pulmonary hypertension Hospital Course: Patient was admitted to the hospital did well seen by nephrology Lasix increased to 40 mg twice a day vies to reduce her salt intake patient has a mild microcytic anemia creatinine was 2.10 at discharge renal ultrasound no hydronephrosis The time of discharge patient alert oriented responsive cooperative wants to go home denies any orthopnea lower extremity edema had decreased significantly no obvious distress pressure was mildly elevated to resume all her home medication patient was seen by Dr. Watkins and Dr. Matos during this admission Vital Signs/Physical Exam: Temp Pulse Resp BP Pulse Ox 97.2 F 80 16 177/83 H 97 01/18/23 08:00 01/18/23 08:00 01/18/23 08:00 01/18/23 08:00 01/18/23 08:00 Laboratory Data at Discharge: WBC 8.20 K/uL (4.3-10.9) 01/17/23 22:31 Hgb 10.5 g/dL (12.0-15.0) L 01/17/23 22:31 Hct 32.6 % (36.0-45.0) L 01/17/23 22:31 Plt Count 232 K/uL (152-406) 01/17/23 22:31 Sodium 138 mmol/L (136-145) 01/18/23 06:00 Potassium 3.8 mmol/L (3.5-5.1) 01/18/23 06:00 BUN 46 mg/dL (7-18) H 01/18/23 06:00 Creatinine 2.10 mg/dL (0.55-1.02) H 01/18/23 06:00 Glucose 183 mg/dL (74-106) H 01/18/23 06:00 Uric Acid 7.0 mg/dL (2.6-6.0) H 01/15/23 22:45 Phosphorus 4.3 mg/dL (2.5-4.9) 01/18/23 06:00 Home Medications: Cetirizine HCl [Zyrtec] 10 mg PO DAILY 11/05/17 Spironolactone 25 mg PO M,W,F 11/05/17 Acyclovir 800 mg PO BID 11/15/22 Amlodipine [Norvasc*] 10 mg PO DAILY 11/15/22 Aspirin 81 mg PO DAILY 11/15/22 Atorvastatin Calcium [Lipitor] 40 mg PO BEDTIME 11/15/22 Brimonidine Tartrate/Timolol [Combigan 0.2%-0.5% Eye Drops] 1 drop EACH EYE BID 11/15/22 Clopidogrel Bisulfate [Plavix*] 75 mg PO DAILY 11/15/22 Difluprednate [Durezol] 1 drop EACH EYE QID 11/15/22 Gabapentin 600 mg PO BID 11/15/22 Hydralazine [Apresoline*] 50 mg PO BID 11/15/22 Insulin Degludec [Tresiba] 46 units SQ DAILY 11/15/22 Metoprolol Tartrate [Lopressor*] 50 mg PO BID 11/15/22 Moxifloxacin in NaCl,Iso-Os/Pf [Moxifloxacin 5 mg/ml Vial] 1 drop EACH EYE TID 11/15/22 Prednisolone Acetate/Pf [Prednisolone Acet 1% Eye Drop] 1 drop EACH EYE DAILY 11/15/22 Levothyroxine Sodium 50 mcg PO DAILY 01/16/23 Furosemide [Lasix*] 40 mg PO BIDL 30 Days #60 tab 01/18/23 New Medications: Furosemide [Lasix*] 40 mg PO BIDL 30 Days #60 tab Physician Discharge Instructions: Patient to increase furosemide to 40 mg twice a day as per nephrology/okay I have called Dr. Martin Ch and he is okay for patient to go home Diet: Low sodium Followup: Nevaeh Nance MD [ACTIVE - CAN ADMIT] -
[2023-01-18] MEDS: SODIUM CHLORIDE OPTH SCH (09:00)
[2023-01-18] MEDS: [UNRECOGNIZED DRUG - OTHER] OPTH SCH (09:00)
[2023-01-18] MEDS ORDERED: FUROSEMIDE 40 MG TABLET PO SCH (09:00)
[2023-01-18] MEDS: DIFLUPREDNATE OPTH SCH (09:00)
[2023-01-18] MEDS: HOME MED 1 EA UNK (Prednisolone Acetate/Pf [Prednisolone Acet 1% Eye Drop] 5 ML Drops.Susp OPTH SCH (09:00)
[2023-01-18] MEDS: MOXIFLOXACIN OPTH SCH (09:00)
[2023-01-18] MEDS: METOPROLOL TAR 50 MG TAB PO SCH (09:24)
[2023-01-18] MEDS: HYDRALAZINE HCL 25 MG TABLET PO SCH (09:24)
[2023-01-18] MEDS: ACYCLOVIR 400 MG TABLET PO SCH (09:24)
[2023-01-18] MEDS: INSULIN -REGULAR HUMAN 50 UNIT/0.5 ML ML SQ SCH (09:25)
--- NOTE | 2023-01-20 13:44 | HP ---
Date of Admission: 01/15/2023 Chief Complaint: Swelling, shortness of breath. History Of Present Illness: The patient presented to the office with a 2-week history of significant weight gain over 20 pounds with increased edema. Associated with this, has been increased dyspnea w ith less exertion than usual. She was seen in the office where diagnosis of anasarca was made as wel l as CHF, and she was admitted for more aggressive therapy. Past Medical History: The patient has had significant problems with cardiovascular system since her diabetes was diagnosed number of years ago; however, has been in relatively good control. She has al so had significant eye problems, which has been handled in [place] with surgery and medication. Hype rtension has been in relatively good control, on various medications. She was seen by Cardiology, no t so long ago, and an echo apparently was done and showed a normal ejection fraction. However, signi ficant pulmonary hypertension was noted. We will discuss this further with Cardiology. Past Medical History: As above. Social History: Nonsmoker, nondrinker. Family History: Noncontributory. Physical Examination: General: Patient is a rather obese elderly female with obvious peripheral and facial edema, but stab le vital signs. Head and Neck: Normocephalic. Pupils are equal and reactive to light and accommodation. Fundi nega tive. Trachea midline. Thyroid not palpable. ENT negative. Chest: High-pitched rhonchi and some rales bilaterally. No use of accessory muscles to breathe. Cardiovascular: PMI midclavicular line. Heart: Sounds normal. Peripheral pulses are present and equal bilaterally, but diminished due to th e marked amount of edema. Abdomen: Questionable ascites. No organomegaly. Bowel sounds normal. Extremities: +4 pitting edema bilaterally up to the thigh. Rectal/Pelvic: Deferred. Impression: 1.Anasarca. 2.Congestive heart failure. 3.Hypertension, controlled. 4.Insulin-dependent diabetes, controlled. Plan: Patient will be admitted and placed on IV Lasix drip. Consultation obtained with Nephrology a nd Cardiology and obviously depending on the responsiveness to the Lasix, further management will be evaluated. HR/MODL Voice ID: [id number]
--- NOTE | 2023-01-20 13:44 | PN ---
Date of Progress Note: 01/16/2023 The patient states she feels considerably better today and she has had a marked amount of fluid loss with the IV Lasix drip. The right side of extremities is still slightly greater than the left. Younger nir, the edema is down markedly in her thighs and legs. Still has some puffy facial features. She h as been seen by Nephrology. Has numerous problems related to renal status, is to be worked up furthe r as an outpatient. Plan is to gradually change Lasix from IV to p.o. with increased dosage as carla ated. She is discharged for renal workup as an outpatient. Also awaiting Cardiology consult. Priya sanchez's creatinine has remained stable in the phase of the IV Lasix drip and we will continue to monitor her weight loss in the next few days. She does state she is still sleeping somewhat upright. How er, she has been instructed to try lying little flatter in the next 24 to 48 hours. HR/MODL Voice ID: [id number] Report ID: [id number]
== END 2023-01-18 10:46 | disposition home or self-care (01) | DRG 291 ==
LOC: 2ND 19:17
PROVIDERS: ADMIT Family Medicine; ATTEND Internal Medicine Sleep Medicine
DX: I13.0 Hypertensive heart and chronic kidney disease with heart failure and stage 1 through stage 4 chronic kidney disease, or unspecified chronic kidney disease (principal); I50.33 Acute on chronic diastolic (congestive) heart failure; N17.9 Acute kidney failure, unspecified; N18.30 Chronic kidney disease, stage 3 unspecified; E11.22 Type 2 diabetes mellitus with diabetic chronic kidney disease; E11.40 Type 2 diabetes mellitus with diabetic neuropathy, unspecified; E78.5 Hyperlipidemia, unspecified; I27.20 Pulmonary hypertension, unspecified; D50.9 Iron deficiency anemia, unspecified; I25.10 Atherosclerotic heart disease of native coronary artery without angina pectoris; Z79.4 Long term (current) use of insulin; Z88.1 Allergy status to other antibiotic agents; Z88.0 Allergy status to penicillin; Z79.82 Long term (current) use of aspirin; Z79.02 Long term (current) use of antithrombotics/antiplatelets; Z79.52 Long term (current) use of systemic steroids; Z79.899 Other long term (current) drug therapy; Z79.890 Hormone replacement therapy; Z86.711 Personal history of pulmonary embolism; Z20.822 Contact with and (suspected) exposure to COVID-19
CPT/HCPCS: 36415; 71045; 76770; 80048; 80069; 80076; 81001; 82550; 82570; 82947; 84156; 84443; 84550; 85027; 87811; J1815; J1940

== ENCOUNTER 2024-08-05 15:51 | Observation (INO) | payer OTHER ==
[2024-08-05 17:05] LABS: Absolute Lymphocytes (CBC) 1.3 K/uL (0.7-4.9); Absolute Monocytes 0.7 K/uL (0.1-1.3); Absolute Neutrophil 4.1 K/uL (1.8-8.0); Basophils % 0.6 % (0-1.3); Hematocrit 31.9 % (36.0-45.0); Hemoglobin 10.2 g/dL (12.0-15.0); Lymphocytes % 21.6 % (15.3-44.8); MCH 28.1 pg (27.0-35.0); MCHC 32.1 g/dL (32.0-36.0); MCV 87.4 fL (80-100); MPV 8.5 fL (7.6-11.3); Monocytes % 11.2 % (3.3-12.3); Neutrophils % 66.6 % (41.7-73.7); Platelets 181 thou/uL (152-406); RBC Red Blood Cell Count 3.65 M/uL (3.86-4.86); Red Cell Distribution Width 15.5 % (12.1-15.2)
--- NOTE | 2024-08-05 17:14 | RAD REPORT ---
[facility] 4[facility]32 pm CLINICAL HISTORY: DYSPNEA COMPARISON: Chest Pa And Lat (2 Views) dated 11/26/2022; Chest Pa And Lat (2 Views) dated 11/18/2022 ; Chest Pa And Lat (2 Views) dated 11/16/2022; Chest Single View dated 11/15/2022 TECHNIQUE: Portable AP view of the chest. FINDINGS: Central interstitial prominence and perihilar fluffy opacities. Confluent opacity in the l eft lower lung. Probable trace bilateral effusions. No pneumothorax or sizable effusion. The cardiom ediastinal contours are unremarkable. IMPRESSION: Central interstitial prominence and perihilar fluffy opacities, concerning for pulmonary edema.
[2024-08-05] MEDS ORDERED: HYDRALAZINE HCL 20 MG/ML VIAL ONE (17:21)
[2024-08-05] MEDS ORDERED: FUROSEMIDE 40 MG/4 ML VIAL ONE (17:21)
[2024-08-05 18:34] LABS: ALT/SGPT 36 U/L (13-56); AST/SGOT 22 U/L (15-37); Albumin 3.4 g/dL (3.4-5.0); Albumin/Globulin Ratio 0.9 (1.1-1.8); Alkaline Phosphatase 63 U/L (45-117); Anion Gap 10.1 mEq/L (5.0-15.0); BUN Blood Urea Nitrogen 41 mg/dL (7-18); Bicarbonate 23 mEq/L (21-32); Bilirubin Total 0.3 mg/dL (0.2-1.0); Globulin 3.9 g/dL (2.3-3.5); Glomerular Filtration Rate 19 ml/min (=/>90); Glucose Level 170 mg/dL (74-106); Magnesium 2.1 mg/dL (1.6-2.4); NT PRO-BNP 2111 pg/mL (<450); Potassium 5.1 mEq/L (3.5-5.1); Protein, Total 7.3 g/dL (6.4-8.2); Sodium Level 140 mEq/L (136-145); Troponin High Sensitivity 28.5 pg/mL (<58.9)
[2024-08-05 19:02] LABS: Bilirubin Direct < 0.2 mg/dL (0-0.2); Bilirubin Indirect, Calculated 0.1 mg/dL (0.2-0.8)
--- NOTE | 2024-08-05 19:39 | EDPHYS ---
Physician Documentation [facility] Name: Pretty Mock Age: 78 yrs Sex: Female : 1945 Arrival Date: 08/05/2024 Time: 15:51 Bed 16 Private MD: ED Physician Hector Mckeon HPI: 08/05 16:12 This 78 yrs old Black Female presents to ER via Ambulatory with complaints of Shortness ms3 Of Breath. 16:12 78-year-old female past medical history of diabetic retinopathy, hypercholesterolemia, ms3 hypertension, hypothyroidism, diabetes presents to the emergency department for shortness of breath. Patient notes her shortness of breath is worse with exertion. She denies any alleviating factors. Patient denies chest pain, nausea, vomiting. Historical: - Allergies: 16:07 Erythromycin; dd2 16:07 PENICILLINS; dd2 16:07 shrimp; dd2 - PMHx: 16:07 diabetic retinopathy; Hypercholesterolemia; Hypertensive disorder; Hypothyroidism; IDDM;dd2 - PSHx: 16:07 back SX x2; Bilateral corneal transplant surgery; hip replacement; Thyroidectomy; Total dd2 abdominal hysterectomy; - Immunization history:: Adult Immunizations unknown. - Infectious Disease History:: Denies. - Social history:: Smoking status: Patient denies any tobacco usage or history of. ROS: 16:12 Constitutional: Negative for fever, and chills. Cardiovascular: Negative for chest ms3 pain, and palpitations. 16:12 Abdomen/GI: Negative for abdominal pain, nausea, vomiting, diarrhea, and constipation, MS/Extremity: Negative for injury and deformity, Skin: Negative for injury, rash, and discoloration, 16:12 Respiratory: Positive for shortness of breath, Exam: 16:12 Constitutional: This is a well developed, well nourished patient who is awake, alert, ms3 and in no acute distress. Head/Face: Normocephalic, atraumatic. Chest/axilla: Normal chest wall appearance and motion. Nontender with no deformity. Cardiovascular: Regular rate and rhythm with a normal S1 and S2. No gallops, murmurs, or rubs. Normal PMI, no JVD. No pulse deficits. Respiratory: Lungs have equal breath sounds bilaterally, clear to auscultation and percussion. No rales, rhonchi or wheezes noted. No increased work of breathing, no retractions or nasal flaring. Abdomen/GI: Soft, non-tender, with normal bowel sounds. No distension or tympany. No guarding or rebound. No evidence of tenderness throughout. Skin: Warm, dry with normal turgor. Normal color with no rashes, no lesions, and no evidence of cellulitis. 16:12 Musculoskeletal/extremity: Extremities: noted in the Bilateral lower extremities: Edema, 4+, 16:48 ECG was reviewed by the Attending Physician. ms3 Vital Signs: 16:02 BP 228 / 81; Pulse 79; Resp 18; Temp 98.3; Pulse Ox 100% ; Weight 116.12 kg; dd2 16:45 BP 201 / 77; Pulse 66; Resp 18; Temp 98; Pulse Ox 99% on R/A; kj2 18:49 BP 153 / 54; Pulse 67; Resp 18; Pulse Ox 99% on R/A; kj2 19:29 BP 154 / 57; Pulse 67; Resp 17; Temp 98; Pulse Ox 99% ; rg5 20:00 BP 154 / 59; Pulse 66; Resp 19; Pulse Ox 98% on R/A; rg5 21:00 BP 151 / 60; Pulse 65; Resp 18; Temp 98(O); Pulse Ox 97% ; Pain 0/10; rg5 21:00 Pain Scale: Adult rg5 MDM: 16:08 Patient medically screened. ms3 16:12 Differential diagnosis: CHF exacerbation, Myocardial Infarction pulmonary edema. ms3 17:44 Transition of care: After a detail discussion of the patient's case, care is ms3 transferred to Hector Mckeon MD. 17:50 Data reviewed: vital signs, nurses notes, lab test result(s), radiologic studies. ED sp3 course: Patient signed out to me by Dr. Martinez. 78-year-old female with PMH above now with CHF exacerbation sent by her primary care team. Patient will need to be admitted and treated with IV diuresis. Will await full workup and treat any other abnormalities and get patient admitted.. 19:38 ED course: Discussed with Dr. Matos who wants to admit 23-hour observation for sp3 continued diuresis. I have contacted hospitalist as well. Patient will be placed in obs.. 08/05 16:09 Order name: Basic Metabolic Panel; Complete Time: 19:04 ms3 08/05 16:09 Order name: CBC with Diff; Complete Time: 17:15 ms3 08/05 16:09 Order name: LFT's; Complete Time: 19:04 ms3 08/05 16:09 Order name: Magnesium; Complete Time: 19:04 ms3 08/05 16:09 Order name: NT PRO-BNP; Complete Time: 19:04 ms3 08/05 16:09 Order name: Troponin HS; Complete Time: 19:04 ms3 08/05 21:22 Order name: Urinalysis w/ reflexes EDMS 08/05 21:22 Order name: CBC with Automated Diff EDMS 08/05 21:22 Order name: CBC with Automated Diff EDMS 08/05 21:22 Order name: Comprehensive Metabolic Panel EDMS 08/05 21:22 Order name: Comprehensive Metabolic Panel EDMS 08/05 16:09 Order name: XRAY Chest (1 view); Complete Time: 17:15 ms3 08/05 21:22 Order name: Echo without Doppler (2D) EDMS 08/05 16:09 Order name: EKG; Complete Time: 16:09 ms3 08/05 21:22 Order name: CONS Physician Consult EDMS 08/05 16:09 Order name: Cardiac monitoring; Complete Time: 16:50 ms3 08/05 16:09 Order name: EKG - Nurse/Tech; Complete Time: 16:50 ms3 08/05 16:09 Order name: IV Saline Lock; Complete Time: 17:01 ms3 08/05 16:09 Order name: Labs collected and sent; Complete Time: 17:01 ms3 08/05 16:09 Order name: O2 Per Protocol; Complete Time: 16:50 ms3 08/05 16:09 Order name: O2 Sat Monitoring; Complete Time: 17:01 ms3 08/05 17:11 Order name: Labs - recollect needed: recollect green top please; Complete Time: 18:04 em1 EC:48 Rate is 74 beats/min. Rhythm is regular. QRS [place] is Normal. [place] interval is normal. QRS ms3 interval is prolonged. Clinical impression: NSR w/ Non-specific ST/T Changes and RBBB. Interpreted by me. Reviewed by me. Administered Medications: 17:25 Drug: Furosemide IVP 40 mg IVP once; give over 2 minutes Route: IVP; Site: left kj2 antecubital; 21:24 Follow up: Response: No adverse reaction rg5 17:30 Drug: hydrALAZINE IVP 10 mg IVP once Route: IVP; Site: left antecubital; kj2 21:24 Follow up: Response: No adverse reaction rg5 Disposition Summary: 08/05/24 19:39 Hospitalization Ordered Notes: Hospitalization Status: Observation sp3 Provider: Aki Taveras sp3 Location: Telemetry/MedSurg (observation) sp3 Condition: Stable sp3 Problem: an acute exacerbation sp3 Symptoms: have worsened sp3 Bed/Room Type: Standard sp3 Room Assignment: 210(08/05/24 21:24) iw Diagnosis - CHF exacerbation, dyspnea on exertion sp3 Forms: - Medication Reconciliation Form sp3 - SBAR form sp3 - Leadership Thank You Letter sp3 Signatures: Dispatcher [employer] EDRebecca Bustillo RN RN iw Sawyer Rao em1 Magno Martinez, DO ms3 Hector Mckeon MD MD sp3 Cathy Dang RN RN kj2 IRIS MACARIO RN RN dd2 Buck Emerson RN rg5 Corrections: (The following items were deleted from the chart) 21:24 19:39 sp3 iw
--- NOTE | 2024-08-05 19:39 | ER ---
Nurse's Notes [facility] Name: Pretty Mock Age: 78 yrs Sex: Female : 1945 Arrival Date: 08/05/2024 Time: 15:51 Bed 16 Private MD: Diagnosis: CHF exacerbation, dyspnea on exertion Presentation: 08/05 16:02 Chief complaint: Patient states: Pt states shortness of breath while walking and dd2 swelling in feet. Coronavirus screen: At this time, the client does not indicate any symptoms associated with coronavirus-19. Ebola Screen: No symptoms or risks identified at this time. Initial Sepsis Screen: Does the patient meet any 2 criteria? No. Patient's initial sepsis screen is negative. Does the patient have a suspected source of infection? No. Patient's initial sepsis screen is negative. Risk Assessment: Do you want to hurt yourself or someone else? Patient reports no desire to harm self or others. Onset of symptoms is unknown. 16:02 Method Of Arrival: Ambulatory dd2 16:02 Acuity: SAMEER 3 dd2 Triage Assessment: 16:07 General: Appears in no apparent distress. Behavior is calm, cooperative, appropriate dd2 for age. Pain: Denies pain. Respiratory: Reports shortness of breath on exertion Onset: The symptoms/episode began/occurred at an unknown time. the patient has mild shortness of breath. Historical: - Allergies: 16:07 Erythromycin; dd2 16:07 PENICILLINS; dd2 16:07 shrimp; dd2 - PMHx: 16:07 diabetic retinopathy; Hypercholesterolemia; Hypertensive disorder; Hypothyroidism; IDDM;dd2 - PSHx: 16:07 back SX x2; Bilateral corneal transplant surgery; hip replacement; Thyroidectomy; Total dd2 abdominal hysterectomy; - Immunization history:: Adult Immunizations unknown. - Infectious Disease History:: Denies. - Social history:: Smoking status: Patient denies any tobacco usage or history of. Screenin:39 [facility] ED Fall Risk Assessment (Adult) History of falling in the last 3 months, kj2 including since admission No falls in past 3 months (0 pts) Confusion or Disorientation No (0 pts) Intoxicated or Sedated No (0 pts) Impaired Gait No (0 pts) Mobility Assist Device Used No (0 pt) Altered Elimination No (0 pt) Score/Fall Risk Level 0 - 2 = Low Risk Maintained a safe environment, Hourly rounding (assess needs \T\ fall precautionary measures) done. Abuse screen: Denies threats or abuse. Denies injuries from another. Nutritional screening: No deficits noted. Tuberculosis screening: No symptoms or risk factors identified. Assessment: 16:30 General: Appears in no apparent distress. Behavior is calm, cooperative. Pain: Denies kj2 pain. Neuro: Level of Consciousness is awake, alert, obeys commands, Oriented to person, place, time, situation. Cardiovascular: Patient's skin is warm and dry. Cardiovascular: Rhythm is. Respiratory: Airway is patent Respiratory effort is unlabored, GI: No deficits noted. 19:29 Reassessment: Patient and/or family updated on plan of care and expected duration. Pain rg5 level reassessed. Patient states feeling better. Patient states symptoms have improved. 20:15 Reassessment: Patient and/or family updated on plan of care and expected duration. Pain rg5 level reassessed. Patient is alert, oriented x 3, equal unlabored respirations, skin warm/dry/pink. Patient states feeling better. 21:19 Reassessment: Patient and/or family updated on plan of care and expected duration. Pain rg5 level reassessed. Patient is alert, oriented x 3, equal unlabored respirations, skin warm/dry/pink. Patient states feeling better. Patient states symptoms have improved. Vital Signs: 16:02 BP 228 / 81; Pulse 79; Resp 18; Temp 98.3; Pulse Ox 100% ; Weight 116.12 kg; dd2 16:45 BP 201 / 77; Pulse 66; Resp 18; Temp 98; Pulse Ox 99% on R/A; kj2 18:49 BP 153 / 54; Pulse 67; Resp 18; Pulse Ox 99% on R/A; kj2 19:29 BP 154 / 57; Pulse 67; Resp 17; Temp 98; Pulse Ox 99% ; rg5 20:00 BP 154 / 59; Pulse 66; Resp 19; Pulse Ox 98% on R/A; rg5 21:00 BP 151 / 60; Pulse 65; Resp 18; Temp 98(O); Pulse Ox 97% ; Pain 0/10; rg5 21:00 Pain Scale: Adult rg5 ED Course: 15:53 Patient arrived in ED. im 15:53 Magno Martinez DO is Attending Physician. ms3 16:07 Triage completed. dd2 16:07 Arm band placed on left wrist. Patient placed in an exam room, on a stretcher, on dd2 environmental monitoring technician, on pulse oximetry, Patient notified of wait time. 16:17 Cathy Dang, RN is Primary Nurse. kj2 16:34 XRAY Chest (1 view) In Process Unspecified. EDMS 16:45 Patient has correct armband on for positive identification. Bed in low position. Call kj2 light in reach. Adult w/ patient. Provided Education on: call light, fall precautions. 17:01 Basic Metabolic Panel Sent. cm10 17:01 CBC with Diff Sent. cm10 17:01 LFT's Sent. cm10 17:01 Magnesium Sent. cm10 17:01 NT PRO-BNP Sent. cm10 17:01 Troponin HS Sent. cm10 17:01 Initial lab(s) drawn, by dc, sent to lab. Inserted saline lock: 22 gauge in right cm10 antecubital area, using aseptic technique. Blood collected. Flushed with 10 mL NS. Missed attempt(s): 20 gauge in left forearm. Bleeding controlled, band aid applied, catheter tip intact. 17:39 Missed attempt(s): 20 gauge in left antecubital area. kj2 17:41 No provider procedures requiring assistance completed. kj2 17:44 Attending Physician role handed off by Magno Martinez DO sp3 17:44 Hector Mckeon MD is Attending Physician. sp3 18:53 Assisted to bathroom. kj2 19:07 Report given to NADEEM Jane. kj2 19:20 Director Clinical Applications paged at 19:20. kmf 19:30 Awaiting lab results, Awaiting radiology results. rg5 19:38 Aki Taveras MD is Hospitalizing Provider. sp3 21:20 Awaiting bed assignment. rg5 23:10 Patient admitted, IV remains in place. intact, No redness/swelling at site. rg5 Administered Medications: 17:25 Drug: Furosemide IVP 40 mg IVP once; give over 2 minutes Route: IVP; Site: left kj2 antecubital; 21:24 Follow up: Response: No adverse reaction rg5 17:30 Drug: hydrALAZINE IVP 10 mg IVP once Route: IVP; Site: left antecubital; kj2 21:24 Follow up: Response: No adverse reaction rg5 Medication: 17:40 VIS not applicable for this client. kj2 Outcome: 19:39 Decision to Hospitalize by Provider. sp3 23:09 Admitted to Tele accompanied by uma dee 23:09 Condition: stable 23:09 Demonstrated understanding of 23:13 Patient left the ED. rg5 Signatures: Dispatcher [employer] EDMS Magno Martinez DO DO ms3 Hector Mckeon MD MD sp3 Rose Sage Clarissa, RN RN cm10 Miladis Mcintosh [facility] Buck Emerson RN RN rg5 Cathy Dang RN RN kj2 IRIS MACARIO RN RN dd2
--- NOTE | 2024-08-05 21:15 | P.HP ---
Certification for Inpatient Patient admitted to: Observation With expected LOS: <2 Midnights Practitioner: I am a practitioner with admitting privileges, knowledge of patient current condition, hospital course, and medical plan of care. Services: Services provided to patient in accordance with Admission requirements found in Title 42 Section 412.3 of the Code of Federal Regulations Patient History Date of Service: 08/05/24 Reason for admission: sob History of Present Illness: 78-year-old female with history of congestive heart failure, diabetes, diabetic retinopathy, hyperlipidemia, hypertension, hypothyroidism presents the ER with complaints of shortness of breath. She reports symptoms ongoing for several days. Worse in the last 4 days. She denies any cough, chest pain. She does have history of chronic kidney disease. She does follow with nephrology. She states that she does take diuretics. But this has been adjusted in the past due to her kidney disease. In the ER she did receive some Lasix and reports that her breathing feels better. Cardiology was contacted and recommended admission for evaluation. Allergies erythromycin base Allergy (Verified 12/25/23 14:29) Hives Penicillins Allergy (Verified 12/25/23 14:29) Anaphylaxis shrimp Allergy (Verified 12/25/23 14:29) Hives Home Medications: Cetirizine HCl [Zyrtec] 10 mg PO BID 11/05/17 Spironolactone 25 mg PO M,W,F 11/05/17 Acyclovir 800 mg PO BID 11/15/22 Aspirin 81 mg PO DAILY 11/15/22 Atorvastatin Calcium [Lipitor] 40 mg PO BEDTIME 11/15/22 Brimonidine Tartrate/Timolol [Combigan 0.2%-0.5% Eye Drops] 1 drop EACH EYE BID 11/15/22 Clopidogrel Bisulfate [Plavix*] 75 mg PO DAILY 11/15/22 Difluprednate [Durezol] 1 drop EACH EYE QID 11/15/22 Gabapentin 600 mg PO BID 11/15/22 Hydralazine [Apresoline*] 50 mg PO BID 11/15/22 Insulin Degludec [Tresiba] 46 units SQ DAILY 11/15/22 Moxifloxacin in NaCl,Iso-Os/Pf [Moxifloxacin 5 mg/ml Vial] 1 drop EACH EYE TID 11/15/22 Prednisolone Acetate/Pf [Prednisolone Acet 1% Eye Drop] 1 drop EACH EYE DAILY 11/15/22 Levothyroxine Sodium 50 mcg PO DAILY 01/16/23 Carvedilol [Coreg] 12.5 mg PO DAILY 12/25/23 Furosemide [Lasix*] 40 mg PO SEECOM 12/25/23 calcitrioL [Rocaltrol] 25 mcg PO DAILY 12/25/23 - Past Medical/Surgical History Diabetic: Yes -: NIDDM -: HTN -: GERD -: Hypothyroid -: HLD -: Diabetic Retinopathy -: Thyroidectomy -: spinal surgery -: joint replacement -: hysterectomy - Social History Alcohol use: No CD- Drugs: No Caffeine use: No Review of Systems 10-point ROS is otherwise unremarkable Respiratory: Shortness of Breath Physical Examination - Physical Exam General: Alert, Oriented x3 HEENT: Atraumatic, Normocephalic Respiratory: Clear to auscultation bilaterally, Normal air movement Cardiovascular: Edema Gastrointestinal: Soft and benign, Non-distended Integumentary: No rashes - Studies Laboratory Data (last 24 hrs) 08/05/24 08/05/24 18:02 16:57 WBC 6.20 Hgb 10.2 L Hct 31.9 L Plt Count 181 Sodium 140 Potassium 5.1 BUN 41 H Creatinine 2.59 H Glucose 170 H Magnesium 2.1 Total Bilirubin 0.3 AST 22 ALT 36 Alkaline Phosphatase 63 Assessment and Plan - Problems (Diagnosis) (1) Acute on chronic diastolic heart failure Current Visit: No Status: Acute (2) Diabetes Current Visit: No Status: Acute (3) Hypertension Current Visit: No Status: Acute - Plan 78-year-old female presents with shortness of breath concern for CHF exacerbation. Acute on chronic diastolic heart failure Dyspnea Chronic kidney disease Anemia Diabetes Plan: Will admit patient observation Cardiology consultation Check echocardiogram lasix given in the ER Fingerstick blood sugars, sliding scale insulin Repeat labs in the morning anticipate dc soon - Advance Directives Does patient have a Living Will: No Does patient have a Durable POA for Healthcare: No
[2024-08-05 23:53] VITALS: BMI 36.4
[2024-08-06 05:32] LABS: Absolute Lymphocytes (CBC) 1.6 K/uL (0.7-4.9); Absolute Monocytes 0.8 K/uL (0.1-1.3); Basophils % 0.4 % (0-1.3); Eosinophils % 0.1 % (0-4.4); Hematocrit 30.7 % (36.0-45.0); Hemoglobin 9.8 g/dL (12.0-15.0); Lymphocytes % 21.8 % (15.3-44.8); MCHC 32.1 g/dL (32.0-36.0); MCV 87.2 fL (80-100); MPV 8.6 fL (7.6-11.3); Monocytes % 10.6 % (3.3-12.3); Neutrophils % 67.1 % (41.7-73.7); Nucleated Red Blood Cells % 0.1 % (0-0); Platelets 180 thou/uL (152-406); RBC Red Blood Cell Count 3.52 M/uL (3.86-4.86)
[2024-08-06] MEDS: HYDRALAZINE HCL 20 MG/ML VIAL IV PRN (05:33)
[2024-08-06 05:41] LABS: Albumin 3.1 g/dL (3.4-5.0); Albumin/Globulin Ratio 0.9 (1.1-1.8); Anion Gap 9.5 mEq/L (5.0-15.0); Bilirubin Total 0.3 mg/dL (0.2-1.0); Globulin 3.3 g/dL (2.3-3.5); Potassium 4.5 mEq/L (3.5-5.1); Protein, Total 6.4 g/dL (6.4-8.2)
--- NOTE | 2024-08-06 07:09 | P.PN ---
Date of Service: 08/06/24 Subjective Reports shortness of breath, worse with exertion Review of Systems 10-point ROS listed in HPI is otherwise unremarkable Physical Examination - Physical Exam General: Alert, In no apparent distress, HEENT: PERRLA Neck: Supple, 2+ carotid pulse no bruit, JVD not distended Respiratory: crackles, dyspnea with exertion Cardiovascular: Normal pulses, Regular rate/rhythm, +edema, Gastrointestinal: Soft and benign, Non-distended Musculoskeletal:(Generalized weakness) Integumentary: No breakdown Neurological: Normal speech, Normal strength at 5/5 x4 extr Assessment and Plan - Problems (Diagnosis) Acute on chronic diastolic heart failure dyspnea Current Visit: No Status: Acute Cardiology consultation Check echocardiogram lasix given in the ER Diabetes RAMON with CKD Anemia likely secondary to chronic disease Current Visit: No Status: Acute Trend kidney function, Nephrotoxic medication Accuchecks, sliding scale insulin Hypertension Current Visit: No Status: Acute Full code Diet Cardiac DVT - Advance Directives Does patient have a Living Will: No Does patient have a Durable POA for Healthcare: No Time With patient 30 minutes
[2024-08-06] MEDS ORDERED: METOPROLOL TARTRATE 5 MG/5 ML INJ IV PRN (07:17)
[2024-08-06] MEDS: CLOPIDOGREL 75 MG TABLET PO SCH (08:37)
[2024-08-06] MEDS: ASPIRIN 81 MG CHEWABLE TABLET PO SCH (08:37)
[2024-08-06] MEDS: GABAPENTIN 300 MG CAP PO SCH (08:37)
[2024-08-06] MEDS: LEVOTHYROXINE SOD 0.05 MG TABLET PO SCH (08:38)
[2024-08-06] MEDS: carvediloL 12.5 MG TAB PO SCH (08:38)
[2024-08-06 09:18] VITALS: O2SAT 96
[2024-08-06] MEDS: INSULIN REGULAR (HUMAN) 100 UNIT/ML SQ SCH (11:30)
[2024-08-06 12:26] VITALS: BP 163/72; TEMP 98.9
--- NOTE | 2024-08-06 14:06 | EKG ---
Test Date: 2024-08-05 Test Time: 16:30:29 Automatic Spinning Lathe Operator: LO MEASUREMENT RESULTS: Intervals: Rate: 74 MA: 158 QRSD: 132 QT: 420 QTc: 466 [place]: P: 63 MA: 158 QRS: -20 T: 44 INTERPRETIVE STATEMENTS: Normal sinus rhythm Right bundle branch block Abnormal ECG Compared to ECG 11/15/2022 21:12:57 Left-axis deviation no longer present Electronically Signed On 08-06-24 14:06:00 CDT by Wing Matos
--- NOTE | 2024-08-06 14:44 | ECHO ---
HEIGHT: 5 ft 10 in WEIGHT: 256 lb 0 oz DATE OF STUDY: 08/06/[address]: Aki Taveras MD 2-DIMENSIONAL: YES M.MODE: YES DOPPLER: YES COLOR FLOW: YES TDS: PORTABLE: YES DEFINITY: BUBBLE STUDY: DIAGNOSIS: CONGESTIVE HEART FAILURE CARDIAC HISTORY: CATHERIZATION: NO SURGERY: NO PROSTHETIC VALVE: NO PACEMAKER: NO MEASUREMENTS (cm) DIASTOLIC (NORMALS) SYSTOLIC (NORMALS) IVSd 1.3 (0.6-1.2) LA Diam 3.2 (1.9-4.0) LVEF 60-65% LVIDd 4.7 (3.5-5.7) LVIDs 2.8 (2.0-3.5) %FS 39% LVPWd 1.3 (0.6-1.2) Ao Diam 3.0 (2.0-3.7) 2 DIMENSIONAL ASSESSMENT: RIGHT ATRIUM: NORMAL LEFT ATRIUM: NORMAL RIGHT VENTRICLE: NORMAL LEFT VENTRICLE: MILD LEFT VENTRICULAR HYPERTROPHY TRICUSPID VALVE: MILD TRICUSPID REGURGITATION MITRAL VALVE: MILD MITRAL REGURGITATION PULMONIC VALVE: NORMAL AORTIC VALVE: PERICARDIAL EFFUSION: NONE AORTIC ROOT: NORMAL LEFT VENTRICULAR WALL MOTION: NORMAL DOPPLER/COLOR FLOW: SEE BELOW COMMENTS: 1. NORMAL LEFT VENTRICULAR EJECTION FRACTION 60-65% WITH NORMAL WALL MOTION 2. MODERATE DIASTOLIC DYSFUNCTION 3. MILD MITRAL REGURGITATION/ TRICUSPID REGURGITATION 4. SEVERE PULMONARY HYPERTENSION WITH RIGHT VENTRICULAR SYSTOLIC PRESSURE GREATER THAN 60 mmHg TECHNOLOGIST: AD DOMINGUEZ
--- NOTE | 2024-08-06 15:15 | P.DS ---
Admission Date: 08/05/24 Discharge Date: 08/06/24 Reason for Admission: sob Brief History of Present Illness: 78-year-old female with history of congestive heart failure, diabetes, diabetic retinopathy, hyperlipidemia, hypertension, hypothyroidism presents the ER with complaints of shortness of breath. She reports symptoms ongoing for several days. Worse in the last 4 days. She denies any cough, chest pain. She does have history of chronic kidney disease. She does follow with nephrology. She states that she does take diuretics. But this has been adjusted in the past due to her kidney disease. In the ER she did receive some Lasix and reports that her breathing feels better. Cardiology was contacted and recommended admission for evaluation. - Physical Exam General: Alert, Oriented x3 HEENT: Atraumatic, Normocephalic Respiratory: Clear to auscultation bilaterally, Normal air movement Cardiovascular: Edema Gastrointestinal: Soft and benign, Non-distended Integumentary: No rashes Hospital Course: 78-year-old female with history of congestive heart failure, diabetes, diabetic retinopathy, hyperlipidemia, hypertension, hypothyroidism presents the ER with complaints of shortness of breath. She reports symptoms ongoing for several days. Worse in the last 4 days. She denies any cough, chest pain. She does have history of chronic kidney disease. She does follow with nephrology. She was admitted for acute on chronic heart failure, treated with IV diuretics, she reports shortness of breath is better, tolerating diet, stable to discharge home, follow-up with cardiology after discharge in 1 week Assessment Acute on chronic heart failure treated with Lasix, Diabetes, resume home meds after discharge Hypertension, resume home meds after discharge Echo COMMENTS: 1. NORMAL LEFT VENTRICULAR EJECTION FRACTION 60-65% WITH NORMAL WALL MOTION 2. MODERATE DIASTOLIC DYSFUNCTION Continue home medicines as previously prescribed GOAL: Clear understanding of disease process INSTRUCTIONS: Physician Discharge Instructions: -Follow-up with cardiology after discharge in 1 week -Follow-up with PCP in 1 to 2 weeks -Please call Dr. Woodson at [phone] if any questions regarding hospital stay -Please call nursing station at [phone] if any nursing or medication qu estions -Return to the emergency room if symptoms worsen Diet: ADA, low sodium Activity: Fall precautions <Aissatou Shirley - Last Filed: 08/06/24 15:21> Admission Date: 08/05/24 Discharge Date: 08/06/24 Hospital Course: Chart has been reviewed. Events of the last 24 hours have been noted. Case discussed with TOMASA. I performed a substantial part of the MDM during this patient's care today. I personally made or approved the documented management plan and acknowledge its risk of complications. I agree with the findings and documentation provided in the TOMASA's notes; continue with diuresing. Outpatient cardiology follow-up. <Sarah Woodson - Last Filed: 08/13/24 03:12> Disposition: ROUTINE DISCHARGE Discharge Condition: GOOD Vital Signs/Physical Exam: Temp Pulse Resp BP Pulse Ox 98.9 F 68 22 H 163/72 H 98 08/06/24 12:00 08/06/24 12:00 08/06/24 12:00 08/06/24 12:00 08/06/24 12:00 Laboratory Data at Discharge: WBC 7.40 thou/uL (4.3-10.9) 08/06/24 04:54 Hgb 9.8 g/dL (12.0-15.0) L 08/06/24 04:54 Hct 30.7 % (36.0-45.0) L 08/06/24 04:54 Plt Count 180 thou/uL (152-406) 08/06/24 04:54 Sodium 142 mEq/L (136-145) 08/06/24 04:54 Potassium 4.5 mEq/L (3.5-5.1) 08/06/24 04:54 BUN 47 mg/dL (7-18) H 08/06/24 04:54 Creatinine 2.78 mg/dL (0.55-1.02) H 08/06/24 04:54 Glucose 302 mg/dL (74-106) H 08/06/24 04:54 Magnesium 2.1 mg/dL (1.6-2.4) 08/05/24 18:02 Total Bilirubin 0.3 mg/dL (0.2-1.0) 08/06/24 04:54 AST 16 U/L (15-37) 08/06/24 04:54 ALT 29 U/L (13-56) 08/06/24 04:54 Alkaline Phosphatase 60 U/L (45-117) 08/06/24 04:54 <Aissatou Shirley - Last Filed: 08/06/24 15:21> Vital Signs/Physical Exam: Temp Pulse Resp BP Pulse Ox 98.9 F 68 22 H 163/72 H 98 08/06/24 12:00 08/06/24 12:00 08/06/24 12:00 08/06/24 12:00 08/06/24 12:00 General: Alert, In no apparent distress, Oriented x3 Laboratory Data at Discharge: WBC 7.40 thou/uL (4.3-10.9) 08/06/24 04:54 Hgb 9.8 g/dL (12.0-15.0) L 08/06/24 04:54 Hct 30.7 % (36.0-45.0) L 08/06/24 04:54 Plt Count 180 thou/uL (152-406) 08/06/24 04:54 Sodium 142 mEq/L (136-145) 08/06/24 04:54 Potassium 4.5 mEq/L (3.5-5.1) 08/06/24 04:54 BUN 47 mg/dL (7-18) H 08/06/24 04:54 Creatinine 2.78 mg/dL (0.55-1.02) H 08/06/24 04:54 Glucose 302 mg/dL (74-106) H 08/06/24 04:54 Magnesium 2.1 mg/dL (1.6-2.4) 08/05/24 18:02 Total Bilirubin 0.3 mg/dL (0.2-1.0) 08/06/24 04:54 AST 16 U/L (15-37) 08/06/24 04:54 ALT 29 U/L (13-56) 08/06/24 04:54 Alkaline Phosphatase 60 U/L (45-117) 08/06/24 04:54 <Sarah Woodson - Last Filed: 08/13/24 03:12> Diet: AHA Activity: Fall precautions Time spent managing pt's care (in minutes): 55 <Aissatou Shirley - Last Filed: 08/06/24 15:21> <Sarah Woodson - Last Filed: 08/13/24 03:12> Home Medications: Cetirizine HCl [Zyrtec] 10 mg PO BID 11/05/17 Spironolactone 25 mg PO M,W,F 11/05/17 Aspirin 81 mg PO DAILY 11/15/22 Atorvastatin Calcium [Lipitor] 40 mg PO BEDTIME 11/15/22 Brimonidine Tartrate/Timolol [Combigan 0.2%-0.5% Eye Drops] 1 drop EACH EYE BID 11/15/22 Clopidogrel Bisulfate [Plavix*] 75 mg PO DAILY 11/15/22 Difluprednate [Durezol] 1 drop EACH EYE DAILY 11/15/22 Gabapentin 600 mg PO BID 11/15/22 Hydralazine [Apresoline*] 50 mg PO BID 11/15/22 Insulin Degludec [Tresiba] 46 units SQ DAILY 11/15/22 Moxifloxacin in NaCl,Iso-Os/Pf [Moxifloxacin 5 mg/ml Vial] 1 drop EACH EYE TID 11/15/22 Prednisolone Acetate/Pf [Prednisolone Acet 1% Eye Drop] 1 drop EACH EYE DAILY 11/15/22 Levothyroxine Sodium 50 mcg PO DAILY 01/16/23 Carvedilol [Coreg] 25 mg PO BID 12/25/23 calcitrioL [Rocaltrol] 25 mcg PO DAILY 12/25/23 Acyclovir 400 mg PO BID 08/05/24 Cholecalciferol (Vitamin D3) [D3-5000] 5,000 iu PO DAILY 08/05/24 Netarsudil Mesylate [Rhopressa] 1 drops LEFT EYE DAILY 08/05/24 Aspirin Chewable [Aspirin Chewable*] 81 mg PO DAILY tab.chew 08/06/24 Physician Discharge Instructions: PROBLEM: CHF, Shortness of breath INSTRUCTIONS: 78-year-old female with history of congestive heart failure, diabetes, diabetic retinopathy, hyperlipidemia, hypertension, hypothyroidism presents the ER with complaints of shortness of breath. She reports symptoms ongoing for several days. Worse in the last 4 days. She denies any cough, chest pain. She does have history of chronic kidney disease. She does follow with nephrology. She was admitted for acute on chronic heart failure, treated with IV diuretics, she reports shortness of breath is better, tolerating diet, stable to discharge home, follow-up with cardiology after discharge Assessment Acute on chronic heart failure treated with Lasix, Diabetes, resume home meds after Hypertension, resume home meds after discharge Echo COMMENTS: 1. NORMAL LEFT VENTRICULAR EJECTION FRACTION 60-65% WITH NORMAL WALL MOTION 2. MODERATE DIASTOLIC DYSFUNCTION Continue home medicines as previously prescribed GOAL: Clear understanding of disease process INSTRUCTIONS: Physician Discharge Instructions: -Follow-up with cardiology after discharge -Follow-up with PCP in 1 to 2 weeks -Please call Dr. Woodson at [phone] if any questions regarding hospital stay -Please call nursing station at [phone] if any nursing or medication questions -Return to the emergency room if symptoms worsen Follow up with Nephrology next week GOAL: Clear understanding of disease process Diet: AHA Activity: Fall precautions Followup: Anirudh Hernández DO [ACTIVE - CAN ADMIT] - Reginaldo Fernandez MD [ACTIVE - CAN ADMIT] - Tera Wright MD [Primary Care Provider] -
--- NOTE | 2024-08-06 19:42 | CON ---
Date of Consultation: 08/06/2024 Reason For Consultation: Congestive heart failure. History Of Present Illness: A 78-year-old female, history of diastolic heart failure. She presented to the emergency room with worsening shortness of breath and lower extremity edema and orthopnea, fo und to be in acute diastolic heart failure exacerbation, started on Lasix. She feels much better, bu t not at baseline yet. Denies having any chest pain. No nausea, vomiting, diarrhea. Past Medical History: Diastolic heart failure, diabetes, hypertension, hypothyroidism, dyslipidemia. Medications: Refer to reconciliation sheet for detailed list. Allergies: ERYTHROMYCIN AND PENICILLIN. Family History: No premature coronary disease or cancer. Social History: She does not smoke or drink. Does not use any drugs. Review of Systems: All systems reviewed are negative except mentioned in HPI. Physical Examination: Vital Signs: Reviewed. Her blood pressure is /72. General: Pleasant elderly female, in no acute distress. Head and Neck: Pupils are equal, reactive to light. Intact eye movements. No cervical lymphadenopa thy. Neck supple. Thyroid is not enlarged. Mild JVD elevation. Lungs: Decreased breathing sounds bilaterally. Faint crackles in the bases. No accessory muscle us e or muscle retraction. Heart: Regular rate and rhythm. No extra sounds. Abdomen: Soft, nontender. Bowel sounds positive. No organomegaly. No masses or hernia. No rigidi ty or rebound. Extremities: No clubbing, cyanosis. No edema. Neurologic: Alert, awake, oriented x3. No acute focal deficits appreciated. Lymph Nodes: No cervical or axillary lymphadenopathy. Investigations: BUN 47, creatinine 2.78. Hemoglobin is 9.8. Assessment/recommendation: 1.Acute on chronic diastolic heart failure exacerbation, improved very well with diuresis. At this point, she is clinically stable from my standpoint. She can be released and follow up as an outpatie nt and strict low-salt diet is recommended. 2.Hypertension. Blood pressure is uncontrolled. Recommend to add a carvedilol 3.125 mg twice a day and adjust dose as needed. 3.Chronic renal failure with acute exacerbation response to Lasix, but she is fluid overloaded. Her right ventricular systolic pressure is elevated on echo. Recommend Nephrology evaluation. 4.Anemia. No active bleeding and this is stable and chronic. SR/MODL Voice ID: [id number] Report ID: [id number]
[2024-08-06] MEDS ORDERED: ATORVASTATIN 40 MG TAB PO SCH (21:00)
== END 2024-08-06 16:14 | disposition home or self-care (01) ==
LOC: ER 15:51 → 2ND 22:28
PROVIDERS: ADMIT Internal Medicine; ATTEND Hospitalist
DX: I50.33 Acute on chronic diastolic (congestive) heart failure (principal); N18.9 Chronic kidney disease, unspecified; E87.70 Fluid overload, unspecified; R06.02 Shortness of breath; E11.9 Type 2 diabetes mellitus without complications; E11.319 Type 2 diabetes mellitus with unspecified diabetic retinopathy without macular edema; E78.5 Hyperlipidemia, unspecified; I10 Essential (primary) hypertension; D64.9 Anemia, unspecified; E03.9 Hypothyroidism, unspecified; Z88.0 Allergy status to penicillin; Z88.3 Allergy status to other anti-infective agents; Z91.013 Allergy to seafood
CPT/HCPCS: 93005; 93306; 85025 ×2; 80048; 36415; 83735; 82947 ×2; 80076; 84484; 80053; 83880; 71045; 96375; 96374; 99285; J0360 ×2; J1940; G0378

== ENCOUNTER 2024-11-29 11:58 | Inpatient (IN) | payer OTHER ==
--- NOTE | 2024-11-29 13:23 | RAD REPORT ---
EXAM: Chest Single View HISTORY: DYSPNEA COMPARISON: 08/05/2024 FINDINGS: LUNGS/PLEURA: Diffuse prominence of the pulmonary interstitium. MEDIASTINUM: The mediastinal silhouette is within normal limits. CARDIAC: Cardiomegaly. UPPER ABDOMEN: No significant abnormality. BONES: No acute abnormality. LINES/TUBES/OTHER: N/A IMPRESSION: Findings most consistent with pulmonary edema.
[2024-11-29 13:58] LABS: Absolute Lymphocytes (CBC) 1.2 K/uL (0.7-4.9); Absolute Neutrophil 6.2 K/uL (1.8-8.0); Albumin 2.9 g/dL (3.4-5.0); Albumin/Globulin Ratio 0.7 (1.1-1.8); Anion Gap 9.1 mEq/L (5.0-15.0); Basophils % 0.1 % (0-1.3); Bilirubin Direct 0.2 mg/dL (0-0.2); Bilirubin Indirect, Calculated 0.3 mg/dL (0.2-0.8); Bilirubin Total 0.5 mg/dL (0.2-1.0); Hematocrit 30.1 % (36.0-45.0); Hemoglobin 9.7 g/dL (12.0-15.0); Lymphocytes % 14.2 % (15.3-44.8); MCH 27.9 pg (27.0-35.0); MCHC 32.2 g/dL (32.0-36.0); MCV 86.9 fL (80-100); MPV 8.7 fL (7.6-11.3); Magnesium 2.1 mg/dL (1.6-2.4); Monocytes % 11.7 % (3.3-12.3); Platelets 169 thou/uL (152-406); Potassium 4.1 mEq/L (3.5-5.1); Protein, Total 6.9 g/dL (6.4-8.2); RBC Red Blood Cell Count 3.47 M/uL (3.86-4.86); Red Cell Distribution Width 15.2 % (12.1-15.2)
[2024-11-29 14:01] LABS: Troponin High Sensitivity 59.2 pg/mL (<58.9)
[2024-11-29 14:02] LABS: PT Prothrombin Time 12.9 SECONDS (9.4-12.5); PTT, Activated Partial Thromb 26.7 SECONDS (24.3-36.9); Protime INR 1.16
[2024-11-29 14:11] LABS: SARS-CoV-2 Antigen CONTROL BLUE LINE VIS/BG OK; SARS-CoV-2 Antigen Rapid Res Negative (Negative)
[2024-11-29] MEDS ORDERED: FUROSEMIDE 40 MG/4 ML VIAL ONE (14:23)
--- NOTE | 2024-11-29 14:28 | ER ---
Nurse's Notes [facility] Name: Pretty Mock Age: 79 yrs Sex: Female : 1945 Arrival Date: 11/29/2024 Time: 11:58 Bed 25 Private MD: Diagnosis: Unspecified combined systolic (congestive) and diastolic (congestive) heart failure;Dyspnea, unspecified Presentation: 11/29 12:30 Chief complaint: Patient states: she has been sob for sometime and has had a cough, me1 went to the dr today and was sent to ER for possible CHF exacerbation. Reports minimal edema to BLE lately but doesn't have much today. Coronavirus screen: Vaccine status: Patient reports receiving the 2nd dose of the covid vaccine. Ebola Screen: No symptoms or risks identified at this time. Initial Sepsis Screen: Does the patient meet any 2 criteria? No. Patient's initial sepsis screen is negative. Does the patient have a suspected source of infection? No. Patient's initial sepsis screen is negative. Risk Assessment: Do you want to hurt yourself or someone else? Patient reports no desire to harm self or others. Onset of symptoms is unknown. 12:30 Method Of Arrival: Wheelchair me1 12:30 Acuity: SAMEER 3 me1 Triage Assessment: 12:32 General: Appears comfortable, obese, well groomed, well developed, Behavior is calm, me1 cooperative, appropriate for age, Reports SOB for some time that has worsened with a cough. Pain: Denies pain. EENT: No signs and/or symptoms were reported regarding the EENT system. Neuro: Level of Consciousness is awake, alert, obeys commands, Oriented to person, place, time, situation, Appropriate for age. Cardiovascular: Patient's skin is warm and dry. Respiratory: Reports shortness of breath on exertion cough that is non-productive, persistent Onset: The symptoms/episode began/occurred at an unknown time. the patient has moderate shortness of breath. GI: No signs and/or symptoms were reported involving the gastrointestinal system. : No signs and/or symptoms were reported regarding the genitourinary system. Derm: Skin is intact, is healthy with good turgor, Skin is pink, warm \T\ dry. Musculoskeletal: No signs and/or symptoms reported regarding the musculoskeletal system. Circulation, motion, and sensation intact. Range of motion: intact in all extremities. Historical: - Allergies: 12:32 Erythromycin; me1 12:32 shrimp; me1 12:32 PENICILLINS; me1 - PMHx: 12:32 diabetic retinopathy; Hypercholesterolemia; Hypertensive disorder; Hypothyroidism; IDDM;me1 - PSHx: 12:32 back SX x2; Bilateral corneal transplant surgery; hip replacement; Thyroidectomy; Total me1 abdominal hysterectomy; - Immunization history:: Adult Immunizations up to date. - Infectious Disease History:: Denies. - Social history:: Smoking status: Patient/guardian denies using tobacco, but has a distant history of tobacco abuse. - Family history:: not pertinent. - Hospitalizations: : No recent hospitalization is reported. Screenin:41 [facility] ED Fall Risk Assessment (Adult) History of falling in the last 3 months, me1 including since admission No falls in past 3 months (0 pts) Confusion or Disorientation No (0 pts) Intoxicated or Sedated No (0 pts) Impaired Gait No (0 pts) Mobility Assist Device Used No (0 pt) Altered Elimination No (0 pt) Score/Fall Risk Level 0 - 2 = Low Risk Maintained a safe environment, Provided non-skid footwear, Hourly rounding (assess needs \T\ fall precautionary measures) done. Abuse screen: Denies threats or abuse. Nutritional screening: No deficits noted. Tuberculosis screening: No symptoms or risk factors identified. Assessment: 12:41 General: See triage assessment.. Cardiovascular:. Cardiovascular: Rhythm is regular. me1 Respiratory: Airway is patent Respiratory effort is even, unlabored, Respiratory pattern is regular, symmetrical, Breath sounds are diminished bilaterally. Vital Signs: 12:30 BP 179 / 85; Pulse 84; Resp 20; Temp 98.1; Pulse Ox 98% on R/A; Weight 113.4 kg; Height me1 5 ft. 11 in. ; Pain 0/10; 13:00 BP 179 / 70; Pulse 75; Resp 19; Pulse Ox 100% ; me1 14:00 BP 172 / 69; Pulse 65; Resp 18; Pulse Ox 100% on R/A; me1 15:00 BP 171 / 61; Pulse 65; Resp 20; Pulse Ox 100% ; me1 16:00 BP 160 / 61; Pulse 66; Resp 19; Pulse Ox 100% ; me1 17:01 BP 176 / 69; Pulse 65; Resp 19; Temp 98.4; Pulse Ox 100% on R/A; me1 12:30 Body Mass Index 34.87 (113.40 kg, 180.34 cm) me1 12:30 Pain Scale: Adult me1 ED Course: 11:58 Patient arrived in ED. ra3 11:59 Lukas Carlin MD is Attending Physician. rn 12:30 Radha Malin RN is Primary Nurse. me1 12:32 Triage completed. me1 12:32 Arm band placed on Patient placed in an exam room. me1 12:41 Patient has correct armband on for positive identification. Bed in low position. Call al1 light in reach. Side rails up X 1. Provided Education on: POC. Verbalized understanding.. Client placed on continuous cardiac and pulse oximetry monitoring. NIBP monitoring applied. monitoring coordinator on. Pulse ox on. NIBP on. 12:41 No provider procedures requiring assistance completed. me1 13:20 XRAY CXR (1 view) In Process Unspecified. EDMS 13:25 First set of blood cultures drawn by al. me1 13:28 Lactate w/ 2H reflex if indic. Sent. me1 13:28 BMP Sent. me1 13:28 Blood Culture Adult (2) Sent. me1 13:28 CBC with Diff Sent. me1 13:28 Hepatic Function Sent. me1 13:28 Magnesium Sent. me1 13:28 NT PRO-BNP Sent. me1 13:28 PT-INR Sent. me1 13:28 Ptt, Activated Sent. me1 13:28 Troponin HS Sent. me1 13:29 Initial lab(s) drawn, by al, sent to lab. Missed attempt(s): 22 gauge in left me1 antecubital area. 13:41 Second set of blood cultures drawn. me1 14:03 EKG done, by ED staff, reviewed by Lukas Carlin MD. Inserted saline lock: 20 gauge in kb4 left antecubital area, using aseptic technique. Blood collected. Flushed with 10 mL NS Missed attempt(s): 22 gauge in left wrist. 14:27 Kenyatta Duran is Hospitalizing Provider. rn 17:02 Patient admitted, IV remains in place. me1 Administered Medications: 14:26 Drug: Furosemide IVP 40 mg IVP once; give over 2 minutes Route: IVP; Site: left me1 antecubital; 15:12 Follow up: Response: No adverse reaction me1 Medication: 12:41 VIS not applicable for this client. me1 Outcome: 14:28 Decision to Hospitalize by Provider. rn 17:02 Admitted to Med/surg accompanied by tech, via wheelchair, room 230, with chart, Report me1 called to faxed, receipt confirmed with Laurie. 17:02 Condition: stable 17:02 Instructed on the need for admit, 17:44 Patient left the ED. me1 Signatures: Dispatcher [employer] EDLukas Moyer MD MD rn Eddleman, Michelle, RN RN me1 Shruti Gustafson ra3 Rosanna Abrams kb4
--- NOTE | 2024-11-29 14:29 | EDPHYS ---
Physician Documentation [facility] Name: Pretty Mock Age: 79 yrs Sex: Female : 1945 Arrival Date: 11/29/2024 Time: 11:58 Bed 25 Private MD: ED Physician Lukas Carlin HPI: 11/29 12:57 This 79 yrs old Black Female presents to ER via Wheelchair with complaints of Shortness rn Of Breath. 12:57 The patient has shortness of breath with light activity. Onset: The symptoms/episode rn began/occurred 3 day(s) ago. The patient's shortness of breath is aggravated by exertion, light activity, is alleviated by rest. Severity of symptoms: At their worst the symptoms were moderate in the emergency department the symptoms have improved. The patient has experienced similar episodes in the past. Patient reports shortness of breath for the last 3 days. Began with what she felt like was infection, with cough and congestion. No fever. Patient went to PCP today and referred to the emergency room for oxygen in the 80s. Patient reports feels okay as long as she is sitting and not exerting herself. No chest pain. No hemoptysis.. Historical: - Allergies: 12:32 Erythromycin; me1 12:32 shrimp; me1 12:32 PENICILLINS; me1 - PMHx: 12:32 diabetic retinopathy; Hypercholesterolemia; Hypertensive disorder; Hypothyroidism; IDDM;me1 - PSHx: 12:32 back SX x2; Bilateral corneal transplant surgery; hip replacement; Thyroidectomy; Total me1 abdominal hysterectomy; - Immunization history:: Adult Immunizations up to date. - Infectious Disease History:: Denies. - Social history:: Smoking status: Patient/guardian denies using tobacco, but has a distant history of tobacco abuse. - Family history:: not pertinent. - Hospitalizations: : No recent hospitalization is reported. ROS: 12:57 Constitutional: Negative for fever, chills, and weight loss, Cardiovascular: Positive rn for orthopnea Respiratory: Positive for shortness of breath Abdomen/GI: Negative for abdominal pain, nausea, vomiting, diarrhea, and constipation, MS/Extremity: Negative for injury and deformity, Skin: Negative for injury, rash, and discoloration, Neuro: Negative for headache, weakness, numbness, tingling, and seizure, Exam: 12:57 Constitutional: This is a well developed, well nourished patient who is awake, alert, rn and in no acute distress. Cardiovascular: Regular rate and rhythm. No pulse deficits. Respiratory: No increased work of breathing, no retractions or nasal flaring. Abdomen/GI: Soft, non-tender MS/ Extremity: Pulses equal, no cyanosis. Neurovascular intact. Full, normal range of motion. Equal circumference. Neuro: Awake and alert, GCS 15 16:26 ECG was reviewed by the Attending Physician. rn Vital Signs: 12:30 BP 179 / 85; Pulse 84; Resp 20; Temp 98.1; Pulse Ox 98% on R/A; Weight 113.4 kg; Height me1 5 ft. 11 in. ; Pain 0/10; 13:00 BP 179 / 70; Pulse 75; Resp 19; Pulse Ox 100% ; me1 14:00 BP 172 / 69; Pulse 65; Resp 18; Pulse Ox 100% on R/A; me1 15:00 BP 171 / 61; Pulse 65; Resp 20; Pulse Ox 100% ; me1 16:00 BP 160 / 61; Pulse 66; Resp 19; Pulse Ox 100% ; me1 17:01 BP 176 / 69; Pulse 65; Resp 19; Temp 98.4; Pulse Ox 100% on R/A; me1 12:30 Body Mass Index 34.87 (113.40 kg, 180.34 cm) me1 12:30 Pain Scale: Adult me1 MDM: 11:59 Medical Screening Exam initiated rn 14:26 Differential diagnosis: Anemia CHF exacerbation, Myocardial Infarction pneumonia, rn Pneumothorax pulmonary edema. Data reviewed: vital signs, nurses notes, lab test result(s), EKG, radiologic studies, plain films, and as a result, I will admit patient. Independent interpretation of the following test(s) in the Emergency Department EKG: See my EKG interpretation above X-Ray: My interpretation is Chest x-ray images show pulmonary edema per my interpretation. Counseling: I had a detailed discussion with the patient and/or guardian regarding the historical points, exam findings, and any diagnostic results supporting the discharge/admit diagnosis, lab results, radiology results, the need for further work-up and treatment in the hospital. Response to treatment: the patient's symptoms have mildly improved after treatment. 11/29 12:13 Order name: [facility]; Complete Time: 14:18 rn 12/30 12:13 Order name: Blood Culture Adult (2) rn 11/29 12:13 Order name: CBC with Diff; Complete Time: 14:18 rn 11/29 12:13 Order name: Hepatic Function; Complete Time: 14:18 rn 11/29 12:13 Order name: Magnesium; Complete Time: 14:18 rn 11/29 12:13 Order name: NT PRO-BNP; Complete Time: 14:18 rn 11/29 12:13 Order name: PT-INR; Complete Time: 14:18 rn 11/29 12:13 Order name: Ptt, Activated; Complete Time: 14:18 rn 11/29 12:13 Order name: Troponin HS; Complete Time: 14:18 rn 11/29 12:13 Order name: Flu; Complete Time: 14:18 rn 11/29 12:13 Order name: SARS-COV-2 Antigen Rapid; Complete Time: 14:18 rn 11/29 12:51 Order name: Lactate w/ 2H reflex if indic.; Complete Time: 13:59 rn 11/29 15:33 Order name: Thyroid Stimulating Hormone EDMS 11/29 15:33 Order name: CBC with Automated Diff EDMS 11/29 15:33 Order name: CBC with Automated Diff EDMS 11/29 15:33 Order name: Comprehensive Metabolic Panel EDMS 11/29 15:33 Order name: Comprehensive Metabolic Panel EDMS 11/29 15:33 Order name: Lipid Profile EDMS 11/29 15:33 Order name: Lipid Profile EDMS 11/29 15:33 Order name: Magnesium EDMS 11/29 15:33 Order name: Magnesium EDMS 11/29 15:33 Order name: Phosphorus EDMS 11/29 15:33 Order name: Phosphorus EDMS 11/29 15:33 Order name: Protime (+INR) EDMS 11/29 15:33 Order name: Protime (+INR) EDMS 11/29 15:33 Order name: PTT, Activated Partial Thromb EDMS 11/29 15:33 Order name: PTT, Activated Partial Thromb EDMS 11/29 15:33 Order name: Troponin High Sensitivity EDMS 11/29 15:33 Order name: Troponin High Sensitivity EDMS 11/29 15:33 Order name: Troponin High Sensitivity EDMS 11/29 12:13 Order name: XRAY CXR (1 view); Complete Time: 13:59 rn 11/29 12:51 Order name: EKG; Complete Time: 12:51 rn 11/29 12:13 Order name: Cardiac monitoring; Complete Time: 14:21 rn 11/29 12:13 Order name: EKG - Nurse/Tech; Complete Time: 14:03 rn 11/29 12:13 Order name: IV Saline Lock; Complete Time: 13:28 rn 11/29 12:13 Order name: Labs collected and sent; Complete Time: 13:28 rn 11/29 12:13 Order name: O2 Per Protocol; Complete Time: 13:28 rn 11/29 12:13 Order name: O2 Sat Monitoring; Complete Time: 13:28 rn 11/29 12:51 Order name: IV Saline Lock - Large Bore; Complete Time: 13:28 rn 11/29 12:51 Order name: Vital Signs; Complete Time: 13:28 rn EC:26 Rate is 69 beats/min. Rhythm is regular. QRS [place] is Normal. [place] interval is normal. QRS rn interval is normal. QT interval is normal. No Q waves. T waves are Normal. No ST changes noted. Clinical impression: Normal ECG and NSR w/ Non-specific ST/T Changes. Interpreted by me. Reviewed by me. Administered Medications: 14:26 Drug: Furosemide IVP 40 mg IVP once; give over 2 minutes Route: IVP; Site: left me1 antecubital; 15:12 Follow up: Response: No adverse reaction me1 Disposition Summary: 11/29/24 14:28 Hospitalization Ordered Notes: Hospitalization Status: Inpatient Admission rn Provider: Kenyatta Duran [facility]n [facility] rn Condition: Stable rn Problem: an acute exacerbation rn Symptoms: have improved rn Bed/Room Type: Standard rn Room Assignment: 230(11/29/24 16:33) kb3 Diagnosis - Unspecified combined systolic (congestive) and diastolic (congestive) heart failure rn - Dyspnea, unspecified rn Forms: - Medication Reconciliation Form rn - SBAR form rn - Leadership Thank You Letter rn Signatures: Dispatcher [employer] Lukas Lopez MD MD rn Bradberry, Kelly, RN RN kb3 Radha Malin, RN RN me1 Corrections: (The following items were deleted from the chart) 12:14 12:14 BASIC METABOLIC PANEL+C.LAB.BRZ ordered. EDMS EDMS 12:14 12:14 BLOOD CULTURE*+BA.LAB.BRZ ordered. EDMS EDMS 12:14 12:14 CBC+H.LAB.BRZ ordered. EDMS EDMS 12:14 12:14 HEPATIC FUNCTION+C.LAB.BRZ ordered. EDMS EDMS 12:14 12:14 MAGNESIUM+C.LAB.BRZ ordered. EDMS EDMS 12:14 12:14 PROBNP+C.LAB.BRZ ordered. EDMS EDMS 12:14 12:14 PROTIME (+INR)+COAG.LAB.BRZ ordered. EDMS EDMS 12:14 12:14 PTT, ACTIVATED+COAG.LAB.BRZ ordered. EDMS EDMS 12:14 12:14 Troponin High Sensitivity+C.LAB.BRZ ordered. EDMS EDMS 12:14 12:14 Influenza Screen (A \T\ B)+BA.LAB.BRZ ordered. EDMS EDMS 12:14 12:14 SARS-COV-2 Antigen Rapid+I.LAB.BRZ ordered. EDMS EDMS 16:33 14:28 rn kb3
[2024-11-29] MEDS ORDERED: ALBUTEROL 2.5 MG/3 ML NEB SOL NEB PRN (15:27)
--- NOTE | 2024-11-29 15:52 | P.HP ---
Certification for Inpatient Patient admitted to: Inpatient With expected LOS: >2 Midnights Patient will require the following post-hospital care: None Practitioner: I am a practitioner with admitting privileges, knowledge of patient current condition, hospital course, and medical plan of care. Services: Services provided to patient in accordance with Admission requirements found in Title 42 Section 412.3 of the Code of Federal Regulations <Lucille Ferguson Jony - Last Filed: 11/29/24 18:25> Patient History Date of Service: 11/29/24 Reason for admission: decompensated hf, pulmonary edema, and ckd History of Present Illness: Ms. Mock is a 79-year-old female with a past medical history of diabetes, diabetic retinopathy, hypertension, hyperlipidemia, hypothyroidism, and chronic kidney disease. She presented to the emergency department with a 3-day history of shortness of breath. She states this morning it got significantly worse and she went to see Dr. Wright. In his office, her O2 sats were 80% with exertional dyspnea. On evaluation in the emergency department, her BNP was about 6000 and her troponin was bumped at 59.2. Flu and COVID studies negative, patient has probable anemia of chronic disease with 9.7 and 30.1 and known CKD, stage III with a creatinine today of 2.57, BUN 43, GFR 19. She states she takes Lasix at home maybe every 3 days but was given Lasix IV in the emergency department and is feeling significantly better. We will admit her for dyspnea secondary to acute decompensated heart failure (with unknown EF), to diurese, trend troponins, and monitor chronic CKD, and diabetes. Home medications list reviewed: Yes - Past Medical/Surgical History Diabetic: Yes -: NIDDM -: HTN -: GERD -: Hypothyroid -: HLD -: Diabetic Retinopathy -: CKDDr. Daca -: Thyroidectomy -: spinal surgery -: joint replacement -: hysterectomy Psychosocial/ Personal History: Lives at home with her - Social History Smoking Status: Former smoker (40yrs ago) Alcohol use: No CD- Drugs: No Caffeine use: No Place of Residence: Home <Barbie Fergusonjorge luis Borges - Last Filed: 11/29/24 18:25> Date of Service: 11/30/24 <KAYLENE Duran - Last Filed: 11/30/24 09:13> Allergies erythromycin base Allergy (Verified 12/25/23 14:29) Hives Penicillins Allergy (Verified 12/25/23 14:29) Anaphylaxis shrimp Allergy (Verified 12/25/23 14:29) Hives Home Medications: Cetirizine HCl [Zyrtec] 10 mg PO DAILY 11/05/17 Spironolactone 25 mg PO M,W,F 11/05/17 Aspirin 81 mg PO BEDTIME 11/15/22 Atorvastatin Calcium [Lipitor] 40 mg PO BEDTIME 11/15/22 Brimonidine Tartrate/Timolol [Combigan 0.2%-0.5% Eye Drops] 1 drop EACH EYE BID 11/15/22 Clopidogrel Bisulfate [Plavix*] 75 mg PO DAILY 11/15/22 Difluprednate [Durezol] 2 drop EACH EYE DAILY 11/15/22 Gabapentin 600 mg PO BID 11/15/22 Hydralazine [Apresoline*] 25 mg PO BID 11/15/22 Insulin Degludec [Tresiba] 46 units SQ DAILY 11/15/22 Levothyroxine Sodium 50 mcg PO DAILY 01/16/23 calcitrioL [Rocaltrol] 25 mcg PO DAILY 12/25/23 carvediloL [Coreg] 25 mg PO BID 12/25/23 Acyclovir 800 mg PO TID 08/05/24 Cholecalciferol (Vitamin D3) [D3-5000] 5,000 iu PO DAILY 08/05/24 Netarsudil Mesylate [Rhopressa] 1 drops LEFT EYE DAILY 08/05/24 Furosemide [Lasix] 40 mg PO SEECOM 11/29/24 Review of Systems 10-point ROS is otherwise unremarkable General: Malaise Eyes: Unremarkable ENT: Unremarkable Respiratory: Shortness of Breath, SOB with Excertion Cardiovascular: Edema Gastrointestinal: Unremarkable Genitourinary: Unremarkable Musculoskeletal: Unremarkable Integumentary: Unremarkable Neurological: Unremarkable Lymphatics: Unremarkable <Ferguson,Lucille Jony - Last Filed: 11/29/24 18:25> Physical Examination - Physical Exam General: Alert, In no apparent distress, Oriented x3 HEENT: Atraumatic, Normocephalic Neck: Supple Respiratory: Normal air movement, Crackles/rales (bases, feels herself wheeze with exertion) Cardiovascular: Regular rate/rhythm, Edema Capillary refill: <2 Seconds Gastrointestinal: Normal bowel sounds Musculoskeletal: No clubbing Integumentary: No rashes Neurological: Normal speech, Normal tone, Normal affect Lymphatics: No axilla or inguinal lymphadenopathy External genitalia: Deferred Rectal: Deferred - Studies Laboratory Data (last 24 hrs) 11/29/24 11/29/24 11/29/24 13:25 13:25 13:25 WBC 8.40 Hgb 9.7 L Hct 30.1 L Plt Count 169 PT 12.9 H INR 1.16 APTT 26.7 Sodium 141 Potassium 4.1 BUN 43 H Creatinine 2.57 H Glucose 156 H Magnesium 2.1 Total Bilirubin 0.5 AST 24 ALT 28 Alkaline Phosphatase 62 Microbiology Data (last 24 hrs): 11/29/24 13:08 Nasopharnyx Influenza Type A Antigen Screen - Final 11/29/24 13:08 Nasopharnyx Influenza Type B Antigen Screen - Final <Lucille Ferguson - Last Filed: 11/29/24 18:25> - Studies Laboratory Data (last 24 hrs) 11/29/24 11/29/24 11/29/24 13:25 13:25 13:25 WBC 8.40 Hgb 9.7 L Hct 30.1 L Plt Count 169 PT 12.9 H INR 1.16 APTT 26.7 Sodium 141 Potassium 4.1 BUN 43 H Creatinine 2.57 H Glucose 156 H Magnesium 2.1 Total Bilirubin 0.5 AST 24 ALT 28 Alkaline Phosphatase 62 Microbiology Data (last 24 hrs): 11/29/24 13:08 Nasopharnyx Influenza Type A Antigen Screen - Final 11/29/24 13:08 Nasopharnyx Influenza Type B Antigen Screen - Final <KAYLENE Duran - Last Filed: 11/30/24 09:13> Assessment and Plan - Plan Decompensated heart failure with pulmonary edema with unknown ejection with mild elevation in troponin Hypertension with CAD Diabetes with CKD with anemia of chronic disease Plan: Aspirin Plavix Lovenox Beta-nena -Coreg Aggressive diuresis -Lasix 20 mg IV 3 times daily Trend troponin x 3 Strict Is & Os Monitor and trend fingerstick glucose with basal insulin and mild sliding scale insulin coverage Repeat chest x-ray Daily weight Education regarding diet and treatment of congestive heart failure VTE/GI prophylaxis Full code Discharge Plan: Home Plan to discharge in: Greater than 2 days - Advance Directives Does patient have a Living Will: Yes Does patient have a Durable POA for Healthcare: Yes - Code Status/Comfort Care Code Status Assessed: Yes (Full) Critical Care: No <Lucille Ferguson - Last Filed: 11/29/24 18:25>
[2024-11-29] MEDS: ENOXAPARIN 30 MG/0.3 ML SQ SCH (16:00)
[2024-11-29] MEDS: FUROSEMIDE 20 MG/ 2ML VIAL IV SCH ×2 (18:10→20:51)
[2024-11-29] MEDS: carvediloL 25 MG TAB PO SCH (18:10)
[2024-11-29] MEDS ORDERED: SODIUM CHLORIDE 0.9% 10ML INJ IV PRN (18:24)
[2024-11-29] MEDS ORDERED: GLUCAGON 1 MG/VIAL IM PRN (18:33)
[2024-11-29] MEDS ORDERED: D10W 125 ML IV PRN (18:33)
[2024-11-29] MEDS: IPRATROPIUM BROM 0.5MG/2.5ML ONE (20:40)
[2024-11-29] MEDS: HYDRALAZINE HCL 25 MG TABLET PO SCH (20:50)
[2024-11-29] MEDS: cloNIDine HCL 0.1 MG TAB PO SCH (20:51)
[2024-11-29] MEDS ORDERED: FUROSEMIDE 40 MG TABLET PO SCH (23:00)
[2024-11-29] MEDS: INSULIN REGULAR (HUMAN) 100 UNIT/ML SQ SCH (23:42)
[2024-11-30 04:34] LABS: Absolute Lymphocytes (CBC) 1.3 K/uL (0.7-4.9); Absolute Monocytes 1.1 K/uL (0.1-1.3); Basophils % 0.1 % (0-1.3); Hematocrit 29.3 % (36.0-45.0); Hemoglobin 9.7 g/dL (12.0-15.0); Lymphocytes % 17.8 % (15.3-44.8); MCH 28.5 pg (27.0-35.0); MCHC 33.1 g/dL (32.0-36.0); MPV 7.8 fL (7.6-11.3); Monocytes % 14.4 % (3.3-12.3); Neutrophils % 67.7 % (41.7-73.7); Nucleated Red Blood Cells % 0.1 % (0-0); Platelets 166 thou/uL (152-406)
[2024-11-30 04:46] LABS: PT Prothrombin Time 12.5 SECONDS (9.4-12.5); PTT, Activated Partial Thromb 31.4 SECONDS (24.3-36.9); Protime INR 1.12
[2024-11-30 04:56] LABS: Albumin/Globulin Ratio 0.8 (1.1-1.8); Anion Gap 8.6 mEq/L (5.0-15.0); Bilirubin Total 0.5 mg/dL (0.2-1.0); Globulin 3.8 g/dL (2.3-3.5); Magnesium 2.1 mg/dL (1.6-2.4); Phosphorus 3.2 mg/dL (2.5-4.9); Potassium 3.6 mEq/L (3.5-5.1); Protein, Total 6.8 g/dL (6.4-8.2); Troponin High Sensitivity 46.6 pg/mL (<58.9)
[2024-11-30] MEDS ORDERED: INSULIN REGULAR (HUMAN) 100 UNIT/ML SQ SCH (07:30)
[2024-11-30] MEDS: LEVOTHYROXINE SOD 0.05 MG TABLET PO SCH (07:59)
[2024-11-30] MEDS: IPRATROPIUM BROM 0.5MG/2.5ML NEB SCH (08:00)
[2024-11-30] MEDS ORDERED: CLOPIDOGREL 75 MG TABLET PO SCH (09:00)
[2024-11-30] MEDS ORDERED: ENOXAPARIN 40 MG/0.4 ML SQ SCH (09:00)
[2024-11-30] MEDS: carvediloL 12.5 MG TAB PO SCH ×2 (09:00→13:49)
[2024-11-30] MEDS ORDERED: ASPIRIN EC 81 MG TAB PO SCH (09:00)
[2024-11-30] MEDS: NETARSUDIL MESYLATE OPTH SCH (09:00)
[2024-11-30] MEDS: DIFLUPREDNATE OPTH SCH (09:00)
[2024-11-30] MEDS: POTASSIUM CL SA 10 MEQ TAB PO ONE (09:00)
[2024-11-30] MEDS ORDERED: INSULIN GLARGINE 100 UNIT/ML SQ SCH (09:00)
[2024-11-30] MEDS: HOME MED 1 EA UNK (Insulin Degludec [Tresiba] 100 UNIT/ML Vial) SQ SCH (09:00)
[2024-11-30] MEDS: CETIRIZINE HCL 5 MG TABLET PO SCH (09:49)
[2024-11-30] MEDS: PANTOPRAZOLE 40 MG INJ IVP SCH (09:49)
[2024-11-30] MEDS: CLOPIDOGREL 75 MG TABLET PO SCH (09:50)
[2024-11-30] MEDS: VITAMIN D 5,000 UNIT CAP PO SCH (09:50)
[2024-11-30] MEDS: GABAPENTIN 300 MG CAP PO SCH (09:50)
[2024-11-30] MEDS: HYDRALAZINE HCL 25 MG TABLET PO SCH (09:51)
[2024-11-30] MEDS: ACYCLOVIR 400 MG TABLET PO SCH (09:51)
[2024-11-30] MEDS: CALCITROL 0.25 MCG CAP PO SCH (10:08)
[2024-11-30] MEDS: FUROSEMIDE 20 MG/ 2ML VIAL IV SCH (11:15)
--- NOTE | 2024-11-30 13:28 | P.PN ---
Date of Service: 11/30/24 Subjective Patient feeling significantly better, well oxygenated on room air, continues with some dyspnea on exertion -exertion mostly consists of voiding status post Lasix Review of Systems 10-point ROS is otherwise unremarkable General: Malaise Eyes: Unremarkable ENT: Unremarkable Respiratory: SOB with Excertion Cardiovascular: Edema Gastrointestinal: Unremarkable Genitourinary: Unremarkable Musculoskeletal: Unremarkable Integumentary: Unremarkable Neurological: Unremarkable Lymphatics: Unremarkable Physical Examination - Physical Exam General: Alert, In no apparent distress, Oriented x3 HEENT: Atraumatic, Normocephalic Neck: Supple Respiratory: Normal air movement, Crackles/rales (bases, feels herself wheeze with exertion) Cardiovascular: Regular rate/rhythm, Edema Capillary refill: <2 Seconds Gastrointestinal: Normal bowel sounds Musculoskeletal: No clubbing Integumentary: No rashes Neurological: Normal speech, Normal tone, Normal affect Lymphatics: No axilla or inguinal lymphadenopathy External genitalia: Deferred Rectal: Deferred - Studies Laboratory Data (last 24 hrs) 11/29/24 11/29/24 11/29/24 13:25 13:25 13:25 WBC 8.40 Hgb 9.7 L Hct 30.1 L Plt Count 169 PT 12.9 H INR 1.16 APTT 26.7 Sodium 141 Potassium 4.1 BUN 43 H Creatinine 2.57 H Glucose 156 H Magnesium 2.1 Total Bilirubin 0.5 AST 24 ALT 28 Alkaline Phosphatase 62 Microbiology Data (last 24 hrs): 11/29/24 13:08 Nasopharnyx Influenza Type A Antigen Screen - Final 11/29/24 13:08 Nasopharnyx Influenza Type B Antigen Screen - Final Assessment and Plan - Plan Decompensated heart failure with pulmonary edema with unknown ejection with mild elevation in troponin Hypertension with CAD Diabetes with CKD with anemia of chronic disease Plan: Aspirin Plavix Lovenox Beta-nena -Coreg Aggressive diuresis -Lasix 20 mg IV 2 times daily Trend troponin x 3 Strict Is & Os Monitor and trend fingerstick glucose with basal insulin and mild sliding scale insulin coverage Repeat chest x-ray Daily weight Education regarding diet and treatment of congestive heart failure Continue neb tx VTE/GI prophylaxis Continue to monitor creatinine secondary to mild Lasix induced worsening of CKD. Pt is not hypoxic on room air today but is dyspneic with ambulation to bathroom. Will continue to monitor and continue lasix. Blood pressure improving. Pt temp 99.7, will continue monitoring and check RSV Full code Discharge Plan: Home Plan to discharge in: 1-2 days - Advance Directives Does patient have a Living Will: Yes Does patient have a Durable POA for Healthcare: Yes - Code Status/Comfort Care Code Status Assessed: Yes (Full) Critical Care: No
[2024-11-30] MEDS: CALCITROL 0.25 MCG CAP PO ONE (13:48)
[2024-11-30] MEDS: ATORVASTATIN 40 MG TAB PO SCH (20:43)
[2024-11-30] MEDS: ASPIRIN 81 MG CHEWABLE TABLET PO SCH (20:45)
[2024-11-30] MEDS ORDERED: carvediloL 25 MG TAB PO SCH (21:00)
[2024-12-01 04:35] VITALS: BMI 38.4
[2024-12-01 04:58] LABS: Anion Gap 7.7 mEq/L (5.0-15.0); Potassium 3.7 mEq/L (3.5-5.1)
[2024-12-01] MEDS: POTASSIUM CL SA 10 MEQ TAB PO ONE (09:13)
[2024-12-01] MEDS: CALCITROL 0.25 MCG CAP PO SCH (09:14)
[2024-12-01] MEDS: INSULIN GLARGINE 100 UNIT/ML SQ SCH (09:16)
--- NOTE | 2024-12-01 12:33 | P.DS ---
Admission Date: 11/29/24 Discharge Date: 12/01/24 Disposition: ROUTINE DISCHARGE Discharge Condition: GOOD Reason for Admission: decompensated hf, pulmonary edema, and ckd Brief History of Present Illness: Ms. Mock is a 79-year-old female with a past medical history of diabetes, diabetic retinopathy, hypertension, hyperlipidemia, hypothyroidism, and chronic kidney disease. She presented to the emergency department with a 3-day history of shortness of breath. She states this morning it got significantly worse and she went to see Dr. Wright. In his office, her O2 sats were 80% with exertional dyspnea. On evaluation in the emergency department, her BNP was about 6000 and her troponin was bumped at 59.2. Flu and COVID studies negative, patient has probable anemia of chronic disease with 9.7 and 30.1 and known CKD, stage III with a creatinine today of 2.57, BUN 43, GFR 19. She states she takes Lasix at home maybe every 3 days but was given Lasix IV in the emergency department and is feeling significantly better. We will admit her for dyspnea secondary to acute decompensated heart failure (with unknown EF), to diurese, trend troponins, and monitor chronic CKD, and diabetes. Hospital Course: Ms. Mock is feeling better with no dyspnea at rest. Exertional dyspnea is decreased and she is more comfortable. She is ambulating around the room with her cane. Edema has decreased. Renal function at baseline. She denies chest pain. She is safe for discharge with Lasix daily instead of every other day x 2 weeks. She may continue the spironolactone 3 times weekly. We will continue her at home diabetes management. She should follow-up with Dr. Wright, cardiology, and nephrology in 1 to 2 weeks. Last echo documented 08/06/2024 -ejection fraction 60 to 65%, mild MR/TR, severe pulmonary hypertension. Vital Signs/Physical Exam: Temp Pulse Resp BP Pulse Ox 98.5 F 73 12 161/76 H 93 12/01/24 08:00 12/01/24 08:00 12/01/24 08:00 12/01/24 08:00 12/01/24 08:00 General: Alert, In no apparent distress, Oriented x3 HEENT: Atraumatic, Normocephalic Neck: Supple Respiratory: Normal air movement, Crackles/rales (Bases ) Cardiovascular: Normal pulses, Regular rate/rhythm, Normal S1 S2 Capillary refill: <2 Seconds Gastrointestinal: Soft and benign, Non-distended Musculoskeletal: No clubbing, No swelling Integumentary: No rashes Neurological: Normal speech, Normal tone, Normal affect Lymphatics: No axilla or inguinal lymphadenopathy External genitalia: Deferred Rectal: Deferred Laboratory Data at Discharge: WBC 7.30 thou/uL (4.3-10.9) 11/30/24 04:19 Hgb 9.7 g/dL (12.0-15.0) L 11/30/24 04:19 Hct 29.3 % (36.0-45.0) L 11/30/24 04:19 Plt Count 166 thou/uL (152-406) 11/30/24 04:19 PT 12.5 SECONDS (9.4-12.5) 11/30/24 04:19 INR 1.12 11/30/24 04:19 APTT 31.4 SECONDS (24.3-36.9) 11/30/24 04:19 Sodium 141 mEq/L (136-145) 12/01/24 04:18 Potassium 3.7 mEq/L (3.5-5.1) 12/01/24 04:18 BUN 53 mg/dL (7-18) H 12/01/24 04:18 Creatinine 2.97 mg/dL (0.55-1.02) H 12/01/24 04:18 Glucose 141 mg/dL (74-106) H 12/01/24 04:18 Phosphorus 3.2 mg/dL (2.5-4.9) 11/30/24 04:19 Magnesium 2.1 mg/dL (1.6-2.4) 11/30/24 04:19 Total Bilirubin 0.5 mg/dL (0.2-1.0) 11/30/24 04:19 AST 20 U/L (15-37) 11/30/24 04:19 ALT 27 U/L (13-56) 11/30/24 04:19 Alkaline Phosphatase 57 U/L (45-117) 11/30/24 04:19 Triglycerides 44 mg/dL (<150) 11/30/24 04:19 Cholesterol 114 mg/dL (<200) 11/30/24 04:19 HDL Cholesterol 46 mg/dL (40-60) 11/30/24 04:19 Cholesterol/HDL Ratio 2.48 11/30/24 04:19 Home Medications: Cetirizine HCl [Zyrtec] 10 mg PO DAILY 11/05/17 Spironolactone 25 mg PO M,W,F 11/05/17 Aspirin 81 mg PO BEDTIME 11/15/22 Atorvastatin Calcium [Lipitor] 40 mg PO BEDTIME 11/15/22 Brimonidine Tartrate/Timolol [Combigan 0.2%-0.5% Eye Drops] 1 drop EACH EYE BID 11/15/22 Clopidogrel Bisulfate [Plavix*] 75 mg PO DAILY 11/15/22 Difluprednate [Durezol] 2 drop EACH EYE DAILY 11/15/22 Gabapentin 600 mg PO BID 11/15/22 Hydralazine [Apresoline*] 25 mg PO BID 11/15/22 Insulin Degludec [Tresiba] 46 units SQ DAILY 11/15/22 Levothyroxine Sodium 50 mcg PO DAILY 01/16/23 calcitrioL [Rocaltrol] 25 mcg PO DAILY 12/25/23 carvediloL [Coreg] 25 mg PO BID 12/25/23 Acyclovir 800 mg PO TID 08/05/24 Cholecalciferol (Vitamin D3) [D3-5000] 5,000 iu PO DAILY 08/05/24 Netarsudil Mesylate [Rhopressa] 1 drops LEFT EYE DAILY 08/05/24 Furosemide [Lasix] 40 mg PO DAILY #14 tab 12/01/24 New Medications: Furosemide [Lasix] 40 mg PO DAILY #14 tab Physician Discharge Instructions: Ms. Mock is feeling better with no dyspnea at rest. Exertional dyspnea is decreased and she is more comfortable. She is ambulating around the room with her cane. Edema has decreased. Renal function at baseline. She denies chest pain. She is safe for discharge with Lasix daily instead of every other day x 2 weeks. She may continue the spironolactone 3 times weekly. We will continue her at home diabetes management. She should follow-up with Dr. Wright, cardiology, and nephrology in 1 to 2 weeks. Last echo documented 08/06/2024 -ejection fraction 60 to 65%, mild MR/TR, severe pulmonary hypertension. Diet: Low sodium Activity: Fall precautions Followup: Tera Wright MD [Primary Care Provider] - Wing Matos MD [ACTIVE - CAN ADMIT] -
--- NOTE | 2024-12-01 14:19 | P.PN ---
Date of Service: 12/01/24 Subjective Patient feeling significantly better, well oxygenated on room air, no dyspnea at rest, exertional dyspnea improved. Pt up at sink for am care without difficulty Review of Systems 10-point ROS is otherwise unremarkable General: Malaise Eyes: Unremarkable ENT: Unremarkable Respiratory: SOB with Excertion Cardiovascular: states she is feeling better Gastrointestinal: Unremarkable Genitourinary: Unremarkable Musculoskeletal: Unremarkable Integumentary: Unremarkable Neurological: Unremarkable Lymphatics: Unremarkable Physical Examination - Physical Exam General: Alert, In no apparent distress, Oriented x3 HEENT: Atraumatic, Normocephalic Neck: Supple Respiratory: Normal air movement, Crackles/rales (bases) Cardiovascular: Regular rate/rhythm, no peripheral edema Capillary refill: <2 Seconds Gastrointestinal: Normal bowel sounds Musculoskeletal: No clubbing Integumentary: No rashes Neurological: Normal speech, Normal tone, Normal affect Lymphatics: No axilla or inguinal lymphadenopathy External genitalia: Deferred Rectal: Deferred - Studies Laboratory Data (last 24 hrs) 11/29/24 11/29/24 11/29/24 13:25 13:25 13:25 WBC 8.40 Hgb 9.7 L Hct 30.1 L Plt Count 169 PT 12.9 H INR 1.16 APTT 26.7 Sodium 141 Potassium 4.1 BUN 43 H Creatinine 2.57 H Glucose 156 H Magnesium 2.1 Total Bilirubin 0.5 AST 24 ALT 28 Alkaline Phosphatase 62 Microbiology Data (last 24 hrs): 11/29/24 13:08 Nasopharnyx Influenza Type A Antigen Screen - Final 11/29/24 13:08 Nasopharnyx Influenza Type B Antigen Screen - Final Assessment and Plan - Plan Decompensated heart failure with pulmonary edema with unknown ejection with mild elevation in troponin Hypertension with CAD Diabetes with CKD with anemia of chronic disease Plan: Aspirin Plavix Lovenox Beta-nena -Coreg Aggressive diuresis -Lasix 20 mg IV 2 times daily - 12/01/23 will give TID Trend troponin x 3 Strict Is & Os Monitor and trend fingerstick glucose with basal insulin and mild sliding scale insulin coverage Repeat chest x-ray Daily weight Education regarding diet and treatment of congestive heart failure Continue neb tx VTE/GI prophylaxis Continue to monitor creatinine secondary to mild Lasix induced worsening of CKD. Pt is not hypoxic on room air today and not dyspneic with ambulation to bathroom. Will continue to monitor and increase lasix. Blood pressure improving. RSV negative but pt c/o sore throat and requests lozenges. Full code Discharge Plan: Home Plan to discharge in: 1-2 days - Advance Directives Does patient have a Living Will: Yes Does patient have a Durable POA for Healthcare: Yes - Code Status/Comfort Care Code Status Assessed: Yes (Full) Critical Care: No <Lucille Ferguson - Last Filed: 12/01/24 14:15> Clinically improving on IV furosemide with resolution of her shortness of breath and peripheral edema, will continue to bolus furosemide 60 mg IV every day. <KAYLENE Duran - Last Filed: 12/01/24 17:24>
[2024-12-01] MEDS: CHLORASEPTIC LOZENGES PO PRN (15:01)
[2024-12-01] MEDS: SPIRONOLACTONE 25 MG TABLET PO SCH (16:35)
[2024-12-01] MEDS: FUROSEMIDE 20 MG/ 2ML VIAL IV SCH (18:00)
[2024-12-02] MEDS: LEVOTHYROXINE SOD 0.05 MG TABLET PO SCH (05:41)
[2024-12-02 07:11] LABS: Absolute Lymphocytes (CBC) 1.3 K/uL (0.7-4.9); Absolute Monocytes 0.9 K/uL (0.1-1.3); Absolute Neutrophil 3.7 K/uL (1.8-8.0); Basophils % 0.1 % (0-1.3); Hematocrit 26.7 % (36.0-45.0); Hemoglobin 8.9 g/dL (12.0-15.0); Lymphocytes % 21.6 % (15.3-44.8); MCH 28.5 pg (27.0-35.0); MCHC 33.3 g/dL (32.0-36.0); MCV 85.7 fL (80-100); MPV 8.1 fL (7.6-11.3); Monocytes % 15.4 % (3.3-12.3); Neutrophils % 62.9 % (41.7-73.7); Nucleated Red Blood Cells % 0.1 % (0-0); Platelets 192 thou/uL (152-406); RBC Red Blood Cell Count 3.12 M/uL (3.86-4.86); Red Cell Distribution Width 14.7 % (12.1-15.2)
[2024-12-02 07:15] LABS: Albumin 2.8 g/dL (3.4-5.0); Albumin/Globulin Ratio 0.8 (1.1-1.8); Anion Gap 9.7 mEq/L (5.0-15.0); Bilirubin Total 0.4 mg/dL (0.2-1.0); Globulin 3.6 g/dL (2.3-3.5); Magnesium 2.1 mg/dL (1.6-2.4); Potassium 3.7 mEq/L (3.5-5.1); Protein, Total 6.4 g/dL (6.4-8.2)
[2024-12-02 07:58] VITALS: O2SAT 92
[2024-12-02] MEDS: FUROSEMIDE 40 MG/4 ML VIAL IV SCH (08:46)
[2024-12-02 09:15] VITALS: BP 179/96; TEMP 98.4
--- NOTE | 2024-12-02 12:12 | EKG ---
Test Date: 2024-11-29 Test Time: 13:39:55 Polygraph Examiner: LAN MEASUREMENT RESULTS: Intervals: Rate: 69 SC: 150 QRSD: 138 QT: 482 QTc: 516 [place] [address]: P: 29 SC: 150 QRS: -21 T: 8 INTERPRETIVE STATEMENTS: Normal sinus rhythm Right bundle branch block Voltage criteria for left ventricular hypertrophy Abnormal ECG Compared to ECG 08/05/2024 16:30:29 Left ventricular hypertrophy now present Electronically Signed On 12-02-24 12:11:05 CASHIER CREDIT by Reginaldo Fernandez
[2024-12-03] MEDS ORDERED: PANTOPRAZOLE 40MG TABLET PO SCH (06:30)
== END 2024-12-02 10:11 | disposition home or self-care (01) | DRG 291 ==
LOC: ER 11:58 → ERHOLD 15:27 → 2ND 17:08
PROVIDERS: ADMIT Internal Medicine; ATTEND Internal Medicine
DX: I13.0 Hypertensive heart and chronic kidney disease with heart failure and stage 1 through stage 4 chronic kidney disease, or unspecified chronic kidney disease (principal); I50.43 Acute on chronic combined systolic (congestive) and diastolic (congestive) heart failure; N18.30 Chronic kidney disease, stage 3 unspecified; E11.22 Type 2 diabetes mellitus with diabetic chronic kidney disease; E11.319 Type 2 diabetes mellitus with unspecified diabetic retinopathy without macular edema; D63.1 Anemia in chronic kidney disease; E03.9 Hypothyroidism, unspecified; E78.00 Pure hypercholesterolemia, unspecified; K21.9 Gastro-esophageal reflux disease without esophagitis; I25.10 Atherosclerotic heart disease of native coronary artery without angina pectoris; Z94.7 Corneal transplant status; Z88.0 Allergy status to penicillin; Z79.4 Long term (current) use of insulin; Z88.1 Allergy status to other antibiotic agents; Z11.52 Encounter for screening for COVID-19; Z91.013 Allergy to seafood; Z87.891 Personal history of nicotine dependence; Z96.649 Presence of unspecified artificial hip joint; Z90.710 Acquired absence of both cervix and uterus; Z79.82 Long term (current) use of aspirin; Z79.02 Long term (current) use of antithrombotics/antiplatelets; Z79.899 Other long term (current) drug therapy; Z79.890 Hormone replacement therapy
CPT/HCPCS: 36415; 71045; 80048; 80053; 80061; 80076; 82947; 83605; 83735; 83880; 84100; 84439; 84443; 84484; 85025; 85610; 85730; 87040; 87804; 87807; 87811; 93005; 94760; 96374; 99285; J1650; J1940; J2470; J7644